=== PATIENT | female | born 1950 | race Caucasian/White ===

== ENCOUNTER → 2020-01-07 10:29 | Outpatient (BNVA) | payer MEDICARE, SELFPAY | PROVIDERS: PCP Internal Medicine; Visit Provider Surgery Vascular Surgery | DX: I73.9 Peripheral vascular disease, unspecified (principal); I65.23 Occlusion and stenosis of bilateral carotid arteries | CPT/HCPCS: 99213 ==

== ENCOUNTER → 2020-02-19 14:04 | Outpatient (BNVA) | payer MEDICARE, SELFPAY | PROVIDERS: PCP Internal Medicine; Visit Provider Nurse Practitioner | DX: K59.04 Chronic idiopathic constipation (principal); K21.9 Gastro-esophageal reflux disease without esophagitis; K29.70 Gastritis, unspecified, without bleeding; I10 Essential (primary) hypertension; F17.210 Nicotine dependence, cigarettes, uncomplicated | CPT/HCPCS: Q3014 ==

== ENCOUNTER 2020-04-27 14:07 | Emergency (ER) | payer MEDICARE, SELFPAY ==
[2020-04-27 14:36] VITALS: BP 129/60; PULSE 64; RESP 16; TEMP 36.6; O2SAT 98; BMI 30.6
[2020-04-27 16:22] VITALS: BP 114/88; PULSE 60; RESP 20; TEMP 36.6; O2SAT 98
--- NOTE | 2020-04-27 17:01 | ED.GENADULT ---
HPI - General Adult General Chief complaint: General Medical Stated complaint: nausea,headache,chest pain,dizzy Time Seen by Provider: 04/27/20 17:01 Source: patient Mode of arrival: ambulatory Limitations: no limitations History of Present Illness HPI narrative: Pleasant 69-year-old female with below past medical history presenting ambulatory via triage with complaint of states since last night has had some runny nose congestion with associated mild cough and chest pain. States that she also had body aches symptoms developed after her granddaughter who was going off to college visit her and tested positive for COVID-19. Chest pain described as a ache like myalgias in the chest and all over. No shortness of breath with exertion. Onset (ago): day(s) Radiation: non-radiation Severity: mild Associated symptoms: cough and headaches Treatments prior to arrival: none Related Data Home Medications Medication Instructions Recorded Confirmed acetaminophen 325 mg tablet 325 mg PO QID PRN 01/07/20 01/07/20 aspirin 81 mg tablet,delayed 81 mg PO DAILY 01/07/20 01/07/20 release atorvastatin 80 mg tablet 80 mg PO BEDTIME 01/07/20 01/07/20 enalapril maleate 10 mg tablet 10 mg PO DAILY 01/07/20 01/07/20 ezetimibe 10 mg tablet 10 mg PO DAILY 01/07/20 01/07/20 ezetimibe 10 mg tablet 10 mg PO DAILY 01/07/20 01/07/20 isosorbide mononitrate 30 mg 30 mg PO DAILY 01/07/20 01/07/20 tablet,extended release 24 hr lidocaine 4 % topical cream 1 applic TOPICAL TID 01/07/20 01/07/20 metoprolol succinate 50 mg 50 mg PO DAILY 01/07/20 01/07/20 tablet,extended release 24 hr ticagrelor 90 mg tablet 90 mg PO BID 01/07/20 01/07/20 Previous Rx's Medication Instructions Recorded famotidine 40 mg tablet 40 mg PO BID #60 tab 02/19/20 methylcellulose (laxative) 500 mg 500 mg PO BID #60 tab 02/19/20 tablet sennosides 8.6 mg tablet 8.6 mg PO DAILY #60 tab 02/19/20 Allergies Allergy/AdvReac Type Severity Reaction Status Date / Time No Known Allergies Allergy Verified 02/19/20 14:07 [No Known Allergies*] Review of Systems Review of Systems: Constitutional: No Weight loss, No Fever, No Chills, No Night Sweats, No Fatigue, No Malaise ENT/Mouth: No Hearing loss, No Ear Pain, No Sinus Pain, No Hoarseness, No sore throat, No Swallowing Difficulty Eyes: No Eye Pain, No Swelling, No Redness, No Foreign Body, No Discharge, No Vision Changes Cardiovascular: No Chest Pain, No Dyspnea on Exertion, No Orthopnea, No Edema, No Palpitations Respiratory: No Sputum, No Wheezing, No Smoke Exposure, No Dyspnea Gastrointestinal: No Nausea, No Vomiting, No Diarrhea, No Constipation, No abdominal Pain, No Hematochezia, No Melena Genitourinary: no irregular bleeding, No Dysuria, No Urinary Frequency, No Hematuria, No Urinary Incontinence, No Urgency, No Flank Pain, No Urinary Flow Changes, No Hesitancy Musculoskeletal: No joint pain, No Myalgias, No Joint Swelling Skin: No Skin Lesions, No rash Neuro: No Weakness, No Numbness, No Paresthesias, No Loss of Consciousness, No Dizziness Psych: No Social Issues Heme/Lymph: No Bruising, No Bleeding,No Lymphadenopathy Endocrine: No Polyuria, No Polydipsia, No Temperature Intolerance Yes all other systems are reviewed and are negative [facility] Past Medical History Medical History (Updated 04/27/20 @ 20:52 by Ish Vick NP) Carotid stenosis, asymptomatic Hypercholesteremia Hypertension PAD (peripheral artery disease) Surgical History (Updated 04/27/20 @ 14:39 by Quincy White) H/O heart artery stent History of esophagogastroduodenoscopy (EGD) Hx laparoscopic cholecystectomy Hx of colonoscopy Hx of heart artery stent Hx of lithotripsy Hx of tubal ligation Hx of varicose vein stripping Family History Family History (Updated 02/19/20 @ 14:13 by NASEEM Clements) Father Emphysema, unspecified Mother Hypertension Brother Liver cancer Daughter Alive and well Social History Social History (Updated 02/19/20 @ 14:10 by NASEEM Clements) Alcohol intake: current Alcohol intake frequency: does not drink Smoking Status: Light tobacco smoker Tobacco Type: Cigarette Advance Directives: No Advance Directives Information Provided: No Physical Exam Vital Signs: Vital Signs: Last Vital Signs Temp 98 F 04/27/20 16:22 Pulse 60 04/27/20 16:22 Resp 20 04/27/20 16:22 BP 114/88 04/27/20 16:22 Pulse Ox 98 04/27/20 16:22 Body Mass Index 30.6 Reviewed Const: General: cooperative and healthy appearing; No acute distress or intoxicated appearing Nutritional Appearance: average body habitus Orientation/consciousness: patient oriented x3 HENMT: Head: Yes normal to inspection Ears: hearing grossly normal bilaterally Eyes: General: appearance normal, both eyes and all related structures Visual Rodriguez: normal visual rodriguez by confrontation Neck: Neck: Yes normal visual inspection, No positive Brudzinski's sign, No positive Kernig's sign and No tender Thyroid: Thyroid normal Chest: Chest palpation & inspection: normal inspection of the chest Resp: Effort & Inspection: normal respiratory effort Auscultation: clear to auscultation bilaterally Cardio: Jugular venous distension: no JVD Rhythm: regular rhythm Heart sounds: S1 normal heart sound present and S2 normal heart sound present GI: Inspection: Yes normal to inspection Percussion: Yes normal to percussion Auscultation: normal bowel sounds : General: Yes no CVA tenderness Back/Spine/Pelvis: Back: no CVA tenderness Skin: General skin exam: no rashes or lesions noted Neuro: General: patient oriented x3 Extrem: General: Yes normal to inspection Course Course Course Narrative: COVID positive. Hemodynamically stable. Pulse ox 98% on room air, not tachycardic. Ambulatory status with gait. Home monitoring, precautions, return instructions clear provided. Feels comfortable plan. Stable for discharge. Medical Decision Making Lab Data Result diagrams: 04/27/20 17:47 04/27/20 17:47 Labs: Lab Results 04/27/20 04/27/20 04/27/20 Range/Units 17:47 17:47 17:47 WBC 4.4 L (4.8-10.8) X10*3/uL RBC 3.90 L (4.20-5.50) X10*6/uL Hgb 11.6 L (12.0-16.0) g/dl Hct 35.3 L (37-47) % MCV 90.5 (80-98) fL MCH 29.7 (27.0-33.0) pg MCHC 32.9 (31.0-35.0) g/dl RDW 13.4 (11.0-16.0) % Plt Count 192 (160-400) X10*3/uL MPV 10.2 (9.4-12.3) fL Immature Gran % (Auto) 1.1 H (0.0-0.4) % Neut % (Auto) 50.6 (45-73) % Lymph % (Auto) 38.3 (20-40) % [place] % (Auto) 9.3 (2-11) % Eos % (Auto) 0.5 (0-4) % Baso % (Auto) 0.2 (0-2) % Lymph # (Auto) 1.7 (1.2-4.9) X10*3/uL [place] # (Auto) 0.4 (0.1-1.2) X10*3/uL Eos # (Auto) 0.0 (0.0-0.4) X10*3/uL Baso # (Auto) 0.0 (0.0-0.2) X10*3/uL Abs Immat Gran (auto) 0.05 H (0.00-0.03) X10*3/uL Absolute Neuts (auto) 2.2 (2.0-8.3) X10*3/uL Absolute Nucleated RBC 0.000 (0.0-0.012) X10*3/uL Nucleated RBC % (auto) 0.0 (0.0-0.2) /100WBC Smear Tech's Comments VERIFIED PT 13.2 H (10.8-13.0) SEC INR 1.1 (0.9-1.1) APTT 33.1 (24.1-38.0) SEC Sodium 137 (135-145) mmol/L Potassium 4.1 (3.3-5.1) mmol/l Chloride 103 (96-108) mmol/L Carbon Dioxide 24 (22-29) mmol/L Anion Gap 14 (12-20) BUN 20 H (9-16) mg/dL Creatinine 0.82 (0.5-1.4) mg/dL Estim Creat Clear Calc 58.5 Estimated GFR > 60 Random Glucose 108 (60-115) mg/dL Calcium 8.4 (8.4-10.2) mg/dL Ferritin (10-250) ng/mL Total Bilirubin 0.5 (0.0-1.0) mg/dL AST 46 H (5-31) U/L ALT 45 H (0-31) U/L Alkaline Phosphatase 92 (39-117) U/L Lactate Dehydrogenase 296 H (122-220) U/L Troponin I High Sens (<3.5-17.0) ng/L C-Reactive Protein 1.55 H (< or = 0.50) mg/dL Total Protein 7.1 (6.5-8.0) g/dL Albumin 3.9 (3.5-5.0) g/dL Procalcitonin ng/mL Coronavirus (PCR) (Negative) Influenza Type A (PCR) (Negative) Influenza Type B (PCR) (Negative) RSV RNA Qual (PCR) (Negative) 04/27/20 04/27/20 04/27/20 Range/Units 17:47 17:47 17:47 WBC (4.8-10.8) X10*3/uL RBC (4.20-5.50) X10*6/uL Hgb (12.0-16.0) g/dl Hct (37-47) % MCV (80-98) fL MCH (27.0-33.0) pg MCHC (31.0-35.0) g/dl RDW (11.0-16.0) % Plt Count (160-400) X10*3/uL MPV (9.4-12.3) fL Immature Gran % (Auto) (0.0-0.4) % Neut % (Auto) (45-73) % Lymph % (Auto) (20-40) % [place] % (Auto) (2-11) % Eos % (Auto) (0-4) % Baso % (Auto) (0-2) % Lymph # (Auto) (1.2-4.9) X10*3/uL [place] # (Auto) (0.1-1.2) X10*3/uL Eos # (Auto) (0.0-0.4) X10*3/uL Baso # (Auto) (0.0-0.2) X10*3/uL Abs Immat Gran (auto) (0.00-0.03) X10*3/uL Absolute Neuts (auto) (2.0-8.3) X10*3/uL Absolute Nucleated RBC (0.0-0.012) X10*3/uL Nucleated RBC % (auto) (0.0-0.2) /100WBC Smear Tech's Comments PT (10.8-13.0) SEC INR (0.9-1.1) APTT (24.1-38.0) SEC Sodium (135-145) mmol/L Potassium (3.3-5.1) mmol/l Chloride (96-108) mmol/L Carbon Dioxide (22-29) mmol/L Anion Gap (12-20) BUN (9-16) mg/dL Creatinine (0.5-1.4) mg/dL Estim Creat Clear Calc Estimated GFR Random Glucose (60-115) mg/dL Calcium (8.4-10.2) mg/dL Ferritin 474 H (10-250) ng/mL Total Bilirubin (0.0-1.0) mg/dL AST (5-31) U/L ALT (0-31) U/L Alkaline Phosphatase (39-117) U/L Lactate Dehydrogenase (122-220) U/L Troponin I High Sens 8.1 (<3.5-17.0) ng/L C-Reactive Protein (< or = 0.50) mg/dL Total Protein (6.5-8.0) g/dL Albumin (3.5-5.0) g/dL Procalcitonin 0.06 ng/mL Coronavirus (PCR) (Negative) Influenza Type A (PCR) (Negative) Influenza Type B (PCR) (Negative) RSV RNA Qual (PCR) (Negative) 04/27/20 04/27/20 Range/Units 18:00 19:43 WBC (4.8-10.8) X10*3/uL RBC (4.20-5.50) X10*6/uL Hgb (12.0-16.0) g/dl Hct (37-47) % MCV (80-98) fL MCH (27.0-33.0) pg MCHC (31.0-35.0) g/dl RDW (11.0-16.0) % Plt Count (160-400) X10*3/uL MPV (9.4-12.3) fL Immature Gran % (Auto) (0.0-0.4) % Neut % (Auto) (45-73) % Lymph % (Auto) (20-40) % [place] % (Auto) (2-11) % Eos % (Auto) (0-4) % Baso % (Auto) (0-2) % Lymph # (Auto) (1.2-4.9) X10*3/uL [place] # (Auto) (0.1-1.2) X10*3/uL Eos # (Auto) (0.0-0.4) X10*3/uL Baso # (Auto) (0.0-0.2) X10*3/uL Abs Immat Gran (auto) (0.00-0.03) X10*3/uL Absolute Neuts (auto) (2.0-8.3) X10*3/uL Absolute Nucleated RBC (0.0-0.012) X10*3/uL Nucleated RBC % (auto) (0.0-0.2) /100WBC Smear Tech's Comments PT (10.8-13.0) SEC INR (0.9-1.1) APTT (24.1-38.0) SEC Sodium (135-145) mmol/L Potassium (3.3-5.1) mmol/l Chloride (96-108) mmol/L Carbon Dioxide (22-29) mmol/L Anion Gap (12-20) BUN (9-16) mg/dL Creatinine (0.5-1.4) mg/dL Estim Creat Clear Calc Estimated GFR Random Glucose (60-115) mg/dL Calcium (8.4-10.2) mg/dL Ferritin (10-250) ng/mL Total Bilirubin (0.0-1.0) mg/dL AST (5-31) U/L ALT (0-31) U/L Alkaline Phosphatase (39-117) U/L Lactate Dehydrogenase (122-220) U/L Troponin I High Sens 7.6 (<3.5-17.0) ng/L C-Reactive Protein (< or = 0.50) mg/dL Total Protein (6.5-8.0) g/dL Albumin (3.5-5.0) g/dL Procalcitonin ng/mL Coronavirus (PCR) POSITIVE A (Negative) Influenza Type A (PCR) NEGATIVE (Negative) Influenza Type B (PCR) NEGATIVE (Negative) RSV RNA Qual (PCR) NEGATIVE (Negative) Imaging Data Chest x-ray: Radiologist's impression: [address] [id number] ReportSigned Patient: Elsy Henry#: [id number]: 1950Acct:[id number]/Sex: 69 / FADM Date: 04/27/20Loc: [address]: Ordering Physician: Ish Vick NP Date of Service: 04/27/20 Procedure(s): XR chest 1V Accession Number(s): [id number] cc: Ish Vick CONTRACT COORDINATOR~ EXAMINATION: XR CHEST CLINICAL INFORMATION: Shortness of breath. Chest pain. COMPARISON: None TECHNIQUE: Frontal portable view of the chest was obtained. 1715 hours FINDINGS: No significant abnormality is noted involving the heart, lungs, mediastinum, bony thorax or soft tissues. XR/XR chest 1V IMPRESSION: Unremarkable examination. Dictated By:STARR CHOPRA MDSigned By:<Electronically signed by STARR CHOPRA MD in OV>04/27/20 1727 DD/ 1703TD/TT: Protocol Officer: GABI ECG Data Interpretation: Normal sinus rhythm Rate 80 MT interval within normal limits No acute ST segment changes Discharge Plan Discharge Clinical Impression: COVID-19 Patient Disposition: Home, Self-Care Additional Instructions: Drink plenty fluids Take medication prescribed Supportive care as discussed Self-isolation Social distancing Monitor oxygen level at home with the oxygen monitor Return to the emergency room if you have any worsening symptoms including shortness of breath or chest pain Thank you Prescriptions: No Action enalapril maleate 10 mg tablet 10 mg PO DAILY RF: 0 atorvastatin 80 mg tablet 80 mg PO BEDTIME RF: 0 ezetimibe [Zetia] 10 mg tablet 10 mg PO DAILY RF: 0 isosorbide mononitrate 30 mg tablet extended release 24 hr 30 mg PO DAILY RF: 0 metoprolol succinate 50 mg tablet extended release 24 hr 50 mg PO DAILY RF: 0 acetaminophen [Tylenol] 325 mg tablet 325 mg PO QID PRNRF: 0 Brilinta 90 mg tablet 90 mg PO BID RF: 0 aspirin 81 mg tablet,delayed release (DR/EC) 81 mg PO DAILY RF: 0 ezetimibe 10 mg tablet 10 mg PO DAILY RF: 0 lidocaine 4 % cream 1 applic topical TID RF: 0 famotidine 40 mg tablet 40 mg PO BID Qty: 60 RF: 6 sennosides [Natural Senna Laxative] 8.6 mg tablet 8.6 mg PO DAILY Qty: 60 RF: 6 Citrucel 500 mg tablet 500 mg PO BID Qty: 60 RF: 6 Referrals: Luz Dill MD [Primary Care Provider] - 5 days (PHONE VISIT)
--- NOTE | 2020-04-27 17:03 | ECG_ITS ---
Test Reason : CHEST PAIN Blood Pressure : / mmHG Vent. Rate : 060 BPM Atrial Rate : 060 BPM P-R Int : 148 ms QRS Dur : 076 ms QT Int : 458 ms P-R-T Axes : 003 048 050 degrees QTc Int : 458 ms Normal sinus rhythm Cannot rule out Anterior infarct , age undetermined Abnormal ECG No previous ECGs available Referred By: Ish Vick Electronically Signed By:Kamaljit Waterman
[2020-04-27 17:56] LABS: Basophils Percent Auto 0.2 % (0-2); Eosinophils Percent Auto 0.5 % (0-4); Hematocrit 35.3 % (37-47); Hemoglobin 11.6 g/dl (12.0-16.0); Imm Gran Abs Auto 0.05 X10*3/uL (0.00-0.03); Imm Gran Pct Auto 1.1 % (0.0-0.4); Lymphocytes Absolute Auto 1.7 X10*3/uL (1.2-4.9); Lymphocytes Percent Auto 38.3 % (20-40); MANUAL DIFF FLAG SCAN; Mean Corpuscular HGB Conc 32.9 g/dl (31.0-35.0); Mean Corpuscular Hemoglobin 29.7 pg (27.0-33.0); Mean Corpuscular Volume 90.5 fL (80-98); Mean Platelet Volume 10.2 fL (9.4-12.3); Monocytes Absolute Auto 0.4 X10*3/uL (0.1-1.2); Monocytes Percent Auto 9.3 % (2-11); Neutrophils Absolute Auto 2.2 X10*3/uL (2.0-8.3); Neutrophils Percent Auto 50.6 % (45-73); Platelet Count 192 X10*3/uL (160-400); Red Cell Distribution Width 13.4 % (11.0-16.0); SCAN SMEAR FLAG 1; White Blood Count 4.4 X10*3/uL (4.8-10.8)
[2020-04-27 18:08] LABS: INTERNATIONAL NORM RATIO 1.1 (0.9-1.1); Prothrombin Time 13.2 SEC (10.8-13.0)
[2020-04-27 18:11] LABS: Partial Thromboplastin Time 33.1 SEC (24.1-38.0)
[2020-04-27 18:18] LABS: SLIDE REVIEW VERIFIED
[2020-04-27 18:19] LABS: Alanine Aminotransferase 45 U/L (0-31); Albumin Level 3.9 g/dL (3.5-5.0); Alkaline Phosphatase 92 U/L (39-117); Anion Gap 14 (12-20); Aspartate Amino Transferase 46 U/L (5-31); Bilirubin Total 0.5 mg/dL (0.0-1.0); Blood Urea Nitrogen 20 mg/dL (9-16); C Reactive Protein 1.55 mg/dL (< or = 0.50); Calcium 8.4 mg/dL (8.4-10.2); Carbon Dioxide 24 mmol/L (22-29); Chloride 103 mmol/L (96-108); Creatinine Clr Calc Pharmacy 58.5; Estimated Glomerular Filt Rate > 60; Glucose Random 108 mg/dL (60-115); Lactate Dehydrogenase 296 U/L (122-220); Potassium 4.1 mmol/l (3.3-5.1); Sodium 137 mmol/L (135-145); Total Protein 7.1 g/dL (6.5-8.0)
[2020-04-27 18:23] LABS: Troponin-I High Sensitivity 8.1 ng/L (<3.5-17.0)
[2020-04-27 18:37] LABS: Procalcitonin 0.06 ng/mL
[2020-04-27 18:38] LABS: Ferritin 474 ng/mL (10-250)
[2020-04-27 19:14] LABS: Influenza A PCR NEGATIVE (Negative); Influenza B PCR NEGATIVE (Negative); Resp Syncy Virus RNA Qual PCR NEGATIVE (Negative); SARS COV2 PCR INHOUSE POSITIVE (Negative)
[2020-04-27 20:21] LABS: Troponin-I High Sensitivity 7.6 ng/L (<3.5-17.0)
== END 2020-04-27 20:59 | disposition home or self-care (01) ==
PROVIDERS: Nurse Practitioner Primary Care; Emergency Provider Internal Medicine; PCP Internal Medicine
DX: U07.1 COVID-19 (principal); I10 Essential (primary) hypertension; F17.210 Nicotine dependence, cigarettes, uncomplicated
CPT/HCPCS: 0241U; 36415; 71045; 80053; 82728; 83615; 84145; 84484; 85025; 85610; 85730; 86140; 93005; 99283; 99284

== ENCOUNTER 2020-05-11 13:55 | Outpatient (REF) | payer MEDICARE, SELFPAY | END 2020-05-11 13:56 | disposition home or self-care (01) | LOC: HO.LAB 13:55 | PROVIDERS: Visit Provider Internal Medicine | DX: Z20.822 Contact with and (suspected) exposure to COVID-19 (principal) | CPT/HCPCS: 36415; C9803; U0003; U0005 ==

== ENCOUNTER 2020-05-14 15:30 | Outpatient (REF) | payer MEDICARE, SELFPAY ==
--- NOTE | ~2020-05-14 | MM_ITS ---
EXAMINATION: MM SCREENING DIGITAL BREAST TOMOSYNTHESIS, BILATERAL CLINICAL INFORMATION: Screening. Asymptomatic. Benign right stereotactic biopsy 02/09/2018 (fibroadenoma with dystrophic calcifications). The lifetime risk of breast cancer based on the Tyrer-Cuzick Model is 4%. COMPARISON: Mammography: 02/25/2019, 02/09/2018, 12/28/2017, 12/14/2017 TECHNIQUE: Digital breast tomosynthesis is performed in both the craniocaudal and mediolateral oblique views along with computer-aided detection (CAD). Synthesized 2D images are generated from the tomosynthesis. FINDINGS: The breasts are heterogeneously dense, which may obscure small masses (ACR BI-RADS breast composition Category c). There is fine fibronodular parenchymal pattern similar to prior studies. No developing density, significant mass, architectural abnormality. No abnormal calcifications. There are 2 biopsy clip markers right breast. No significant changes. MM/MM tomosynthesis screening BI IMPRESSION: No mammographic evidence of malignancy. ASSESSMENT: BI-RADS 2: Benign RECOMMENDATION: Routine annual mammography screening. This patient's information was entered into a reminder system with a target due date for their next mammogram.
== END 2020-05-14 15:31 | disposition home or self-care (01) ==
LOC: HO.MAMMO 15:30
PROVIDERS: Visit Provider Internal Medicine
DX: Z12.31 Encounter for screening mammogram for malignant neoplasm of breast (principal)
CPT/HCPCS: 77063; 77067

== ENCOUNTER → 2020-05-27 09:44 | Outpatient (BNVA) | payer MEDICARE, SELFPAY | PROVIDERS: PCP Internal Medicine; Visit Provider Internal Medicine | DX: I25.10 Atherosclerotic heart disease of native coronary artery without angina pectoris (principal); I73.9 Peripheral vascular disease, unspecified; I10 Essential (primary) hypertension; I65.23 Occlusion and stenosis of bilateral carotid arteries; E78.5 Hyperlipidemia, unspecified | CPT/HCPCS: 99212 ==

== ENCOUNTER 2020-06-09 08:56 | Outpatient (REF) | payer MEDICARE, SELFPAY ==
--- NOTE | ~2020-06-09 | US_ITS ---
EXAMINATION: US ABDOMEN COMPLETE CLINICAL INFORMATION: Abnormal LFTs. Liver mass. COMPARISON: CT abdomen pelvis 10/22/2017. Ultrasound abdomen 04/21/2015. TECHNIQUE: Real-time imaging of the abdominal viscera. FINDINGS: PANCREAS: Visualized portions unremarkable. ABDOMINAL AORTA: Visualized portions unremarkable. INFERIOR VENA CAVA: Visualized portions unremarkable. LIVER: Diffuse increased echotexture without focal abnormality. GALLBLADDER: Surgically absent. COMMON BILE DUCT: Normal in caliber measuring 0.8 cm in diameter. RIGHT KIDNEY: 10.9 cm. Unremarkable. LEFT KIDNEY: 11.1 cm. Unremarkable. SPLEEN: 7.2 cm without focal abnormality. FREE FLUID: None. US/US abdomen complete IMPRESSION: Hepatic steatosis without other significant abnormality in a patient status post cholecystectomy.
--- NOTE | ~2020-06-09 | MM_ITS ---
EXAMINATION: BONE DENSITOMETRY CLINICAL INDICATION: Screening for osteoporosis. COMPARISON: Previous BD dated 12/24/2017 and baseline BD dated 09/25/2014. TECHNIQUE: Using a [employer] Interactive DXA System (software version: 13.1) manufactured by [employer], dual-energy x-ray absorptiometry was performed of the lumbar spine and left hip. The images are of good technical quality. Summary results are attached. FINDINGS: AP SPINE L1-L4: Current: BMD 1.248 g/cm2, Z-score 1.8, T-score 0.6, normal, 6.6% increase from previous, 8.0% increase from baseline (<5% change is not significant). Prior: BMD 1.171 g/cm2. Baseline: BMD 1.156 g/cm2. LEFT FEMUR, NECK: Current: BMD 0.900 g/cm2, Z-score 0.4, T-score -1.0, normal. Prior: BMD 0.880 g/cm2. Baseline: BMD 0.910 g/cm2. LEFT FEMUR, TOTAL: Current: BMD 0.976 g/cm2, Z-score 0.9, T-score -0.3, normal, 3.8% increase from previous, 0.2% increase from baseline (<5% change is not significant). Prior: BMD 0.940 g/cm2. Baseline: BMD 0.974 g/cm2. IDENTIFIED RISK FACTORS: Early menopause, secondary osteoporosis. HISTORY OF FRACTURE: None listed. MEDICATIONS: Calcium supplements or multivitamin, vitamin D. MM/XR DEXA axial skeleton IMPRESSION: 1. DIAGNOSIS: Normal bone density based on the lowest T-score value of -1.0 in the femoral neck applying World Health Organization criteria. 2. 10-YEAR FRACTURE RISK PREDICTION, FRAX: Major osteoporotic fracture (clinical spine, forearm, hip or shoulder) 4.7%. Hip fracture 0.5%. 3. Treatment Recommendations: NOF guidelines recommend consideration for treatment in postmenopausal women and men age 50 and older presenting with the following: -A hip or vertebral (clinical or morphometric) fracture. -T-score less than or equal to -2.5 at the femoral neck or spine after appropriate evaluation to exclude secondary causes. -Low bone mass at the hip or spine and a 10-year fracture probability by FRAX of greater than or equal to 3% for hip fracture or greater than or equal to 20% for major osteoporotic fracture based on the [place] adapted WHO algorithm. 4. Other Recommendations: All treatment decisions require clinical judgment and consideration of individual patient factors, including patient preferences, comorbidities, previous drug use, risk factors not captured in the FRAX model (e.g. frailty, falls, vitamin D deficiency, increased bone turnover, interval significant decline in bone density) and possible under or overestimation of fracture risk by FRAX. FUTURE SCAN RECOMMENDATION: People with diagnosed cases of osteoporosis or at high risk for fracture should have regular bone mineral density tests. For patients eligible for Medicare, routine testing is allowed once every 2 years. The testing frequency can be increased to one year for patients who have rapidly progressing disease, those who are receiving or discontinuing medical therapy to restore bone mass, or have additional risk factors.
== END 2020-06-09 08:57 | disposition home or self-care (01) ==
LOC: HO.US 08:56
PROVIDERS: PCP Internal Medicine; Visit Provider Internal Medicine
DX: Z13.820 Encounter for screening for osteoporosis (principal); Z78.0 Asymptomatic menopausal state; Z79.899 Other long term (current) drug therapy; R16.0 Hepatomegaly, not elsewhere classified; R79.89 Other specified abnormal findings of blood chemistry; M19.90 Unspecified osteoarthritis, unspecified site
CPT/HCPCS: 76700; 77080

== ENCOUNTER 2020-06-22 16:30 | Emergency (ER) | payer MEDICARE, SELFPAY ==
[2020-06-22] VITALS (7 sets, daily range): BP systolic 88–117; BP diastolic 39–65; PULSE 64–76; RESP 16–18; TEMP 36.7; O2SAT 96–97; BMI 32.1
--- NOTE | 2020-06-22 17:48 | ECG_ITS ---
Test Reason : HYPOTENSIVE Blood Pressure : / mmHG Vent. Rate : 066 BPM Atrial Rate : 066 BPM P-R Int : 174 ms QRS Dur : 078 ms QT Int : 446 ms P-R-T Axes : 064 063 077 degrees QTc Int : 467 ms Normal sinus rhythm Nonspecific T wave abnormality Abnormal ECG When compared with ECG of 27-APR-2020 14:17, Nonspecific T wave abnormality now evident in Anterolateral leads Referred By: Berny Cancino Electronically Signed By:TALI EPSTEIN
--- NOTE | 2020-06-22 17:48 | ED.GENADULT ---
HPI - General Adult General Chief complaint: Dizziness Stated complaint: low bp Time Seen by Provider: 06/22/20 17:40 Source: patient and family Mode of arrival: ambulatory Limitations: no limitations History of Present Illness HPI narrative: Patient history of hypertension doing fine missed her medication for blood pressure in the morning so she took it around 1400 which includes enalapril 10 mg and metoprolol 50 mg also she took her Imdur 30 mg within an hour of taking the medication patient was feeling dizzy lightheaded [employer] check the blood pressure was 60/40 then patient had abdominal cramping had 2 big bowel movements nauseated and vomited 1 time at this time patient is feeling weak no significant abdominal pain no chest pain no palpitation patient was COVID positive on 04/27/20 Onset (ago): hour(s) Related Data Home Medications Medication Instructions Recorded Confirmed acetaminophen 325 mg tablet 325 mg PO QID PRN 01/07/20 05/27/20 aspirin 81 mg tablet,delayed 81 mg PO DAILY 01/07/20 05/27/20 release atorvastatin 80 mg tablet 80 mg PO BEDTIME 01/07/20 05/27/20 enalapril maleate 10 mg tablet 10 mg PO DAILY 01/07/20 05/27/20 ezetimibe 10 mg tablet 10 mg PO DAILY 01/07/20 05/27/20 isosorbide mononitrate 30 mg 30 mg PO DAILY 01/07/20 05/27/20 tablet,extended release 24 hr lidocaine 4 % topical cream 1 applic TOPICAL TID 01/07/20 05/27/20 metoprolol succinate 50 mg 50 mg PO DAILY 01/07/20 05/27/20 tablet,extended release 24 hr Previous Rx's Medication Instructions Recorded famotidine 40 mg tablet 40 mg PO BID #60 tab 02/19/20 methylcellulose (laxative) 500 mg 500 mg PO BID #60 tab 02/19/20 tablet sennosides 8.6 mg tablet 8.6 mg PO DAILY #60 tab 02/19/20 Allergies Allergy/AdvReac Type Severity Reaction Status Date / Time No Known Allergies Allergy Verified 02/19/20 14:07 [No Known Allergies*] Review of Systems Review of Systems: Constitutional : No Weight loss, No Fever, No Chills ENT/Mouth : No sore throat, No Rhinorrhea Eyes: No Eye Pain, No Swelling Cardiovascular : No Chest Pain, no palpitations Respiratory : No Cough, No Sputum, no shortness of breath Gastrointestinal : + Nausea, + Vomiting, No Diarrhea, No abdominal Pain, no black stools Genitourinary : No Dysuria, No Urinary Frequency Musculoskeletal : No joint pain, No Myalgias, No Joint Swelling Skin : No Skin Lesions, No rash Neuro : ++Weakness, No Numbness, + Dizziness, No Headache Psych : No Anxiety/Panic, No Depression Heme/Lymph: No Bruising, No Lymphadenopathy Endocrine : No Polyuria, No Polydipsia All other systems reviewed and are negative [facility] Past Medical History Medical History Atherosclerotic cardiovascular disease Carotid stenosis, asymptomatic Essential hypertension Hypercholesteremia Hypertension Other and unspecified hyperlipidemia PAD (peripheral artery disease) Peripheral vascular disease Surgical History H/O heart artery stent History of esophagogastroduodenoscopy (EGD) Hx laparoscopic cholecystectomy Hx of colonoscopy Hx of heart artery stent Hx of lithotripsy Hx of tubal ligation Hx of varicose vein stripping Family History Family History Father Emphysema, unspecified Mother Hypertension Brother Liver cancer Daughter Alive and well Social History Social History Alcohol intake: current Alcohol intake frequency: does not drink Smoking Status: Former smoker Tobacco Type: Cigarette Smoked in Last 30 Days: No Use of substances other than those prescribed or required for medical reasons: No Advance Directives: No Advance Directives Information Provided: Yes Physical Exam Vital Signs: Vital Signs: Last Vital Signs Temp 98.0 F 06/22/20 17:03 Pulse 64 06/22/20 21:01 Resp 18 06/22/20 17:58 BP 108/57 L 06/22/20 21:01 Pulse Ox 97 06/22/20 17:58 Body Mass Index 32.1 Appearance: Alert. Oriented X3. No acute distress. Feels weak Eyes: Pupils equal, round and reactive to light. ENT: Pharynx normal. Neck: Normal inspection. Neck supple. CVS: Normal heart rate and rhythm. Pulses normal. Respiratory: No respiratory distress. Breath sounds normal. Abdomen: Soft and nontender. Bowel sounds are present, no mass palpable, no CVA tenderness Skin: Skin warm and dry. Normal skin color. Normal skin turgor. Extremities: No lower extremity edema. Neuro: Oriented X 3. No motor deficit. No sensory deficit. Medical Decision Making MDM Narrative Medical decision making narrative: Patient with some weakness with hypotension etiology not very clear patient denied extra dose of medication ? Possible vasovagal with abdominal cramping will give her IV fluids check the labs Repeat orthostatics are normal after IV fluids normal lactic acid blood cultures were done, UA is negative will discharge patient home Lab Data Lab results reviewed: Yes I reviewed the patient's lab results. Result diagrams: 06/22/20 18:09 06/22/20 18:54 Labs: Lab Results 06/22/20 06/22/20 06/22/20 Range/Units 18:09 18:09 18:09 WBC 12.3 H (4.8-10.8) X10*3/uL RBC 3.93 L (4.20-5.50) X10*6/uL Hgb 12.0 (12.0-16.0) g/dl Hct 36.0 L (37-47) % MCV 91.6 (80-98) fL MCH 30.5 (27.0-33.0) pg MCHC 33.3 (31.0-35.0) g/dl RDW 13.2 (11.0-16.0) % Plt Count 282 D (160-400) X10*3/uL MPV 9.9 (9.4-12.3) fL Immature Gran % (Auto) 0.7 H (0.0-0.4) % Neut % (Auto) 74.5 H (45-73) % Lymph % (Auto) 16.3 L (20-40) % [place] % (Auto) 6.3 (2-11) % Eos % (Auto) 1.5 (0-4) % Baso % (Auto) 0.7 (0-2) % Lymph # (Auto) 2.0 (1.2-4.9) X10*3/uL [place] # (Auto) 0.8 (0.1-1.2) X10*3/uL Eos # (Auto) 0.2 (0.0-0.4) X10*3/uL Baso # (Auto) 0.1 (0.0-0.2) X10*3/uL Abs Immat Gran (auto) 0.09 H (0.00-0.03) X10*3/uL Absolute Neuts (auto) 9.1 H (2.0-8.3) X10*3/uL Absolute Nucleated RBC 0.020 H (0.0-0.012) X10*3/uL Nucleated RBC % (auto) 0.2 (0.0-0.2) /100WBC PT 13.1 H (10.8-13.0) SEC INR 1.1 (0.9-1.1) Sodium (135-145) mmol/L Potassium (3.3-5.1) mmol/L Chloride (96-108) mmol/L Carbon Dioxide (22-29) mmol/L Anion Gap (12-20) BUN (9-16) mg/dL Creatinine (0.5-1.4) mg/dL Estim Creat Clear Calc Estimated GFR POC Glucose (60-115) mg/dL Random Glucose (60-115) mg/dL Lactic Acid 1.9 (0.5-2.0) mmol/L Calcium (8.4-10.2) mg/dL Total Bilirubin (0.0-1.0) mg/dL Direct Bilirubin (0.0-0.5) mg/dL AST (5-31) U/L ALT (0-31) U/L Alkaline Phosphatase (39-117) U/L Troponin I High Sens (<3.5-17.0) ng/L Total Protein (6.5-8.0) g/dL Albumin (3.5-5.0) g/dL Urine Color Urine Appearance Urine pH (5.0-8.0) Ur Specific [place] (1.005-1.025) Urine Protein (NEG-TRACE) MG/DL Urine Glucose (UA) (NEG) MG/DL Urine Ketones (NEG) MG/DL Urine Blood (NEG) Urine Nitrite (NEG) Ur Leukocyte Esterase (NEG) 06/22/20 06/22/20 06/22/20 Range/Units 18:09 18:23 18:54 WBC (4.8-10.8) X10*3/uL RBC (4.20-5.50) X10*6/uL Hgb (12.0-16.0) g/dl Hct (37-47) % MCV (80-98) fL MCH (27.0-33.0) pg MCHC (31.0-35.0) g/dl RDW (11.0-16.0) % Plt Count (160-400) X10*3/uL MPV (9.4-12.3) fL Immature Gran % (Auto) (0.0-0.4) % Neut % (Auto) (45-73) % Lymph % (Auto) (20-40) % [place] % (Auto) (2-11) % Eos % (Auto) (0-4) % Baso % (Auto) (0-2) % Lymph # (Auto) (1.2-4.9) X10*3/uL [place] # (Auto) (0.1-1.2) X10*3/uL Eos # (Auto) (0.0-0.4) X10*3/uL Baso # (Auto) (0.0-0.2) X10*3/uL Abs Immat Gran (auto) (0.00-0.03) X10*3/uL Absolute Neuts (auto) (2.0-8.3) X10*3/uL Absolute Nucleated RBC (0.0-0.012) X10*3/uL Nucleated RBC % (auto) (0.0-0.2) /100WBC PT (10.8-13.0) SEC INR (0.9-1.1) Sodium 140 (135-145) mmol/L Potassium 4.8 (3.3-5.1) mmol/L Chloride 103 (96-108) mmol/L Carbon Dioxide 27 (22-29) mmol/L Anion Gap 15 (12-20) BUN 25 H (9-16) mg/dL Creatinine 1.19 (0.5-1.4) mg/dL Estim Creat Clear Calc 40.7 Estimated GFR 45 POC Glucose 121 H (60-115) mg/dL Random Glucose 124 H (60-115) mg/dL Lactic Acid (0.5-2.0) mmol/L Calcium 9.2 D (8.4-10.2) mg/dL Total Bilirubin 0.6 (0.0-1.0) mg/dL Direct Bilirubin 0.2 (0.0-0.5) mg/dL AST 18 D (5-31) U/L ALT 16 (0-31) U/L Alkaline Phosphatase 62 D (39-117) U/L Troponin I High Sens 4.9 (<3.5-17.0) ng/L Total Protein 7.4 (6.5-8.0) g/dL Albumin 4.1 (3.5-5.0) g/dL Urine Color Urine Appearance Urine pH (5.0-8.0) Ur Specific [place] (1.005-1.025) Urine Protein (NEG-TRACE) MG/DL Urine Glucose (UA) (NEG) MG/DL Urine Ketones (NEG) MG/DL Urine Blood (NEG) Urine Nitrite (NEG) Ur Leukocyte Esterase (NEG) 06/22/20 Range/Units 20:43 WBC (4.8-10.8) X10*3/uL RBC (4.20-5.50) X10*6/uL Hgb (12.0-16.0) g/dl Hct (37-47) % MCV (80-98) fL MCH (27.0-33.0) pg MCHC (31.0-35.0) g/dl RDW (11.0-16.0) % Plt Count (160-400) X10*3/uL MPV (9.4-12.3) fL Immature Gran % (Auto) (0.0-0.4) % Neut % (Auto) (45-73) % Lymph % (Auto) (20-40) % [place] % (Auto) (2-11) % Eos % (Auto) (0-4) % Baso % (Auto) (0-2) % Lymph # (Auto) (1.2-4.9) X10*3/uL [place] # (Auto) (0.1-1.2) X10*3/uL Eos # (Auto) (0.0-0.4) X10*3/uL Baso # (Auto) (0.0-0.2) X10*3/uL Abs Immat Gran (auto) (0.00-0.03) X10*3/uL Absolute Neuts (auto) (2.0-8.3) X10*3/uL Absolute Nucleated RBC (0.0-0.012) X10*3/uL Nucleated RBC % (auto) (0.0-0.2) /100WBC PT (10.8-13.0) SEC INR (0.9-1.1) Sodium (135-145) mmol/L Potassium (3.3-5.1) mmol/L Chloride (96-108) mmol/L Carbon Dioxide (22-29) mmol/L Anion Gap (12-20) BUN (9-16) mg/dL Creatinine (0.5-1.4) mg/dL Estim Creat Clear Calc Estimated GFR POC Glucose (60-115) mg/dL Random Glucose (60-115) mg/dL Lactic Acid (0.5-2.0) mmol/L Calcium (8.4-10.2) mg/dL Total Bilirubin (0.0-1.0) mg/dL Direct Bilirubin (0.0-0.5) mg/dL AST (5-31) U/L ALT (0-31) U/L Alkaline Phosphatase (39-117) U/L Troponin I High Sens (<3.5-17.0) ng/L Total Protein (6.5-8.0) g/dL Albumin (3.5-5.0) g/dL Urine Color YELLOW Urine Appearance CLEAR Urine pH 5.5 (5.0-8.0) Ur Specific [place] 1.010 (1.005-1.025) Urine Protein TRACE (NEG-TRACE) MG/DL Urine Glucose (UA) NEG (NEG) MG/DL Urine Ketones NEG (NEG) MG/DL Urine Blood NEG (NEG) Urine Nitrite NEG (NEG) Ur Leukocyte Esterase NEG (NEG) ECG Data Attestation: I personally reviewed and interpreted this ECG as follows: Interpretation: Normal sinus rhythm heart rate 66 beats per minute nonspecific ST T wave changes normal axis normal intervals impression no acute ischemia Discharge Plan Discharge Clinical Impression: Vasovagal episode Patient Disposition: Home, Self-Care Instructions: Hypotension (ED) Additional Instructions: Check blood pressure before taking the medication your transient low blood pressure is likely from vasovagal episode. Drink plenty of fluid Report to the ER if high fever or low blood pressure continues Prescriptions: No Action enalapril maleate 10 mg tablet 10 mg PO DAILY RF: 0 atorvastatin 80 mg tablet 80 mg PO BEDTIME RF: 0 ezetimibe [Zetia] 10 mg tablet 10 mg PO DAILY RF: 0 isosorbide mononitrate 30 mg tablet extended release 24 hr 30 mg PO DAILY RF: 0 metoprolol succinate 50 mg tablet extended release 24 hr 50 mg PO DAILY RF: 0 acetaminophen [Tylenol] 325 mg tablet 325 mg PO QID PRNRF: 0 aspirin 81 mg tablet,delayed release (DR/EC) 81 mg PO DAILY RF: 0 lidocaine 4 % cream 1 applic topical TID RF: 0 famotidine 40 mg tablet 40 mg PO BID Qty: 60 RF: 6 sennosides [Natural Senna Laxative] 8.6 mg tablet 8.6 mg PO DAILY Qty: 60 RF: 6 Citrucel 500 mg tablet 500 mg PO BID Qty: 60 RF: 6 Stand Alone Forms: Work/School Release Interventions: ED Discharge Assessment Last Done: 06/22/20 21:42 Discharge Date/Time: 06/22/20 21:43
[2020-06-22 18:15] LABS: Basophils Absolute Auto 0.1 X10*3/uL (0.0-0.2); Basophils Percent Auto 0.7 % (0-2); Eosinophils Absolute Auto 0.2 X10*3/uL (0.0-0.4); Eosinophils Percent Auto 1.5 % (0-4); Imm Gran Abs Auto 0.09 X10*3/uL (0.00-0.03); Imm Gran Pct Auto 0.7 % (0.0-0.4); Lymphocytes Percent Auto 16.3 % (20-40); MANUAL DIFF FLAG NO; Mean Corpuscular HGB Conc 33.3 g/dl (31.0-35.0); Mean Corpuscular Hemoglobin 30.5 pg (27.0-33.0); Mean Corpuscular Volume 91.6 fL (80-98); Mean Platelet Volume 9.9 fL (9.4-12.3); Monocytes Absolute Auto 0.8 X10*3/uL (0.1-1.2); Monocytes Percent Auto 6.3 % (2-11); NRBC Pct Auto 0.2 /100WBC (0.0-0.2); Neutrophils Absolute Auto 9.1 X10*3/uL (2.0-8.3); Neutrophils Percent Auto 74.5 % (45-73); Platelet Count 282 X10*3/uL (160-400); Red Blood Count 3.93 X10*6/uL (4.20-5.50); Red Cell Distribution Width 13.2 % (11.0-16.0); White Blood Count 12.3 X10*3/uL (4.8-10.8)
[2020-06-22] MEDS: ondansetron HCL 4 MG/2 ML VIAL IVPUSH (18:27)
[2020-06-22] MEDS: 0.9 % Sodium Chloride 1,000 ML 999 ML IVCONT (18:27)
[2020-06-22 18:28] LABS: Glucose, Whole Blood 121 mg/dL (60-115)
[2020-06-22 18:30] LABS: Lactic Acid 1.9 mmol/L (0.5-2.0)
--- NOTE | 2020-06-22 18:30 | PC.NURSE ---
Kang contacted for redraw on chemistry. Swapna from lab confirmed that phlebotomy would be sent.
[2020-06-22 18:41] LABS: Troponin-I High Sensitivity 4.9 ng/L (<3.5-17.0)
[2020-06-22 18:47] LABS: INTERNATIONAL NORM RATIO 1.1 (0.9-1.1); Prothrombin Time 13.1 SEC (10.8-13.0)
[2020-06-22 19:37] LABS: Alanine Aminotransferase 16 U/L (0-31); Albumin Level 4.1 g/dL (3.5-5.0); Alkaline Phosphatase 62 U/L (39-117); Anion Gap 15 (12-20); Aspartate Amino Transferase 18 U/L (5-31); Bilirubin Direct 0.2 mg/dL (0.0-0.5); Bilirubin Total 0.6 mg/dL (0.0-1.0); Blood Urea Nitrogen 25 mg/dL (9-16); Calcium 9.2 mg/dL (8.4-10.2); Carbon Dioxide 27 mmol/L (22-29); Chloride 103 mmol/L (96-108); Creatinine Clr Calc Pharmacy 40.7; Estimated Glomerular Filt Rate 45; Glucose Random 124 mg/dL (60-115); Potassium 4.8 mmol/L (3.3-5.1); Sodium 140 mmol/L (135-145); Total Protein 7.4 g/dL (6.5-8.0)
[2020-06-22 20:55] LABS: Glucose Urine UA NEG (NEG); Leukocyte Esterase Urine NEG (NEG); Nitrite Urine NEG (NEG); PH 5.5 (5.0-8.0); Urine Blood NEG (NEG); Urine Ketones NEG (NEG); Urine Protein TRACE MG/DL (NEG-TRACE)
[2020-06-22 21:00] LABS: Appearance Urine CLEAR; Color Urine YELLOW
== END 2020-06-22 21:43 | disposition home or self-care (01) ==
PROVIDERS: Emergency Provider Internal Medicine; PCP Internal Medicine
DX: R42 Dizziness and giddiness (principal); I10 Essential (primary) hypertension; Z79.899 Other long term (current) drug therapy; Z86.16 Personal history of COVID-19; Z87.891 Personal history of nicotine dependence; Z79.82 Long term (current) use of aspirin
CPT/HCPCS: 36415; 80048; 80076; 81003; 82947; 83605; 84484; 85025; 85610; 87040; 93005; 96365; 96366; 96375; 99284; J2405

== ENCOUNTER 2020-07-02 09:28 | Outpatient (REF) | payer MEDICARE, SELFPAY ==
--- NOTE | ~2020-07-02 | XR_ITS ---
EXAMINATION: XR CHEST CLINICAL INFORMATION: Shortness of breath COMPARISON: 04/27/2020 TECHNIQUE: 2 views of the chest were obtained. FINDINGS: The lungs are well expanded. There is no focal consolidation, edema, or effusion. No pneumothorax. The cardiomediastinal silhouette is within normal limits. No acute osseous abnormality. XR/XR chest 2V IMPRESSION: Clear lungs.
[2020-07-02 10:58] LABS: MANUAL DIFF FLAG NO
[2020-07-02 11:08] LABS: Basophils Absolute Auto 0.1 X10*3/uL (0.0-0.2); Basophils Percent Auto 0.8 % (0-2); Eosinophils Absolute Auto 0.4 X10*3/uL (0.0-0.4); Eosinophils Percent Auto 4.1 % (0-4); Hematocrit 37.3 % (37-47); Hemoglobin 11.9 g/dl (12.0-16.0); Imm Gran Abs Auto 0.04 X10*3/uL (0.00-0.03); Imm Gran Pct Auto 0.5 % (0.0-0.4); Lymphocytes Absolute Auto 2.7 X10*3/uL (1.2-4.9); Lymphocytes Percent Auto 31.2 % (20-40); Mean Corpuscular HGB Conc 31.9 g/dl (31.0-35.0); Mean Corpuscular Hemoglobin 29.6 pg (27.0-33.0); Mean Corpuscular Volume 92.8 fL (80-98); Mean Platelet Volume 10.1 fL (9.4-12.3); Monocytes Absolute Auto 0.7 X10*3/uL (0.1-1.2); Monocytes Percent Auto 8.1 % (2-11); Neutrophils Absolute Auto 4.7 X10*3/uL (2.0-8.3); Neutrophils Percent Auto 55.3 % (45-73); Platelet Count 291 X10*3/uL (160-400); Red Blood Count 4.02 X10*6/uL (4.20-5.50); Red Cell Distribution Width 13.3 % (11.0-16.0); White Blood Count 8.6 X10*3/uL (4.8-10.8)
[2020-07-02 11:57] LABS: Alanine Aminotransferase 16 U/L (0-31); Albumin Level 4.3 g/dL (3.5-5.0); Alkaline Phosphatase 65 U/L (39-117); Aspartate Amino Transferase 16 U/L (5-31); Bilirubin Direct 0.2 mg/dL (0.0-0.5); Bilirubin Total 0.5 mg/dL (0.0-1.0); Cholesterol 188 mg/dL; HDL Cholesterol 44 mg/dL; LDL Cholesterol Calculated 119 mg/dl; Triglycerides 129 mg/dL
== END 2020-07-02 09:29 | disposition home or self-care (01) ==
LOC: HO.LAB 09:28
PROVIDERS: PCP Internal Medicine; Visit Provider Internal Medicine
DX: R06.02 Shortness of breath (principal); R79.89 Other specified abnormal findings of blood chemistry
CPT/HCPCS: 36415; 71046; 80061; 80076; 85025

== ENCOUNTER 2020-07-14 09:34 | Outpatient (REF) | payer MEDICARE, SELFPAY ==
--- NOTE | ~2020-07-14 | US_ITS ---
EXAMINATION: US NONINVASIVE ASSESSMENT OF THE BILATERAL LOWER EXTREMITY WITH ARTERIAL DUPLEX AND ANKLE BRACHIAL INDICES (ABIS) CLINICAL INFORMATION: Hypertension, hyperlipidemia, diabetes, history of bypass graft in 2014 COMPARISON: Bilateral lower extremity duplex and TYLER on 12/23/2019 TECHNIQUE: Duplex Doppler techniques with waveform analysis and measurement of velocities in the common femoral, profunda femoris, superficial femoral, popliteal and tibial arteries were performed. In addition, ankle pulse volume recordings, ankle pressure measurements and ankle brachial indices were obtained of the bilateral lower extremity arterial system. The study was performed only at rest. FINDINGS: NONINVASIVE ASSESSMENT OF THE ARTERIES OF BILATERAL LOWER EXTREMITIES WITH ABIs: RIGHT LEG: Ankle-brachial index: 0.59 Ankle PVR: Significantly dampened LEFT LEG: Ankle-brachial index: 0.88 Left ankle PVR: Normal TYLER Reference: 0.9 - 1.4 = normal - no significant arterial disease 0.7 - 0.89 = mild peripheral arterial disease 0.51 - 0.69 = moderate peripheral arterial disease ? 0.50 = severe peripheral arterial disease RIGHT LOWER EXTREMITY DUPLEX ULTRASOUND: Redemonstration of an occluded bypass graft from the right external iliac artery to the superficial femoral artery. There is a second bypass graft extending from the mid/distal superficial femoral artery to the posterior tibial artery. Common femoral artery: 98.2 cm/s. Diastolic flow reversal: Yes Profunda femoris artery: 90.9 cm/s. Diastolic flow reversal: No Superficial femoral artery (proximal): Occluded Superficial femoral artery (mid): Occluded Superficial femoral artery (distal): Occluded Monophasic flow throughout the mid SFA to proximal posterior tibial artery bypass graft. Popliteal artery: 42.8 cm/s Diastolic flow reversal: None Posterior tibial artery: 45 cm/s Diastolic flow reversal: No LEFT LOWER EXTREMITY DUPLEX ULTRASOUND: Common femoral artery: 141 cm/s. Diastolic flow reversal: Yes Profunda femoris artery: 51 cm/s. Diastolic flow reversal: No Superficial femoral artery (proximal): 124 cm/s. Diastolic flow reversal: Yes Superficial femoral artery (mid): 81 cm/s. Diastolic flow reversal: Yes Superficial femoral artery (distal): 109 cm/s. Diastolic flow reversal: Yes Popliteal artery: 70 cm/s Diastolic flow reversal: Yes Posterior tibial artery: 93 cm/s Diastolic flow reversal: Yes US/US arterial duplex LE BI IMPRESSION: 1. Right ABR: 0.59. Significantly dampened PVR. 2. Left ABR: 0.88. Normal PVR. 3. Redemonstration of occluded bypass graft from the right external iliac artery to the SFA. Monophasic flow within the right mid SFA-posterior tibial artery bypass graft.
== END 2020-07-14 09:35 | disposition home or self-care (01) ==
LOC: HO.US 09:34
PROVIDERS: Visit Provider Surgery Vascular Surgery
DX: I73.9 Peripheral vascular disease, unspecified (principal); I70.213 Atherosclerosis of native arteries of extremities with intermittent claudication, bilateral legs
CPT/HCPCS: 93923; 93925

== ENCOUNTER → 2020-07-31 13:22 | Outpatient (BNVA) | payer MEDICARE, SELFPAY | PROVIDERS: PCP Internal Medicine; Visit Provider Internal Medicine Pulmonary Disease | DX: J44.9 Chronic obstructive pulmonary disease, unspecified (principal); R06.00 Dyspnea, unspecified | CPT/HCPCS: 99202 ==

== ENCOUNTER → 2020-08-18 13:52 | Outpatient (BNVA) | payer MEDICARE, SELFPAY | PROVIDERS: PCP Internal Medicine; Visit Provider Nurse Practitioner | DX: Z12.11 Encounter for screening for malignant neoplasm of colon (principal); K59.04 Chronic idiopathic constipation; K21.9 Gastro-esophageal reflux disease without esophagitis; K29.70 Gastritis, unspecified, without bleeding | CPT/HCPCS: 99212 ==

== ENCOUNTER 2020-08-19 09:02 | Outpatient (REF) | payer MEDICARE, SELFPAY ==
--- NOTE | 2020-08-19 10:01 | PFT_ITS ---
Forced vital capacity is normal. FEV1 is within normal limits but FEV1/FVC ratio is slightly decreased. [id number] moderately reduced. MVV is normal. There is no response to bronchodilator therapy. Total lung capacity normal. Residual volume slightly decreased. Diffusion capacity is moderately decreased. CONCLUSION: Mild obstructive airway disorder. No response to bronchodilator therapy. MD MACO Keith/LILLYL / [phone]
== END 2020-08-19 09:03 | disposition home or self-care (01) ==
LOC: HO.RESP 09:02
PROVIDERS: PCP Internal Medicine; Visit Provider Internal Medicine Pulmonary Disease
DX: J44.9 Chronic obstructive pulmonary disease, unspecified (principal); R06.00 Dyspnea, unspecified
CPT/HCPCS: 94060; 94727; 94729; 99212

== ENCOUNTER → 2020-09-15 13:43 | Outpatient (BNVA) | payer MEDICARE, SELFPAY | PROVIDERS: PCP Internal Medicine; Visit Provider Surgery Vascular Surgery | DX: I73.9 Peripheral vascular disease, unspecified (principal) | CPT/HCPCS: 99212 ==

== ENCOUNTER 2020-10-01 12:46 | Outpatient (REF) | payer MEDICARE, SELFPAY ==
--- NOTE | ~2020-10-01 | US_ITS ---
EXAMINATION: US THYROID CLINICAL INFORMATION: Other specified disorders of the thyroid. COMPARISON: None TECHNIQUE: Linear transducer grayscale and color Doppler examination with attention to the region of the thyroid. FINDINGS: SIZE: Measurements of the thyroid lobes and nodules are given in sagittal, anteroposterior and transverse dimensions respectively. Right Thyroid Lobe: 3.5 x 1.8 x 1.3 cm, volume 4.3 mL. Parenchyma: The gland echotexture is heterogeneous. Thyroid vascularity is normal. Left Thyroid Lobe: 3.7 x 1.2 x 1.6 cm, volume 3.7 mL. Parenchyma: The gland echotexture is heterogeneous. Thyroid vascularity is normal. Isthmus: 0.2 cm in maximum AP dimension. Estimated total number of nodules greater than or equal to 1 cm: 0. Industrial Sociologist nodules are described as follows: 1. Location: Left mid. Size: 0.4 x 0.3 x 0.2 cm, volume 0.01 mL. Nodule characteristics: Composition: Solid/almost completely solid (2). Echogenicity: Isoechoic (1). Shape: Not taller than wide (0). Margins: Smooth (0). Echogenic Foci: None (0). ACR TI-RADS total points: 3 ACR TI-RADS category: 3 NODES: No lymphadenopathy is seen in the tissue surrounding the thyroid gland. US/US thyroid IMPRESSION: Small thyroid gland. Small left thyroid nodule. This does not meet TI RADS criteria for fine-needle aspiration or follow-up. ACR TI-RADS RECOMMENDATION REFERENCE: Ultrasound-guided fine-needle aspiration, followup ultrasound, no further follow up. * TR1 (0 point) and TR 2 (2 points): No FNA or follow up * TR3 (3 points): FNA if more than or equal to 2.5 cm in maximum dimension, followup ultrasound in 1, 3 and 5 years if 1.5 to 2.4 cm in maximum dimension. * TR4 (4-6 points): FNA if more than or equal to 1.5 cm in maximum dimension, followup ultrasound in 1, 2, 3 and 5 years if 1 to 1.4 cm in maximum dimension. * TR5 (more than or equal to 7 points): FNA if more than or equal to 1 cm in maximum dimension, followup ultrasound every year for 5 years if 0.5 to 0.9 cm in maximum dimension. * TR3, TR4 or TR5 nodules that are below the size threshold for follow up receive no follow up.
== END 2020-10-01 12:47 | disposition home or self-care (01) ==
LOC: HO.US 12:46
PROVIDERS: PCP Pediatrics; Visit Provider Pediatrics
DX: E07.89 Other specified disorders of thyroid (principal)
CPT/HCPCS: 76536

== ENCOUNTER → 2020-11-10 10:59 | Outpatient (BNVA) | payer MEDICARE, SELFPAY | PROVIDERS: PCP Pediatrics; Referring Provider Internal Medicine; Visit Provider Internal Medicine | DX: I25.10 Atherosclerotic heart disease of native coronary artery without angina pectoris (principal); I73.9 Peripheral vascular disease, unspecified; I10 Essential (primary) hypertension; I65.23 Occlusion and stenosis of bilateral carotid arteries; E78.5 Hyperlipidemia, unspecified | CPT/HCPCS: 99212 ==

== ENCOUNTER → 2020-12-11 09:53 | Outpatient (BNVA) | payer MEDICARE, SELFPAY | PROVIDERS: PCP Pediatrics; Visit Provider Internal Medicine Pulmonary Disease | DX: J44.9 Chronic obstructive pulmonary disease, unspecified (principal) | CPT/HCPCS: 99212 ==

== ENCOUNTER → 2021-03-23 11:46 | Outpatient (BNVA) | payer MEDICARE, SELFPAY | PROVIDERS: PCP Pediatrics; Referring Provider Internal Medicine; Visit Provider Nurse Practitioner | DX: Z12.11 Encounter for screening for malignant neoplasm of colon (principal); K21.9 Gastro-esophageal reflux disease without esophagitis; K59.04 Chronic idiopathic constipation | CPT/HCPCS: 99212 ==

== ENCOUNTER 2021-03-24 13:20 | Outpatient (REF) | payer MEDICARE, SELFPAY ==
--- NOTE | ~2021-03-24 | US_ITS ---
EXAMINATION: COLOR-FLOW DUPLEX IMAGING OF THE BILATERAL LOWER EXTREMITY ARTERIAL SYSTEM. VELOCITY MEASUREMENTS THROUGHOUT THE FEMORAL ARTERIES WITH ANKLE-BRACHIAL PERIPHERAL ARTERIAL TESTING. Interventional Radiologist: Santiago Sosa M.D., F.S.I.R., F.A.C.R. CLINICAL INFORMATION: This is a 70-year-old female with history of hypertension, hyperlipidemia, diabetes, vascular surgery. Peripheral arterial disease. COMPARISON: Comparison is made to the previous study dated 07/14/2020. This demonstrated an ankle-brachial index of 0.59 on the right ankle-brachial index of 0.88 on the left. RIGHT FEMORAL RUNOFF VELOCITIES: The right common femoral artery measures 181 cm/s and triphasic. There 2 right lower extremity bypass grafts Bypass graft #1: Inflow artery: 129 cm/s and triphasic. Proximal anastomosis: Occluded Proximal bypass graft: Occluded Mid bypass graft: Occluded Distal bypass graft: Occluded Distal anastomosis: 386 cm/s and monophasic. A full artery: 50 cm/s and monophasic. Bypass graft #2: Inflow artery: 35 cm/s and monophasic. Proximal anastomosis: 54 cm/s and monophasic. Proximal bypass graft: 29 cm/s and monophasic. Mid bypass graft: 32 cm/s and monophasic. Distal bypass graft: 30 cm/s and monophasic. Distal anastomosis: 21 cm/s and monophasic. Outflow artery: 36 cm/s and monophasic. The left ankle brachial index is 0.75. LEFT FEMORAL RUNOFF VELOCITIES: The left common femoral artery measures 122 cm/s and triphasic. The right profunda femoral artery is 46 cm/s and is biphasic. Right proximal superficial femoral artery measures 105 cm/s and triphasic. Mid superficial femoral artery is 82 cm/s and triphasic. Distal right superficial femoral artery measures 97 cm/s and is triphasic. Right popliteal velocity measures 67 cm/s and is biphasic triphasic. The posterior tibial artery velocity measures 55 cm/s and was monophasic. The left ankle-brachial index is 0.99. US/US arterial duplex LE BI IMPRESSION: 1 RIGHT SIDE: There is an occluded bypass graft present. There is a second bypass graft which has low velocities and monophasic flow. There is a decreased right ankle-brachial index consistent with hemodynamically significant disease in the right lower extremity. There appears to be some worsening of the disease when compared to the previous study. 2. LEFT SIDE: There is no focal hemodynamically significant stenosis in the left runoff.
== END 2021-03-24 13:21 | disposition home or self-care (01) ==
LOC: HO.US 13:20
PROVIDERS: PCP Internal Medicine; Visit Provider Surgery Vascular Surgery
DX: I73.9 Peripheral vascular disease, unspecified (principal)
CPT/HCPCS: 93923; 93925

== ENCOUNTER → 2021-03-25 14:08 | Outpatient (BNVA) | payer MEDICARE, SELFPAY | PROVIDERS: PCP Pediatrics; Visit Provider Surgery Vascular Surgery | DX: I73.9 Peripheral vascular disease, unspecified (principal) | CPT/HCPCS: 99212 ==

== ENCOUNTER 2021-03-31 06:43 | Day surgery (SDC) | payer MEDICARE, SELFPAY ==
[2021-03-31] VITALS (9 sets, daily range): BP systolic 89–113; BP diastolic 48–60; PULSE 61–68; RESP 16–18; TEMP 37.1–37.2; O2SAT 95–96; BMI 31.0
[2021-03-31 08:04] LABS: MANUAL DIFF FLAG NO
[2021-03-31 08:06] LABS: Basophils Absolute Auto 0.1 X10*3/uL (0.0-0.2); Basophils Percent Auto 0.8 % (0-2); Eosinophils Absolute Auto 0.3 X10*3/uL (0.0-0.4); Eosinophils Percent Auto 2.8 % (0-4); Hematocrit 40.9 % (37.0-47.0); Hemoglobin 13.3 g/dl (12.0-16.0); Imm Gran Abs Auto 0.06 X10*3/uL (0.00-0.03); Imm Gran Pct Auto 0.6 % (0.0-0.4); Lymphocytes Absolute Auto 3.1 X10*3/uL (1.2-4.9); Lymphocytes Percent Auto 29.6 % (20-40); Mean Corpuscular HGB Conc 32.5 g/dl (31.0-35.0); Mean Corpuscular Hemoglobin 29.7 pg (27.0-33.0); Mean Corpuscular Volume 91.3 fL (80.0-98.0); Mean Platelet Volume 10.3 fL (9.4-12.3); Monocytes Absolute Auto 0.9 X10*3/uL (0.1-1.2); Monocytes Percent Auto 8.4 % (2-11); Neutrophils Percent Auto 57.8 % (45-73); Platelet Count 281 X10*3/uL (160-400); Red Blood Count 4.48 X10*6/uL (4.20-5.50); Red Cell Distribution Width 12.6 % (11.0-16.0); White Blood Count 10.4 X10*3/uL (4.8-10.8)
[2021-03-31 08:18] LABS: Blood Urea Nitrogen 15 mg/dL (9-16); Creatinine Clr Calc Pharmacy 57.4; Estimated Glomerular Filt Rate > 60
[2021-03-31] MEDS: 0.9 % Sodium Chloride 1,000 ML 100 ML IVCONT (10:30)
--- NOTE | 2021-03-31 11:54 | P.OP_ITS ---
Operative Note Operative Note Date of Service: 03/31/21 Narrative: Angiogram report from [facility] Preoperative diagnosis: Atherosclerosis of right lower extremity with activity limiting claudication Postoperative diagnosis: Same Procedure: 1. Ultrasound-guided left common femoral access 2. Aortogram with right lower extremity runoff Surgeon:Jae Heredia M.D., FACS, RPVI Pot Maker:None Anesthesia: Local with moderate conscious sedation. Total intraservice moderate sedation time was 29 minutes. I monitored the patient's level of consciousness and physiologic status continuously throughout the procedure. Specimens:none Drains:none Estimated blood loss: Less than 10 ml Implant: None Indications: 70-year-old female with history of prior endovascular intervention and bypass at outside institution on surveillance follow-up was found to have some stenosis. She now presents for endovascular intervention. The patient has signed the informed consent after reviewing risks, complications, benefits, and alternatives previously discussed with the patient. The patient was given the opportunity to ask any additional questions or voice any concerns. All question s were answered to the patient's satisfaction. Procedure in detail: Patient was brought to the angiography suite prior to which a time-out was called for patient identification and site verification. Bilateral groins were prepped and draped in the standard surgical fashion. Under ultrasound guidance left common femoral was punctured with micro puncture needle and wire. Subsequently a precision 4 [place] sheath was then placed. Bentson wire was advanced to the level of the aorta. 4 [place] Flush catheter was brought up and parked at the level of the renal arteries. Aortogram was then undertaken. Catheter was brought down to the level of the iliac bifurcation. Iliacs were subsequently imaged. Catheter was then brought in up and over to the right side iliac Runoff study was then undertaken. No intervention was indicated. States catheter wire sheath was removed. Direct pressure was used for hemostasis. Patient tolerated the procedure well. Interpretation of films: 1. Ultrasound demonstrates appropriate femoral puncture. Image of which was saved. 2. Aortogram demonstrates appropriate caliber aorta. Minimal disease. A ppropriate take-off of the renals. 3. Iliac images demonstrate tortuosity of iliacs no significant disease 4. Right Leg Common femoral artery: No significant disease Profundus Femoris: No significant disease - large Superficial femoral artery: Total occlusion with a spot patent area which is coming off the bypass. There are a total of 10 occluded stents Popliteal artery (p1,p2,p3): Occluded Anterior tibial artery: Occluded Peroneal artery: Patent fed via collateral Posterior tibial artery: Bypass attaches to the posterior tibial Dorsalis pedis/plantar arch: Intact 5. Distal SFA to posterior tibial bypass which appears to be vein appears to be patent. Miraculously is survived via a collateral off the profundus. SFA his total occlusion. Graft appears patent and viable. Tenuous inflow of this graft. Conclusion: 1. Patent graft no intervention indicated 2. Anticoagulation status: No change This note is constructed using voice recognition software. While every effort has been made to ensure accuracy, senior research fellow errors may have been included. Thank you for allowing me to participate in the care of your patient. Yours sincerely, Jae Heredia MD, FACS, R.P.V.I.
[2021-03-31] MEDS: iohexoL 300 MG/ML 50 ML INFUS..BTL IV (12:22)
== END 2021-03-31 14:54 | disposition home or self-care (01) ==
PROVIDERS: PCP Internal Medicine; Visit Provider Surgery Vascular Surgery
DX: I70.211 Atherosclerosis of native arteries of extremities with intermittent claudication, right leg (principal); Z86.718 Personal history of other venous thrombosis and embolism; I25.10 Atherosclerotic heart disease of native coronary artery without angina pectoris; Z98.61 Coronary angioplasty status; I10 Essential (primary) hypertension; E78.5 Hyperlipidemia, unspecified
CPT/HCPCS: 36246; 36415; 75630; 76937; 82565; 84520; 85025; 99152; 99153; C1887; J2250; J3010; Q9967

== ENCOUNTER → 2021-04-13 09:33 | Outpatient (BNVA) | payer MEDICARE, SELFPAY | PROVIDERS: PCP Internal Medicine; Visit Provider Internal Medicine Pulmonary Disease | DX: J44.9 Chronic obstructive pulmonary disease, unspecified (principal); Z23 Encounter for immunization | CPT/HCPCS: 90471; 90686; 99212 ==

== ENCOUNTER → 2021-04-20 15:25 | Outpatient (BNVA) | payer OTHER, SELFPAY | PROVIDERS: PCP Internal Medicine; Visit Provider Surgery Vascular Surgery | DX: I73.9 Peripheral vascular disease, unspecified (principal) | CPT/HCPCS: 99212 ==

== ENCOUNTER → 2021-05-18 11:15 | Outpatient (BNVA) | payer MEDICARE, SELFPAY | PROVIDERS: PCP Internal Medicine; Referring Provider Internal Medicine; Visit Provider Internal Medicine | DX: I25.10 Atherosclerotic heart disease of native coronary artery without angina pectoris (principal); I73.9 Peripheral vascular disease, unspecified; I10 Essential (primary) hypertension; E78.5 Hyperlipidemia, unspecified; I65.23 Occlusion and stenosis of bilateral carotid arteries; Z79.82 Long term (current) use of aspirin; Z79.899 Other long term (current) drug therapy | CPT/HCPCS: 93005; 99212 ==

== ENCOUNTER → 2021-06-07 13:07 | Outpatient (REF) | payer MEDICARE, SELFPAY | LOC: HO.SL 13:07 | PROVIDERS: PCP Internal Medicine; Visit Provider Internal Medicine | DX: G47.33 Obstructive sleep apnea (adult) (pediatric) (principal); I25.10 Atherosclerotic heart disease of native coronary artery without angina pectoris | CPT/HCPCS: 95806 ==

== ENCOUNTER → 2021-06-24 08:54 | Outpatient (REF) | payer MEDICARE, SELFPAY ==
--- NOTE | ~2021-06-24 | NM_ITS ---
Myocardial perfusion study Indication: Precordial chest pain to evaluate for myocardial ischemia Technique: The patient was brought in for a Lexiscan perfusion study on 06/24/2021. Patient performed low-level exercise and was injected 0.4 mg of Lexiscan intravenously. Within a minute of injection, 30 mCi of sestamibi was given intravenously. Images were obtained using the SPECT gamma camera interlaced with the gating device. Images were obtained in supine position. Resting perfusion study was performed on 06/25/2021. Patient was administered 30 mCi of sestamibi intravenously at rest. Images were then obtained in supine position. Images obtained with and without CT attenuation. Total DLP 106 mGy-cm. Images were processed with the software and compared side to side in short axis, horizontal long axis and vertical long axis views. Findings: The stress perfusion study showed non attenuated images show diffuse minimal reduction of uptake in all segments. This is most likely related to shifting. There is severely reduced uptake in the basal inferior wall of the LV myocardium. Attenuation corrected images show normal uptake of radiotracer in all segments of LV myocardium. There is suggestion of left apical hypertrophy. The gated study shows normal LV systolic function with calculated LVEF of 70%. LV cavity is normal in size. The gated study shows normal systolic wall thickening and contraction of segments. Resting study shows no clear change in perfusion pattern compared to stress perfusion study. Gating at rest reveals normal systolic wall motion with ejection fraction at 57%. The findings are consistent with likely normal myocardial perfusion. NM/NM cardiolite stress test Impression: 1. Myocardial perfusion imaging study shows likely normal myocardial perfusion 2. Gated LVEF is 70% 3. Transient ischemic dilatation not present EKG is nondiagnostic for ischemia
--- NOTE | 2021-06-24 08:58 | CA_ITS ---
Acquisition Time: 2021-06-24 09:49:18 Total Exercise Time: 00:02:00 Test Indications: Chest Pain Medications: SEE H Protocol: LEXISCAN Max HR: 086 BPM 58% of Pred: 148 BPM Max BP: 122/078 mmHG Max Work Load: 1.0 METS Pharmacological stress test with Lexiscan injection, while sitting and kicking her legs, with report of chest tightness and sob post injection, without arrythmia, with normotensive response to injection, with nondiagnostic EKG for ischemia. In revoery she was teated with Aminophylline 75mg IVP to reverse Lexiscan with resolution of symptoms. Nuclear images pending. Test reviewed with Dr Waterman. Referred By: Rusty Dunn Overread By: BHARATHI LILLY
== END ==
LOC: HO.CARD 08:54
PROVIDERS: Visit Provider Internal Medicine
DX: R07.2 Precordial pain (principal); I25.119 Atherosclerotic heart disease of native coronary artery with unspecified angina pectoris
CPT/HCPCS: 78452; 93017; A9500; J0280; J2785

== ENCOUNTER → 2021-07-06 13:50 | Outpatient (REF) | payer OTHER, SELFPAY ==
--- NOTE | 2021-07-06 13:54 | CA_ITS ---
Transthoracic Echocardiogram Patient (Last, First, Middle): Marlena Henry, Gender: Female Date of : 1950 Age: 71 Procedure Date: 07/06/2021 Procedure Type: Transthoracic Echocardiogram Location: OP Height: 154.94 cm Weight: 81.65 kg BSA: 1.81 m2 Heart Rate: bpm BP: 130 / 70 mmHg Engine Dynamometer Tester: CORNELL Najera MD: Rusty Dunn MD Grape Grower: Krzysztof Castellanos MD Symptoms: I25.10 - Atherosclerotic heart disease of [place] coronary... Study Quality: Fair ECG Rhythm: Sinus Conclusions: - 1. Normal LV systolic function with grade 1 diastolic dysfunction 2. Moderate mitral calcification with normal cardiac valvular Doppler 3. Normal RV systolic pressure 4. No gross pericardial effusion Findings Left Ventricle Normal left ventricular size, thickness, and systolic function. The visually estimated ejection fraction is between 60-65%. Spectral Doppler is indicative of an impaired relaxation filling pattern. E/E prime ratio is <8, consistent with normal filling pressures. Right Ventricle Normal right ventricular cavity size and systolic function. Atria The left atrium is normal in size. There is no evidence of interatrial shunt. The right atrium is normal in size. Aortic Valve There is mild calcification of the aortic valve. There is no aortic valve stenosis. There is no aortic valve regurgitation. Mitral Valve There is mild anterior and moderate posterior mitral leaflet thickening. There is moderate mitral annular calcification. There is trace mitral valve regurgitation. There is no mitral valve stenosis. Pulmonic Valve The pulmonic valve is likely normal. There is trace pulmonic valve regurgitation. Tricuspid Valve Normal tricuspid valve structure. There is trace tricuspid valve regurgitation. The right ventricular systolic pressure is normal. The right ventricular systolic pressure is 15 mmHg. Normal right atrial pressure. There is no evidence of pulmonary hypertension. Great Vessels All visible segments of the aorta are normal in size. The pulmonary artery was not well visualized. Venous The inferior vena cava is normal in size and collapses greater than 50% with inspiration. Pericardium/Pleural There is no evidence of pericardial effusion. Prior Study Comparison No significant change compared to prior study dated: 11/06/2019. Measurements 2D Linear Measurements IVSd: 0.82 0.6-0.9/0.6-1.0 cm LVIDd: 4.09 3.9-5.3/4.2-5.9 cm LVIDd Index: 2.26 2.4-3.2/2.2-3.1 cm/m2 LVIDs: 2.59 2.0-3.6 cm LVPWd: 0.98 0.7-1.1 cm LA Diam: 3.10 2.7-3.8/3.0-4.0 cm LAIDs Index: 1.71 1.5-2.3 cm/m2 LV Mass: 142.22 67-162/88-224 g LV Mass Index: 78.58 43-95/49-115 g/m2 LVOT Diam: 2.00 3.0+(-)1.3 cm 2D Systolic Function EF 4C: 59.90 >55% EF 2C: 67.40 >55% EF BiP: 63.30 >55% Mitral Valve MV Pk E: 0.70 MV PK A: 1.04 MV Decel Time: 278.00 E/A: 0.70 E'Lateral: 8.27 E'Medial: 6.53 E/E' Med: 10.80 E/E' Lat: 8.50 PHT: 81.00 MVA PHT: 2.72 Decel [place]: 2.53 Aortic Valve AoV Pk Onel: 1.54 AoV Mn Onel: 1.06 AoV VTI: 0.24 AoV Pk Grad: 9.00 Aov Mn Grad: 5.00 SERVANDO Cont.VTI: 2.54 LVOT LVOT Pk Onel: 1.25 LVOT Mn Onel: 0.77 LVOT VTI: 0.19 LVOT Pk Grad: 6.00 LVOT Mn Grad: 3.00 LVOT Diam: 2.00 LVOT Area: 3.14 Diastolic Function MV Pk E: 0.70 MV Pk A: 1.04 E/A: 0.70 E'Medial: 6.53 E/E' Med: 10.80 E' Laterial: 8.27 E/E' Lat: 8.50 Right Ventricle TAPSE (mm): 17.30 TVS' Onel: 11.50 Tricuspid Valve TR Pk Onel: 1.29 TR Pk Grad: 7.00 RA Press: 8.00 RVSP: 15.00 Great Vessels Aorta Sinus of Valsalva: 2.97 2.0-3.[address] Ridge: 2.36 1.7-3.4 cm Ao Asc: 2.80 2.1-3.4 cm Ao Arch: 2.40 Updated in Other Vendor System with Status of Final Krzysztof Castellanos MD electronically signed on 07/07/2021 3:35:38 PM with status of Final
== END ==
LOC: HO.CARD 13:50
PROVIDERS: Visit Provider Internal Medicine
DX: I25.10 Atherosclerotic heart disease of native coronary artery without angina pectoris (principal)
CPT/HCPCS: 93306

== ENCOUNTER → 2021-07-27 13:01 | Outpatient (BNVA) | payer OTHER, SELFPAY | PROVIDERS: PCP Internal Medicine; Referring Provider Internal Medicine; Visit Provider Internal Medicine | DX: I25.10 Atherosclerotic heart disease of native coronary artery without angina pectoris (principal); I73.9 Peripheral vascular disease, unspecified; I10 Essential (primary) hypertension; E78.5 Hyperlipidemia, unspecified; Z79.82 Long term (current) use of aspirin; Z79.899 Other long term (current) drug therapy | CPT/HCPCS: 99212 ==

== ENCOUNTER 2021-09-02 13:25 | Outpatient (REF) | payer OTHER, SELFPAY ==
[2021-09-02 14:31] LABS: Alanine Aminotransferase 45 U/L (0-31); Albumin Level 4.2 g/dL (3.5-5.0); Alkaline Phosphatase 82 U/L (39-117); Aspartate Amino Transferase 35 U/L (5-31); Bilirubin Direct 0.2 mg/dL (0.0-0.5); Bilirubin Total 0.5 mg/dL (0.0-1.0); Cholesterol 223 mg/dL; HDL Cholesterol 42 mg/dL; LDL Cholesterol Calculated 143 mg/dl; Total Protein 8.1 g/dL (6.5-8.0); Triglycerides 194 mg/dL
== END 2021-09-02 13:26 | disposition home or self-care (01) ==
LOC: HO.LAB 13:25
PROVIDERS: PCP Family Medicine; Visit Provider Internal Medicine
DX: I25.10 Atherosclerotic heart disease of native coronary artery without angina pectoris (principal); E78.5 Hyperlipidemia, unspecified
CPT/HCPCS: 36415; 80061; 80076

== ENCOUNTER → 2021-09-21 13:38 | Outpatient (BNVA) | payer OTHER, SELFPAY | PROVIDERS: PCP Family Medicine; Referring Provider Pediatrics; Visit Provider Nurse Practitioner | DX: K59.04 Chronic idiopathic constipation (principal); K21.9 Gastro-esophageal reflux disease without esophagitis; Z79.899 Other long term (current) drug therapy | CPT/HCPCS: 99212 ==

== ENCOUNTER → 2021-10-22 13:35 | Outpatient (BNVA) | payer OTHER, SELFPAY | PROVIDERS: PCP Family Medicine | DX: N32.81 Overactive bladder (principal) | CPT/HCPCS: 99202 ==

== ENCOUNTER 2021-11-03 13:59 | Outpatient (REF) | payer OTHER, SELFPAY ==
--- NOTE | ~2021-11-03 | US_ITS ---
EXAMINATION: COLOR-FLOW DUPLEX IMAGING OF THE BILATERAL LOWER EXTREMITY ARTERIAL SYSTEM. VELOCITY MEASUREMENTS THROUGHOUT THE FEMORAL ARTERIES WITH ANKLE-BRACHIAL PERIPHERAL ARTERIAL TESTING. Interventional Radiologist: Santiago Sosa M.D., F.S.I.R., F.A.C.R. CLINICAL INFORMATION: This is a 71-year-old female with hypertension, hyperlipidemia, diabetes, vascular surgery, peripheral arterial disease. COMPARISON: Comparison is made to the previous studies dated 07/14/2020 and 03/24/2021. RIGHT FEMORAL RUNOFF VELOCITIES: The right common femoral artery measures 101 cm and monophasic. Previously this measured 181 cm/s and triphasic. The redding superficial femoral artery is occluded. There 2 right lower extremity bypass grafts Bypass graft #1: Inflow artery: 106 cm/s and monophasic. Proximal anastomosis: Occluded Proximal bypass graft: Occluded Mid bypass graft: Occluded Distal bypass graft: Occluded. This graft was occluded on the previous study. Bypass graft #2: Proximal anastomosis: 88 cm/s and monophasic. Proximal bypass graft: 83 cm/s and monophasic. Mid bypass graft: 56 cm/s and monophasic. Distal bypass graft: 44 cm/s and monophasic. Distal anastomosis: 43 cm/s and monophasic. Outflow artery: 50 cm/s and monophasic. The right ankle-brachial index is 0.66. Previously, the right ankle-brachial index measures 0.75. The left ankle brachial index is 1.05. Previously, this measured 0.99. LEFT FEMORAL RUNOFF VELOCITIES: The left common femoral artery measures 133 cm/s and triphasic. Previously, 122 cm/s and triphasic. The left profunda femoral artery is 63 cm/s and triphasic. Previously, 46 cm/s and is biphasic. Left proximal superficial femoral artery measures 135 cm/s and triphasic. Previously, 105 cm/s and triphasic. Mid superficial femoral artery is 104 cm/s and triphasic. Previously, 82 cm/s and triphasic. Distal left superficial femoral artery measures 119 cm/s and biphasic. Previously, 97 cm/s and is triphasic. Left popliteal velocity measures 123 cm/s and biphasic. 67 cm/s and is biphasic triphasic. The posterior tibial artery velocity measures 94 cm/s and biphasic. Previously, 55 cm/s and was monophasic. US/US TYLER complete IMPRESSION: 1. 1 RIGHT SIDE: There is an occluded bypass graft present which appears unchanged.. There is a second bypass graft which has low velocities and monophasic flow. There is a decreased right ankle-brachial index consistent with hemodynamically significant disease in the right lower extremity. There appears to be some worsening of the disease when compared to the previous study. 2. LEFT SIDE: There is no focal hemodynamically significant stenosis in the left runoff.
--- NOTE | ~2021-11-03 | US_ITS ---
EXAMINATION: COLOR-FLOW DUPLEX IMAGING OF THE BILATERAL LOWER EXTREMITY ARTERIAL SYSTEM. VELOCITY MEASUREMENTS THROUGHOUT THE FEMORAL ARTERIES WITH ANKLE-BRACHIAL PERIPHERAL ARTERIAL TESTING. Interventional Radiologist: Santiago Sosa M.D., F.S.I.R., F.A.C.R. CLINICAL INFORMATION: This is a 71-year-old female with hypertension, hyperlipidemia, diabetes, vascular surgery, peripheral arterial disease. COMPARISON: Comparison is made to the previous studies dated 07/14/2020 and 03/24/2021. RIGHT FEMORAL RUNOFF VELOCITIES: The right common femoral artery measures 101 cm and monophasic. Previously this measured 181 cm/s and triphasic. The [place] superficial femoral artery is occluded. There 2 right lower extremity bypass grafts Bypass graft #1: Inflow artery: 106 cm/s and monophasic. Proximal anastomosis: Occluded Proximal bypass graft: Occluded Mid bypass graft: Occluded Distal bypass graft: Occluded. This graft was occluded on the previous study. Bypass graft #2: Proximal anastomosis: 88 cm/s and monophasic. Proximal bypass graft: 83 cm/s and monophasic. Mid bypass graft: 56 cm/s and monophasic. Distal bypass graft: 44 cm/s and monophasic. Distal anastomosis: 43 cm/s and monophasic. Outflow artery: 50 cm/s and monophasic. The right ankle-brachial index is 0.66. Previously, the right ankle-brachial index measures 0.75. The left ankle brachial index is 1.05. Previously, this measured 0.99. LEFT FEMORAL RUNOFF VELOCITIES: The left common femoral artery measures 133 cm/s and triphasic. Previously, 122 cm/s and triphasic. The left profunda femoral artery is 63 cm/s and triphasic. Previously, 46 cm/s and is biphasic. Left proximal superficial femoral artery measures 135 cm/s and triphasic. Previously, 105 cm/s and triphasic. Mid superficial femoral artery is 104 cm/s and triphasic. Previously, 82 cm/s and triphasic. Distal left superficial femoral artery measures 119 cm/s and biphasic. Previously, 97 cm/s and is triphasic. Left popliteal velocity measures 123 cm/s and biphasic. 67 cm/s and is biphasic triphasic. The posterior tibial artery velocity measures 94 cm/s and biphasic. Previously, 55 cm/s and was monophasic. US/US arterial duplex LE BI IMPRESSION: 1. 1 RIGHT SIDE: There is an occluded bypass graft present which appears unchanged.. There is a second bypass graft which has low velocities and monophasic flow. There is a decreased right ankle-brachial index consistent with hemodynamically significant disease in the right lower extremity. There appears to be some worsening of the disease when compared to the previous study. 2. LEFT SIDE: There is no focal hemodynamically significant stenosis in the left runoff.
== END 2021-11-03 14:00 | disposition home or self-care (01) ==
LOC: HO.US 13:59
PROVIDERS: Visit Provider Surgery Vascular Surgery
DX: I73.9 Peripheral vascular disease, unspecified (principal)
CPT/HCPCS: 93923; 93925

== ENCOUNTER → 2021-11-16 10:45 | Outpatient (BNVA) | payer OTHER, SELFPAY | PROVIDERS: PCP Family Medicine; Visit Provider Surgery Vascular Surgery | DX: I73.9 Peripheral vascular disease, unspecified (principal); Z79.82 Long term (current) use of aspirin; Z79.899 Other long term (current) drug therapy | CPT/HCPCS: 99212 ==

== ENCOUNTER → 2022-01-18 13:47 | Outpatient (BNVA) | payer OTHER, SELFPAY | PROVIDERS: PCP Family Medicine; Referring Provider Family Medicine; Visit Provider Internal Medicine | DX: I25.10 Atherosclerotic heart disease of native coronary artery without angina pectoris (principal); I73.9 Peripheral vascular disease, unspecified; I10 Essential (primary) hypertension; E78.5 Hyperlipidemia, unspecified | CPT/HCPCS: 93005; 99212 ==

== ENCOUNTER → 2022-02-04 09:45 | Outpatient (BNVA) | payer OTHER, SELFPAY | PROVIDERS: PCP Family Medicine; Visit Provider Nurse Practitioner | DX: Z12.11 Encounter for screening for malignant neoplasm of colon (principal); K21.9 Gastro-esophageal reflux disease without esophagitis; K59.04 Chronic idiopathic constipation | CPT/HCPCS: 99212 ==

== ENCOUNTER → 2022-05-12 08:47 | Outpatient (BNVA) | payer OTHER, SELFPAY | PROVIDERS: PCP Family Medicine; Visit Provider Nurse Practitioner | DX: R19.5 Other fecal abnormalities (principal); K21.9 Gastro-esophageal reflux disease without esophagitis; K59.04 Chronic idiopathic constipation | CPT/HCPCS: 99212 ==

== ENCOUNTER 2022-06-23 10:09 | Outpatient (REF) | payer OTHER, SELFPAY ==
--- NOTE | ~2022-06-23 | US_ITS ---
EXAMINATION: ANKLE-BRACHIAL INDICES SINGLE LEVEL PULSE VOLUME RECORDING ARTERIAL DUPLEX BILATERAL LEGS CLINICAL INFORMATION: Peripheral vascular disease. COMPARISON: 11/03/2021. TECHNIQUE: Ankle-brachial indices and PVR at the ankle were obtained. Duplex Doppler of the bilateral lower extremity arterial systems was performed. FINDINGS: RIGHT: Ankle-brachial index: 0.74 (previous 0.66). PVR: Mildly abnormal Common femoral: PSV 141 cm/s. Triphasic waveform. Deep femoral: PSV 129 cm/s. Triphasic waveform. Proximal superficial femoral: Occluded. Mid superficial femoral: Occluded. Distal superficial femoral: Occluded. Popliteal: Occluded. Posterior tibial: PSV 62 cm/s. Monophasic waveform. Peroneal: Not seen. Bypass graft #1: CUSTOMER RESPONSE REPRESENTATIVE to popliteal. Chronically occluded. Unchanged from prior. Bypass graft #2: Mid femoral to posterior tibial artery. Inflow artery: PSV 56 cm/s. Monophasic waveform. Proximal anastomosis: PSV 64 cm/s. Monophasic waveform. Proximal graft: PSV 61 cm/s. Monophasic waveform. Mid graft: PSV 46 cm/s. Monophasic waveform. Distal graft: PSV 34 cm/s. Monophasic waveform. Distal anastomosis: PSV 46 cm/s. Monophasic waveform. Outflow artery: PSV 47 cm/s. Monophasic waveform. LEFT: Ankle-brachial index: 1.09 (previous 1.05). PVR: Normal Common femoral: PSV 155 cm/s. Triphasic waveform. Deep femoral: PSV 66 cm/s. Biphasic waveform. Proximal superficial femoral: PSV 136 cm/s. Triphasic waveform. Mid superficial femoral: PSV 104 cm/s. Triphasic waveform. Distal superficial femoral: PSV 97 cm/s. Triphasic waveform. Popliteal: PSV 97 cm/s. Triphasic waveform. Posterior tibial: PSV 86 cm/s. Triphasic waveform. Peroneal: PSV 53 cm/s. Biphasic waveform. US/US TYLER complete IMPRESSION: RIGHT: Ankle-brachial index 0.74 (improved compared to 0.66) with mildly abnormal PVR. Chronically occluded superficial femoral artery. Chronically occluded femoral to popliteal bypass graft. Patent mid femoral to posterior tibial bypass graft with monophasic waveforms throughout. The appearance is similar to the prior study. LEFT: Ankle-brachial index 1.09 (stable compared to 1.05) with normal PVR. No focal hemodynamically significant stenosis visible. The appearance is similar to the prior study.
--- NOTE | ~2022-06-23 | US_ITS ---
EXAMINATION: ANKLE-BRACHIAL INDICES SINGLE LEVEL PULSE VOLUME RECORDING ARTERIAL DUPLEX BILATERAL LEGS CLINICAL INFORMATION: Peripheral vascular disease. COMPARISON: 11/03/2021. TECHNIQUE: Ankle-brachial indices and PVR at the ankle were obtained. Duplex Doppler of the bilateral lower extremity arterial systems was performed. FINDINGS: RIGHT: Ankle-brachial index: 0.74 (previous 0.66). PVR: Mildly abnormal Common femoral: PSV 141 cm/s. Triphasic waveform. Deep femoral: PSV 129 cm/s. Triphasic waveform. Proximal superficial femoral: Occluded. Mid superficial femoral: Occluded. Distal superficial femoral: Occluded. Popliteal: Occluded. Posterior tibial: PSV 62 cm/s. Monophasic waveform. Peroneal: Not seen. Bypass graft #1: PLASTER DIE MAKER to popliteal. Chronically occluded. Unchanged from prior. Bypass graft #2: Mid femoral to posterior tibial artery. Inflow artery: PSV 56 cm/s. Monophasic waveform. Proximal anastomosis: PSV 64 cm/s. Monophasic waveform. Proximal graft: PSV 61 cm/s. Monophasic waveform. Mid graft: PSV 46 cm/s. Monophasic waveform. Distal graft: PSV 34 cm/s. Monophasic waveform. Distal anastomosis: PSV 46 cm/s. Monophasic waveform. Outflow artery: PSV 47 cm/s. Monophasic waveform. LEFT: Ankle-brachial index: 1.09 (previous 1.05). PVR: Normal Common femoral: PSV 155 cm/s. Triphasic waveform. Deep femoral: PSV 66 cm/s. Biphasic waveform. Proximal superficial femoral: PSV 136 cm/s. Triphasic waveform. Mid superficial femoral: PSV 104 cm/s. Triphasic waveform. Distal superficial femoral: PSV 97 cm/s. Triphasic waveform. Popliteal: PSV 97 cm/s. Triphasic waveform. Posterior tibial: PSV 86 cm/s. Triphasic waveform. Peroneal: PSV 53 cm/s. Biphasic waveform. US/US arterial duplex LE BI IMPRESSION: RIGHT: Ankle-brachial index 0.74 (improved compared to 0.66) with mildly abnormal PVR. Chronically occluded superficial femoral artery. Chronically occluded femoral to popliteal bypass graft. Patent mid femoral to posterior tibial bypass graft with monophasic waveforms throughout. The appearance is similar to the prior study. LEFT: Ankle-brachial index 1.09 (stable compared to 1.05) with normal PVR. No focal hemodynamically significant stenosis visible. The appearance is similar to the prior study.
== END 2022-06-23 10:10 | disposition home or self-care (01) ==
LOC: HO.US 10:09
PROVIDERS: PCP Family Medicine; Visit Provider Surgery Vascular Surgery
DX: I70.213 Atherosclerosis of native arteries of extremities with intermittent claudication, bilateral legs (principal)
CPT/HCPCS: 93923; 93925

== ENCOUNTER 2022-07-18 09:27 | Outpatient (REF) | payer OTHER, SELFPAY ==
[2022-07-18 11:08] LABS: Alanine Aminotransferase 13 U/L (0-31); Albumin Level 4.1 g/dL (3.5-5.0); Alkaline Phosphatase 79 U/L (39-117); Aspartate Amino Transferase 16 U/L (5-31); Bilirubin Direct 0.2 mg/dL (0.0-0.5); Bilirubin Total 0.5 mg/dL (0.0-1.0); Cholesterol 238 mg/dL; HDL Cholesterol 42 mg/dL; LDL Cholesterol Calculated 166 mg/dl; Total Protein 7.3 g/dL (6.5-8.0); Triglycerides 150 mg/dL
== END 2022-07-18 09:28 | disposition home or self-care (01) ==
LOC: HO.LAB 09:27
PROVIDERS: Visit Provider Internal Medicine
DX: E78.5 Hyperlipidemia, unspecified (principal)
CPT/HCPCS: 36415; 80061; 80076

== ENCOUNTER → 2022-07-19 13:17 | Outpatient (BNVA) | payer OTHER, SELFPAY | PROVIDERS: PCP Family Medicine; Referring Provider Family Medicine; Visit Provider Internal Medicine | DX: I25.10 Atherosclerotic heart disease of native coronary artery without angina pectoris (principal); I10 Essential (primary) hypertension; I73.9 Peripheral vascular disease, unspecified; E78.5 Hyperlipidemia, unspecified; Z98.890 Other specified postprocedural states | CPT/HCPCS: 99212 ==

== ENCOUNTER → 2022-07-26 10:31 | Outpatient (BNVA) | payer OTHER, SELFPAY | PROVIDERS: PCP Family Medicine; Visit Provider Surgery Vascular Surgery | DX: I73.9 Peripheral vascular disease, unspecified (principal) | CPT/HCPCS: 99212 ==

== ENCOUNTER 2022-09-08 10:00 | Outpatient (RCR) | payer OTHER, SELFPAY | END 2022-10-12 15:20 | disposition home or self-care (01) | LOC: HO.PT 10:00 | PROVIDERS: PCP Internal Medicine; Visit Provider Internal Medicine | DX: M54.2 Cervicalgia (principal) | CPT/HCPCS: 97110; 97140; 97162 ==

== ENCOUNTER 2022-10-12 10:41 | Outpatient (AMB) | payer OTHER, SELFPAY ==
--- NOTE | 2022-10-12 10:50 | MHC.OFFVIS ---
Intake Vital Signs 10/12/22 10:57 Height 5 ft 11 in Weight 184 lb BMI 25.7 BP 120/70 Blood Pressure Location Lt brachial Position Sitting Pulse 70 Pulse Oximetry (%) 96 Intake Visit Reasons: KENNY Allergies No Known Allergies [No Known Allergies*] Allergy (Verified 10/12/22 10:57) HPI KENNY HPI Details 72-year-old lady, former 30+ pack-year smoker, quit 2000, followed for dyspnea on exertion and moderate COPD.? She continues to use Anoro and albuterol MDI with good control of her underlying symptoms.? However, in august she has ran out of her underlying was not able to refill it, that she has been relying on albuterol with somewhat worsening control. She denies acute exacerbation. [facility] Medical History Atherosclerotic cardiovascular disease Carotid stenosis, asymptomatic Essential hypertension Hypercholesteremia Hypertension On beta mame at home Other and unspecified hyperlipidemia PAD (peripheral artery disease) Peripheral vascular disease Snores Urinary incontinence Surgical History H/O heart artery stent History of esophagogastroduodenoscopy (EGD) Hx laparoscopic cholecystectomy Hx of colonoscopy Hx of heart artery stent Hx of lithotripsy Hx of tubal ligation Hx of varicose vein stripping Family History Father Emphysema, unspecified Mother Hypertension Brother Liver cancer Daughter Alive and well Social History Alcohol intake: never Patient Tobacco Use Status: Never used Tobacco Review of Systems Const Denies daytime sleepiness, Denies excessive sweating, Denies fatigue, Denies fever(s), Denies lethargy, Denies malaise, Denies night sweats, Denies snoring and Denies weight loss Eyes Denies blurry vision and Denies itchy eyes ENT Denies nasal congestion, Denies post nasal drip, Denies sinus pain, Denies sinus pressure and Denies other ( Thrush) Card Denies chest pain, Denies pedal edema, Denies dyspnea, Denies orthopnea and Denies paroxysmal nocturnal dyspnea Resp Denies cough, Denies hemoptysis, Denies excessive phlegm production, Denies dyspnea, Denies snoring and Denies wheezing GI Denies abdominal pain and Denies heartburn Musc Denies myalgias, Denies arthralgias and Denies joint swelling Skin/Breast Denies rash Neuro Denies memory loss and Denies seizure-like activity Psych Denies abnormal sleep pattern, Denies anxiety and Denies memory loss Endo Denies excessive sweating, Denies fatigue and Denies heat intolerance Anthony/Lymph Denies easy bruising Aller/Immun Denies itchy eyes, Denies seasonal rhinorrhea and Denies wheezing Physical Exam Vital Signs: Last Vital Signs Pulse 70 10/12/22 10:57 BP 120/70 10/12/22 10:57 Pulse Ox 96 10/12/22 10:57 BMI result Body Mass Index 25.7 Const General: no acute distress and alert Nutritional Appearance: not obese Orientation/consciousness: Other orientation findings ( oriented) HEENT Head: Yes atraumatic Eyes General: appearance normal, both eyes and all related structures Sclerae: sclerae normal EOM: EOMs intact bilaterally Neck Neck: Yes supple Lymphatic: no lymphadenopathy noted Resp Effort & Inspection: normal respiratory effort and no use of accessory muscles Auscultation: clear to auscultation bilaterally Cardio Rate: regular rate Rhythm: regular rhythm Heart sounds: no gallops, no murmurs and no rubs Skin General skin exam: other ( warm) Extrem General: No clubbing, No cyanosis and No edema Assessment & Plan Assessment & Plan (1) KENNY (dyspnea on exertion): Code(s): R06.00 - Dyspnea, unspecified Plan: Multifactorial with contribution from underlying pulmonary and cardiac etiologies. Patient continues to follow-up with Cardiology service for cardiac component. (2) COPD (chronic obstructive pulmonary disease): Code(s): J44.9 - Chronic obstructive pulmonary disease, unspecified Plan: Well controlled on current regimen of Anoro and albuterol MDI. Continue current regimen. Medications: Refilled Anoro Ellipta 62.5-25 mcg/actuation (umeclidinium-vilanterol) 1 inh inhalation DAILY 60 ea 6RF NS Coding Level of Care Code Est Pt Level 4 (87285) Diagnoses KENNY (dyspnea on exertion) R06.00 COPD (chronic obstructive pulmonary disease) J44.9
[2022-10-12 10:57] VITALS: BP 120/70; PULSE 70; O2SAT 96; BMI 25.7
== END 2022-10-12 11:13 | disposition home or self-care (01) ==
PROVIDERS: PCP Internal Medicine; Visit Provider Internal Medicine Pulmonary Disease
DX: R06.00 Dyspnea, unspecified (principal); J44.9 Chronic obstructive pulmonary disease, unspecified
CPT/HCPCS: 99214

== ENCOUNTER → 2022-10-12 10:41 | Outpatient (BNVA) | payer OTHER, SELFPAY | PROVIDERS: PCP Internal Medicine; Visit Provider Internal Medicine Pulmonary Disease | DX: R06.00 Dyspnea, unspecified (principal); J44.9 Chronic obstructive pulmonary disease, unspecified; Z95.5 Presence of coronary angioplasty implant and graft; Z98.890 Other specified postprocedural states | CPT/HCPCS: 99212 ==

== ENCOUNTER 2022-11-10 08:42 | Outpatient (AMB) | payer OTHER, SELFPAY ==
--- NOTE | 2022-11-10 08:46 | MHC.OFFVIS ---
Intake Vital Signs 11/10/22 08:56 Height 5 ft 1 in Weight 183 lb 13.848 oz BMI 34.7 BP 110/57 L Blood Pressure Location Lt brachial Position Sitting Pulse 84 Intake Visit Reasons: 6 month follow up Intake Note: Patient presents to in office visit today for 6 months follow up. CC: Patient reports doing well. Denies other GI symptoms. Machine Overhauler Required: Yes Machine Overhauler Language: [place] Accompanied by: Self / Same As Patient Allergies No Known Allergies [No Known Allergies*] Allergy (Verified 10/12/22 10:57) HPI 6 month follow up HPI Details Assessment & Plan (1) Chronic idiopathic constipation: ?Code(s): K59.04 - Chronic idiopathic constipation ?Plan: PERUVIAN #Mena live I let her know the Cologuard is negative and we can repeat this in 3 years as per protocol.? Given her age we can seriously consider whether she needs further colonoscopies depending on her general state of health.? She continues to do well on her to Citrucel and senna, she is uncertain what she is taking for heartburn and hopefully it is the famotidine which we had been prescribing twice a day.? With this she is agreeable to a 6 month follow-up. (2) GERD (gastroesophageal reflux disease): ?Code(s): K21.9 - Gastro-esophageal reflux disease without esophagitis (3) Colon cancer screening: ?Comment: 2022- Cologuard repeat in 3 years ?Code(s): Z12.11 - Encounter for screening for malignant neoplasm of colon ? ? ? Medications: Refilled methylcellulose (l axative) (Citrucel ) 500 mg PO BID 60 t abs 6RF K59.04 - Chronic i diopathic constipa tion TODAY'S VISIT PERUVIAN #Lidia live She has not been getting her senna, it looks like it dropped from the medication list. She has been having LUQ pain when she bends, and worsening HB in her chest with poor bowel motility despite taking famotidne bid. She is continuing her fiber. We will restart her senna and see if this resolves her problems. If not consider PPI. She was getting a urinary incontinence medication from our URology dept, but she does not have the phone # and never had a follow up, so she has not been getting it. When she had it (oxybutinin) it worked well for her. I will give her a 1 month refill and give her the phone # to call for follow up. ROV 3 weeks. PFSH Medical History Atherosclerotic cardiovascular disease Carotid stenosis, asymptomatic Essential hypertension Hypercholesteremia Hypertension On beta mame at home Other and unspecified hyperlipidemia PAD (peripheral artery disease) Peripheral vascular disease Snores Urinary incontinence Surgical History H/O heart artery stent History of esophagogastroduodenoscopy (EGD) Hx laparoscopic cholecystectomy Hx of colonoscopy Hx of heart artery stent Hx of lithotripsy Hx of tubal ligation Hx of varicose vein stripping Family History Father Emphysema, unspecified Mother Hypertension Brother Liver cancer Daughter Alive and well Social History Alcohol intake: never Patient Tobacco Use Status: Never used Tobacco Review of Systems Const Denies fatigue, Denies fever(s), Denies night sweats, Denies poor appetite and Denies weight loss ENT Reports Normal hearing present, Denies dental pain, Denies dysphagia, Denies hearing loss, Denies mouth pain, Denies odynophagia, Denies throat swelling, Denies tongue swelling and Reports other (Dentition adequate) Card Reports no additional complaints Resp Reports no additional complaints GI Reports abdominal pain, Denies melena, Denies bloating, Denies hematochezia, Reports constipation, Denies GI cramping, Denies dysphagia, Denies excessive flatus, Denies early satiety, Reports heartburn, Denies diarrhea, Denies nausea, Denies odynophagia, Denies vomiting and Denies hematemesis Reports urinary incontinence Musc Reports abnormal gait, Reports back pain and Reports arthralgias Skin/Breast Denies pruritus, Denies lesions, Denies rash and Denies jaundice Neuro Reports Normal hearing present, Denies Abnormal speech present and Reports abnormal gait Endo Denies fatigue Aller/Immun Denies throat swelling and Denies tongue swelling Physical Exam Vital Signs: Last Vital Signs Pulse 84 11/10/22 08:56 BP 110/57 L 11/10/22 08:56 BMI result Body Mass Index 34.7 Const General: cooperative, no acute distress, well developed and well groomed Nutritional Appearance: well nourished and obese Orientation/consciousness: oriented to person, oriented to place and oriented to time Limitations: language barrier and ambulation with walker HEENT Head: Yes normocephalic and Yes atraumatic Eyes General: appearance normal, both eyes and all related structures Pupils: Equal, round and reactive pupils present Neck Neck: Yes normal visual inspection and Yes no lymphadenopathy Thyroid: Thyroid normal Resp Effort & Inspection: normal respiratory effort and able to speak in complete sentences Auscultation: clear to auscultation bilaterally Cardio Rate: regular rate Rhythm: regular rhythm Heart sounds: Normal, physiologic split S2 sound present Peripheral pulses: radial pulses present and posterior tibial pulses present GI Inspection: No distended, Yes Abdominal panniculus present and Yes obesity Palpation (GI): Soft to palpation, Tenderness to palpation present (GI) in the LUQ, no guarding, not rigid and No hepatosplenomegaly present Percussion: Yes normal to percussion Auscultation: normal bowel sounds Rectal Exam - Female: deferred Skin General skin exam: no rashes or lesions noted, turgor normal, skin not dry, no jaundice, No spider nevi and no striae Rashes: no rashes Nails: normal Neuro General: oriented to person, oriented to place and oriented to time Cranial nerves: Yes Equal, round and reactive pupils present and Yes Normal hearing present Speech: No Abnormal speech present Extrem General: Yes normal to inspection, No clubbing, No cyanosis and No edema Psych Appearance: grossly normal and well kempt Mental Status: mental status grossly normal Speech and movement: Normal speech and movement present Affect: normal affect Attitude: cooperative Thought process: Normal thought process present and not confabulating Thought content: Normal thought content present Insight: Limited insight present (Psych) Judgement: Limited judgement present (Psych) Assessment & Plan Assessment & Plan (1) Chronic idiopathic constipation: Code(s): K59.04 - Chronic idiopathic constipation Plan: PERUVIAN #Lidia nieto She has not been getting her senna, it looks like it dropped from the medication list. She has been having LUQ pain when she bends, and worsening HB in her chest with poor bowel motility despite taking famotidne bid. She is continuing her fiber. We will restart her senna and see if this resolves her problems. If not consider PPI. She was getting a urinary incontinence medication from our URology dept, but she does not have the phone # and never had a follow up, so she has not been getting it. When she had it (oxybutinin) it worked well for her. I will give her a 1 month refill and give her the phone # to call for follow up. ROV 3 weeks. (2) GERD (gastroesophageal reflux disease): Code(s): K21.9 - Gastro-esophageal reflux disease without esophagitis Medications: New sennosides (Senna Laxative) 17.2 mg (2 x 8.6 mg) PO BEDTIME 30 days 60 tabs 6RF K59.04 - Chronic idiopathic constipation Refilled famotidine (Pepcid) 40 mg PO BID 60 tabs 6RF K21.9 - Gastro-esophageal reflux disease without esophagitis methylcellulose (laxative) (Citrucel) 500 mg PO BID 60 tabs 6RF K59.04 - Chronic idiopathic constipation oxybutynin chloride ER 10 mg PO DAILY 30 days 30 tabs 0RF OAB R35.0 - Frequency of micturition Coding Level of Care Code Est Pt Level 3 (95211) Diagnoses Chronic idiopathic constipation K59.04 GERD (gastroesophageal reflux disease) K21.9
[2022-11-10 08:56] VITALS: BP 110/57; PULSE 84; BMI 34.7
== END 2022-11-10 10:24 | disposition home or self-care (01) ==
PROVIDERS: Visit Provider Nurse Practitioner
DX: K59.04 Chronic idiopathic constipation (principal); K21.9 Gastro-esophageal reflux disease without esophagitis
CPT/HCPCS: 99213

== ENCOUNTER → 2022-11-10 08:42 | Outpatient (BNVA) | payer OTHER, SELFPAY | PROVIDERS: Visit Provider Nurse Practitioner | DX: K59.04 Chronic idiopathic constipation (principal); K21.9 Gastro-esophageal reflux disease without esophagitis | CPT/HCPCS: 99212 ==

== ENCOUNTER → 2022-11-30 09:40 | Outpatient (BNVA) | payer OTHER, SELFPAY | PROVIDERS: PCP Internal Medicine; Visit Provider Nurse Practitioner | DX: K59.04 Chronic idiopathic constipation (principal); K21.9 Gastro-esophageal reflux disease without esophagitis | CPT/HCPCS: 99212 ==

== ENCOUNTER 2022-11-30 09:41 | Outpatient (AMB) | payer OTHER, SELFPAY ==
--- NOTE | 2022-11-30 10:08 | A.OFFVIS_ITS ---
Intake Vital Signs 11/30/22 10:23 Height 5 ft 1 in Weight 181 lb 10.574 oz BMI 34.3 BP 121/63 Blood Pressure Location Rt brachial Position Sitting Pulse 65 Intake Visit Reasons: 3 weeks follow up Intake Note: Pt presents to the office today for a 3 week follow-up. Pt states she is feeling well. Pt denies any NVD. Allergies No Known Allergies [No Known Allergies*] Allergy (Verified 12/22/22 13:43) HPI 3 weeks follow up HPI Details Assessment & Plan (1) Chronic idiopathic constipation: ?Code(s): K59.04 - Chronic idiopathic constipation ?Plan: LATVIAN #Lidia live She has not been getting her senna, it looks like it dropped from the medication list. She has been having LUQ pain when she bends, and worsening HB in her chest with poor bowel motility despite taking famotidne bid. She is continuing her fiber. We will restart her senna and see if this resolves her problems. If not consider PPI. She was getting a urinary incontinence medication from our URology dept, but she does not have the phone # and never had a follow up, so she has not been getting it. When she had it (oxybutinin) it worked well for her. I will give her a 1 month refill and give her the phone # to call for follow up. ROV 3 weeks. (2) GERD (gastroesophageal reflux diseas e): ?Code(s): K21.9 - Gastro-esophageal reflux disease without esophagitis ? ? ? Medications: New sennosides (Senna Laxative) 17.2 mg (2 x 8.6 m g) PO BEDTIME 30 d ays 60 tabs 6RF K59.04 - Chronic i diopathic constipa tion ? Refilled famotidine (Pepcid ) 40 mg? PO BID 60 t abs 6RF K21.9 - Gastro-eso phageal reflux dis ease without esoph agitis ? methylcellulose (l axative) (Citrucel ) 500 mg? PO BID 60 tabs 6RF K59.04 - Chronic i diopathic constipa tion ? oxybutynin chlorid e ER 10 mg? PO DAILY 30 days 30 tabs 0RF OAB R35.0 - Frequency of micturition ? TODAY'S VISIT LATVIAN #Rosy LIVE All is well and she is happy with her GI regimen! The senna has resolved her problems and will try to keep her on it. She also continues on her famotidine and I have given her temporary refill of her oxybutynin until she can get in touch with urology. Return office visit in 6 months [facility] Medical History On beta mame at home Snores Urinary incontinence Other and unspecified hyperlipidemia Essential hypertension Peripheral vascular disease Atherosclerotic cardiovascular disease Carotid stenosis, asymptomatic PAD (peripheral artery disease) Hypercholesteremia Hypertension Surgical History H/O heart artery stent History of esophagogastroduodenoscopy (EGD) Hx of lithotripsy Hx of colonoscopy Hx of heart artery stent Hx of varicose vein stripping Hx of tubal ligation Hx laparoscopic cholecystectomy Family History Father Emphysema, unspecified Mother Hypertension Brother Liver cancer Daughter Alive and well Social History Alcohol intake: never Patient Tobacco Use Status: Never used Tobacco Review of Systems Const Denies fatigue, Denies fever(s), Denies night sweats, Denies poor appetite and Denies weight loss ENT Reports Normal hearing present, Denies dental pain, Denies dysphagia, Denies hearing loss, Denies mouth pain, Denies odynophagia, Denies throat swelling, Denies tongue swelling and Reports other (Dentition adequate) Card Reports no additional complaints Resp Reports no additional complaints GI Denies abdominal pain, Denies melena, Denies bloating, Denies hematochezia, Reports constipation, Denies GI cramping, Denies dysphagia, Denies excessive flatus, Denies early satiety, Reports heartburn, Denies diarrhea, Denies nausea, Denies odynophagia, Denies vomiting and Denies hematemesis Skin/Breast Denies pruritus, Denies lesions, Denies rash and Denies jaundice Neuro Reports Normal hearing present and Denies Abnormal speech present Endo Denies fatigue Aller/Immun Denies throat swelling and Denies tongue swelling Physical Exam Vital Signs: Last Vital Signs Pulse 65 11/30/22 10:23 BP 121/63 11/30/22 10:23 BMI result Body Mass Index 34.3 Const General: cooperative, no acute distress, well developed and well groomed Nutritional Appearance: well nourished and obese Orientation/consciousness: oriented to person, oriented to place and oriented to time Limitations: ambulation with walker HEENT Head: Yes normocephalic and Yes atraumatic Eyes General: appearance normal, both eyes and all related structures Pupils: Equal, round and reactive pupils present Neck Neck: Yes normal visual inspection and Yes no lymphadenopathy Thyroid: Thyroid normal Resp Effort & Inspection: normal respiratory effort and able to speak in complete sen tences Auscultation: clear to auscultation bilaterally Cardio Rate: regular rate Rhythm: regular rhythm Heart sounds: Normal, physiologic split S2 sound present Peripheral pulses: radial pulses present and posterior tibial pulses present GI Inspection: No distended, No Abdominal panniculus present and Yes obesity Palpation (GI): Soft to palpation, nontender, no guarding, not rigid and No hepatosplenomegaly present Percussion: Yes normal to percussion Auscultation: normal bowel sounds Rectal Exam - Female: deferred Skin General skin exam: no rashes or lesions noted, turgor normal, skin not dry, no jaundice, No spider nevi and no striae Rashes: no rashes Nails: normal Neuro General: oriented to person, oriented to place and oriented to time Cranial nerves: Yes Equal, round and reactive pupils present and Yes Normal hearing present Speech: No Abnormal speech present Extrem General: Yes normal to inspection, No clubbing, No cyanosis and No edema Psych Appearance: grossly normal and well kempt Mental Status: mental status grossly normal Speech and movement: Normal speech and movement present Affect: normal affect Attitude: cooperative Thought process: Normal thought process present and not confabulating Thought content: Normal thought content present Insight: Limited insight present (Psych) Judgement: Limited judgement present (Psych) Assessment & Plan Assessment & Plan (1) Chronic idiopathic constipation: Code(s): K59.04 - Chronic idiopathic constipation Plan: LATVIAN #Rosy LIVE All is well and she is happy with her GI regimen! The senna has resolved her problems and will try to keep her on it. She also continues on her famotidine and I have given her temporary refill of her oxybutynin until she can get in touch with urology. Return office visit in 6 month (2) GERD (gastroesophageal reflux disease): Code(s): K21.9 - Gastro-esophageal reflux disease without esophagitis (3) Colon cancer screening: Comment: 2022- Cologuard repeat in 3 years Code(s): Z12.11 - Encounter for screening for malignant neoplasm of colon Medications: Refilled famotidine (Pepcid) 40 mg PO BID 60 tabs 6RF K21.9 - Gastro-esophageal reflux disease without esophagitis sennosides (Senna Laxative) 17.2 mg (2 x 8.6 mg) PO BEDTIME 60 tabs 6RF 30 days K59.04 - Chronic idiopathic constipation methylcellulose (laxative) (Citrucel) 500 mg PO BID 60 tabs 6RF K59.04 - Chronic idiopathic constipation Coding Level of Care Code Est Pt Level 3 (20979) Diagnoses Chronic idiopathic constipation K59.04 GERD (gastroesophageal reflux disease) K21.9 Colon cancer screening Z12.11
[2022-11-30 10:23] VITALS: BP 121/63; PULSE 65; BMI 34.3
== END 2022-11-30 11:36 | disposition home or self-care (01) ==
PROVIDERS: PCP Internal Medicine; Visit Provider Nurse Practitioner
DX: K59.04 Chronic idiopathic constipation (principal); K21.9 Gastro-esophageal reflux disease without esophagitis; Z12.11 Encounter for screening for malignant neoplasm of colon
CPT/HCPCS: 99213

== ENCOUNTER 2022-12-22 13:11 | Outpatient (AMB) | payer OTHER, SELFPAY ==
--- NOTE | 2022-12-22 13:26 | MHC.OFFVIS ---
Intake Intake Visit Reasons: Urinary incontinence- follow up (pedro elisabeth) Intake Note: Patient presents for follow up urinary incontinence Urology Medications: Oxybutynin Blood Thinner: aspirin PVR: 18ml's Lead Ruby On Rails Developer Required: Yes Accompanied by: Self / Same As Patient Allergies No Known Allergies [No Known Allergies*] Allergy (Verified 12/22/22 13:43) Medication List - Last Reconciled 12/22/22 by Marisel Rivero, ORDER SCHEDULE CLERK- acetaminophen 500 mg PO Q6H PRN albuterol sulfate 90 mcg/actuation 2 puffs PO Q4-6H PRN Anoro Ellipta 62.5-25 mcg/actuation (umeclidinium-vilanterol) 1 inh inhalation DAILY NS aspirin 81 mg PO DAILY atorvastatin 80 mg PO BEDTIME evolocumab (Repatha Syringe) 140 mg subcut Q2W famotidine (Pepcid) 40 mg PO BID isosorbide mononitrate ER 30 mg PO DAILY methylcellulose (laxative) (Citrucel) 500 mg PO BID metoprolol succinate ER 50 mg PO DAILY mirabegron ER (Myrbetriq) 25 mg PO DAILY 30 days multivitamin 1 tab PO DAILY sennosides (Senna Laxative) 17.2 mg (2 x 8.6 mg) PO BEDTIME 30 days HPI HPI Comments History of Present Illness Details Marlena is a pleasant 72 year old Surinamese speaking patient of Dr. Dill. She has a PMH of urinary incontinence, hyperlipidemia, hypertension, hypercholesteremia, GERD, constipation, PVD and PAD. When asked she reports to be doing and feeling well. When asked she reports compliance with oxybutynin 10 mg daily however does not feel this is helping her with her lower urinary tract symptoms. She reports urinary frequency, urgency, and episodes of incontinence if not near a bathroom. She otherwise denies nocturia, hematuria, dysuria, foul smelling urine, changes to urinary stream, flank pain, fever, and or chills. Discussed obtaining retroperitoneal ultrasound for further assessment evaluation. Discussed timed voiding. Discussed trial of other medication given no improvement in lower urinary tract symptoms on oxybutynin and BEERS criteria. In office urinalysis results reviewed with the patient today. PVR 18 mL. She otherwise offers no other issues or concerns at this time. [facility] Medical History On beta mame at home Snores Urinary incontinence Other and unspecified hyperlipidemia Essential hypertension Peripheral vascular disease Atherosclerotic cardiovascular disease Carotid stenosis, asymptomatic PAD (peripheral artery disease) Hypercholesteremia Hypertension Surgical History H/O heart artery stent History of esophagogastroduodenoscopy (EGD) Hx of lithotripsy Hx of colonoscopy Hx of heart artery stent Hx of varicose vein stripping Hx of tubal ligation Hx laparoscopic cholecystectomy Family History Father Emphysema, unspecified Mother Hypertension Brother Liver cancer Daughter Alive and well Social History Alcohol intake: never Patient Tobacco Use Status: Never used Tobacco Review of Systems Const Reports as per HPI Eyes Reports no additional complaints ENT Reports no additional complaints Card Reports as per HPI Resp Reports no additional complaints GI Reports as per HPI Reports as per HPI Musc Reports no additional complaints Neuro Reports no additional complaints Psych Reports no additional complaints Endo Reports no additional complaints Anthony/Lymph Reports no additional complaints Aller/Immun Reports no additional complaints Physical Exam Const General: cooperative, healthy appearing, comfortable, no acute distress, well developed, alert and awake Orientation/consciousness: patient oriented x3 Limitations: no limitations HEENT Head: Yes normal to inspection, Yes normocephalic and Yes atraumatic Ears: hearing grossly normal bilaterally Eyes General: appearance normal, both eyes and all related structures Neck Neck: Yes normal visual inspection and Yes trachea midline Chest Chest palpation & inspection: normal inspection of the chest Resp Effort & Inspection: normal respiratory effort and able to speak in complete sentences Cardio Rate: regular rate GI Inspection: Yes normal to inspection General: Yes no CVA tenderness Back/Spine/Pelvis Back: no CVA tenderness Skin General skin exam: no rashes or lesions noted Neuro General: patient oriented x3 Extrem General: Yes normal to inspection Psych Appearance: grossly normal and well kempt Mental Status: mental status grossly normal Speech and movement: Normal speech and movement present and Clear speech present Affect: normal affect Attitude: cooperative Thought process: Normal thought process present Thought content: Normal thought content present Insight: Fair insight present (Psych) Judgement: Fair judgement present (Psych) Office Procedures Post Void Residual Post Residual Void Post Void Residual (PVR): 18 [id number] Void Residual by ultrasound Results AMB Urinalysis, Automated UA Leukoctes 70 Janay/uL Last Edit by Disha Sebastian on 12/22/22 13:39 UA Nitrite Negative Last Edit by Disha Sebastian on 12/22/22 13:39 UA Urobilinogen 0.2 mg/dL Last Edit by Disha Sebastian on 12/22/22 13:39 UA Protein 0 mg/dL Last Edit by Disha Sebastian on 12/22/22 13:39 UA pH 6.0 Last Edit by Disha Sebastian on 12/22/22 13:39 UA Blood 0 Bronson/uL Last Edit by Disha Sebastian on 12/22/22 13:39 UA Specific [place] 1.015 Last Edit by Disha Sebastian on 12/22/22 13:39 UA Ketone Negative Last Edit by Disha Sebastian on 12/22/22 13:39 UA Bilirubin 0 mg/dL Last Edit by Disha Sebastian on 12/22/22 13:39 UA Glucose 0 mg/dL Last Edit by Disha Sebsatian on 12/22/22 13:39 Results Reviewed Results Reviewed: Laboratory Last Values Urine pH (Auto) 6.0 12/22/22 13:33 Specific [place] (Auto) 1.015 12/22/22 13:33 Urine Protein (Auto) 0 mg/dL 12/22/22 13:33 Glucose (UA)(Auto) 0 mg/dL 12/22/22 13:33 Urine Ketones (Auto) Negative 12/22/22 13:33 Urine Blood (Auto) 0 Bronson/uL 12/22/22 13:33 Urine Nitrite (Auto) Negative 12/22/22 13:33 Urine Bilirubin (Auto) 0 mg/dL 12/22/22 13:33 Urine Urobilinogen (Auto) 0.2 mg/dL 12/22/22 13:33 Leukocyte Esterase (Auto) 70 Janay/uL 12/22/22 13:33 Assessment & Plan Assessment & Plan (1) Urinary incontinence: Code(s): R32 - Unspecified urinary incontinence (2) Lower urinary tract symptoms: Code(s): R39.9 - Unspecified symptoms and signs involving the genitourinary system Plan In office urinalysis results reviewed with the patient today. PVR 18 mL. Stop oxybutynin. Start Myrbetriq as discussed and prescribed. Will obtain retroperitoneal ultrasound for further assessment and evaluation. Discussed timed voiding and bladder triggers/irritants. Discussed possible near future in office cystoscopy if symptoms persist and/or worsen. Follow-up in 6-8 weeks with imaging and PVR at next visit; or sooner with any issues, concerns, or questions. Orders: Orders US retroperitoneal comp Today R32 - Unspecified urinary incontinence AMB Urinalysis Automated Today Z13.9 - Encounter for screening, unspecified AMB Post Void Residual by ultrasound Today R32 - Unspecified urinary incontinence Medications: New mirabegron ER (Myrbetriq) 25 mg PO DAILY 30 tabs 1RF 30 days N30.10 - Interstitial cystitis (chronic) without hematuria, N32.81 - Overactive bladder, R35.1 - Nocturia, R39.15 - Urgency of urination Discontinued oxybutynin chloride ER Discontinued Reason: Doctor's Order 10 mg PO DAILY 30 days 30 tabs 0RF OAB R35.0 - Frequency of micturition Coding Level of Care Code Est Pt Level 4 (04659) Diagnoses Urinary incontinence R32 Lower urinary tract symptoms R39.9 CPT Codes Post Residual Void - PVR CPT Code: 54276-Cbgc Void Residual by ultrasound ([id number])
== END 2022-12-22 13:54 | disposition home or self-care (01) ==
PROVIDERS: PCP Internal Medicine; Visit Provider Nurse Practitioner Family
DX: R32 Unspecified urinary incontinence (principal); R39.9 Unspecified symptoms and signs involving the genitourinary system; Z13.9 Encounter for screening, unspecified
CPT/HCPCS: 99214

== ENCOUNTER → 2022-12-22 13:11 | Outpatient (BNVA) | payer OTHER, SELFPAY | PROVIDERS: PCP Internal Medicine; Visit Provider Nurse Practitioner Family | DX: R32 Unspecified urinary incontinence (principal); R39.9 Unspecified symptoms and signs involving the genitourinary system | CPT/HCPCS: 51798; 81003; 99212 ==

== ENCOUNTER 2023-01-24 09:49 | Outpatient (REF) | payer OTHER, SELFPAY ==
--- NOTE | ~2023-01-24 | US_ITS ---
EXAMINATION: US RETROPERITONEAL LIMITED (RENAL ONLY) CLINICAL INFORMATION: Unspecified urinary incontinence. COMPARISON: Ultrasound abdomen complete 06/09/2020. CT abdomen and pelvis 10/22/2017. Ultrasound abdomen 10/20/2015. TECHNIQUE: Real-time imaging of the kidneys. FINDINGS: RIGHT KIDNEY: 11.4 x 5.0 x 4.3 cm (SAG x AP x TRV). The kidney is normal in size, contour, and echogenicity. Renal cortical thickness is normal. No renal calculi or hydronephrosis. 0.5 x 0.3 x 0.4 cm upper pole cyst is seen. LEFT KIDNEY: 11.4 x 5.9 x 4.0 cm (SAG x AP x TRV). The kidney is normal in size and echogenicity with lobulated contour. Renal cortical thickness is normal. No calculi or focal parenchymal lesions. No hydronephrosis. US/US renal BI IMPRESSION: Nonhydronephrotic kidneys. 5 mm right upper pole renal cyst.
== END 2023-01-24 09:50 | disposition home or self-care (01) ==
LOC: HO.US 09:49
PROVIDERS: PCP Internal Medicine; Visit Provider Nurse Practitioner Family
DX: R32 Unspecified urinary incontinence (principal)
CPT/HCPCS: 76775

== ENCOUNTER 2023-01-30 15:01 | Outpatient (REF) | payer OTHER, SELFPAY ==
--- NOTE | ~2023-01-30 | US_ITS ---
EXAMINATION: US PELVIS LIMITED (BLADDER) CLINICAL INFORMATION: Urinary incontinence. COMPARISON: Ultrasound retroperitoneal limited 01/24/2023. Ultrasound abdomen complete 06/09/2020. CT abdomen and pelvis without contrast 10/22/2017. TECHNIQUE: Real-time imaging of the bladder. FINDINGS: BLADDER: Well distended and unremarkable. Bilateral ureteral jets are demonstrated. Prevoid bladder volume is 423.4 mL. Postvoid bladder volume is 28.6 mL. US/US bladder IMPRESSION: Postvoid bladder volume is 28 26 mL.
== END 2023-01-30 15:02 | disposition home or self-care (01) ==
LOC: HO.US 15:01
PROVIDERS: PCP Internal Medicine; Visit Provider Nurse Practitioner Family
DX: R32 Unspecified urinary incontinence (principal)
CPT/HCPCS: 76857

== ENCOUNTER 2023-01-31 11:50 | Outpatient (REF) | payer OTHER, SELFPAY | END 2023-01-31 11:51 | disposition home or self-care (01) | LOC: CF 11:50 | PROVIDERS: PCP Internal Medicine; Visit Provider Nurse Practitioner Family | DX: N28.1 Cyst of kidney, acquired (principal); R82.90 Unspecified abnormal findings in urine; R39.9 Unspecified symptoms and signs involving the genitourinary system; Z79.899 Other long term (current) drug therapy | CPT/HCPCS: 51798; 81003; 87086; 87088; 87186; 99212 ==

== ENCOUNTER 2023-01-31 11:50 | Outpatient (AMB) | payer OTHER, SELFPAY ==
--- NOTE | 2023-01-31 12:01 | A.OFFVIS_ITS ---
Intake Intake Visit Reasons: incontinence f/u US renal complete/bladder 01/30 Intake Note: Patient presents for follow up on US Renal/ Urinary Incontinence: Urology Medications: Oxybutynin Blood Thinner: aspirin PVR: 0ml's Sidewalk Repairer Required: Yes Sidewalk Repairer Language: Parking Lot Signaler Name: Tess SosaALBA Information Interpreted: non-clinical & clinical Accompanied by: Self / Same As Patient Allergies No Known Allergies [No Known Allergies*] Allergy (Verified 01/31/23 12:34) Medication List - Last Reconciled 01/31/23 by ADILSON Camacho acetaminophen 500 mg PO Q6H PRN albuterol sulfate 90 mcg/actuation 2 puffs PO Q4-6H PRN Anoro Ellipta 62.5-25 mcg/actuation (umeclidinium-vilanterol) 1 inh inhalation DAILY NS aspirin 81 mg PO DAILY atorvastatin 80 mg PO BEDTIME estradiol 0.01%(0.1mg/gram) vaginally 3 times a week; pea sized amount to urethra 3 times a week 30 days evolocumab (Repatha Syringe) 140 mg subcut Q2W famotidine (Pepcid) 40 mg PO BID isosorbide mononitrate ER 30 mg PO DAILY methylcellulose (laxative) (Citrucel) 500 mg PO BID metoprolol succinate ER 50 mg PO DAILY mirabegron ER (Myrbetriq) 25 mg PO DAILY 30 days multivitamin 1 tab PO DAILY nitrofurantoin macrocrystal 100 mg PO BID 7 days sennosides (Senna Laxative) 17.2 mg (2 x 8.6 mg) PO BEDTIME 30 days HPI HPI Comments History of Present Illness Details Marlena is a pleasant 72 year old Uzbek speaking patient of Dr. Dill. She has a PMH of urinary incontinence, hyperlipidemia, hypertension, hypercholesteremia, GERD, constipation, PVD and PAD. When asked she reports to be doing and feeling well. Of note, patient was seen approximately 6 weeks ago at which time a retroperitoneal ultrasound was ordered for further assessment evaluation in the patient was started on Myrbetriq as she reported no improvement in lower urinary tract symptoms on oxybutynin. Right kidney with no calculi or hydronephrosis. 0.5 x 0.3 x 0.4 cm upper pole cyst is seen. Left kidney with no calculi, lesions, and or hydronephrosis noted. The bladder is well distended unremarkable. Bilateral ureteral jets are demonstrated. Prevoid bladder volume is approximately 425 mL. Postvoid bladder volume is approximate ly 30 mL. When asked patient reports significant improvement in urinary frequency, urinary urgency, and episodes of incontinence if not near a bathroom on Myrbetriq 25 mg daily. In office urinalysis results reviewed with the patient today. 2+ leukocytes negative nitrates. When asked she does report foul-smelling urine. PVR 0 mL. She otherwise denies nocturia, hematuria, dysuria, changes to urinary stream, flank pain, fever, and or chills. [facility] Medical History On beta mame at home Snores Urinary incontinence Other and unspecified hyperlipidemia Essential hypertension Peripheral vascular disease Atherosclerotic cardiovascular disease Carotid stenosis, asymptomatic PAD (peripheral artery disease) Hypercholesteremia Hypertension Surgical History H/O heart artery stent History of esophagogastroduodenoscopy (EGD) Hx of lithotripsy Hx of colonoscopy Hx of heart artery stent Hx of varicose vein stripping Hx of tubal ligation Hx laparoscopic cholecystectomy Family History Father Emphysema, unspecified Mother Hypertension Brother Liver cancer Daughter Alive and well Social History Alcohol intake: never Patient Tobacco Use Status: Never used Tobacco Review of Systems Const Reports as per HPI Eyes Reports no additional complaints ENT Reports no additional complaints Card Reports as per HPI Resp Reports no additional complaints GI Reports as per HPI Reports as per HPI Musc Reports no additional complaints Neuro Reports no additional complaints Psych Reports no additional complaints Endo Reports no additional complaints Anthony/Lymph Reports no additional complaints Aller/Immun Reports no additional complaints Physical Exam Const General: cooperative, healthy appearing, comfortable, no acute distress, well developed, alert and awake Orientation/consciousness: patient oriented x3 Limitations: no limitations HEENT Head: Yes normal to inspection, Yes normocephalic and Yes atraumatic Ears: hearing grossly normal bilaterally Eyes General: appearance normal, both eyes and all related structures Neck Neck: Yes normal visual inspection and Yes trachea midline Chest Chest palpation & inspection: normal inspection of the chest Resp Effort & Inspection: normal respiratory effort and able to speak in complete sentences Cardio Rate: regular rate GI Inspection: Yes normal to inspection General: Yes no CVA tenderness Back/Spine/Pelvis Back: no CVA tenderness Skin General skin exam: no rashes or lesions noted Neuro General: patient oriented x3 Extrem General: Yes normal to inspection Psych Appearance: grossly normal and well kempt Mental Status: mental status grossly normal Speech and movement: Normal speech and movement present and Clear speech present Affect: normal affect Attitude: cooperative Thought process: Normal thought process present Thought content: Normal thought content present Insight: Fair insight present (Psych) Judgement: Fair judgement present (Psych) Office Procedures Post Void Residual Post Residual Void Post Void Residual (PVR): 0 [id number]-[id number] Void Residual by ultrasound Results AMB Urinalysis, Automated UA Leukoctes 125 Janay/uL Last Edit by Jesse Montana Castro on 01/31/23 12:16 2+ Jesse Montana 01/31/23 12:16 UA Nitrite Last Edit by Jesse Montana Castro on 01/31/23 12:16 UA Urobilinogen 0.2 mg/dL Last Edit by Jesse Montana Castro on 01/31/23 12:1 6 UA Protein 15 mg/dL Last Edit by Jesse Montana [facility] on 01/31/23 12:16 UA pH 6.0 Last Edit by Jesse Montana Castro on 01/31/23 12:16 UA Blood 0 Brosnon/uL Last Edit by Jesse Montana [facility] on 01/31/23 12:16 UA Specific [place] 1.025 Last Edit by Jesse Montana Castro on 01/31/23 12: 16 UA Ketone Negative Last Edit by NASEEM Rodriguez on 01/31/23 12:16 UA Bilirubin 0 mg/dL Last Edit by Jesse Montana Castro on 01/31/23 12:16 UA Glucose 0 mg/dL Last Edit by Jesse Montana Castro on 01/31/23 12:16 Results Reviewed Results Reviewed: Laboratory Last Values Urine pH (Auto) 6.0 01/31/23 12:02 Specific [place] (Auto) 1.025 01/31/23 12:02 Urine Protein (Auto) 15 mg/dL 01/31/23 12:02 Glucose (UA)(Auto) 0 mg/dL 01/31/23 12:02 Urine Ketones (Auto) Negative 01/31/23 12:02 Urine Blood (Auto) 0 Bronson/uL 01/31/23 12:02 Urine Bilirubin (Auto) 0 mg/dL 01/31/23 12:02 Urine Urobilinogen (Auto) 0.2 mg/dL 01/31/23 12:02 Leukocyte Esterase (Auto) 125 Janay/uL 01/31/23 12:02 Date of Service: 01/24/23 EXAMINATION: US RETROPERITONEAL LIMITED (RENAL ONLY) FINDINGS: RIGHT KIDNEY: 11.4 x 5.0 x 4.3 cm (SAG x AP x TRV). The kidney is normal in size, contour, and echogenicity. Renal cortical thickness is normal. No renal calculi or hydronephrosis. 0.5 x 0.3 x 0.4 cm upper pole cyst is seen. LEFT KIDNEY: 11.4 x 5.9 x 4.0 cm (SAG x AP x TRV). The kidney is normal in size and echogenicity with lobulated contour. Renal cortical thickness is normal. No calculi or focal parenchymal lesions. No hydronephrosis. IMPRESSION: Nonhydronephrotic kidneys. 5 mm right upper pole renal cyst. Date of Service: 01/30/23 EXAMINATION: US PELVIS LIMITED (BLADDER) FINDINGS: BLADDER: Well distended and unremarkable. Bilateral ureteral jets are demonstrated. Prevoid bladder volume is 423.4 mL. Postvoid bladder volume is 28.6 mL. IMPRESSION: Postvoid bladder volume is 28.6 mL. Assessment & Plan Assessment & Plan (1) Lower urinary tract symptoms: Code(s): R39.9 - Unspecified symptoms and signs involving the genitourinary system (2) Renal cyst: Code(s): N28.1 - Cyst of kidney, acquired (3) Foul smelling urine: Code(s): R82.90 - Unspecified abnormal findings in urine Plan In office urinalysis results reviewed with the patient today; as noted above; will send for urine culture. Continue Myrbetriq 25 mg daily as discussed and prescribed. Patient reports to be happy with current voiding parameters on Myrbetriq 25 mg daily. PVR 0 mL. Recent retroperitoneal ultrasound results reviewed with the patient today; as noted above. Start Estrace cream as discussed and prescribed. Start Macrobid 100 mg b.i.d. as discussed and prescribed. Discussed UTI prevention with D mannose supplement, vitamin-C, increasing fluid intake, behavioral therapy with timed voiding, perineal hygiene and postcoital voiding, and management of constipation with stool softeners and increased fiber intake. Follow-up in 3 months with PVR; or sooner with any issues, concerns, and or questions. Orders: Orders AMB Urinalysis Automated Today Z13.9 - Encounter for screening, unspecified AMB Post Void Residual by ultrasound Today N39.8 - Other specified disorders of urinary system Urine Culture Today N39.0 - Urinary tract infection, site not specified Medications: New estradiol 0.01%(0.1mg/gram) vaginally 3 times a week; pea sized amount to urethra 3 times a week 30 days 42.5 grams 0RF nitrofurantoin macrocrystal must administer with a meal/food 100 mg PO BID 7 days 14 caps 0RF N39.0 - Urinary tract infection, site not specified Patient Instructions: The patient had an opportunity to ask questions regarding the treatment plan. All questions were answered. Physical exam, labs, and imaging were discussed and reviewed in detail. As well as risks, benefits, and discussion of treatment choices. No major barriers to understanding were identified. The patient expressed understanding and agreement with the above treatment plan. The patient was made aware they should contact our office by phone for worsening of their current condition, the appearance of new symptoms, or with any questions or concerns. Compliance is encouraged with any medications and follow up testing that is ordered. It is a privilege to be allowed the opportunity to participate in? your urological care.? Again, if you have any questions or concerns If you have any questions or concerns please do not hesitate to contact me. The office is [phone]. This note is constructed using voice recognition software. While every effort has been made to ensure accuracy retail sales merchandiser errors may have been included. Yours sincerely, ADILSON Camacho Coding Level of Care Code Est Pt Level 4 (77118) Diagnoses Lower urinary tract symptoms R39.9 Renal cyst N28.1 Foul smelling urine R82.90 CPT Codes Post Residual Void - PVR CPT Code: 07626-Jspd Void Residual by ultrasound ([id number])
== END 2023-01-31 12:34 | disposition home or self-care (01) ==
PROVIDERS: PCP Internal Medicine; Visit Provider Nurse Practitioner Family
DX: R39.9 Unspecified symptoms and signs involving the genitourinary system (principal); N28.1 Cyst of kidney, acquired; R82.90 Unspecified abnormal findings in urine
CPT/HCPCS: 99214

== ENCOUNTER 2023-05-02 09:19 | Outpatient (REF) | payer OTHER, SELFPAY ==
--- NOTE | ~2023-05-02 | XR_ITS ---
EXAMINATION: XR CERVICAL SPINE CLINICAL INFORMATION: Neck pain for 3 months COMPARISON: None available. TECHNIQUE: 3 views of the cervical spine were obtained. FINDINGS: Vertebral bodies are well aligned and intervertebral discs are preserved. There is marginal spurring. Endplates of C5 and C6 and narrowing of C6-C7 intervertebral disc spaces. C7 is obscured on the lateral views. Tissues are unremarkable XR/XR cervical spine 3V IMPRESSION: Limited evaluation of C7. Mild degenerative changes at the level of C6-C7 with narrowing of the disc space and marginal spurrings.
[2023-05-02 11:39] LABS: MANUAL DIFF FLAG NO
[2023-05-02 11:48] LABS: Basophils Absolute Auto 0.1 X10*3/uL (0.0-0.2); Eosinophils Absolute Auto 0.4 X10*3/uL (0.0-0.4); Eosinophils Percent Auto 4.4 % (0-4); Hematocrit 40.7 % (37.0-47.0); Imm Gran Abs Auto 0.07 X10*3/uL (0.00-0.03); Imm Gran Pct Auto 0.9 % (0.0-0.4); Lymphocytes Absolute Auto 3.1 X10*3/uL (1.2-4.9); Lymphocytes Percent Auto 38.8 % (20-40); Mean Corpuscular HGB Conc 31.9 g/dl (31.0-35.0); Mean Corpuscular Hemoglobin 29.7 pg (27.0-33.0); Mean Corpuscular Volume 92.9 fL (80.0-98.0); Mean Platelet Volume 10.7 fL (9.4-12.3); Monocytes Absolute Auto 0.6 X10*3/uL (0.1-1.2); Monocytes Percent Auto 7.7 % (2-11); NRBC Pct Auto 0.3 /100WBC (0.0-0.2); Neutrophils Absolute Auto 3.8 x10*3/uL (2.0-8.3); Neutrophils Percent Auto 47.2 % (45-73); Platelet Count 321 X10*3/uL (160-400); Red Blood Count 4.38 X10*6/uL (4.20-5.50); Red Cell Distribution Width 13.1 % (11.0-16.0); White Blood Count 7.9 X10*3/uL (4.8-10.8)
[2023-05-02 12:19] LABS: ~HepC Num1 0.16 S/CO (0.00-0.79); ~Hepatitis C Antibody Nonreactive (Nonreactive)
[2023-05-02 12:20] LABS: Alanine Aminotransferase 14 U/L (0-31); Alkaline Phosphatase 78 U/L (39-117); Anion Gap 12 (12-20); Aspartate Amino Transferase 20 U/L (5-31); Bilirubin Total 0.4 mg/dL (0.0-1.0); Blood Urea Nitrogen 13 mg/dL (9-16); Calcium 9.7 mg/dL (8.4-10.2); Carbon Dioxide 26 mmol/L (22-29); Chloride 106 mmol/L (96-108); Cholesterol 250 mg/dL (<200); Estimated Glomerular Filt Rate > 60; Glucose Random 150 mg/dL (60-115); HDL Cholesterol 45 mg/dL (>40); LDL Cholesterol Calculated 171 mg/dL (<100); Potassium 4.1 mmol/L (3.3-5.1); Sodium 140 mmol/L (135-145); Total Protein 8.1 g/dL (6.5-8.0); Triglycerides 172 mg/dL (<150)
[2023-05-02 12:26] LABS: TSH reflex Free T4 2.16 uIU/mL (0.32-4.0)
[2023-05-02 12:34] LABS: Folate 10.8 ng/mL (> or = 4.0); Vitamin B12 571 pg/mL (200-900)
== END 2023-05-02 09:20 | disposition home or self-care (01) ==
LOC: HO.HHCL 09:19
PROVIDERS: Visit Provider Internal Medicine
DX: M54.2 Cervicalgia (principal); I10 Essential (primary) hypertension; R41.3 Other amnesia
CPT/HCPCS: 36415; 72040; 80053; 80061; 82607; 82746; 84443; 85025; 86803

== ENCOUNTER 2023-06-01 09:32 | Outpatient (AMB) | payer OTHER, SELFPAY ==
--- NOTE | 2023-06-01 09:15 | A.OFFVIS_ITS ---
Intake Vital Signs 06/01/23 09:42 Height 5 ft 1 in Weight 185 lb 3.013 oz BMI 35.0 BP 142/67 H Blood Pressure Location Rt brachial Position Sitting Pulse 80 Intake Visit Reasons: 6 month f/u Intake Note: Patient presents in 6 months follow up. CC: Patient states sometimes when she bends down she feels like a lump form her left chest area and pain. She c/o occasional esophageal pain when swallowing foods. She states that she is not receiving the medication for intestinal movement . Accompanied by: Daughter Allergies No Known Allergies [No Known Allergies*] Allergy (Verified 06/01/23 09:47) HPI 6 month f/u HPI Details Assessment & Plan (1) Chronic idiopathic constipation: Code(s): K59.04 - Chronic idiopathic constipation Plan: PRYDEINIG #Rosy RODNEY All is well and she is happy with her GI regimen! The senna has resolved her problems and will try to keep her on it. She also continues on her famotidine and I have given her temporary refill of her oxybutynin until she can get in touch with urology. Return office visit in 6 month (2) GERD (gastroesophageal reflux diseas e): Code(s): K21.9 - Gastro-esophageal reflux disease without esophagitis (3) Colon cancer screening: Comment: 2022- Cologuard repeat in 3 years Code(s): Z12.11 - Encounter for screening for malignant neoplasm of colon Medications: Refilled famotidine (Pepcid ) 40 mg PO BID 60 ta bs 6RF K21.9 - Gastro-eso phageal reflux dis ease without esoph agitis sennosides (Senna Laxative) 17.2 mg (2 x 8.6 m g) PO BEDTIME 60 t abs 6RF 30 days K59.04 - Chronic i diopathic constipa tion methylcellulose (l axative) (Citrucel ) 500 mg PO BID 60 t abs 6RF K59.04 - Chronic i diopathic constipa tion TODAY'S VISIT PRYDEINIG #[id number], Fareed She is here with a female family member who is supportive. She continues on senna and famotidine. She says she has had a pain under her left ribcage lately. With discussion, she says she is only getting one of the medicines that you prescribe me. It seems that she is only getting the famotidine. She is NOT getting the senna and her fiber. I believe that her left upper quadrant abdominal pain will resolve when she is back on the appropriate medications as this likely is colon spasm. I explained this to her and her family member. She denies any trauma to the area so despite the fact that she is tender along the ribs as well I do not think any x-rays are necessary at this time. If she fails to improve after getting all of her medical regimen then will consider if other tests are necessary. Return office visit in 6 weeks [facility] Medical History (Updated 06/01/23 @ 09:16 by LYLA Arevalo) On beta mame at home Snores Urinary incontinence Other and unspecified hyperlipidemia Essential hypertension Peripheral vascular disease Atherosclerotic cardiovascular disease Carotid stenosis, asymptomatic PAD (peripheral artery disease) Hypercholesteremia Hypertension Surgical History H/O heart artery stent History of esophagogastroduodenoscopy (EGD) Hx of lithotripsy Hx of colonoscopy Hx of heart artery stent Hx of varicose vein stripping Hx of tubal ligation Hx laparoscopic cholecystectomy Family History Father Emphysema, unspecified Mother Hypertension Brother Liver cancer Daughter Alive and well Social History Alcohol intake: never Patient Tobacco Use Status: Never used Tobacco Review of Systems Const Denies fatigue, Denies fever(s), Denies night sweats, Denies poor appetite and Denies weight loss ENT Reports Normal hearing present, Denies dental pain, Denies dysphagia, Denies hearing loss, Denies mouth pain, Denies odynophagia, Denies throat swelling, Denies tongue swelling and Reports other (Dentition adequate) Card Reports no additional complaints Resp Reports no additional complaints GI Details: Reports abdominal pain, Denies melena, Denies bloating, Denies hematochezia, Reports constipation, Denies GI cramping, Denies dysphagia, Denies excessive flatus, Denies early satiety, Reports heartburn, Denies diarrhea, Denies nausea, Denies odynophagia, Denies vomiting and Denies hematemesis Skin/Breast Denies pruritus, Denies lesions, Denies rash and Denies jaundice Neuro Reports Normal hearing present and Denies Abnormal speech present Endo Denies fatigue Aller/Immun Denies throat swelling and Denies tongue swelling Physical Exam Vital Signs: Last Vital Signs Pulse 80 06/01/23 09:42 BP 142/67 H 06/01/23 09:42 BMI result Body Mass Index 35.0 Const General: cooperative, no acute distress, well developed and well groomed Nutritional Appearance: well nourished and obese Orientation/consciousness: oriented to person, oriented to place and oriented to time Limitations: language barrier and ambulation with walker HEENT Head: Yes normocephalic and Yes atraumatic Eyes General: appearance normal, both eyes and all related structures Pupils: Equal, round and reactive pupils present Neck Neck: Yes normal visual inspection and Yes no lymphadenopathy Thyroid: Thyroid normal Chest Chest palpation & inspection: normal inspection of the chest and tenderness rib (Lower left) Resp Effort & Inspection: normal respiratory effort and able to speak in complete sentences Auscultation: clear to auscultation bilaterally Cardio Rate: regular rate Rhythm: regular rhythm Heart sounds: Normal, physiologic split S2 sound present Peripheral pulses: radial pulses present and posterior tibial pulses present GI Inspection: No distended, Yes Abdominal panniculus present and Yes obesity Palpation (GI): Soft to palpation, Tenderness to palpation present (GI) in the LUQ, no guarding, not rigid and No hepatosplenomegaly present Percussion: Yes normal to percussion Auscultation: normal bowel sounds Rectal Exam - Female: deferred Skin General skin exam: no rashes or lesions noted, turgor normal, skin not dry, no jaundice, No spider nevi and no striae Rashes: no rashes Nails: normal Neuro General: oriented to person, oriented to place and oriented to time Cranial nerves: Yes Equal, round and reactive pupils present and Yes Normal hearing present Speech: No Abnormal speech present Extrem General: Yes normal to inspection, No clubbing, No cyanosis and No edema Psych Appearance: grossly normal and well kempt Mental Status: mental status grossly normal Speech and movement: Normal speech and movement present Affect: normal affect Attitude: cooperative Thought process: Circumstantial thought process present and not confabulating Thought content: Normal thought content present Insight: Limited insight present (Psych) Judgement: Limited judgement present (Psych) Assessment & Plan Assessment & Plan (1) Chronic idiopathic constipation: Code(s): K59.04 - Chronic idiopathic constipation (2) GERD (gastroesophageal reflux disease): Code(s): K21.9 - Gastro-esophageal reflux disease without esophagitis Plan PRYDEINIG #[id number], Fareed She is here with a female family member who is supportive. She continues on senna and famotidine. She says she has had a pain under her left ribcage lately. With discussion, she says she is only getting one of the medicines that you prescribe me. It seems that she is only getting the famotidine. She is NOT getting the senna and her fiber. I believe that her left upper quadrant abdominal pain will resolve when she is back on the appropriate medications as this likely is colon spasm. I explained this to her and her family member. She denies any trauma to the area so despite the fact that she is tender along the ribs as well I do not think any x-rays are necessary at this time. If she fails to improve after getting all of her medical regimen then will consider if other tests are necessary. Return office visit in 6 weeks Medications: Refilled sennosides (Senna Laxative) 17.2 mg (2 x 8.6 mg) PO BEDTIME 30 days 60 tabs 6RF K59.04 - Chronic idiopathic constipation famotidine (Pepcid) 40 mg PO BID 60 tabs 6RF K21.9 - Gastro-esophageal reflux disease without esophagitis methylcellulose (laxative) (Citrucel) 500 mg PO BID 60 tabs 6RF K59.04 - Chronic idiopathic constipation Coding Level of Care Code Est Pt Level 3 (99679) Diagnoses Chronic idiopathic constipation K59.04 GERD (gastroesophageal reflux disease) K21.9
[2023-06-01 09:42] VITALS: BP 142/67; PULSE 80; BMI 35.0
== END 2023-06-01 13:47 | disposition home or self-care (01) ==
LOC: HO.HGI 09:32
PROVIDERS: PCP Internal Medicine; Visit Provider Nurse Practitioner
DX: K59.04 Chronic idiopathic constipation (principal); K21.9 Gastro-esophageal reflux disease without esophagitis
CPT/HCPCS: 99213

== ENCOUNTER → 2023-06-01 09:32 | Outpatient (BNVA) | payer OTHER, SELFPAY | PROVIDERS: PCP Internal Medicine; Visit Provider Nurse Practitioner | DX: K59.04 Chronic idiopathic constipation (principal); K21.9 Gastro-esophageal reflux disease without esophagitis | CPT/HCPCS: 99212 ==

== ENCOUNTER 2023-06-15 09:16 | Outpatient (AMB) | payer OTHER, SELFPAY ==
[2023-06-15 09:35] VITALS: BP 132/67; PULSE 81; O2SAT 95; BMI 34.4
--- NOTE | 2023-06-15 09:35 | A.OFFVIS_ITS ---
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 She continues to use Anoro and albuterol MDI with good control of her underlying symptoms.? She does complain of mild bronchitic exacerbation symptomatic with cough productive of clear sputum, but no wheezing. [facility] Medical History (Updated 06/15/23 @ 10:02 by Yasmani Oneill MD) On beta mame at home Snores Urinary incontinence Other and unspecified hyperlipidemia Essential hypertension Peripheral vascular disease Atherosclerotic cardiovascular disease Carotid stenosis, asymptomatic PAD (peripheral artery disease) Hypercholesteremia Hypertension Surgical History H/O heart artery stent History of esophagogastroduodenoscopy (EGD) Hx of lithotripsy Hx of colonoscopy Hx of heart artery stent Hx of varicose vein stripping Hx of tubal ligation Hx laparoscopic cholecystectomy Family History Father Emphysema, unspecified Mother Hypertension Brother Liver cancer Daughter Alive and well Social History Alcohol intake: never Patient Tobacco Use Status: Never used Tobacco Review of Systems Const Denies daytime sleepiness, Denies excessive sweating, Denies fatigue, Denies fever(s), Denies lethargy, Denies malaise, Denies night sweats, Denies snoring and Denies weight loss Eyes Denies blurry vision and Denies itchy eyes ENT Denies nasal congestion, Denies post nasal drip, Denies sinus pain, Denies sinus pressure and Denies other ( Thrush) Card Denies chest pain, Denies pedal edema, Denies dyspnea, Denies orthopnea and Denies paroxysmal nocturnal dyspnea Resp Reports cough, Denies hemoptysis, Reports excessive phlegm production, Denies dyspnea, Denies snoring and Denies wheezing GI Denies abdominal pain and Denies heartburn Musc Denies myalgias, Denies arthralgias and Denies joint swelling Skin/Breast Denies rash Neuro Denies memory loss and Denies seizure-like activity Psych Denies abnormal sleep pattern, Denies anxiety and Denies memory loss Endo Denies excessive sweating, Denies fatigue and Denies heat intolerance Anthony/Lymph Denies easy bruising Aller/Immun Denies itchy eyes, Denies seasonal rhinorrhea and Denies wheezing Physical Exam Vital Signs: Last Vital Signs Pulse 81 06/15/23 09:35 BP 132/67 06/15/23 09:35 Pulse Ox 95 06/15/23 09:35 Oxygen Delivery Method Room Air 06/15/23 09:35 BMI result Body Mass Index 34.4 Const General: no acute distress and alert Nutritional Appearance: not obese Orientation/consciousness: Other orientation findings ( oriented) HEENT Head: Yes atraumatic Eyes General: appearance normal, both eyes and all related structures Sclerae: sclerae normal EOM: EOMs intact bilaterally Neck Neck: Yes supple Lymphatic: no lymphadenopathy noted Resp Effort & Inspection: normal respiratory effort and no use of accessory muscles Auscultation: clear to auscultation bilaterally Cardio Rate: regular rate Rhythm: regular rhythm Heart sounds: no gallops, no murmurs and no rubs Skin General skin exam: other ( warm) Extrem General: No clubbing, No cyanosis and No edema Assessment & Plan Assessment & Plan (1) COPD (chronic obstructive pulmonary disease): Code(s): J44.9 - Chronic obstructive pulmonary disease, unspecified Plan: Well controlled on Anoro and albuterol MDI. Continue current regimen. (2) Acute bronchitis: Code(s): J20.9 - Acute bronchitis, unspecified Plan: Now with an acute bronchitis. Will treat with a course of azithromycin. Medications: New azithromycin For 250 mg dose pack: take 500 mg today (day 1), then 250 mg for 4 days (days 2-5) PO 6 tabs 0RF Coding Level of Care Code Est Pt Level 4 (31336) Diagnoses COPD (chronic obstructive pulmonary disease) J44.9 Acute bronchitis J20.9
== END 2023-06-15 10:01 | disposition home or self-care (01) ==
PROVIDERS: PCP Internal Medicine; Visit Provider Internal Medicine Pulmonary Disease
DX: J44.9 Chronic obstructive pulmonary disease, unspecified (principal); J20.9 Acute bronchitis, unspecified
CPT/HCPCS: 99214

== ENCOUNTER → 2023-06-15 09:16 | Outpatient (BNVA) | payer OTHER, SELFPAY | PROVIDERS: PCP Internal Medicine; Visit Provider Internal Medicine Pulmonary Disease | DX: J44.9 Chronic obstructive pulmonary disease, unspecified (principal); J20.9 Acute bronchitis, unspecified; R06.00 Dyspnea, unspecified; Z87.891 Personal history of nicotine dependence | CPT/HCPCS: 99212 ==

== ENCOUNTER 2023-07-25 09:03 | Outpatient (REF) | payer OTHER, SELFPAY ==
--- NOTE | ~2023-07-25 | US_ITS ---
EXAMINATION: US arterial duplex LE BI, US TYLER complete CLINICAL INFORMATION: Peripheral vascular disease, unspecified COMPARISON: US arterial duplex LE BI 06/23/22 TECHNIQUE: Ankle pulse volume recordings, ankle pressure measurements and ankle brachial indices were obtained of the lower extremity arterial system bilaterally in addition to duplex Doppler techniques with wave form analysis and measurement of velocities in the common femoral, profunda femoral, superficial femoral, popliteal, tibial and peroneal arteries. The study was performed only at rest. FINDINGS: RIGHT LE. THE RIGHT ANKLE-BRACHIAL INDEX IS: 0.73, previously 0.74 >0.97-1.25 = normal - no significant arterial disease 0.75-0.96 = mild peripheral arterial disease 0.5-0.74 = moderate peripheral arterial disease <0.50 = severe peripheral arterial disease <0.30 = critical arterial disease 2. SEGMENTAL PRESSURES (mmHg): Ankle: PT 115, DP 103 3. PVR WAVEFORMS: Ankle: Abnormal 4. DIRECT DUPLEX: Common femoral artery: 69 cm/s, biphasic Profunda femoris artery: 90 cm/s, Multiphasic Superficial femoral artery (proximal): Occluded Superficial femoral artery (mid): 38 cm/s, monophasic (at origin of patent graft described below) Superficial femoral artery (distal): Occluded Proximal Popliteal artery: Occluded Distal posterior tibial artery: 45 cm/s, Multiphasic Peroneal artery: Occluded Dorsalis pedis artery: 17 cm/sec, monophasic Right MANAGEMENT TRAINEE PROGRAM STORES - Popliteal artery bypass: not definitively seen, chronically occluded. Right mid SFA - OR FIRST ASSIST REGISTERED NURSE graft: Inflow artery: 17 cm/s, monophasic Proximal anastomosis: 39 cm/s, monophasic Proximal graft: 24 cm/s, monophasic Mid graft: 29 cm/s, monophasic Distal graft: 23 cm/s, monophasic Distal anastomosis: 35 cm/s, monophasic Outflow artery: 22 cm/s, monophasic Right mid SFA - distal SFA stent: Occluded LEFT LE. THE LEFT ANKLE-BRACHIAL INDEX IS: 1.06, previously 1.09 >0.97-1.25 = normal - no significant arterial disease 0.75-0.96 = mild peripheral arterial disease 0.5-0.74 = moderate peripheral arterial disease <0.50 = severe peripheral arterial disease <0.30 = critical arterial disease 2. SEGMENTAL PRESSURES: Ankle: PT 166, DP 164 3. PVR WAVEFORMS: Ankle: Abnormal 4. DIRECT DUPLEX: Common femoral artery: 130 cm/s, Multiphasic Profunda femoris artery: 56 cm/s, biphasic Superficial femoral artery (proximal): 86 cm/s, Multiphasic Superficial femoral artery (mid): 78 cm/s, biphasic Superficial femoral artery (distal): 76 cm/s, Multiphasic Distal Popliteal artery: 68 cm/s, biphasic Mid posterior tibial artery: 52 cm/s, biphasic Peroneal artery: 29 cm/s, biphasic Anterior tibial artery: 115 cm/sec, multiphasic Dorsalis pedis artery: 98 cm/sec, multiphasic US/US TYLER complete IMPRESSION: RIGHT LEG: Moderate peripheral arterial disease by TYLER, unchanged. Chronically occluded femoral to popliteal bypass graft. The Right mid SFA - OR FIRST ASSIST REGISTERED NURSE graft is patent with monophasic waveforms throughout, as before. The proximal superficial femoral artery is occluded. The Right mid SFA - distal SFA stent is occluded. Flow is seen in the distal posterior tibial artery and the dorsalis pedis artery. LEFT LEG: No significant peripheral arterial disease at TYLER, unchanged.
--- NOTE | ~2023-07-25 | US_ITS ---
EXAMINATION: US arterial duplex LE BI, US TYLER complete CLINICAL INFORMATION: Peripheral vascular disease, unspecified COMPARISON: US arterial duplex LE BI 06/23/22 TECHNIQUE: Ankle pulse volume recordings, ankle pressure measurements and ankle brachial indices were obtained of the lower extremity arterial system bilaterally in addition to duplex Doppler techniques with wave form analysis and measurement of velocities in the common femoral, profunda femoral, superficial femoral, popliteal, tibial and peroneal arteries. The study was performed only at rest. FINDINGS: RIGHT LE. THE RIGHT ANKLE-BRACHIAL INDEX IS: 0.73, previously 0.74 >0.97-1.25 = normal - no significant arterial disease 0.75-0.96 = mild peripheral arterial disease 0.5-0.74 = moderate peripheral arterial disease <0.50 = severe peripheral arterial disease <0.30 = critical arterial disease 2. SEGMENTAL PRESSURES (mmHg): Ankle: PT 115, DP 103 3. PVR WAVEFORMS: Ankle: Abnormal 4. DIRECT DUPLEX: Common femoral artery: 69 cm/s, biphasic Profunda femoris artery: 90 cm/s, Multiphasic Superficial femoral artery (proximal): Occluded Superficial femoral artery (mid): 38 cm/s, monophasic (at origin of patent graft described below) Superficial femoral artery (distal): Occluded Proximal Popliteal artery: Occluded Distal posterior tibial artery: 45 cm/s, Multiphasic Peroneal artery: Occluded Dorsalis pedis artery: 17 cm/sec, monophasic Right SENIOR ENERGY ANALYST - Popliteal artery bypass: not definitively seen, chronically occluded. Right mid SFA - AUTISM TUTOR graft: Inflow artery: 17 cm/s, monophasic Proximal anastomosis: 39 cm/s, monophasic Proximal graft: 24 cm/s, monophasic Mid graft: 29 cm/s, monophasic Distal graft: 23 cm/s, monophasic Distal anastomosis: 35 cm/s, monophasic Outflow artery: 22 cm/s, monophasic Right mid SFA - distal SFA stent: Occluded LEFT LE. THE LEFT ANKLE-BRACHIAL INDEX IS: 1.06, previously 1.09 >0.97-1.25 = normal - no significant arterial disease 0.75-0.96 = mild peripheral arterial disease 0.5-0.74 = moderate peripheral arterial disease <0.50 = severe peripheral arterial disease <0.30 = critical arterial disease 2. SEGMENTAL PRESSURES: Ankle: PT 166, DP 164 3. PVR WAVEFORMS: Ankle: Abnormal 4. DIRECT DUPLEX: Common femoral artery: 130 cm/s, Multiphasic Profunda femoris artery: 56 cm/s, biphasic Superficial femoral artery (proximal): 86 cm/s, Multiphasic Superficial femoral artery (mid): 78 cm/s, biphasic Superficial femoral artery (distal): 76 cm/s, Multiphasic Distal Popliteal artery: 68 cm/s, biphasic Mid posterior tibial artery: 52 cm/s, biphasic Peroneal artery: 29 cm/s, biphasic Anterior tibial artery: 115 cm/sec, multiphasic Dorsalis pedis artery: 98 cm/sec, multiphasic US/US arterial duplex LE BI IMPRESSION: RIGHT LEG: Moderate peripheral arterial disease by TYLER, unchanged. Chronically occluded femoral to popliteal bypass graft. The Right mid SFA - AUTISM TUTOR graft is patent with monophasic waveforms throughout, as before. The proximal superficial femoral artery is occluded. The Right mid SFA - distal SFA stent is occluded. Flow is seen in the distal posterior tibial artery and the dorsalis pedis artery. LEFT LEG: No significant peripheral arterial disease at TYLER, unchanged.
== END 2023-07-25 09:04 | disposition home or self-care (01) ==
LOC: HO.US 09:03
PROVIDERS: PCP Internal Medicine; Visit Provider Surgery Vascular Surgery
DX: I73.9 Peripheral vascular disease, unspecified (principal)
CPT/HCPCS: 93923; 93925

== ENCOUNTER 2024-07-16 08:31 | Outpatient (REF) | payer MEDICARE, SELFPAY ==
--- OUTSIDE RECORDS SUMMARY | 2024-07-16 08:49 | XMS_ITS | Encounter Summary ---
Author Organization [employer] Address [address] [place] [address] Care Team Providers Care Enrolled Nurse Name Role Phone Luz Dill MD Primary Care Provider [phone] Reason for Visit * Reason Onset Date Comments Referral 03/21/2023 Encounter Details Date Type Department Care Team ([facility] st Contact Info) Description 03/21/2023 Telephone [facility] MEDICINE [address] [place] [address] Luz Dill MD [address] [place], [place] [id number] Referral Social History Tobacco Use Types Packs/Day Years Used Date Smoking Tobacco: Former Cigarettes 1 41 Smokeless Tobacco: Never Comments:Stopped smoking abo ut 5 years ago. Depression Answer Date Recorded Patient Health Questionnaire-9 Score 0 08/08/2022 Housing Stability Answer Date Recorded What is your housing situation today? Not on jayce e 01/25/[address] you li ve. Do you have problems with any of the following? None of the above 01/25/2023 Food Insecurity Answer Date Recorded Within the past 12 months, y ou worried that your food would run out before you got money to buy more: Never True 01/25/2023 Within the past 12 months,th e food you bought just didn't last and you didn't have enough money to get more: Never True Transportation Answer Date Recorded In the past 12 months, has l ack of transportation kept you from medical appts, meetings, work or from getting things needed for daily living? No 01/25/2023 Utilities Answer Date Recorded In the past 12 months, has t he electric, gas, oil or water company threatened to shut off services in your home? No 01/25/2023 Depression Answer Date Recorded Patient Health Questionnaire-2 Score 0 08/08/2022 Comments Unknown Sex and Gender Information Value Date Recorded Sex Assigned at Female 01/31/2022 10:33 AM EDT Legal Sex Female 10:33 AM EDT Gender Identity Female 01/31/2022 10:33 AM EDT Sexual Orientation Straight 01/31/2022 10 :33 AM EDT documented as of this encounter Miscellaneous Notes * Telephone Encounter - Bettie Richardson RN - 03/22/2023 3:02 PM EST TC placed to Radha at [facility]. Radha explained that these requests were made by a visiting nurse [facility]. She reports that the note reads that the patient tried to contact [facility] and did not get through. TC placed to patient via [employer]. No answer. TC placed to patient without acute dialysis nurse line. Clarified that patient did request referrals. Was not able to understand patient's description of current problems in Albanian. Asked the patient to please answer the phone if I called back with acute dialysis nurse line. Explained the phone number would be different. Patient agreed. TC placed again to patient via [employer]. Patient answered and stated that she has had neck pain, for which she was prescribed a cream and physical therapy. She stated that these things didnot really improve her neck pain, and now she also has head pain. The neck and head pain are mostlylocated on the R side of her head. She stated that she sometimes feels a small bump there above Harika ear and that this has been going on for quite some time. She declines a visit at [facility] at this time because she is currently in [place] visiting her mother who is in crisis. She states that she will be back in [place] sometime in mid-April 2023, and she has a follow-up appointment with Dr. Dill already scheduled for 05/01/23. Advised patient to be evaluated by a doctor or at the ED in [place] for worsening headache and bump above ear. Patient declined this advice to seek care now. Advised patient to seek evaluation and medical care if any symptoms worsen while in [place] and advised patient that she can call us when she returns for a same-day appointment if needed. Patient confirms that she does want referral for mammogram and some help with neck/head pain referrals and also medication blister packs. Noted in appointment notes for 04/26/23. Routing message to PCP so he is aware. * Telephone Encounter - Geraldo Valentin - 03/21/2023 3:53 PM EST Tc from [facility] at [facility] requesting a referral for a orthopedics, a mammogram and for the patient medication to be sent as a Medication Blister Pack documented in this encounter Plan of Treatment Upcoming Encounters Date Type Department Care Team (Late st Contact Info) Description 08/15/2024 10:00 AM EDT Telemedicine [facility] MEDICINE [address] [place] [address] 08/22/2024 11:30 AM EDT Office Visit [facility] MED & PEDS [address] [place] [address] Luz Dill MD [address] [place] [address] documented as of this encounter Visit Diagnoses Not on filedocumented in this encounter Additional Health Concerns Assessment Noted Time PHQ-9 Depression Total Score: 0 08/09/19 23 3:03 PM EDT documented as of this encounter Care Teams Enrolled Nurse Relationship Specialty Start Date End Date Luz Dill MD [address] [place] [address] PCP - General Internal Medicine 05/31/17 documented as of this encounter
--- OUTSIDE RECORDS SUMMARY | 2024-07-16 08:49 | XMS_ITS | Encounter Summary ---
Author Organization [employer] Address [address] [facility] [address] [place] [address] Care Team Providers Care Print Shop Stenographer Name Role Phone Luz Dill MD Primary Care Provider [phone] Reason for Visit * Consultation (Routine) - Pending Review Specialty Diagnoses / Procedures Referred By Leslie mitchell Referred To Contact Pharmacy Diagnoses Hypercholesterolemia Primary hypertension Luz Dill MD [address] [place] [address] Phone: tel: fax: Referral ID Status Reason Start Date Expiration Date Visits Requested Visits Authorized [id number] Pending Review Continuity of Care 4 03/21/2025 6 6 Encounter Details Date Type Department Care Team (Late st Contact Info) Description 07/11/2024 10:00 AM EDT Telemedicine [facility] MEDICINE [address] [place] [address] Darren Sullivan PharmD [address] [place] [address] Primary hypertension (Primary Dx); PVD (peripheral vascular disease) (CMS/HCC); Hypercholesterolemia Social History Tobacco Use Types Packs/Day Years Used Date Smoking Tobacco: Former Cigarettes 1 41 Smokeless Tobacco: Never Comments:Stopped smoking abo ut 5 years ago. Depression Answer Date Recorded Patient Health Questionnaire-9 Score 0 08/08/2022 Housing Stability Answer Date Recorded What is your housing situation today? I have sita rodarte 05/02/[address] you li ve. Do you have problems with any of the following? None of the above 05/02/2024 Food Insecurity Answer Date Recorded Within the past 12 months, y ou worried that your food would run out before you got money to buy more: Never True 05/02/2024 Within the past 12 months,th e food you bought just didn't last and you didn't have enough money to get more: Never True Transportation Answer Date Recorded In the past 12 months, has l ack of transportation kept you from medical appts, meetings, work or from getting things needed for daily living? No 05/02/2024 Utilities Answer Date Recorded In the past 12 months, has t he [place], gas, oil or water company threatened to shut off services in your home? No 05/02/2024 Depression Answer Date Recorded Patient Health Questionnaire-2 Score 0 08/08/2022 Internet Access Answer Date Recorded Internet Access Q1 Yes 05/02/2024 Internet Access Q2 Not on file 05/02/2024 Comments Unknown Sex and Gender Information Value Date Recorded Sex Assigned at Female 01/31/2022 10:33 AM EDT Legal Sex Female 10:33 AM EDT Gender Identity Female 01/31/2022 10:33 AM EDT Sexual Orientation Straight 01/31/2022 10 :33 AM EDT documented as of this encounter Progress Notes * Darren Sullivan PharmD - 07/11/2024 10:00 AM EDT Pharmacy Consult Visit Type: MTM Visit Pharmacist: Darren Sullivan PharmD Referral Diagnosis: HLD, HTN Referral Expiration: 03/21/25 Referring Provider: Dr. Dill Pharmacy Recommendations for Provider: Please consider sending a prescription for a home BP monitor. Please consider if re-referring patient back to cardiology is appropriate for management of PVD, aspatient has not completed follow up visit (last seen [place] [facility] [place]19/2022). Patient potentially lost to follow up in the past due to cancellations of appointments due to inability to meet copays for specialist appointments. Since patient receives monthly medboxes, please contact medbox pharmacist with any medication changes (initiations, discontinuation, dose adjustments) Background/ Visit Intake Marlena Zhou is a 74 y.o. patient here for a follow-up visit. Visit completed over the phone. Allergies: has No Known Allergies. Preferred Pharmacy: [facility] [address] [facility] [address] [facility] [id number] Medbox: Yes, last medbox on 06/14/24 . Assessment & Plan Adherence: History: Medication Reconciliation: OTC medication, vitamin, supplement use: reports use of aspirin 81 mg once daily (see ASCVD section) Adherence: Medication Organization: Uses medboxes from [facility] pharmacy Patient reports satisfaction with medbox program Patient denies experiencing ADEs and denies removing medications from medbox. Missed doses: Reports missing 1 doses/week Reports the following barriers to adherence: Difficulty remembering to take medications Reports using the following strategies to improve adherence: Sets alarms on their phone as reminder Read/Write: Yes, in Pakistani Goals of therapy: Improve adherence & minimize missed doses (<2 missed doses/week) Recommendations/Monitoring: Since patient receives monthly medboxes, please contact medbox pharmacist with any medication changes (initiations, discontinuation, dose adjustments) Hypertension: Pharmacologic Therapy: Isosorbide mononitrate ER 30 mg once daily Metoprolol succinate 50 mg once daily History: Patient denies SMBP as they reported that they had lost their BP monitor. Pertinent negatives include dizziness, head ache, blurry vision. Recent Blood Pressure values: BP Readings from Last 4 Encounters: 09/13/23 (!) 156/76 05/01/23 136/68 08/08/22 123/64 02/15/22 128/70 Pulse Readings from Last 4 Encounters: 09/13/23 74 05/01/23 75 08/08/22 86 02/15/22 60 Lab monitoring Lab Results Component Value Date NA 140 05/02/2023 K 4.1 05/02/2023 CREATININE 0.81 05/02/2023 EGFR >60 05/02/2023 Goals of Therapy per JNC 8: Achieve & maintain BP <150/90mmHg (age >60yr without diabetes or CKD) Plan: Please consider sending a prescription for a home BP monitor. Once new BP monitor is received, patient instructed to SMBP daily and log results, in order to further evaluate control of HTN. Patient reported understanding and agreeable to plan. Upon further review of SMBP, per JNC8 guidelines, if BP above goal at >150/90 mmHg, please consider initiation of losartan 25 mg once daily for additional blood pressure lowering effect. Following potential initiation, please order BMP in 2-4 weeks in order to assess safety of therapy. Education: Counseling provided to SMBP & log results for review in follow up. Reviewed BP goals, patient instructed to call office if extremes of BP are noted prior to follow up. ASCVD (PVD) Pharmacologic Therapy: Atorvastatin 80 mg once daily Ezetimibe 10 mg once daily History: Previously followed with [facility] in [place], however has not followed up since due to inabilityto afford the copays of their specialist appointments. Patient endorsed experiencing chronic intermittent chest pain a couple times per month, and noticed that this occurs when they bend down or with movement. Patient reports that symptoms are relieved with rest. Patient denied radiating pain or other associated symptoms such as blurry vision, headache, dizziness. Patient reports sometimes taking aspirin 81 mg. Patient reported purchasing OTC, and endorsed being unsure if PCP or digital court reporter instructed them to do so (no documentation found - last cardiology appointment was 2022). Lab monitoring: Lab Results Component Value Date CHOL 250 (H) 05/02/2023 LDLCHOLCAL 171 (H) 05/02/2023 HDL 45 05/02/2023 TRIG 172 (H) 05/02/2023 AST 20 05/02/2023 ALT 14 05/02/2023 The 10-year ASCVD risk score (Steven MESSER, et al., 2019) is: 30.1% Values used to calculate the score: Age: 74 years Sex: Female Is Non- : No Diabetic: No Tobacco smoker: No Systolic Blood Pressure: 156 mmHg Is BP treated: Yes HDL Cholesterol: 45 mg/dL Total Cholesterol: 250 mg/dL Goals of Therapy: ACC/AHA 2018 Cholesterol Guidelines: Ensure evidence based and safe use of medications for secondary prevention of ASCVD. Plan: Per ACC/AHA 2018 guidelines, in patients with ASCVD (PVD), initiation of aspirin is recommended [facility] prevention of ASCVD. Please consider initiation of aspirin 81 mg once daily. Noted as active with plans to continue in last [facility] [place] from 07/2022, however not active in [facility] med list and no dispense history found. Note - Patient reports sometimes taking OTC, however RX required if to be initiated and included in medbox. Plan discussed with PCP and prescription for aspirin 81 mg once daily was sent to pharmacy. FLP and LFTs actively ordered in EHR, needs collection. Patient encouraged to complete outstanding lab work. Patient reported they will go to lab either Wednesday 07/12 or Saturday 07/15. Following results of updated FLP (actively ordered), if LDL remains >70 mg/dL, please consider the following: Per ACC/AHA guidelines, in patients aged 40-75 years at high ASCVD risk (age >65yr, PVD, HTN, LDL >100), additional agents, such as PCSK9 inhibitors, are indicated as add-on therapy to maximally tolerated statin and ezetimibe therapy. Please consider initiation of Repatha 140 mg subcutaneously every 2 weeks (PA required). Following potential initiation, please order FLP and LFTs in order to assess efficacy and safety oftherapy. Please consider if re-referring patient back to cardiology is appropriate for management of PVD, aspatient has not completed follow up visit (last seen by [facility] 07/19/2022). Patient potentially lost to follow up in the past due to cancellations of appointments due to inability to meet copays for specialist appointments. TC encounter created and routed to Triage Team for further evaluation and assessment of patient's reported chest pains. COPD Pharmacologic Therapy: Anoro ellipta 62.5-25 mcg/act 1 puff once daily Albuterol HFA inhaler 1 puff every 6 hours as needed History: Gap in therapy with Anoro inhaler (03/2024 to 06/2024) due to difficulty with high copays (>$400) Patient currently reports daily use of maintenance inhaler. Patient reports use of rescue albuterol inhaler ~1 time per week for symptoms of SOB. Patient endorsed symptoms with exertion, which are then relieved with use of rescue inhaler and with rest. Patient denies nighttime awakenings due to symptoms. Goals of Therapy: Per GOLD Guidelines: Optimize therapy to achieve symptom control (defined as rescue inhaler use < 2x per week). Prevent hospitalization secondary to exacerbation Plan: Continue current regimen as directed. Education: Reviewed the difference between maintenance and rescue medications. Counseled patient on the importance of using maintenance inhaler as prescribed to improve symptom control, reduce the risk of exacerbation, & minimize the need for BRUNILDA. Patient confirmed understanding. Immunizations History: Immunization History Administered Date(s) Administered Pfizer Covid-19 Vaccine 12+ 10/29/2020, 11/24/2020 Pfizer Covid-19 Vaccine 12+ vladimir-sucrose (Craig Cap) 11/24/2021 Pneumococcal Conjugate PCV 20 05/01/2023 Tdap 09/13/2023 Goals of therapy: Ensure patient is up to date per the CDC Adult Immunization Schedule. Assessment/Plan: Influenza 6295-3172 vaccine: Due . Next dose due annually. COVID-19 [id number] vaccine: Due . Next dose due annually. Hepatitis B series (Age 60+ without known risk factors): Not indicated . Pneumococcal vaccines (Age >65): Up-to-date Shingrix series (age > 50 ): Due RSV vaccine (Age 75+): Due Td/TDaP (within the past 10 years): Up-to-date . Next dose due every 10 years. Plan: Unable to discuss eligibility for indicated vaccinations at this time. Plan to offer indicated vaccines at follow up visit. Patient Action Plan Reviewed today with plan to revisit at follow up in 1 months for SMBP review: 08/15/24. Patient has follow up appointment with PCP in ~1 month (08/22/24). Continue to adhere to medication with assistance of medbox program Monitor blood pressure daily and log results Attend follow up appointments documented in this encounter Plan of Treatment Upcoming Encounters Date Type Department Care Team (Late st Contact Info) Description 08/15/2024 10:00 AM EDT Telemedicine [facility] MEDICINE [address] [place] [address] 08/22/2024 11:30 AM EDT Office Visit [facility] MED & PEDS [address] [place] [address] Luz Dill MD [address] [place] [address] documented as of this encounter Visit Diagnoses Diagnosis Primary hypertension- Primary Unspecified essential hypertension PVD (peripheral vascular disease) ([facility]) Unspecified peripheral vascular disease Hypercholesterolemia Pure hypercholesterolemia documented in this encounter Additional Health Concerns Assessment Noted Time PHQ-9 Depression Total Score: 0 08/09/19 23 3:03 PM EDT documented as of this encounter Care Teams Print Shop Stenographer Relationship Specialty Start Date End Date Luz Dill MD [address] [place] [address] PCP - General Internal Medicine 05/31/17 documented as of this encounter
--- OUTSIDE RECORDS SUMMARY | 2024-07-16 08:49 | XMS_ITS | Clinical Summary ---
Author Organization [employer] Address [address] [place] [address] Care Team Providers Care Executive Kitchen Manager Name Role Phone Luz Dill MD Primary Care Provider [phone] Allergies No known active allergies Medications SM Fiber Laxative 500 MG tablet Take 1 tablet by mouth 2 times daily. 3 Active metoprolol succinate XL (Toprol-XL) 50 MG 24 hr tabletIndications :Primary hypertension Take 1 tablet (50 mg) by mouth Once per day. 30 tablet 11 4 Active isosorbide mononitrate ER (Imdur) 30 MG 24 hr tabletIndications :Primary hypertension Take 1 tablet (30 mg) by mouth in the morning. 30 tablet 11 4 Active famotidine (Pepcid) 40 MG tabletIndications :Gastroesophageal reflux disease without esophagitis Take 1 tablet (40 mg) by mouth 2 times daily. 30 tablet 4 Active ezetimibe (Zetia) 10 MG tabletIndications :Hypercholesterol emia Take 1 tablet (10 mg) by mouth Once per day. 30 tablet 11 4 Active atorvastatin (Lipitor) 80 MG tabletIndications :Hypercholesterol emia Take 1 tablet (80 mg) by mouth Once per day. 30 tablet 11 4 Active acetaminophen (Tylenol 8 Hour) 650 MG ER tabletIndications :Neck pain TAKE 1 TABLET BY MOUTH EVERY 8 HOURS NEEDED FOR MILD PAIN 90 tablet 3 4 Active senna (Senokot) 8.6 MG tablet Take 2 tablets by mouth at bedtime. 4 Active Anoro Ellipta 62.5-25 MCG/ACT aerosol powder Take 1 puff by mouth Once per day. 4 Active Diclofenac Sodium 1 % gelIndications:Ne ck pain APPLY TO THE AFFECTED AREA(S) 2 GRAMS THREE TIMES DAILY NEEDED PAIN 100 g 1 4 Active Multiple Vitamin (Multi-Vitamin) tablet Take 1 tablet by mouth Once per day. 30 tablet 3 4 Active Ventolin HFA 108 (90 Base) MCG/ACT inhaler INHALE 1 PUFF BY MOUTH EVERY 6 HOURS NEEDED FOR WHEEZING 18 g 3 5 Active aspirin 81 MG EC tabletIndications :PVD (peripheral vascular disease) ([facility]) Take 1 tablet (81 mg) by mouth Once per day. 30 tablet 11 5 07/13/19 26 Active Active Problems Problem Noted Date Diagnosed Date PVD (peripheral vascular disease) 09/13/2023 Hypercholesterolemia 08/08/2022 Hypertensive disorder 08/08/2022 Gastroesophageal reflux disease 06/28/2019 Encounters Date Type Department Care Team Description 07/12/2024 Orders Only [facility] [address] [place] [address] Luz Dill MD PVD (peripheral vascular disease) ([facility]) (Primary Dx) 07/12/2024 Telephone [facility] MED[facility]INE [address] [place] [phone] Darren Sullivan, PharmD 07/11/2024 10:00 AM EDT Telemedicine [facility] MED[facility]INE [address] [place] [address] Darren Sullivan, PharmD Primary hypertension (Primary Dx); PVD (peripheral vascular disease) ([facility]); Hypercholesterolemia 06/06/2024 11:30 AM EST Telemedicine [facility] MED[facility]INE [address] [place] [phone] Darren Sullivan, PharmD Primary hypertension (Primary Dx); Hypercholesterolemia; PVD (peripheral vascular disease) ([facility]) 05/04/2024 Refill [facility] [address] [place] [address] Luz Dill MD 05/02/2024 Patient Outreach [facility] [address] [place] [address] Luz Dill MD Pre-visit Planning (SDOH negative, Tobacco screening negative. ) from Last 3 Months Immunizations Name Administration Dates Next Due Pneumococcal Conjugate PCV 20 05/01/2023 Tdap 09/13/2023 Social History Tobacco Use Types Packs/Day Years Used Date Smoking Tobacco: Former Cigarettes 1 41 Smokeless Tobacco: Never Tobacco Cessation:Counseling Given: Not Answered Comments:Stopped smoking about 5 years ago. Depression Answer Date Recorded [...] Orientation Straight 01/31/2022 10 :33 AM EDT Last Filed Vital Signs Vital Sign Reading Time Taken Comments Blood Pressure 156/76 09/13/2023 9:13 AM EDT Pulse 74 09/13/2023 9:13 AM EDT Temperature 36.5 ??C (97.7 ??F) 09/13/2023 9:13 AM ED T Respiratory Rate 19 09/13/2023 9:13 AM EDT Oxygen Saturation 98% 09/13/2023 9:13 AM EDT Inhaled Oxygen Concentration - - Weight 81.6 kg (180 lb) 09/13/2023 9:13 AM EDT Height 154.9 cm (5' 1 ) 09/13/2023 9:13 AM EDT Body Mass Index 34.01 09/13/2023 9:13 AM EDT Plan of Treatment Upcoming Encounters Date Type Department Care Team (Late st Contact Info) Description 08/15/2024 10:00 AM EDT Telemedicine [facility] MEDICINE [address] [place], [place] [phone] 08/22/2024 11:30 AM EDT Office Visit [facility] PEDS [address] [place] [address] Luz Dill MD [address] [place] [address] Health Maintenance Due Date Last Done Comments CT Colonography 1949 Colonoscopy 1949 FIT 1949 FOBT 1950 Sigmoidoscopy 1949 Alcohol/Substance Use Screening 1961 Zoster Vaccines (1 of 2) 06/11/1999 Depression Screening 08/09/2023 08/08/2022, 08/09/19 23 COVID-19 Vaccine ( season) 2023 11/24/2021, 11/24/2020, 10/29/2020 Influenza Vaccine (#1) 2023 04/13/2021, 2018 RSV Patients and Patients Aged 60 years or older (1 - 1-dose 75+ series) 2024 Tobacco Screening 09/12/2024 09/13/2023 Colorectal Cancer Screening 02/15/2025 FIT DNA/Cologuard 02/15/2025 02/15/2022 SDOH Screening 05/02/2025 05/02/2024 Lipid Panel 05/02/2028 05/02/2023, 04/1 10/2022, 09/02/2021, Additional history exists DTaP/Tdap/Td Vaccines (2 - Td or Tdap) 09/12/2033 09/13/2023 Pneumococcal Vaccine: 50+ Years Completed 05/01/2023 Hepatitis C Screening Completed 05/02/2023 HIB Vaccines Aged Out No longer eligi ble based on patient's age to complete this topic HPV Vaccines Aged Out No longer eligi ble based on patient's age to complete this topic Hepatitis A Vaccines Aged Out No long er eligible based on patient's age to complete this topic Hepatitis B Vaccines Aged Out No long er eligible based on patient's age to complete this topic IPV Vaccines Aged Out No longer eligi ble based on patient's age to complete this topic Meningococcal Vaccine Aged Out No maricruz david eligible based on patient's age to complete this topic RSV under 20 months Aged Out No longe r eligible based on patient's age to complete this topic Rotavirus Vaccines Aged Out No longer eligible based on patient's age to complete this topic Procedures Procedure Name Priority Date/Time Associated Diagnosis Comments HEPATITIS C ANTIBODY Routine 05/02/2023 9:23 AM EST Neck pain Primary hypertension Mild memory disturbance LIPID PANEL, STANDARD Routine 05/02/2023 9:23 AM EST Neck pain Primary hypertension Mild memory disturbance from Last 3 Months or Most Recently Relevant to Health Maintenance Results * Hepatitis C Ab (05/02/2023 9:23 AM EST) Hepatitis C Antibody Nonreactive Nonreactive [facility] Comment:Antibodies to HCV no t detected; does not exclude early acuteHCV infection. Blood Venous blood specimen / Unknown 05/02/2023 9:23 AM EST 05/02/2023 11:35 AM EST us Luz Dill MD LAB BLOOD ORDERABLES Final Result [facility] [address] [place] [phone] * (ABNORMAL) Lipid Panel, Standard (05/02/2023 9:23 AM EST) Triglycerides 172(H) <150 mg/dL [facility] Comment:Desirable Triglyceri de: less than 150 mg/dLBorderline High Triglyceride 150-199 mg/dLHigh Triglyceride: 200-499 mg/dLVery High Triglyceride: greater than or equal to 5OO mg/dL Cholesterol 250(H) <200 mg/dL [facility] Comment:Desirable Cholestero l: less than 200 mg/dLBorderline High Cholesterol: 200-239 mg/dLHigh Cholesterol: greater than 239 mg/dL LDL Cholesterol Calculated 171(H) <100 mg/dL [facility] Comment:Desirable LDL: less than 100 mg/dLNear Optimal/Above Optimal LDL: 110- 129 mg/dLBorderline High LDL: 130-159 mg/dLHigh LDL: 160-189 mg/dLVery High LDL: greater than or equal to 190 mg/dL HDL Cholesterol 45 >40 mg/dL [facility] Comment:Desirable HDL: great er than 40 mg/dL Note: This HDL assay may give artificially low results in patients with liver disease. Blood Venous blood specimen / Unknown 05/02/2023 9:23 AM EST 05/02/2023 11:35 AM EST Luz Dill MD LAB BLOOD ORDERABLES Final Result [facility] [address] [place] [phone] from Last 3 Months or Most Recently Relevant to Health Maintenance Insurance [facility] STANDARD MEDICARE Care Teams Executive Kitchen Manager Relationship Specialty Start Date End Date Luz Dill MD [address] [place] [phone] PCP - General Internal Medicine 05/31/17
--- OUTSIDE RECORDS SUMMARY | 2024-07-16 08:49 | XMS_ITS | Encounter Summary ---
Author Organization [email or web address] Address [address] [place] [address] Care Team Providers Care High School Foreign Language Teacher Name Role Phone Luz Dill MD Primary Care Provider [phone] Encounter Details Date Type Department Care Team (Late st Contact Info) Description 05/03/2023 Orders Only [facility] MED [facility] PEDS [address] [place], [place] [phone] Luz Dill MD [address] [place], [place] [phone] Neck pain (Primary Dx) Social History Tobacco Use Types Packs/Day Years [...] AM EDT documented as of this encounter Plan of Treatment Upcoming Encounters Date Type Department Care Team (Late st Contact Info) Description 08/15/2024 10:00 AM EDT Telemedicine [facility] MEDICINE [address] [place], [place] [phone] 08/22/2024 11:30 AM EDT Office Visit [facility] PEDS [address] [place] [address] Luz Dill MD [address] [place] [address] documented as of this encounter Visit Diagnoses Diagnosis Neck pain- Primary Cervicalgia documented in this encounter Additional Health Concerns Assessment Noted Time PHQ-9 Depression Total Score: 0 08/09/19 23 3:03 PM EDT documented as of this encounter Care Teams High School Foreign Language Teacher Relationship Specialty Start Date End Date Luz Dill MD [address] [place] [address] PCP - General Internal Medicine 05/31/17 documented as of this encounter
--- OUTSIDE RECORDS SUMMARY | 2024-07-16 08:49 | XMS_ITS | Encounter Summary ---
Author Organization [email or web address] [facility] Address [address] [place] [address] 7 [place] [address] Care Team Providers Care Daub Color Mixer Name Role Phone Luz Dill MD Primary Care Provider [phone] Encounter Details Date Type Department Care Team (Late st Contact Info) Description 05/12/2022 Telephone [facility] MEDICINE [address] [place] [address] [phone] Luz Dill MD [address] [place], [place] [phone] Social History Tobacco Use Types Packs/Day Years Used Date Smoking Tobacco: Never Assessed Comments Unknown Sex and Gender Information Value Date Recorded Sex Assigned at Female 01/31/2022 10:33 AM EDT Legal Sex Female 10:33 AM EDT Gender Identity Female 01/31/2022 10:33 AM EDT Sexual Orientation Straight 01/31/2022 10 :33 AM EDT documented as of this encounter Plan of Treatment Upcoming Encounters Date Type Department Care Team (Late st Contact Info) Description 08/15/2024 10:00 AM EDT Telemedicine [facility] MEDICINE [address] [place] [phone] 08/22/2024 11:30 AM EDT Office Visit [facility] MED [facility] PEDS [address] [place], [place] [phone] Luz Dill MD [address] [place], [place] [phone] documented as of this encounter Visit Diagnoses Not on filedocumented in this encounter Care Teams Daub Color Mixer Relationship Specialty Start Date End Date Luz Dill MD [address] [place] [phone] PCP - General Internal Medicine 05/31/17 documented as of this encounter
--- OUTSIDE RECORDS SUMMARY | 2024-07-16 08:49 | XMS_ITS | Encounter Summary ---
Author Organization [employer] Address [address] [place] [address] Care Team Providers Care Stripper Soft Plastic Name Role Phone Luz Dill MD Primary Care Provider [phone] Encounter Details Date Type Department Care Team ([facility] st Contact Info) Description 07/12/2024 Orders Only [facility] MED & PEDS [address] [place], [place] [phone] Luz Dill MD [address] [place], [place] [phone] PVD (peripheral vascular disease) (CMS/HCC) (Primary Dx) Social History Tobacco Use Types Packs/Day Years Used Date Smoking Tobacco: Former Cigarettes 1 41 Smokeless Tobacco: Never Comments:Stopped smoking abo ut 5 years ago. Depression Answer Date Recorded Patient Health Questionnaire-9 Score 0 08/08/2022 Housing Stability Answer Date Recorded What is your housing situation today? I have sitashivam rodarte 05/02/[address] you [...] Info) Description 08/15/2024 10:00 AM EDT Telemedicine [facility] MEDICINE [address] [place] [address] 08/22/2024 11:30 AM EDT Office Visit [facility] MED & PEDS [address] [place] [address] Luz Dill MD [address] [place] [address] documented as of this encounter Visit Diagnoses Diagnosis PVD (peripheral vascular disease) (CMS/HCC)- Primary Unspecified peripheral vascular disease documented in this encounter Additional Health Concerns Assessment Noted Time PHQ-9 Depression Total Score: 0 08/09/19 23 3:03 PM EDT documented as of this encounter Care Teams Stripper Soft Plastic Relationship Specialty Start Date End Date Luz Dill MD [address] [place] [address] PCP - General Internal Medicine 05/31/17 documented as of this encounter
--- OUTSIDE RECORDS SUMMARY | 2024-07-16 08:49 | XMS_ITS | Encounter Summary ---
Author Organization [employer] Address [address] [place] [address] 7t [place] [address] Care Team Providers Care Expansion Joint Finisher Name Role Phone Luz Dill MD Primary Care Provider [phone] Reason for Referral * Consultation (Routine) - Pending Review Specialty Diagnoses / Procedures Referred By Leslie mitchell Referred To Contact Pharmacy Diagnoses Hypercholesterolemia Primary hypertension Luz Dill MD [address] [place] [address] Phone: tel: fax: Referral ID Status Reason Start Date Expiration Date Visits Requested Visits Authorized [id number] Pending Review Continuity of Care 4 03/21/2025 6 6 Encounter Details Date Type Department Care Team (Latest Contact Info) Description 03/21/2024 Orders Only [facility]EDS [address] [place], [place] [phone] Luz Dill MD [address] [place], [place] [phone] Hypercholesterolemia (Primary Dx); Primary hypertension Social History Tobacco Use Types Packs/Day Years [...] Info) Description 08/15/2024 10:00 AM EDT Telemedicine [facility] MEDICINE [address] [place], [place] [phone] 08/22/2024 11:30 AM EDT Office Visit [facility] PEDS [address] [place] [address] Luz Dill MD [address] [place] [address] Scheduled Referrals Name Type Priority Associated Diagnoses Orde r Schedule Referral to Pharmacy MTM Outpatient Referral Routine Hypercholesterolemia Primary hypertension Ordered: 03/21/2024 documented as of this encounter Visit Diagnoses Diagnosis Hypercholesterolemia- Primary Pure hypercholesterolemia Primary hypertension Unspecified essential hypertension documented in this encounter Additional Health Concerns Assessment Noted Time PHQ-9 Depression Total Score: 0 08/09/19 23 3:03 PM EDT documented as of this encounter Care Teams Expansion Joint Finisher Relationship Specialty Start Date End Date Luz Dill MD [address] [place] [address] PCP - General Internal Medicine 05/31/17 documented as of this encounter
--- OUTSIDE RECORDS SUMMARY | 2024-07-16 08:49 | XMS_ITS | Encounter Summary ---
Author Organization [employer] Address [address] [place] [address] Care Team Providers Care Foreclosure Specialist Name Role Phone Luz Dill MD Primary Care Provider [phone] Encounter Details Date Type Department Care Team (Late st Contact Info) Description 07/12/2024 Telephone [facility] MEDICINE [address] [place] [address] Darren Sullivan, PharmD [address] [place] [address] Social History Tobacco Use Types Packs/Day Years [...] encounter Miscellaneous Notes * Telephone Encounter - Stephanie Ramirez RN - 07/12/2024 8:35 AM EDT No tensile tester needed as this advertising copy writer speaks Guyanese. Call returned to [facility] for triage below. No answer LVM to return call to [facility] triage line [phone]. * Telephone Encounter - Darren Sullivan PharmD - 07/12/2024 8:17 AM EDT [place], patient was seen in [facility] yesterday 07/11/24. Patient has PMH of PVD and had reported experiencing intermittent chest pain a couple times per month and endorsed that this occurs with movement andrelieved with rest. Please assist in further evaluation and if there is need for next steps. Thank you documented in this encounter Plan of Treatment Upcoming Encounters Date Type Department Care Team (Late st Contact Info) Description 08/15/2024 10:00 AM EDT Telemedicine [facility] MEDICINE [address] [place] [address] 08/22/2024 11:30 AM EDT Office Visit [facility] [address] [place] [address] Luz Dill MD [address] [place] [address] documented as of this encounter Visit Diagnoses Not on filedocumented in this encounter Additional Health Concerns Assessment Noted Time PHQ-9 Depression Total Score: 0 08/09/19 23 3:03 PM EDT documented as of this encounter Care Teams Foreclosure Specialist Relationship Specialty Start Date End Date Luz Dill MD [address] [place] [address] PCP - General Internal Medicine 05/31/17 documented as of this encounter
[2024-07-16 11:41] LABS: Alanine Aminotransferase 21 U/L (0-31); Alkaline Phosphatase 90 U/L (39-117); Anion Gap 12 (12-20); Aspartate Amino Transferase 42 U/L (5-31); Bilirubin Direct 0.2 mg/dL (0.0-0.5); Bilirubin Total 0.7 mg/dL (0.0-1.0); Blood Urea Nitrogen 15 mg/dL (9-16); Calcium 9.6 mg/dL (8.4-10.2); Carbon Dioxide 26 mmol/L (22-29); Chloride 108 mmol/L (96-108); Cholesterol 235 mg/dL (<200); Estimated Glomerular Filt Rate > 60; Glucose Random 158 mg/dL (60-115); HDL Cholesterol 45 mg/dL (>40); LDL Cholesterol Calculated 157 mg/dL (<100); Potassium 4.2 mmol/L (3.3-5.1); Sodium 142 mmol/L (135-145); Total Protein 8.2 g/dL (6.5-8.0); Triglycerides 168 mg/dL (<150)
== END 2024-07-16 08:32 | disposition home or self-care (01) ==
LOC: HO.HHCL 08:31
PROVIDERS: Visit Provider Internal Medicine
DX: E78.00 Pure hypercholesterolemia, unspecified (principal); I10 Essential (primary) hypertension
CPT/HCPCS: 36415; 80048; 80061; 80076

== ENCOUNTER 2024-09-04 08:58 | Outpatient (REF) | payer MEDICARE, OTHER, SELFPAY ==
--- NOTE | ~2024-09-04 | US_ITS ---
EXAMINATION: US ABDOMEN HISTORY: transaminitis TECHNIQUE: Real-time grayscale ultrasound imaging of the abdomen was performed and images were reviewed. COMPARISON: Comparison is made with the prior examination dated 06/09/2020. FINDINGS: Liver: The right lobe of the liver measures 13.0 cm in size. The left lobe of the liver measures 11.2 cm in size. The liver demonstrates increased echotexture, consistent with steatosis. No focal mass or intrahepatic biliary ductal dilatation is identified. There is normal hepatopedal flow in the portal vein. Gallbladder and biliary tree: The gallbladder is surgically absent. The common bile duct is normal in caliber measuring 5 mm. Kidneys: The right kidney measures 12.4 cm in length and demonstrates a 6 mm upper pole cyst, but is otherwise unremarkable. The left kidney measures 11.6 cm in length and is unremarkable. Pancreas: The pancreatic head, neck, and body are unremarkable. The pancreatic tail is obscured by bowel gas. Spleen: The spleen is normal in size and contour, measuring 8.6 cm in length. Abdominal aorta and inferior vena cava: The visualized portions of the abdominal aorta and inferior vena cava are normal in caliber. There is no free fluid in the abdomen. US/US abdomen complete IMPRESSION: Hepatomegaly and hepatic steatosis. Electronically signed by: Ruslan Shi MD 09/04/2024 10:14 AM EDT
--- NOTE | ~2024-09-04 | XR_ITS ---
CLINICAL HISTORY: neck pain Four views of the cervical spine. COMPARISON: None FINDINGS: Portions of the C6 and C7 vertebral bodies are obscured by overlying soft tissue/shoulders on both lateral and swimmer's views of the cervical spine. Normal vertebral body alignment. Vertebral body heights are maintained. Loss of disc space height C6-C7. Small marginal osteophytes along the mid to lower cervical spine. Facet joint arthrosis present throughout the cervical spine. Normal C1-C2 articulation. Visualized paravertebral soft tissues and lung apices are unremarkable. IMPRESSION: 1. Portions of the C6 and C7 vertebral bodies are obscured by overlying soft tissues/shoulders. Within limits of study, no radiographic evidence of acute injury to the cervical spine. 2. Moderate to advanced multilevel cervical spondylosis. This document has been electronically signed by: Dhiraj Heard MD on 09/04/2024 14:20:02
--- OUTSIDE RECORDS SUMMARY | 2024-09-04 09:24 | XMS_ITS | Encounter Summary ---
Author Organization [employer] Address [address] [place] [address] [address] [place] [address] Care Team Providers Care Nursery Supervisor Name Role Phone Luz Dill MD Primary Care Provider [phone] Encounter Details Date Type Department Care Team (Late Contact Info) Description 05/12/2022 Telephone [facility] MEDICINE [address] [place] [address] Luz Dill MD [address] [place], [place] [phone] Social History Tobacco Use Types Packs/Day Years [...] Encounters Date Type Department Care Team (Late Contact Info) Description 11/26/2024 11:30 AM EDT Office Visit [facility] MED [facility] PEDS [address] [place], [place] [phone] Luz Dill MD [address] [place], [place] [phone] documented as of this encounter Visit Diagnoses Not on filedocumented in this encounter Care Teams Nursery Supervisor Relationship Specialty Start Date End Date Luz Dill MD [address] [place], [place] [phone] PCP - General Internal Medicine 05/31/17 documented as of this encounter
== END 2024-09-04 08:59 | disposition home or self-care (01) ==
LOC: HO.US 08:58
PROVIDERS: PCP Internal Medicine; Visit Provider Internal Medicine
DX: R74.01 Elevation of levels of liver transaminase levels (principal); M54.2 Cervicalgia
CPT/HCPCS: 72040; 76700

== ENCOUNTER → 2024-09-04 09:01 | Outpatient (BNV) | payer MEDICARE, MEDICAID, SELFPAY | PROVIDERS: PCP Internal Medicine; Visit Provider Radiology Diagnostic Radiology | DX: K76.0 Fatty (change of) liver, not elsewhere classified (principal); R16.0 Hepatomegaly, not elsewhere classified; M47.812 Spondylosis without myelopathy or radiculopathy, cervical region | CPT/HCPCS: 76700 ==

== ENCOUNTER 2024-10-10 10:48 | Outpatient (AMB) | payer MEDICARE, MEDICAID, SELFPAY ==
--- NOTE | 2024-10-10 10:57 | A.OFFVIS_ITS ---
Intake Visit Reasons: follow up s/p Arterial US 07/25/23 *see comments* Intake Note: Patient presents for follow up arterial US. Patient has bilateral leg pain but the left is worse. Accompanied by: Grand Child Allergies No Known Allergies (No Known Allergies*) Allergy (Verified 10/10/24 10:59) HPI HPI follow up s/p Arterial US 07/25/23 *see comments*: Details: Complex 74-year-old female presents for follow-up regarding peripheral vascular disease. She had seen us back in 2022 and had a surveillance ultrasound in July of 2023. Subsequently she did not follow-up. She had 2 bypasses done at [facility] on her right lower extremity. She had a diagnostic angiogram by us in March of 2021. At the current time she remains the same she is able to walk about a block. She does note some feet pain as her biggest complaint. She now presents for vascular follow-up. [facility] Medical History On beta mame at home Snores Urinary incontinence Other and unspecified hyperlipidemia Essential hypertension Peripheral vascular disease Atherosclerotic cardiovascular disease Carotid stenosis, asymptomatic PAD (peripheral artery disease) Hypercholesteremia Hypertension Surgical History H/O heart artery stent History of esophagogastroduodenoscopy (EGD) Hx of lithotripsy Hx of colonoscopy Hx of heart artery stent Hx of varicose vein stripping Hx of tubal ligation Hx laparoscopic cholecystectomy Family History Father Emphysema, unspecified Mother Hypertension Brother Liver cancer Daughter Alive and well Social History Alcohol intake: never Patient Tobacco Use Status: Never used Tobacco Review of Systems Const All systems reviewed & are unremarkable except as noted in HPI and below Reports no additional complaints ENT Reports Normal hearing present Card Denies chest pain, Denies chest pain at rest, Denies chest pain with activity and Denies pedal edema Resp Denies cough GI Denies abdominal pain Musc Denies abnormal gait, Denies muscle cramps and Denies radiating pain into limb Skin/Breast Denies skin ulcer and Denies wounds Neuro Reports Normal hearing present and Denies abnormal gait Psych Reports no additional complaints Physical Exam Const General: cooperative, healthy appearing and comfortable Orientation/consciousness: oriented to person, oriented to place and oriented to time HEENT Head: Yes normal to inspection Neck Neck: Yes normal visual inspection Carotids: no bruits Chest Chest palpation & inspection: normal inspection of the chest Resp Effort & Inspection: normal respiratory effort and able to speak in complete sentences Auscultation: clear to auscultation bilaterally, no crackles, no rales, no rhonchi and no wheezes Cardio Other: Bilateral DP signals Rate: regular rate Rhythm: regular rhythm Heart sounds: S1 normal heart sound present and S2 normal heart sound present Bruits: no carotid bruits GI Inspection: Yes normal to inspection Skin Wounds: no wounds Hair: normal Neuro General: oriented to person, oriented to place and oriented to time Cranial nerves: Yes CN's II-XII intact bilaterally and Yes Normal hearing present Cognition (Neuro): normal cognition Motor exam (neuro): 5/5 motor strength present throughout Extrem Other: venous exam: No significant superficial varicosities or spider telangiectasias, minimal edema General: No clubbing, No cyanosis and No edema Psych Appearance: grossly normal Mental Status: mental status grossly normal Speech and movement: Normal speech and movement present Results Reviewed Results Reviewed: Noninvasive arterial testing dated 07/25/2023 demonstrates TYLER on the right of 0.73 and on the left of 1.06. Written report and images were reviewed. Assessment & Plan Assessment & Plan (1) PAD (peripheral artery disease): Comment: 03/31/2021- diagnostic angiogram 2 prior bypasses of the right lower extremity performed at [facility] several years prior Code(s): I73.9 - Peripheral vascular disease, unspecified Category: Medical Plan: In short patient has lower extremity pain. I did review the pathophysiology of peripheral vascular disease with the patient. In addition we did discuss routine conservative measures including a healthy diet and the importance of exercise and ambulation. We did discuss risk factor modification. Since the patient has not had an ultrasound in nearly a year I have taken the liberty of ordering an urgent repeat arterial ultrasound.. Thank you for allowing us to participate in this patient's care. If there are any questions or concerns please do not hesitate to contact us. Orders: Orders US arterial duplex LE BI 1 Week I73.9 - Peripheral vascular disease, unspecified Coding Level of Care Code Est Pt Level 4 (37466) Complex EM visit Add On G2211 Diagnoses PAD (peripheral artery disease) I73.9
--- OUTSIDE RECORDS SUMMARY | 2024-10-10 11:30 | XMS_ITS | Encounter Summary ---
Author Organization [employer] Address [address] [place] [address] [address] [address] Care Team Providers Care Food Demonstrator Name Role Phone Luz Dill MD Primary Care Provider [phone] Encounter Details Date Type Department Care Team (Late Contact Info) Description 05/12/2022 Telephone [facility] MEDICINE [address] [place] [address] Luz Dill MD [address] [place], [place] [phone] Social History Tobacco Use Types Packs/Day Years [...] Description 11/26/2024 11:30 AM EDT Office Visit [facility] MED & PEDS [address] [place], [place] [phone] Luz Dill MD [address] [place], [place] [phone] documented as of this encounter Visit Diagnoses Not on filedocumented in this encounter Care Teams Food Demonstrator Relationship Specialty Start Date End Date Luz Dill MD [address] [place], [place] [phone] PCP - General Internal Medicine 05/31/17 documented as of this encounter
== END 2024-10-10 11:22 | disposition home or self-care (01) ==
LOC: HO.HVS 10:49
PROVIDERS: PCP Internal Medicine; Visit Provider Surgery Vascular Surgery
DX: I73.9 Peripheral vascular disease, unspecified (principal)
CPT/HCPCS: 99214; G2211

== ENCOUNTER → 2024-10-10 10:48 | Outpatient (BNVA) | payer MEDICARE, MEDICAID, SELFPAY | PROVIDERS: PCP Internal Medicine; Visit Provider Surgery Vascular Surgery | DX: I73.9 Peripheral vascular disease, unspecified (principal) | CPT/HCPCS: 99212 ==

== ENCOUNTER → 2024-10-16 10:03 | Outpatient (REF) | payer MEDICARE, MEDICAID, SELFPAY ==
--- NOTE | 2024-10-16 10:07 | CA_ITS ---
Transthoracic Echocardiogram Patient (Last, First, Middle): Marlena Henry, Gender: Female Date of : 1950 Age: 74 Procedure Date: 10/16/2024 Procedure Type: Transthoracic Echocardiogram Location: OP Height: 154.94 cm Weight: 83.46 kg BSA: 1.82 m2 Heart Rate: bpm BP: 110 / 60 mmHg Devil Dog: TO Referring MD: Luz Dill MD Symptoms: R07.89 CHEST PAIN Study Quality: Fair/Contrast ECG Rhythm: Sinus Conclusions: - The left ventricular systolic function is normal. The calculated ejection fraction is 56% by biplane method. - The basal inferior segment is hypokinetic. - There is moderate mitral annular calcification. - No obvious valvular pathology seen on this study. Findings Procedure Information Contrast agent, definity, is being given per protocol without apparent complications. Left Ventricle Normal left ventricular cavity size. The left ventricular systolic function is normal. The calculated ejection fraction is 56% by biplane method. Evidence suggests grade I (mild) diastolic dysfunction. There is moderate septal and mild basal asymmetric hypertrophy. Wall Motion Rest Echo Findings The basal inferior segment is hypokinetic. Right Ventricle Normal right ventricular cavity size and systolic function. Atria Both atria are normal in size. Aortic Valve There is a normal trileaflet aortic valve. There is mild calcification of the aortic valve. There is no aortic valve stenosis. There is no aortic valve regurgitation. Mitral Valve There is moderate mitral annular calcification. There is no mitral valve regurgitation. There is no mitral valve stenosis. Pulmonic Valve The pulmonic valve is likely normal. Tricuspid Valve There is trace tricuspid valve regurgitation. There is no evidence of pulmonary hypertension. Great Vessels The asc aorta is normal in size. Venous The inferior vena cava is normal in size and collapses greater than 50% with inspiration. Pericardium/Pleural There is no evidence of pericardial effusion. Prior Study Comparison No significant change compared to prior study dated: 07/06/2021. (images reveiwed) Recommendations, Care & Conclusions No obvious valvular pathology seen on this study. Measurements 2D Linear Measurements IVSd: 1.36 0.6-0.9/0.6-1.0 cm LVIDd: 3.77 3.9-5.3/4.2-5.9 cm LVIDd Index: 2.07 2.4-3.2/2.2-3.1 cm/m2 LVIDs: 2.90 2.0-3.6 cm LVPWd: 1.01 0.7-1.1 cm LA Diam: 3.00 2.7-3.8/3.0-4.0 cm LAIDs Index: 1.65 1.5-2.3 cm/m2 LV Mass: 185.01 67-162/88-224 g LV Mass Index: 101.65 43-95/49-115 g/m2 LVOT Diam: 2.00 3.0+(-)1.3 cm 2D Systolic Function EF 4C: 62.40 >55% EF 2C: 46.20 >55% EF BiP: 55.70 >55% Mitral Valve MV VTI: 0.29 MV Pk Onel: 1.25 MV Mn Onel: 0.76 MV Pk Grad: 6.00 MV Mn Grad: 3.00 MV Pk E: 0.66 MV PK A: 1.01 MV Decel Time: 174.00 E/A: 0.70 E'Lateral: 6.42 E'Medial: 4.46 E/E' Med: 14.90 E/E' Lat: 10.30 PHT: 51.00 MVA PHT: 4.31 MVA Continuity: 2.06 Decel Mitchell: 3.81 Aortic Valve AoV Pk Onel: 1.56 AoV Mn Onel: 0.96 AoV VTI: 0.26 AoV Pk Grad: 10.00 Aov Mn Grad: 5.00 SERVANDO Cont.VTI: 2.28 LVOT LVOT Pk Onel: 1.13 LVOT Mn Onel: 0.68 LVOT VTI: 0.19 LVOT Pk Grad: 5.00 LVOT Mn Grad: 2.00 LVOT Diam: 2.00 LVOT Area: 3.14 Diastolic Function MV Pk E: 0.66 MV Pk A: 1.01 E/A: 0.70 E'Medial: 4.46 E/E' Med: 14.90 E' Laterial: 6.42 E/E' Lat: 10.30 Right Ventricle TAPSE (mm): 19.50 TVS' Onel: 10.70 Tricuspid Valve RA Press: 3.00 Great Vessels Aorta Sinus of Valsalva: 2.97 2.0-3.5 cm Ao Asc: 3.00 2.1-3.4 cm Updated in Other Vendor System with Status of Final Rusty Dunn MD electronically signed on 10/18/2024 10:24:01 AM with status of Final
--- OUTSIDE RECORDS SUMMARY | 2024-10-16 10:37 | XMS_ITS | Encounter Summary ---
Author Organization [employer] Address [address] [place] [address] [address], [place] [address] Care Team Providers Care Material Handler Loader Name Role Phone Luz Dill MD Primary Care Provider [phone] Encounter Details Date Type Department Care Team (Late Contact Info) Description 05/12/2022 Telephone [facility] MEDICINE [address] [place] [address] Luz Dill MD [address] [place], [place] [phone] Social History Tobacco Use Types Packs/Day Years [...] Description 11/26/2024 11:30 AM EDT Office Visit [facility] MED & PEDS [address] [place], [place] [phone] Luz Dill MD [address] [place], [place] [phone] documented as of this encounter Visit Diagnoses Not on filedocumented in this encounter Care Teams Material Handler Loader Relationship Specialty Start Date End Date Luz Dill MD [address] [place], [place] [phone] PCP - General Internal Medicine 05/31/17 documented as of this encounter
== END ==
LOC: HO.CARD 10:03
PROVIDERS: PCP Internal Medicine; Visit Provider Internal Medicine
DX: R07.89 Other chest pain (principal)
CPT/HCPCS: 93306; Q9957

== ENCOUNTER → 2024-10-16 10:07 | Outpatient (BNV) | payer MEDICARE, MEDICAID, SELFPAY | PROVIDERS: PCP Internal Medicine; Visit Provider Internal Medicine | DX: I42.2 Other hypertrophic cardiomyopathy (principal); I51.89 Other ill-defined heart diseases; I34.81 Nonrheumatic mitral (valve) annulus calcification | CPT/HCPCS: 93306 ==

== ENCOUNTER 2024-10-31 14:38 | Outpatient (AMB) | payer MEDICARE, MEDICAID, SELFPAY ==
--- OUTSIDE RECORDS SUMMARY | 2024-10-31 14:42 | XMS_ITS | Clinical Summary ---
Author Organization [facility] Address [address] [place] [phone] Phone Care Team Providers Care Recreational Vehicle Resort Manager Name Role Phone Hiram Hassan MD Primary Care Provider Social History Tobacco Use Types Packs/Day Years [...] on file Sexual Orientation Not on file Plan of Treatment Health Maintenance Due Date Last Done Comments Adult Td,Tdap Booster 1950 LIPID PANEL 1950 DEPRESSION SCREENING 1961 SMOKING Hx and SMOKELESS TOB ACCO SCREENING 1962 HEPATITIS C SCREENING 06/11/1967 COLOGUARD 1994 COLONOSCOPY 1994 COLORECTAL CANCER SCREENING 1994 FIT TEST 1994 FOBT 1994 SIGMOIDOSCOPY 1994 VIRTUAL COLONOSCOPY 1994 PNEUMOCOCCAL VACCINES (50+ y ears) (1 of 1 - PCV) 06/11/1999 ZOSTER VACCINES (1 of 2) 06/11/1999 OSTEOPOROSIS SCREENING INITI AL (ONE-TIME) 2014 COVID-19 VACCINE (2023-2 5 season) 2023 RSV VACCINE (1 - 1-dose 75+ series) 2024 HEPATITIS A VACCINES Aged Out No long er eligible based on patient's age to complete this topic HIB VACCINES Aged Out No longer eligi ble based on patient's age to complete this topic MENINGOCOCCAL VACCINES (ACWY) Aged Out No longer eligible based on patient's age to complete this topic MENINGOCOCCAL VACCINES (B) Aged Out N o longer eligible based on patient's age to complete this topic Medical Devices Not on file Insurance MEDICARE PART A & B MEDICARE PART A & B MEDICARE PART A & B MEDICARE PART A & B MEDICARE PART A & B MEDICARE PART A & B MEDICARE PART A & B MEDICARE PART A & B MEDICARE PART A & B Care Teams Recreational Vehicle Resort Manager Relationship Specialty Start Date End Date Hiram Hassan MD [address] [place] [address] [place] [address] PCP - General Internal Medicine 01/05/16 Additional Source Comments The information contained in this document represents components of the legal health record. It is not the complete legal health record.[facility]
--- OUTSIDE RECORDS SUMMARY | 2024-10-31 14:42 | XMS_ITS | Encounter Summary ---
Author Organization [employer] Address [address] [place] [address] [address], [place] [address] Care Team Providers Care Fbi Field Agent Name Role Phone Luz Dill MD Primary Care Provider [phone] Encounter Details Date Type Department Care Team (Late Contact Info) Description 05/12/2022 Telephone [facility] MEDICINE [address] [place] [address] Luz Dill MD [address] [place], [place] [phone] Social History Tobacco Use Types Packs/Day Years [...] Description 11/26/2024 11:30 AM EDT Office Visit [facility] MED [facility] PEDS [address] [place], [place] [phone] Luz Dill MD [address] [place], [place] [phone] documented as of this encounter Visit Diagnoses Not on filedocumented in this encounter Care Teams Fbi Field Agent Relationship Specialty Start Date End Date Luz Dill MD [address] [place], [place] [phone] PCP - General Internal Medicine 05/31/17 documented as of this encounter
[2024-10-31 14:56] VITALS: BP 126/68; PULSE 69; BMI 35.0
--- NOTE | 2024-10-31 14:56 | MHC.OFFVIS ---
Vital Signs 10/31/24 14:56 Height 5 ft 1 in Weight 185 lb 3.013 oz BMI 35.0 BP 126/68 Blood Pressure Location Lt brachial Position Sitting Pulse 69 Pulse Source Monitor Intake Visit Reasons: pcp req appt/chest pain last seen 07/19/22 System Operation Superintendent Required: Yes System Operation Superintendent Name: MORELIA [id number] Allergies No Known Allergies (No Known Allergies*) Allergy (Verified 10/10/24 10:59) Medication List - Last Reconciled 10/31/24 by Rusty Dunn MD acetaminophen ER 650 mg PO TID albuterol sulfate 90 mcg/actuation 2 puffs PO Q4-6H PRN Anoro Ellipta 62.5-25 mcg/actuation (umeclidinium-vilanterol) 1 inh inhalation DAILY NS aspirin 81 mg PO DAILY atorvastatin 80 mg PO BEDTIME famotidine (Pepcid) 40 mg PO BID isosorbide mononitrate ER 30 mg PO DAILY metoprolol succinate ER 50 mg PO DAILY sennosides (senna) 17.2 mg (2 x 8.6 mg) PO BEDTIME HPI Comments Details: Marlena returns for follow-up. She has coronary and vascular disease. Remote history of cardiac catheterization in [place]. In the past, has seen [facility]. Multiple risk factors including history of smoking, hypertension, hyperlipidemia. She states that she has been getting some chest pains recently. She describes them when she is doing activities like bending down but she also gets some with activity. Not clear if she describing angina or something else. She also has some swelling in the right leg. [facility] Medical History On beta mame at home Snores Urinary incontinence Other and unspecified hyperlipidemia Essential hypertension Peripheral vascular disease Atherosclerotic cardiovascular disease Carotid stenosis, asymptomatic PAD (peripheral artery disease) Hypercholesteremia Hypertension Surgical History H/O heart artery stent History of esophagogastroduodenoscopy (EGD) Hx of lithotripsy Hx of colonoscopy Hx of heart artery stent Hx of varicose vein stripping Hx of tubal ligation Hx laparoscopic cholecystectomy Family History Father Emphysema, unspecified Mother Hypertension Brother Liver cancer Daughter Alive and well Social History Alcohol intake: never Patient Tobacco Use Status: Never used Tobacco Review of Systems Const Denies weakness ENT Denies dizziness Card Reports chest pain, Reports chest pain with activity, Denies syncope, Denies rapid heart rate, Denies pedal edema, Denies edema, Denies leg edema, Denies lightheadedness, Denies palpitations, Reports dyspnea, Reports dyspnea on exertion and Denies orthopnea Resp Denies cough, Reports dyspnea and Reports dyspnea on exertion GI Denies hematochezia and Denies change in stool character Musc Denies abnormal gait, Denies muscle cramps, Denies muscle weakness, Denies numbness, Denies radiating pain into limb and Denies tingling Neuro Denies abnormal gait, Denies dizziness, Denies syncope, Denies numbness, Denies tingling and Denies weakness Endo Denies palpitations Physical Exam Vital Signs: Last Vital Signs Pulse 69 10/31/24 14:56 BP 126/68 10/31/24 14:56 BMI result Body Mass Index 35.0 Const General: comfortable and no acute distress Orientation/consciousness: patient oriented x3 HEENT Other: Unremarkable Head: Yes normal to inspection Neck Neck: Yes normal visual inspection Chest Chest palpation & inspection: normal inspection of the chest Resp Auscultation: clear to auscultation bilaterally Cardio Palpation: normal PMI Heart sounds: S1 normal heart sound present, S2 normal heart sound present, no gallops, no murmurs and no rubs GI Palpation (GI): Soft to palpation Back/Spine/Pelvis Other: unremarkable Skin General skin exam: no rashes or lesions noted Neuro General: patient oriented x3 Extrem Other: 1+ swelling, right side General: Yes normal to inspection Psych Mental Status: mental status grossly normal Office Procedures EKG Details: EKG with underlying sinus rhythm at 69/Min; nonspecific ST-T changes; [place]. [id number], Complete Assessment & Plan Assessment & Plan (1) Atherosclerotic cardiovascular disease: Code(s): I25.10 - Atherosclerotic heart disease of [place] coronary artery without angina pectoris Category: Medical Plan: Multiple vascular risk factors and now presenting for chest pains. In the recent echocardiogram, LVEF 56%. Basal inferior hypokinesis but thought to be similar to prior study. We will get a myocardial perfusion imaging study for further evaluation. She is on aspirin, long-acting nitrates as well as beta-blockers. (2) Essential hypertension: Code(s): I10 - Essential (primary) hypertension Category: Medical Plan: Stable. No changes. (3) Other and unspecified hyperlipidemia: Code(s): E78.5 - Hyperlipidemia, unspecified Category: Medical Plan: Per prior notes, has been on statins/Zetia. Today's notes just as statins. We had tried Praluent but there was question of facial rash and hence not continued. Then we had started Repatha but that is not in her list either. Hence confusing and no further changes made today. Cholesterol does not appear controlled anyway. Per PCP note, she is noncompliant with meds and has not taken any of them for a while. (4) Peripheral vascular disease: Code(s): I73.9 - Peripheral vascular disease, unspecified Category: Medical Plan: Follow-up with vascular surgery. With regard to right leg swelling, could be related to venous insufficiency. Less likely cardiac. Plan Discussion Notes I discussed with the patient the plan to perform a stress test to assess her cardiac function and the potential causes of her chest pain. I advised her to follow up with her vascular specialist for the leg swelling, as it is could be related to her varicose veins and previous vascular surgery. Patient was informed and verbally consented to the use of an ambient scribe for clinic note documentation during this visit. Orders: Orders CA lexiscan stress w kathy Today I20.9 - Angina pectoris, unspecified, I25.10 - Atherosclerotic heart disease of [place] coronary artery without angina pectoris NM cardiolite stress test Today I25.10 - Atherosclerotic heart disease of [place] coronary artery without angina pectoris, R07.2 - Precordial pain Coding Level of Care Code Est Pt Level 4 (67001) Complex EM visit Add On G2211 Diagnoses Atherosclerotic cardiovascular disease I25.10 Essential hypertension I10 Other and unspecified hyperlipidemia E78.5 Peripheral vascular disease I73.9 CPT Codes EKG - CPT: 80172-Hestcizepudzlwake, Complete ([id number])
== END 2024-10-31 15:22 | disposition home or self-care (01) ==
LOC: HO.HCS 14:38
PROVIDERS: PCP Internal Medicine; Visit Provider Internal Medicine
DX: I25.10 Atherosclerotic heart disease of native coronary artery without angina pectoris (principal); I10 Essential (primary) hypertension; E78.5 Hyperlipidemia, unspecified; I73.9 Peripheral vascular disease, unspecified
CPT/HCPCS: 93010; 99214; G2211

== ENCOUNTER → 2024-10-31 14:38 | Outpatient (BNVA) | payer MEDICARE, MEDICAID, SELFPAY | PROVIDERS: PCP Internal Medicine; Visit Provider Internal Medicine | DX: I25.10 Atherosclerotic heart disease of native coronary artery without angina pectoris (principal); I10 Essential (primary) hypertension; I73.9 Peripheral vascular disease, unspecified; E78.5 Hyperlipidemia, unspecified | CPT/HCPCS: 93005; 99212 ==

== ENCOUNTER 2024-11-28 08:43 | Outpatient (REF) | payer MEDICARE, MEDICAID, SELFPAY ==
--- OUTSIDE RECORDS SUMMARY | 2015-12-08 | XMS_ITS | Encounter Summary ---
Author Organization [facility] Address [address] [place] [address] Phone Care Team Providers Care Foam Molder Name Role Phone Unavailable Primary Care Provider Unavailabl e Encounter Details Date Type Department Care Team (Late st Contact Info) Description 12/08/2015 Hospital Encounter [facility] [address] [place] [address] Andry Lamb MD, KAILA [address] [place] [address], Floor 2 [place] [address] [email or web address] Social History Tobacco Use Types Packs/Day Years [...] (No Interpretation) (12/08/2015 12:00 AM EDT) Narrative [facility] [place] [place] - 01/06/2016 7:29 AM EDT This study is for PACS storage only and not for interpretation. Procedure Note SYSTEMGENERATED, DOCUMENTATION - 01/06/2016 This study is for PACS storage only and not for interpretation. us Andry Lamb MD, KAILA IMG OUTSIDE IMAGING W/OUT INTERPRETATION Final Result [facility] [place] documented in this encounter Visit Diagnoses Not on filedocumented in this encounter Additional Source Comments The information contained in this document represents components of the legal health record. It is not the complete legal health record.[facility]
--- OUTSIDE RECORDS SUMMARY | 2024-11-26 11:30 | XMS_ITS | Encounter Summary ---
Author Organization [email or web address] Address [address] [facility] 7 [place] [address] Care Team Providers Care Refrigeration Lead Name Role Phone Burton Dill MD Primary Care Provider [phone] Reason for Visit * Reason Comments Hypertension Hyperlipidemia GERD Encounter Details Date Type Department Care Team ([facility] Contact Info) Description 11/26/2024 11:30 AM EDT Office Visit [facility] CHC MED & PEDS [address] [place], [place] [phone] Burton Dill MD [address] [place] [address] Primary hypertension (Primary Dx); Hypercholesterolemia; Gastroesophageal reflux disease without esophagitis; Neck pain; Dizziness; Dietary counseling; Exercise counseling; Class 1 obesity due to excess calories with serious comorbidity and body mass index (BMI) of 34.0 to 34.9 in adult Social History Tobacco Use Types Packs/Day Years Used Date Smoking Tobacco: Former Cigarettes 1 41 Smokeless Tobacco: Never Comments:Stopped smoking abo ut 5 years ago. Depression Answer Date Recorded Patient Health Questionnaire-9 Score 0 08/08/2022 Housing Stability Answer Date Recorded What is your housing situation today? I have sita aster 05/02/[address] you li [...] AM EDT documented as of this encounter Last Filed Vital Signs Vital Sign Reading Time Taken Comments Blood Pressure 129/68 11/26/2024 11:34 AM EDT Pulse 77 11/26/2024 11:34 AM EDT Temperature 36.3 C (97.3 F) 11/26/2024 11:34 AM EDT Respiratory Rate 20 11/26/2024 11:34 AM EDT Oxygen Saturation 94% 11/26/2024 11:34 AM EDT Inhaled Oxygen Concentration - - Weight 81.6 kg (180 lb) 11/26/2024 11:34 AM EDT Height 154.9 cm (5' 1 ) 11/26/2024 11:34 AM EDT Body Mass Index 34.01 11/26/2024 11:34 AM EDT documented in this encounter Progress Notes * Burton Dill MD - 11/26/2024 11:30 AM EDT SUBJECTIVE Marlena Zhou is a 74 y.o. female who presents for Hypertension, Hyperlipidemia, and GERD. Hypertension This is a chronic problem. The problem is controlled. Pertinent negatives include no anxiety, blurred vision, chest pain, headaches, malaise/fatigue, neck pain, orthopnea, palpitations, peripheral edema, PND, shortness of breath or sweats. Hyperlipidemia Pertinent negatives include no chest pain or shortness of breath. GERD She reports no chest pain or no choking. Pt is compliant to her meds. C/o dizziness described as a disequilibrium noted about 2 months ago, lasts a few minutes when changing position from sitting to standing. No associated palpitations. No reported fall. Problem List[1] Allergies[2] Medications Ordered Prior to Encounter[3] Review of Systems Constitutional: Negative for appetite change, chills, diaphoresis and malaise/fatigue. Eyes: Negative for blurred vision. Respiratory: Negative for choking and shortness of breath. Cardiovascular: Negative for chest pain, palpitations, orthopnea and PND. Genitourinary: Negative for enuresis, flank pain and frequency. Musculoskeletal: Negative for back pain, gait problem, joint swelling and neck pain. Neurological: Negative for headaches. OBJECTIVE Vitals: 11/26/24 1134 BP: 129/68 Pulse: 77 Resp: 20 Temp: 97.3 ??F (36.3 ??C) TempSrc: Oral SpO2: 94% Weight: 180 lb (81.6 kg) Height: 5' 1 (1.549 m) Physical Exam Constitutional: Appearance: Normal appearance. She is obese. Pulmonary: Effort: Pulmonary effort is normal. Neurological: General: No focal deficit present. Mental Status: She is alert. Psychiatric: Mood and Affect: Mood normal. Assessment/Plan Assessment/Plan Diagnoses and all orders for this visit: Primary hypertension Comments: Diagtolic BP is on the Low side Metoprolol decreased to 25 mg Orders: - metoprolol succinate XL (Toprol XL) 25 MG 24 hr tablet; Take 1 tablet (25 mg) by mouth Once per day. Do not crush or chew. 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 Orders: - acetaminophen (Tylenol 8 Hour) 650 MG ER tablet; Take 1 tablet (650 mg) by mouth every 8 (eight) hours if needed for mild pain. Dizziness Comments: No orthostatism Metoprolol dose decreased Appropriate hydration recommended for now. Dietary counseling Exercise counseling Class 1 obesity due to excess calories with serious comorbidity and body mass index (BMI) of 34.0 to 34.9 in adult Dietary Recommendations: Fruits, vegetables, whole grains, protein foods, and fat-free or low-fat dairy products are healthychoices. Eat different types of protein foods in your diet. This can include seafood, lean meats, poultry, beans, peas, lentils, nuts, seeds, soy products, and eggs. Limit foods and beverages higher in added sugars, saturated fat, and sodium. Exercise Recommendations: At least 150 minutes of moderate-intensity physical activity per week, or an equivalent combinationof moderate- and vigorous-intensity activity Pt is due for her colon cancer screen. Erik ordered a few months back. [1] Patient Active Problem List Diagnosis Gastroesophageal reflux disease Hypercholesterolemia Hypertensive disorder PVD (peripheral vascular disease) ([facility]) Moderate COPD (chronic obstructive pulmonary disease) ([facility]) [2] No Known Allergies [3] Current Outpatient Medications on File Prior to Visit Medication Sig Dispense Refill Anoro Ellipta 62.5-25 MCG/ACT aerosol powder Take 1 puff by mouth Once per day. aspirin 81 MG EC tablet Take 1 tablet (81 mg) by mouth Once per day. 30 tablet 11 atorvastatin (Lipitor) 80 MG tablet TAKE 1 TABLET BY MOUTH AT BEDTIME 90 tablet 0 dextran 70-hypromellose (artificial tears) 0.1-0.3 % ophthalmic solution Administer 1 drop into theright eye if needed in the morning, at noon, and at bedtime for dry eyes. 15 mL 0 Diclofenac Sodium 1 % gel APPLY TO THE AFFECTED AREA(S) 2 GRAMS THREE TIMES DAILY NEEDED PAIN 100 g 1 ezetimibe (Zetia) 10 MG tablet TAKE 1 TABLET BY MOUTH AT BEDTIME 90 tablet 0 famotidine (Pepcid) 40 MG tablet TAKE 1 TABLET BY MOUTH TWICE DAILY IN THE MORNING AND IN THE EVENING 180 tablet 0 isosorbide mononitrate ER (Imdur) 30 MG 24 hr tablet TAKE 1 TABLET BY MOUTH EVERY MORNING 90 tablet0 Multiple Vitamin (Multivitamin) tablet TAKE 1 TABLET BY MOUTH EVERY MORNING 30 tablet 3 senna (Senokot) 8.6 MG tablet Take 2 tablets by mouth at bedtime. SM Fiber Laxative 500 MG tablet Take 1 tablet by mouth 2 times daily. Ventolin HFA 108 (90 Base) MCG/ACT inhaler INHALE 1 PUFF BY MOUTH EVERY 6 HOURS NEEDED FOR WHEEZING 18 g 3 [DISCONTINUED] acetaminophen (Tylenol 8 Hour) 650 MG ER tablet TAKE 1 TABLET BY MOUTH EVERY 8 HOURSAS NEEDED FOR MILD PAIN 90 tablet 3 [DISCONTINUED] metoprolol succinate XL (Toprol-XL) 50 MG 24 hr tablet TAKE 1 TABLET BY MOUTH EVERY MORNING 90 tablet 0 No current facility-administered medications on file prior to visit. documented in this encounter Miscellaneous Notes * Addendum Note - Burton Dill MD - 11/26/2024 11:30 AM EDTAddended by: BURTON DILL on: 11/26/2024 03:25 PM Modules accepted: Orders documented in this encounter Plan of Treatment Upcoming Encounters Date Type Department Care Team (Late st Contact Info) Description 01/09/2025 9:15 AM EDT Office Visit [facility] MED & PEDS [address] [place] [address] Burton Dill MD [address] [place] [address] documented as of this encounter Procedures Procedure Name Priority Date/Time Associated Diagnosis Comments ECG 12-LEAD Routine 11/26/2024 3:25 PM EDT Primary hypertension Dizziness documented in this encounter Results * ECG 12 lead (11/26/2024 3:25 PM EDT) Narrative Burton Dill MD - 11/26/2024 3:25 PM EDT Heart rate 63 bpm. [place] 63 degrees. Normal sinus rhythm. Intra-atrial conduction delay. Minor high lateral and lateral repolarization disturbance. LV overload or a specific change. No sign of left atrial enlargement or right atrial enlargement. No ST elevation or ST depression. Borderline EKG. us uBrton Dill MD ECG ORDERABLES Final Resul t documented in this encounter Visit Diagnoses Diagnosis Primary hypertension- Primary Unspecified essential hypertension Hypercholesterolemia Pure hypercholesterolemia Gastroesophageal reflux disease without esophagitis Esophageal reflux Neck pain Cervicalgia Dizziness Dizziness and giddiness Dietary counseling Dietary surveillance and counseling Exercise counseling Class 1 obesity due to excess calories with serious comorbidity and body mass index (BMI) of 34.0 to 34.9 in adult documented in this encounter Additional Health Concerns Assessment Noted Time PHQ-9 Depression Total Score: 0 08/09/19 23 3:03 PM EDT documented as of this encounter Care Teams Refrigeration Lead Relationship Specialty Start Date End Date Burton Dill MD [address] [place] [id number] PCP - General Internal Medicine 05/31/17 documented as of this encounter
--- OUTSIDE RECORDS SUMMARY | 2024-11-28 09:26 | XMS_ITS | Encounter Summary ---
Author Organization [employer] Address [address] [facility] 7t [place] [address] Care Team Providers Care Steel Turner Name Role Phone Luz Dill MD Primary Care Provider [phone] Encounter Details Date Type Department Care Team (Late st Contact Info) Description 05/03/2023 Orders Only [facility] CHC MED & PEDS [address] [place], [place] [phone] Luz Dill MD [address] [place], [place] [phone] Neck pain (Primary Dx) Social History Tobacco [...] Description 01/09/2025 9:15 AM EDT Office Visit [facility] MED & PEDS [address] [place] [address] Luz Dill MD [address] [place] [address] documented as of this encounter Visit Diagnoses Diagnosis Neck pain- Primary Cervicalgia documented in this encounter Additional Health Concerns Assessment Noted Time PHQ-9 Depression Total Score: 0 08/09/19 23 3:03 PM EDT documented as of this encounter Care Teams Steel Turner Relationship Specialty Start Date End Date Luz Dill MD [address] [place] [address] PCP - General Internal Medicine 05/31/17 documented as of this encounter
--- OUTSIDE RECORDS SUMMARY | 2024-11-28 09:26 | XMS_ITS | Encounter Summary ---
Author Organization [employer] Address [address] [facility] [address] 7[address] [place] [address] Care Team Providers Care Embedded Software Test Engineer Name Role Phone Luz Dill MD Primary Care Provider [phone] Encounter Details Date Type Department Care Team (Latest Contact Info) Description 11/26/2024 Travel Social History Tobacco Use Types Packs/Day Years [...] Description 01/09/2025 9:15 AM EDT Office Visit [facility] MED & PEDS [address] [place] [address] Luz Dill MD [address] [place] [address] documented as of this encounter Visit Diagnoses Not on filedocumented in this encounter Additional Health Concerns Assessment Noted Time PHQ-9 Depression Total Score: 0 08/09/19 23 3:03 PM EDT documented as of this encounter Care Teams Embedded Software Test Engineer Relationship Specialty Start Date End Date Luz Dill MD [address] [place] [address] PCP - General Internal Medicine 05/31/17 documented as of this encounter
--- OUTSIDE RECORDS SUMMARY | 2024-11-28 09:26 | XMS_ITS | Encounter Summary ---
Author Organization [employer] Address [address] [place] [address] [address] [address] Care Team Providers Care Bonderizer Name Role Phone Luz Dill MD Primary Care Provider [phone] Encounter Details Date Type Department Care Team (Late Contact Info) Description 05/12/[address] [facility] MEDICINE [address] [place] [address] Luz Dill MD [address] [place], [place] [phone] Social History Tobacco Use Types Packs/Day Years [...] Department Care Team (Late Contact Info) Description 01/09/2025 9:15 AM EDT Office Visit [facility] CHC MED & PEDS [address] [place], [place] [phone] Luz Dill MD [address] [place], [place] [phone] documented as of this encounter Visit Diagnoses Not on filedocumented in this encounter Care Teams Bonderizer Relationship Specialty Start Date End Date Luz Dill MD [address] [place], [place] [phone] PCP - General Internal Medicine 05/31/17 documented as of this encounter
--- OUTSIDE RECORDS SUMMARY | 2024-11-28 09:26 | XMS_ITS | Encounter Summary ---
Author Organization [employer] Address [address] [facility] 7t [place] [address] Care Team Providers Care Uptwist Spinner Name Role Phone Luz Dill MD Primary Care Provider [phone] Encounter Details Date Type Department Care Team ([facility] st Contact Info) Description 11/25/2024 Telephone [facility] CHC MED & PEDS [address] [place], [place] [phone] Luz Dill MD [address] [place], [place] [phone] Social History Tobacco Use Types Packs/Day Years [...] encounter Miscellaneous Notes * Telephone Encounter - Stacia Rob RN - 11/25/2024 11:20 AM EDT Chart Prep Labs: not done Images: done Referrals: complete Vaccines due: RSV and Zoster Screenings: not applicable Overdue care gaps: PHQ-9 documented in this encounter Plan of Treatment Upcoming Encounters Date Type Department Care Team (Late st Contact Info) Description 01/09/2025 9:15 AM EDT Office Visit [facility] MED & PEDS [address] [place] [address] Luz Dill MD [address] [place] [address] documented as of this encounter Visit Diagnoses Not on filedocumented in this encounter Additional Health Concerns Assessment Noted Time PHQ-9 Depression Total Score: 0 08/09/19 23 3:03 PM EDT documented as of this encounter Care Teams Uptwist Spinner Relationship Specialty Start Date End Date Luz Dill MD [address] [place] [address] PCP - General Internal Medicine 05/31/17 documented as of this encounter
--- OUTSIDE RECORDS SUMMARY | 2024-11-28 09:26 | XMS_ITS | Clinical Summary ---
Author Organization [facility] Address [address] [employer] [place] [address] [place] [address] Phone Care Team Providers Care Senior Network Engineer Name Role Phone Hiram Hassan MD Primary [...] VACCINE (1 - 1-dose 75+ series) 2024 INFLUENZA VACCINE (#1) 2024 HEPATITIS A VACCINES Aged Out No [...] file Insurance MEDICARE PART A & B Member Subscriber Plan / Payer (Ef fective 2014-Present) Name:Marlena Black Member ID:[id number] Relation to Subscriber:Self Name:Olivia GrossmanMarlena basurto Subscriber ID:[id number] Payer ID:[id number] Group ID:Not on file Type:Medicare Address: [employer] [address] [place] [address] MEDICARE PART A & B Member Subscriber Plan / Payer (Ef fective 2014-Present) Name:Marlena Black Member ID:[id number] Relation to Subscriber:Self Name:Bakertomas GrossmanMarlena basurto Subscriber ID:[id number] Payer ID:[id number] Group ID:Not on file Type:Medicare Address: [employer] [address] [place] [address] MEDICARE PART A & B MEDICARE PART A & B MEDICARE PART A & B MEDICARE PART A & B MEDICARE PART A & B MEDICARE PART A & B MEDICARE PART A & B Care Teams Senior Network Engineer Relationship Specialty Start Date End Date Hiram Hassan MD [address] [place] [address] [place] [address] PCP - General Internal Medicine 01/05/16 Additional Source Comments The information contained in this document represents components of the legal health record. It is not the complete legal health record.[facility]
--- OUTSIDE RECORDS SUMMARY | 2024-11-28 09:26 | XMS_ITS | Encounter Summary ---
Author Organization [employer] Address [address] [facility] 7t [place] [address] Care Team Providers Care Parts Cataloguer Name Role Phone Luz Dill MD Primary Care Provider [phone] Reason for Visit * Reason Onset Date Comments Referral 03/21/2023 Encounter Details Date Type Department Care Team ([facility] st Contact Info) Description 03/21/2023 Telephone [facility] MEDICINE [address] [place] [address] Luz Dill MD [address] [place] [address] Referral Social History Tobacco Use Types Packs/Day [...] PM EST TC placed to Radha at [facility]. Radha explained that these requests were made by a visiting nurse [facility]. She reports that the note reads that the patient tried to contact [facility] and did not get through. TC placed to patient via [email or web address] Medical Technologist Chief. No answer. TC placed to patient without japanese interpreter line. Clarified that patient did request referrals. Was not able to understand patient's description of current problems in Mauritian. Asked the patient to please answer the phone if I called back with japanese interpreter line. Explained the phone number would be different. Patient agreed. TC placed again to patient via [email or web address] Medical Technologist Chief. Patient answered and stated that she has [...] some time. She declines a visit at [facility] at this time because she is currently in [place] visiting her mother who is in crisis. She states that she will be back in [place] sometime in mid-April 2023, and she has a follow-up appointment with Dr. Dill already scheduled for 05/01/23. Advised patient to be evaluated by a doctor or at the ED in [place] for worsening headache and bump above ear. Patient declined this advice to seek care now. Advised patient to seek evaluation and medical care if any symptoms worsen while in [place] and advised patient that she can call [...] - 03/21/2023 3:53 PM EST Tc from [facility] at [facility] requesting a referral for a orthopedics, a mammogram and for the patient medication to be sent as a Medication Blister Pack documented in this encounter Plan of Treatment Upcoming Encounters Date Type Department Care Team (Late st Contact Info) Description 01/09/2025 9:15 AM EDT Office Visit [facility] MED & PEDS [address] [place] [address] Luz Dill MD [address] [place] [address] documented as of this encounter Visit Diagnoses Not on filedocumented in this encounter Additional Health Concerns Assessment Noted Time PHQ-9 Depression Total Score: 0 08/09/19 23 3:03 PM EDT documented as of this encounter Care Teams Parts Cataloguer Relationship Specialty Start Date End Date Luz Dill MD [address] [place] [address] PCP - General Internal Medicine 05/31/17 documented as of this encounter
--- OUTSIDE RECORDS SUMMARY | 2024-11-28 09:26 | XMS_ITS | Clinical Summary ---
Author Organization [employer] Address [address] [facility] [address] [place] [address] Care Team Providers Care Candy Separator Hard Name Role Phone Luz Dill MD Primary Care Provider [phone] Allergies No known active allergies Medications SM Fiber Laxative 500 MG tablet Take 1 tablet by mouth 2 times daily. 07/16/19 23 Active senna (Senokot) 8.6 MG tablet Take 2 tablets by mouth at bedtime. 03/21/20 24 Active Anoro Ellipta 62.5-25 MCG/ACT aerosol powder Take 1 puff by mouth Once per day. 03/22/20 24 Active Diclofenac Sodium 1 % gelIndications: Neck pain APPLY TO THE AFFECTED AREA(S) 2 GRAMS THREE TIMES DAILY NEEDED PAIN 100 g 1 04/01/20 24 Active Ventolin HFA 108 (90 Base) MCG/ACT inhaler INHALE 1 PUFF BY MOUTH EVERY 6 HOURS NEEDED FOR WHEEZING 18 g 3 05/08/19 25 Active aspirin 81 MG EC tabletIndicatio ns:PVD (peripheral vascular disease) (CMS/HCC) Take 1 tablet (81 mg) by mouth Once per day. 30 tablet 11 07/13/19 25 026 Active Multiple Vitamin (Multivitamin) tablet TAKE 1 TABLET BY MOUTH EVERY MORNING 30 tablet 3 08/30/19 25 Active dextran 70-hypromellose (artificial tears) 0.1-0.3 % ophthalmic solution Administer 1 drop into the right eye if needed in the morning, at noon, and at bedtime for dry eyes. 15 mL 09/27/19 25 026 Active ezetimibe (Zetia) 10 MG tabletIndicatio ns:Hypercholest erolemia TAKE 1 TABLET BY MOUTH AT BEDTIME 90 tablet 10/12/19 25 Active famotidine (Pepcid) 40 MG tabletIndicatio ns:Gastroesopha geal reflux disease without esophagitis TAKE 1 TABLET BY MOUTH TWICE DAILY IN THE MORNING AND IN THE EVENING 180 tablet 10/12/19 25 Active isosorbide mononitrate ER (Imdur) 30 MG 24 hr tabletIndicatio ns:Primary hypertension TAKE 1 TABLET BY MOUTH EVERY MORNING 90 tablet 10/12/19 25 Active atorvastatin (Lipitor) 80 MG tabletIndicatio ns:Hypercholest erolemia TAKE 1 TABLET BY MOUTH AT BEDTIME 90 tablet 10/12/19 25 Active metoprolol succinate XL (Toprol XL) 25 MG 24 hr tabletIndicatio ns:Primary hypertension Take 1 tablet (25 mg) by mouth Once per day. Do not crush or chew. 30 tablet 11 11/27/19 25 026 Active acetaminophen (Tylenol 8 Hour) 650 MG ER tabletIndicatio ns:Neck pain Take 1 tablet (650 mg) by mouth every 8 (eight) hours if needed for mild pain. 90 tablet 3 11/27/19 25 Active acetaminophen (Tylenol 8 Hour) 650 MG ER tabletIndicatio ns:Neck pain TAKE 1 TABLET BY MOUTH EVERY 8 HOURS NEEDED FOR MILD PAIN 90 tablet 3 01/19/20 24 025 Discontinued(R eorder (will not trigger notification to Pharmacy)) metoprolol succinate XL (Toprol-XL) 50 MG 24 hr tabletIndicatio ns:Primary hypertension TAKE 1 TABLET BY MOUTH EVERY MORNING 90 tablet 10/12/19 25 025 Discontinued(D ose adjustment) Active Problems Problem Noted Date Diagnosed Date Moderate COPD (chronic obstructive pulmonary dis ease) 08/22/2024 PVD (peripheral vascular disease) 09/13/2023 Hypercholesterolemia 08/08/2022 Hypertensive disorder 08/08/2022 Gastroesophageal reflux disease 06/28/2019 Encounters Date Type Department Care Team Description 11/26/2024 11:30 AM EDT Office Visit [facility] [address] [place], [place] [phone] Luz Dill MD Primary hypertension (Primary Dx); Hypercholesterolemia; Gastroesophageal reflux disease without esophagitis; Neck pain; Dizziness; Dietary counseling; Exercise counseling; Class 1 obesity due to excess calories with serious comorbidity and body mass index (BMI) of 34.0 to 34.9 in adult 11/26/2024 Travel 11/25/2024 Telephone [facility] [address] [place] [address] Luz Dill MD 10/10/2024 Refill [facility] [address] [place] [address] Luz Dill MD Primary hypertension; Hypercholesterolemia; Gastroesophageal reflux disease without esophagitis 09/26/2024 1:00 PM EDT Office Visit [facility] [address] [place] [address] Shruthi Orourke FNP Redness of eye, right (Primary Dx) 09/26/2024 Travel 09/06/2024 Results Follow-Up [facility] [address] [place] [address] Isabela Gavin RN XR CERVICAL SPINE 3V 09/05/2024 Results Follow-Up [facility] [address] [place] [address] Isabela Gavin, BRANDY US Abdomen Complete 08/28/[address] [facility] [address] [place], [place] [phone] Luz Dill MD from Last 3 Months Immunizations Immunization Administration Dates Next Due Pneumococcal Conjugate PCV [...] Mass Index 34.01 11/26/2024 11:34 AM EDT Plan of Treatment Upcoming Encounters Date Type Department Care Team (Late st Contact Info) Description 01/09/2025 9:15 AM EDT Office Visit [facility] [address] [place] [address] Luz Dill MD [address] [place] [address] Health Maintenance Due Date Last Done Comments CT Colonography 1950 Colonoscopy 1950 FIT 1950 FOBT 1950 Sigmoidoscopy 1950 Alcohol/Substance Use Screening 1961 Zoster Vaccines (1 of 2) 06/11/1999 Depression Screening 08/09/2023 08/08/2022, 08/09/19 23 COVID-19 Vaccine ( season) 2023 11/24/2021, 11/24/2020, 10/29/2020 RSV Patients and Patients Aged 60 years or older (1 - 1-dose 75+ series) 2024 Influenza Vaccine (#1) 2024 04/13/2021, 2018 Colorectal Cancer Screening 02/15/2025 FIT DNA/Cologuard 02/15/2025 02/15/2022 SDOH Screening 05/02/2025 05/02/2024 Tobacco Screening 11/26/2025 11/26/2024 Lipid Panel 07/16/2029 07/16/2024, 04/05, 07/18/2022, Additional history exists DTaP/Tdap/Td Vaccines (2 - [...] patient's age to complete this topic Meningococcal B Vaccine Aged Out No l onger eligible based on patient's age to complete [...] 11/26/2024 3:25 PM EDT Primary hypertension Dizziness XR CERVICAL SPINE 3V Routine 09/04/2024 2:20 PM EDT Neck pain US ABDOMEN COMPLETE Routine 09/04/2024 9 :25 AM EDT Transaminitis LIPID PANEL, STANDARD Routine 07/16/2024 8:33 AM EDT Hypercholesterolemia HEPATITIS C ANTIBODY Routine 05/02/2023 9:23 AM EST Neck pain Primary hypertension Mild memory disturbance from Last 3 Months or Most Recently Relevant to Health Maintenance Results * ECG 12 lead (11/26/2024 3:25 PM EDT) Narrative Luz Dill MD - 11/26/2024 3:25 PM EDT Heart rate 63 bpm. [place] 63 degrees. Normal sinus rhythm. Intra-atrial conduction delay. Minor high lateral and lateral repolarization disturbance. LV overload or a specific change. No sign of left atrial enlargement or right atrial enlargement. No ST elevation or ST depression. Borderline EKG. us Luz Dill MD ECG ORDERABLES Final Resul t * XR CERVICAL SPINE 3V (09/04/2024 2:20 PM EDT) Anatomical Region Laterality Modality Abdomen Radiographic Pia ging 09/04/2024 2:20 PM EDT Narrative 09/04/2024 2:20 PM EDT [address] [address] XRay Report Signed Patient: Marlena Henry MR#: [id number] : 1950 Acct:[id number] Age/Sex: 74 / F ADM Date: 09/04/24 Loc: HO.US Attending Dr: Luz Dill MD Ordering Physician: Luz Dill MD Date of Service: 09/04/24 Procedure(s): XR cervical spine 3V Accession Number(s): [id number] cc: Luz Dill MD CLINICAL HISTORY: neck pain Four views of the cervical spine. COMPARISON: None FINDINGS: Portions of the C6 and C7 vertebral bodies are obscured by overlying soft tissue/shoulders on both lateral and swimmer's views of the cervical spine. Normal vertebral body alignment. Vertebral body heights are maintained. Loss of disc space height C6-C7. Small marginal osteophytes along the mid to lower cervical spine. Facet joint arthrosis present throughout the cervical spine. Normal C1-C2 articulation. Visualized paravertebral soft tissues and lung apices are unremarkable. IMPRESSION: 1. Portions of the C6 and C7 vertebral bodies are obscured by overlying soft tissues/shoulders. Within limits of study, no radiographic evidence of acute injury to the cervical spine. 2. Moderate to advanced multilevel cervical spondylosis. This document has been electronically signed by: Dhiraj Heard MD on 09/04/2024 14:20:02 Dictated By: Dhiraj Heard MD Signed By: <Electronically signed by Dhiraj Heard MD in OV> 09/04/24 1420 DD/ 1420 TD/TT: 09/04/24 1420 Cold Working Supervisor: Procedure Note Donotuseinterpreter, Image - 09/04/2024 [place] [address] XRay Report Signed Patient: Elsy Henry#: [id number] : 1950Acct:[id number] Age/Sex: 74 / FADM Date: 09/04/24 Loc: HO.US Attending Dr: Luz Dill MD Ordering Physician: Luz Dill MD Date of Service: 09/04/24 Procedure(s): XR cervical spine 3V Accession Number(s): [id number] cc: Luz Dill MD CLINICAL HISTORY: neck pain Four views of the cervical spine. COMPARISON: None FINDINGS: Portions of the C6 and C7 vertebral bodies are obscured by overlying soft tissue/shoulders on both lateral and swimmer's views of the cervical spine. Normal vertebral body alignment. Vertebral body heights are maintained. Loss of disc space height C6-C7. Small marginal osteophytes along the mid to lower cervical spine. Facet joint arthrosis present throughout the cervical spine. Normal C1-C2 articulation. Visualized paravertebral soft tissues and lung apices are unremarkable. IMPRESSION: 1. Portions of the C6 and C7 vertebral bodies are obscured by overlying soft tissues/shoulders. Within limits of study, no radiographic evidence of acute injury to the cervical spine. 2. Moderate to advanced multilevel cervical spondylosis. This document has been electronically signed by: Dhiraj Heard MD on 09/04/2024 14:20:02 Dictated By: Dhiraj Heard MD Signed By: <Electronically signed by Dhiraj Heard MD in OV> 09/04/24 1420 DD/ 142 TD/TT: 09/04/241419 Cold Working Supervisor: us Luz Dill MD IMG XR PROCEDURES Final Res ult * US Abdomen Complete (09/04/2024 9:25 AM EDT) Anatomical Region Laterality Modality Abdomen Ultrasound 09/04/2024 9:25 AM EDT Narrative 09/04/2024 10:16 AM EDT [place] [address] Ultrasound Report Signed Patient: Marlena Henry MR#: [id number] : 1950 Acct:[id number] Age/Sex: 74 / F ADM Date: 09/04/24 Loc: HO.US Attending Dr: Luz Dill MD Ordering Physician: Luz Dill MD Date of Service: 09/04/24 Procedure(s): US abdomen complete Accession Number(s): [id number] cc: Luz Dill MD EXAMINATION: US ABDOMEN HISTORY: transaminitis TECHNIQUE: Real-time grayscale ultrasound imaging of the abdomen was performed and images were reviewed. COMPARISON: Comparison is made with the prior examination dated 06/09/2020. FINDINGS: Liver: The right lobe of the liver measures 13.0 cm in size. The left lobe of the liver measures 11.2 cm in size. The liver demonstrates increased echotexture, consistent with steatosis. No focal mass or intrahepatic biliary ductal dilatation is identified. There is normal hepatopedal flow in the portal vein. Gallbladder and biliary tree: The gallbladder is surgically absent. The common bile duct is normal in caliber measuring 5 mm. Kidneys: The right kidney measures 12.4 cm in length and demonstrates a 6 mm upper pole cyst, but is otherwise unremarkable. The left kidney measures 11.6 cm in length and is unremarkable. Pancreas: The pancreatic head, neck, and body are unremarkable. The pancreatic tail is obscured by bowel gas. Spleen: The spleen is normal in size and contour, measuring 8.6 cm in length. Abdominal aorta and inferior vena cava: The visualized portions of the abdominal aorta and inferior vena cava are normal in caliber. There is no free fluid in the abdomen. US/US abdomen complete IMPRESSION: Hepatomegaly and hepatic steatosis. Electronically signed by: Ruslan Shi MD 09/04/2024 10:14 AM EDT RP Dictated By: Ruslan Shi MD Signed By: <Electronically signed by Ruslan Shi MD in OV> 09/04/24 1014 DD/ 0925 TD/TT: 09/04/24 0934 Cold Working Supervisor: Procedure Note Donotuseinterpreter, Image - 09/04/2024 [place] [address] Ultrasound Report Signed Patient: Elsy Henry#: MM [id number] : 1950Acct:[id number] Age/Sex: 74 / FADM Date: 09/04/24 Loc: HO.US Attending Dr: Luz Dill MD Ordering Physician: Luz Dill MD Date of Service: 09/04/24 Procedure(s): US abdomen complete Accession Number(s): [id number] cc: Luz Dill MD EXAMINATION: US ABDOMEN HISTORY: transaminitis TECHNIQUE: Real-time grayscale ultrasound imaging of the abdomen was performed and images were reviewed. COMPARISON: Comparison is made with the prior examination dated 06/09/2020. FINDINGS: Liver: The right lobe of the liver measures 13.0 cm in size. The left lobe of the liver measures 11.2 cm in size. The liver demonstrates increased echotexture, consistent with steatosis. No focal mass or intrahepatic biliary ductal dilatation is identified. There is normal hepatopedal flow in the portal vein. Gallbladder and biliary tree: The gallbladder is surgically absent. The common bile duct is normal in caliber measuring 5 mm. Kidneys: The right kidney measures 12.4 cm in length and demonstrates a 6 mm upper pole cyst, but is otherwise unremarkable. The left kidney measures 11.6 cm in length and is unremarkable. Pancreas: The pancreatic head, neck, and body are unremarkable. The pancreatic tail is obscured by bowel gas. Spleen: The spleen is normal in size and contour, measuring 8.6 cm in length. Abdominal aorta and inferior vena cava: The visualized portions of the abdominal aorta and inferior vena cava are normal in caliber. There is no free fluid in the abdomen. US/US abdomen complete IMPRESSION: Hepatomegaly and hepatic steatosis. Electronically signed by: Ruslan Shi MD 09/04/2024 10:14 AM EDT Dictated By: Ruslan Shi MD Signed By: <Electronically signed by Ruslan Shi MD in OV> 09/04/24 1014 DD/ 0925 TD/TT: 09/04/24 0934 Cold Working Supervisor: us Luz Dill MD IMG US PROCEDURES Final Res ult * (ABNORMAL) Lipid Panel, Standard (07/16/2024 8:33 AM EDT) Triglycerides 168(H) <150 mg/dL [facility] Comment:Desirable Triglyceri de: less than 150 mg/dLBorderline High Triglyceride 150-199 mg/dLHigh Triglyceride: 200-499 mg/dLVery High Triglyceride: greater than or equal to 5OO mg/dL Cholesterol 235(H) <200 mg/dL [facility] Comment:Desirable Cholestero l: less than 200 mg/dLBorderline High Cholesterol: 200-239 mg/dLHigh Cholesterol: greater than 239 mg/dL LDL Cholesterol Calculated 157(H) <100 mg/dL [facility] Comment:Desirable LDL: less than 100 mg/dLNear Optimal/Above Optimal LDL: 110- 129 mg/dLBorderline High LDL: 130-159 mg/dLHigh LDL: 160-189 mg/dLVery High LDL: greater than or equal to 190 mg/dL HDL Cholesterol 45 >40 mg/dL [facility] Comment:Desirable HDL: great er than 40 mg/dL Note: This HDL assay may give artificially low results in patients with liver disease. Blood Venous blood specimen / Unknown 07/16/2024 8:33 AM EDT 07/16/2024 11:09 AM EDT us Luz Dill MD LAB BLOOD ORDERABLES Final Result Performing Organization Address [facility] Co de Phone Number [facility] [address] [place] [phone] * Hepatitis C Ab (05/02/2023 9:23 AM EST) Hepatitis C Antibody Nonreactive Nonreactive [facility] Comment:Antibodies to HCV no t detected; does not exclude early acuteHCV infection. Blood Venous blood specimen / Unknown 05/02/2023 9:23 AM EST 05/02/2023 11:35 AM EST us Luz Dill MD LAB BLOOD ORDERABLES Final Result Performing Organization Address [facility] Co de Phone Number [facility] [address] [place] [phone] from Last 3 Months or Most Recently Relevant to Health Maintenance Insurance [address] [address] STANDARD MEDICARE Care Teams Candy Separator Hard Relationship Specialty Start Date End Date Luz Dill MD [address] [place] [phone] PCP - General Internal Medicine 05/31/17
--- OUTSIDE RECORDS SUMMARY | 2024-11-28 09:26 | XMS_ITS | Encounter Summary ---
Author Organization [employer] Address [address] [place] [address] 7 [place] [address] Care Team Providers Care Chalk Machine Operator Name Role Phone Luz Dill MD Primary Care Provider [phone] Reason for Referral * Imaging (Routine) - Closed Specialty Diagnoses / Procedures Referred By Contlucy t Referred To Contact Radiology Diagnoses Transaminitis Procedures US Abdomen Complete Luz Dill MD [address] [place] [address] Phone: tel: fax: [address] Phone: tel: fax: Referral ID Status Reason Start Date Expiration Date Visits Re quested Visits Authorized [id number] Closed 07/17/2024 07/17/2025 1 1 Encounter Details Date Type Department Care Team (Late st Contact Info) Description 07/12/2024 Orders Only [facility] [address] [place], [place] [phone] Luz Dill MD [address] [place], [place] [phone] PVD (peripheral vascular disease) (CMS/HCC) (Primary Dx); Transaminitis Social History Tobacco Use Types Packs/Day Years [...] 9:15 AM EDT Office Visit [facility] [address] [place] [address] Luz Dill MD [address] [place] [address] Scheduled Orders Name Type Priority Associated Diagnoses Orde r Schedule Ceruloplasmin Lab Routine Transaminitis Expected: 07/17/2024 (Approximate), Expires: 07/17/2025 Ferritin Lab Routine Transaminitis Expected: 07/17/2024, Expires: 07/17/2025 documented as of this encounter Procedures Procedure Name Priority Date/Time Associated Diagnosis Comments US ABDOMEN COMPLETE Routine 09/04/2024 9 :25 AM EDT Transaminitis documented in this encounter Results * US Abdomen Complete (09/04/2024 9:25 AM EDT) Anatomical Region Laterality Modality Abdomen Ultrasound 09/04/2024 9:25 AM EDT Narrative 09/04/2024 10:16 AM EDT [place] [address] Ultrasound Report Signed Patient: Marlena Henry MR#: [id number] : 1950 Acct:[id number] Age/Sex: 74 / F ADM Date: 09/04/24 Loc: HO.US Attending Dr: Luz Dill MD Ordering Physician: Luz Dill MD Date of Service: 09/04/24 Procedure(s): US abdomen complete Accession Number(s): [id number] cc: Luz Dill MD EXAMINATION: US ABDOMEN [...] Shi MD in OV> 09/04/24 1014 DD/ TD/TT: 09/04/24 0934 Learning And Development Administrator: Procedure Note Donotuseinterpreter, Image - 09/04/2024 [place] [address] Ultrasound Report Signed Patient: Elsy Henry#: MM [id number] : 1950Acct:[id number] Age/Sex: 74 / FADM Date: 09/04/24 Loc: HO.US Attending Dr: Luz Dill MD Ordering Physician: Luz Dill MD Date of Service: 09/04/24 Procedure(s): US abdomen complete Accession Number(s): [id number] cc: Luz Dill MD EXAMINATION: US ABDOMEN [...] 09/04/24 1014 DD/ 0925 TD/TT: 09/04/24 0934 Learning And Development Administrator: us Luz Dill MD IMG US PROCEDURES Final Res ult documented in this encounter Visit Diagnoses Diagnosis PVD (peripheral vascular disease) (CMS/HCC)- Primary Unspecified peripheral vascular disease Transaminitis Nonspecific elevation of levels of transaminase or lactic acid dehydrogenase (LDH) documented in this encounter Additional Health Concerns Assessment Noted Time PHQ-9 Depression Total Score: 0 08/09/19 23 3:03 PM EDT documented as of this encounter Care Teams Chalk Machine Operator Relationship Specialty Start Date End Date Luz Dill MD [address] [place] [phone] PCP - General Internal Medicine 05/31/17 documented as of this encounter
--- OUTSIDE RECORDS SUMMARY | 2024-11-28 09:26 | XMS_ITS | Encounter Summary ---
Author Organization [employer] Address [address] [place] [address] 7 [place] [address] Care Team Providers Care Solution Coordinator Name Role Phone Luz Dill MD Primary Care Provider [phone] Reason for Referral * Consultation (Routine) - Canceled Specialty Diagnoses / Procedures Referred By Contlucy t Referred To Contact Pharmacy Diagnoses Hypercholesterolemia Primary hypertension Luz Dill MD [address] [place] [address] Phone: tel: fax: Referral ID Status Reason Start Date Expiration Date V isits Requested Visits Authorized [id number] Canceled Continuity of Care 03/21/2024 03/21/2025 6 6 Encounter Details Date Type Department Care Team (Latest Contact Info) Description 03/21/2024 Orders Only [facility] [address] [place], [place] [phone] Luz Dill MD [address] [place], [place] [phone] Hypercholesterolemia (Primary Dx); Primary hypertension Social History [...] Description 01/09/2025 9:15 AM EDT Office Visit [facility] [address] [place] [address] Luz Dill MD [address] [place] [address] Scheduled Referrals Name Type Priority Associated Diagnoses [...] documented as of this encounter Care Teams Solution Coordinator Relationship Specialty Start Date End Date Luz Dill MD [address] [place] [address] PCP - General Internal Medicine 05/31/17 documented as of this encounter
[2024-11-28 12:06] LABS: Cholesterol 186 mg/dL (<200); HDL Cholesterol 42 mg/dL (>40); Triglycerides 109 mg/dL (<150)
[2024-11-28 12:14] LABS: Ferritin 251 ng/mL (10-250)
== END 2024-11-28 08:44 | disposition home or self-care (01) ==
LOC: HO.HHCL 08:43
PROVIDERS: PCP Internal Medicine; Visit Provider Internal Medicine
DX: R74.01 Elevation of levels of liver transaminase levels (principal); E78.00 Pure hypercholesterolemia, unspecified
CPT/HCPCS: 36415; 80061; 82390; 82728

== ENCOUNTER → 2024-12-13 08:32 | Outpatient (REF) | payer MEDICARE, MEDICAID, SELFPAY ==
--- OUTSIDE RECORDS SUMMARY | 2015-12-08 | XMS_ITS | Encounter Summary ---
Author Organization [facility] Address [address] [place] [phone] Phone Care Team Providers Care Zig Zag Stitcher Name Role Phone Unavailable Primary Care Provider Unavailabl e Encounter Details Date Type Department Care Team (Late st Contact Info) Description 12/08/2015 Hospital Encounter [facility] [address] [place] [address] Andry Lamb MD, KAILA [address] [place] [address], Floor 2 [place] [address] [email or web address] Social History Tobacco Use Types Packs/Day Years [...] (No Interpretation) (12/08/2015 12:00 AM EDT) Narrative [facility] [place] - 01/06/2016 7:29 AM EDT This study is for PACS storage only and not for interpretation. Procedure Note SYSTEMGENERATED, DOCUMENTATION - 01/06/2016 This study is for PACS storage only and not for interpretation. us Andry Lamb MD, KAILA IMG OUTSIDE IMAGING W/OUT INTERPRETATION Final Result [facility] documented in this encounter Visit Diagnoses Not on filedocumented in this encounter Additional Source Comments The information contained in this document represents components of the legal health record. It is not the complete legal health record.[facility]
--- NOTE | ~2024-12-13 | NM_ITS ---
Lexiscan Myocardial perfusion study Indication: Chest pain Technique: The patient was brought in for a Lexiscan perfusion study on 12/13/2024 and was injected 0.4 mg of Lexiscan intravenously. Within a minute of this injection 30 mCi of sestamibi was given intravenously. Images were obtained using the SPECT gamma camera interlaced with the gating device. Images were obtained in supine position. Resting perfusion study was performed on 12/16/2024. Patient was administered 30 mCi of sestamibi intravenously at rest. Images were then obtained in supine position. Total DLP 177 mGy-cm. Images were processed with the software and compared side to side in short axis, horizontal long axis and vertical long axis views. Findings: Raw aquisition reviewed. Arms by the patient's side. The stress perfusion study showed decreased tracer uptake along the mid to distal part of inferolateral wall. There is some improvement with CT attenuation correction and hence could have components of diaphragmatic attenuation artifact. The gated study shows normal LV systolic function with calculated LVEF of 61%. LV cavity is normal in size. The gated study shows normal wall thickening and contraction of segments. Resting study shows diminished tracer uptake along the inferolateral wall. There is improvement with CT attenuation correction suggestive of diaphragmatic attenuation artifact. Gating at rest reveals normal wall motion with ejection fraction at 61%. The findings are consistent with partially reversible inferolateral defect. Could be from diaphragmatic attenuation artifact. Less likely ischemia. NM/NM cardiolite stress test Impression: 1. Myocardial perfusion imaging study shows partially reversible inferolateral defect that could be from diaphragmatic attenuation artifact. Cannot exclude components of ischemia. 2. Gated LVEF is 61% during stress and rest. 3. Transient ischemic dilatation not present. EKG component of the test reported separately. Electronically signed by: Rusty Dunn MD 12/17/2024 10:27 AM EDT
--- NOTE | 2024-12-13 08:35 | CA_ITS ---
Acquisition Time: 2024-12-13 09:22:48 Total Exercise Time: 00:02:00 Test Indications: CP Medications: SEE H&P Protocol: LEXISCAN Max HR: 97 BPM 66% of Pred: 145 BPM Max BP: 128/70 mmHG Max Work Load: 1.0 METS Pharmacological stress test with Lexiscan while pt swings her legs in chair, with reports of SOB and headache, without any arrythmias, with normotensive response to injection. Nondiagnostic EKG for ischemia. In recovery, pt treated with IVP Aminophylline 75 mg to reverse Lexiscan after which pt feeling back to baseline. Nuclear images pending. Test reviewed with Dr. Castellanos. Referred By: Rusty Dunn Electronically Signed By: Edgar Houser
--- OUTSIDE RECORDS SUMMARY | 2024-12-13 09:04 | XMS_ITS | Encounter Summary ---
Author Organization [employer] Address [address] [place] [address] 7 [place] [address] Care Team Providers Care Die Storage Clerk Name Role Phone Luz Dill MD Primary Care Provider [phone] Reason for Referral * Imaging (Routine) - Closed Specialty Diagnoses / Procedures Referred By Contlucy t Referred To Contact Radiology Diagnoses Transaminitis Procedures US Abdomen Complete Luz Dill MD [address] [place] [address] Phone: tel: fax: [address] Phone: tel: fax: Referral ID Status Reason Start Date Expiration Date Visits Re quested Visits Authorized [id number] Closed 07/17/2024 07/17/2025 1 1 Encounter Details Date Type Department Care Team (Late st Contact Info) Description 07/12/2024 Orders Only [facility]S [address] [place], [place] [phone] Luz Dill MD [address] [place], [place] [phone] PVD (peripheral vascular disease) (CMS/HCC) (Primary Dx); [...] Description 01/09/2025 9:15 AM EDT Office Visit [facility] PED[facility] [address] [place] [address] Luz Dill MD [address] [place] [address] documented as of this encounter Procedures Procedure Name Priority Date/Time Associated Diagnosis Comments CERULOPLASMIN Routine 11/28/2024 8:56 AM EDT Transaminitis FERRITIN Routine 11/28/2024 8:56 AM EDT Transaminitis US ABDOMEN COMPLETE Routine 09/04/2024 9 :25 AM EDT Transaminitis documented in this encounter Results * (ABNORMAL) Ferritin (11/28/2024 8:56 AM EDT) Ferritin 251(H) 10 - 250 ng/mL [facility] Blood Venous blood specimen / Unknown 11/28/2024 8:56 AM EDT 11/28/2024 11:28 AM EDT Luz Dill MD LAB BLOOD ORDERABLES Final Result Performing Organization Address [facility] de Phone Number [facility] [address] [place] [phone] * Ceruloplasmin (11/28/2024 8:56 AM EDT) Ceruloplasmin 28 14 - 48 mg/dL [facility] Comment:THIS TEST WAS PERFOR MED AT:[facility] [address] [phone] CORONA MD Blood Venous blood specimen / Unknown 11/28/2024 8:56 AM EDT 11/28/2024 11:28 AM EDT us Luz Dill MD LAB BLOOD ORDERABLES Final Result Performing Organization Address [facility] de Phone Number [facility] [address] [place] [phone] * US Abdomen Complete (09/04/2024 9:25 AM EDT) Anatomical Region Laterality Modality Abdomen Ultrasound 09/04/2024 9:25 AM EDT Narrative 09/04/2024 10:16 AM EDT [address] [address] Ultrasound Report Signed Patient: Marlena Henry MR#: [id number] : 1950 Acct:[id number] Age/Sex: 74 / F ADM Date: 09/04/24 Loc: HO.US Attending Dr: Luz Dill MD Ordering Physician: Luz Dill MD Date of Service: 09/04/24 Procedure(s): US abdomen complete Accession Number(s): [id number] cc: Luz Dill MD EXAMINATION: US ABDOMEN [...] Shi MD in OV> 09/04/24 1014 DD/ 4 TD/TT: 09/04/2434 Warehouse Selector: Procedure Note Donotuseinterpreter, Image - 09/04/[address] [address] Ultrasound Report Signed Patient: Elsy Henry#: [id number] : 1950Acct:[id number] Age/Sex: 74 / FADM Date: 09/04/24 Loc: HO.US Attending Dr: Luz Dill MD Ordering Physician: Luz iDll MD Date of Service: 09/04/24 Procedure(s): US abdomen complete Accession Number(s): [id number] cc: Luz Dill MD EXAMINATION: US ABDOMEN [...] 09/04/24 1014 DD/ 0925 TD/TT: 09/04/24 0934 Warehouse Selector: us Luz Dill MD IMG US PROCEDURES [...] documented as of this encounter Care Teams Die Storage Clerk Relationship Specialty Start Date End Date Luz Dill MD [address] [place] [phone] PCP - General Internal Medicine 05/31/17 documented as of this encounter
--- OUTSIDE RECORDS SUMMARY | 2024-12-13 09:04 | XMS_ITS | Encounter Summary ---
Author Organization [employer] Address [address] [place] [address] 7 [place] [address] Care Team Providers Care Scaffolder Name Role Phone Luz Dill MD Primary Care Provider [phone] Reason for Referral * Consultation (Routine) - Canceled Specialty Diagnoses / Procedures Referred By Contlucy t Referred To Contact Pharmacy Diagnoses Hypercholesterolemia Primary hypertension Luz Dill MD [address] [place] [address] Phone: tel: fax: Referral ID Status Reason Start Date Expiration Date V isits Requested Visits Authorized [id number] Canceled Continuity of Care 03/21/2024 03/21/2025 6 6 Encounter Details Date Type Department Care Team (Latest Contact Info) Description 03/21/2024 Orders Only [facility] MED & PEDS [address] [place], [place] [phone] Luz Dill MD [address] [place], [place] [phone] Hypercholesterolemia (Primary Dx); Primary hypertension Social History [...] Description 01/09/2025 9:15 AM EDT Office Visit [facility] MED & PEDS [address] [place] [address] Luz Dill MD [address] [place] [address] Scheduled Referrals Name Type Priority Associated Diagnoses [...] documented as of this encounter Care Teams Scaffolder Relationship Specialty Start Date End Date Luz Dill MD [address] [place] [address] PCP - General Internal Medicine 05/31/17 documented as of this encounter
--- OUTSIDE RECORDS SUMMARY | 2024-12-13 09:04 | XMS_ITS | Encounter Summary ---
Author Organization [employer] Address [address] [place] [address] [address] Care Team Providers Care Cane Flume Watchman Name Role Phone Luz Dill MD Primary Care Provider [phone] Encounter Details Date Type Department Care Team (Late Contact Info) Description 05/12/2022 Telephone [facility] [address] [place] [address] Luz Dill MD [address] [place], [place] [phone] Social History Tobacco Use Types Packs/Day Years [...] Description 01/09/2025 9:15 AM EDT Office Visit [facility] MED [facility] PEDS [address] [place], [place] [phone] Luz Dill MD [address] [place], [place] [phone] documented as of this encounter Visit Diagnoses Not on filedocumented in this encounter Care Teams Cane Flume Watchman Relationship Specialty Start Date End Date Luz Dill MD [address] [place], [place] [phone] PCP - General Internal Medicine 05/31/17 documented as of this encounter
--- OUTSIDE RECORDS SUMMARY | 2024-12-13 09:04 | XMS_ITS | Encounter Summary ---
Author Organization [employer] Address [address] [facility] 7t [place] [address] Care Team Providers Care Natural Gas Inspector Name Role Phone Luz Dill MD Primary Care Provider [phone] Encounter Details Date Type Department Care Team (Late st Contact Info) Description 05/03/2023 Orders Only [facility] MED & PEDS [address] [place], [place] [phone] Luz Dill MD [address] [place], [place] [phone] Neck pain (Primary Dx) Social History Tobacco [...] 9:15 AM EDT Office Visit [facility] MED & PEDS [address] [place] [address] Luz Dill MD [address] [place] [address] documented as of this encounter Visit Diagnoses Diagnosis Neck pain- Primary Cervicalgia documented in this encounter Additional Health Concerns Assessment Noted Time PHQ-9 Depression Total Score: 0 08/09/19 23 3:03 PM EDT documented as of this encounter Care Teams Natural Gas Inspector Relationship Specialty Start Date End Date Luz Dill MD [address] [place] [address] PCP - General Internal Medicine 05/31/17 documented as of this encounter
--- OUTSIDE RECORDS SUMMARY | 2024-12-13 09:04 | XMS_ITS | Encounter Summary ---
Author Organization [employer] Address [address] [facility] 7t [place] [address] Care Team Providers Care Watch Caser Name Role Phone Luz Dill MD Primary Care Provider [phone] Reason for Visit * Reason Onset Date Comments Referral 03/21/2023 Encounter Details Date Type Department Care Team ([facility] st Contact Info) Description 03/21/2023 Telephone [facility] [address] [place] [address] Luz Dill MD [address] [place] [address] Referral Social History Tobacco Use Types Packs/Day [...] PM EST TC placed to Radha at [facility]. Radha explained that these requests were made by a visiting nurse [facility]. She reports that the note reads that the patient tried to contact [facility] and did not get through. TC placed to patient via [employer]. No answer. TC placed to patient without veneer redrier line. Clarified that patient did request referrals. Was not able to understand patient's description of current problems in [place]ik. Asked the patient to please answer the phone if I called back with veneer redrier line. Explained the phone number would be different. Patient agreed. TC placed again to patient via [employer]. Patient answered and stated that she has [...] some time. She declines a visit at [facility] at this time because she is currently in [place] visiting her mother who is in crisis. She states that she will be back in [place] sometime in mid-April 2023, and she has a follow-up appointment with Dr. Dill already scheduled for 05/01/23. Advised patient to be evaluated by a doctor or at the ED in [place] for worsening headache and bump above ear. Patient declined this advice to seek care now. Advised patient to seek evaluation and medical care if any symptoms worsen while in [place] and advised patient that she can call [...] - 03/21/2023 3:53 PM EST Tc from [facility] at [facility] requesting a referral for a orthopedics, a mammogram and for the patient medication to be sent as a Medication Blister Pack documented in this encounter Plan of Treatment Upcoming Encounters Date Type Department Care Team (Late st Contact Info) Description 01/09/2025 9:15 AM EDT Office Visit [facility] MED & PEDS [address] [place] [address] Luz Dill MD [address] [place] [address] documented as of this encounter Visit Diagnoses Not on filedocumented in this encounter Additional Health Concerns Assessment Noted Time PHQ-9 Depression Total Score: 0 08/09/19 23 3:03 PM EDT documented as of this encounter Care Teams Watch Caser Relationship Specialty Start Date End Date Luz Dill MD [address] [place] [address] PCP - General Internal Medicine 05/31/17 documented as of this encounter
--- OUTSIDE RECORDS SUMMARY | 2024-12-13 09:04 | XMS_ITS | Clinical Summary ---
Author Organization [employer] Address [address] [facility] 7t [place] [address] Care Team Providers Care Crew Attendant Name Role Phone Luz Dill MD Primary Care Provider [phone] Allergies No known active allergies Medications SM [...] Description 11/26/2024 11:30 AM EDT Office Visit [facility]S [address] [place], [place] [phone] Luz Dill MD Primary hypertension (Primary Dx); Hypercholesterolemia; Gastroesophageal reflux disease without esophagitis; Neck pain; Dizziness; Dietary counseling; Exercise counseling; Class 1 obesity due to excess calories with serious comorbidity and body mass index (BMI) of 34.0 to 34.9 in adult 11/26/2024 Travel 11/25/2024 Telephone [facility]S [address] [place] [address] Luz Dill MD 10/10/2024 Refill [facility] [address] [place] [address] Luz Dill MD Primary hypertension; Hypercholesterolemia; Gastroesophageal reflux disease without esophagitis 09/26/2024 1:00 PM EDT Office Visit [facility] [address] [place], [place] [phone] Shruthi Orourke FNP Redness of eye, right (Primary Dx) 09/26/2024 Travel from Last 3 Months Immunizations Immunization Administration [...] Upcoming Encounters Date Type Department Care Team ([facility] st Contact Info) Description 01/09/2025 9:15 AM EDT Office Visit [facility] PEDS [address] [place] [address] Luz Dill MD [address] [place] [address] Health Maintenance Due Date Last Done Comments CT Colonography 1950 Colonoscopy 1950 FIT 1950 Sigmoidoscopy 1950 Alcohol/Substance Use Screening 1961 Zoster Vaccines (1 of 2) 06/11/1999 FOBT 02/15/2023 02/15/2022 Depression Screening 08/09/2023 08/08/2022, 08/09/19 23 RSV Patients and Patients Aged 60 years or older (1 - 1-dose 75+ series) 2024 COVID-19 Vaccine ( season) 2024 11/24/2021, 11/24/2020, 10/29/2020 Influenza Vaccine (#1) 2024 04/13/2021, 2018 Colorectal Cancer Screening 02/15/2025 FIT DNA/Cologuard 02/15/2025 02/15/2022 SDOH Screening 05/02/2025 05/02/2024 Tobacco Screening 11/26/2025 11/26/2024 Lipid Panel 11/28/2029 11/28/2024, 07/02, 05/02/2023, Additional history exists DTaP/Tdap/Td Vaccines (2 - [...] Procedure Name Priority Date/Time Associated Diagnosis Comments LIPID PANEL, STANDARD Routine 11/28/2024 8:56 AM EDT Hypercholesterolemi a FERRITIN Routine 11/28/2024 8:56 AM EDT Transaminitis CERULOPLASMIN Routine 11/28/2024 8:56 AM EDT Transaminitis ECG 12-LEAD Routine 11/26/2024 3:25 PM EDT Primary hypertension Dizziness HEPATITIS C ANTIBODY Routine 05/02/2023 9:23 AM EST Neck pain Primary hypertension Mild memory disturbance from Last 3 Months or Most Recently Relevant to Health Maintenance Results * Ceruloplasmin (11/28/2024 8:56 AM EDT) Ceruloplasmin 28 14 - 48 mg/dL [facility] Comment:THIS TEST WAS PERFOR MED AT:[employer] [place] [phone] CORONA MD Blood Venous blood specimen / Unknown 11/28/2024 8:56 AM EDT 11/28/2024 11:28 AM EDT us Luz Dill MD LAB BLOOD ORDERABLES Final Result Performing Organization Address [facility]/ZIP Co de Phone Number [facility] [address] [place] [phone] * (ABNORMAL) Ferritin (11/28/2024 8:56 AM EDT) Ferritin 251(H) 10 - 250 ng/mL [facility] Blood Venous blood specimen / Unknown 11/28/2024 8:56 AM EDT 11/28/2024 11:28 AM EDT us Luz Dill MD LAB BLOOD ORDERABLES Final Result Performing Organization Address City/[facility]/ZIP Co de Phone Number [facility] [address] [place] [phone] * (ABNORMAL) Lipid Panel, Standard (11/28/2024 8:56 AM EDT) Triglycerides 109 <150 mg/dL [facility] Comment:Desirable Triglyceri de: less than 150 mg/dLBorderline High Triglyceride 150-199 mg/dLHigh Triglyceride: 200-499 mg/dLVery High Triglyceride: greater than or equal to 5OO mg/dL Cholesterol 186 <200 mg/dL [facility] Comment:Desirable Cholestero l: less than 200 mg/dLBorderline High Cholesterol: 200-239 mg/dLHigh Cholesterol: greater than 239 mg/dL LDL Cholesterol Calculated 123(H) <100 mg/dL [facility] Comment:Desirable LDL: less than 100 mg/dLNear Optimal/Above Optimal LDL: 110- 129 mg/dLBorderline High LDL: 130-159 mg/dLHigh LDL: 160-189 mg/dLVery High LDL: greater than or equal to 190 mg/dL HDL Cholesterol 42 >40 mg/dL [facility] Comment:Desirable HDL: great er than 40 mg/dL Note: This HDL assay may give artificially low results in patients with liver disease. Blood Venous blood specimen / Unknown 11/28/2024 8:56 AM EDT 11/28/2024 11:28 AM EDT us Luz Dill MD LAB BLOOD ORDERABLES Final Result [facility] [address] [place] [phone] * ECG 12 lead (11/26/2024 3:25 PM EDT) Narrative Luz Dill MD - 11/26/2024 3:25 PM EDT Heart rate 63 bpm. [place] 63 degrees. Normal sinus rhythm. Intra-atrial conduction delay. Minor high lateral and lateral repolarization disturbance. LV overload or a specific change. No sign of left atrial enlargement or right atrial enlargement. No ST elevation or ST depression. Borderline EKG. us Luz Dill MD ECG ORDERABLES Final Resul t * Hepatitis C Ab (05/02/2023 9:23 AM EST) Hepatitis C Antibody Nonreactive Nonreactive [facility] Comment:Antibodies to HCV no t detected; does not exclude early acuteHCV infection. Blood Venous blood specimen / Unknown 05/02/2023 9:23 AM EST 05/02/2023 11:35 AM EST us Luz Dill MD LAB BLOOD ORDERABLES Final Result [facility] [address] [place] [phone] [phone] from Last 3 Months or Most Recently Relevant to Health Maintenance Insurance [facility] STANDARD MEDIC[place] [phone] Care Teams Crew Attendant Relationship Specialty Start Date End Date Luz Dill MD [address] [place] [phone] PCP - General Internal Medicine 05/31/17
--- OUTSIDE RECORDS SUMMARY | 2024-12-13 09:04 | XMS_ITS | Clinical Summary ---
Author Organization [facility] Address [address] [facility] [address] [place] [phone] Phone Care Team Providers Care Infrastructure Analyst Name Role Phone Hiram Hassan MD Primary [...] 06/11/1999 OSTEOPOROSIS SCREENING INITI AL (ONE-TIME) 2014 RSV VACCINE (1 - 1-dose 75+ series) 2024 INFLUENZA VACCINE (#1) 2024 COVID-19 VACCINE (2023-2 5 season) 2024 HEPATITIS A VACCINES Aged Out No [...] MEDICARE PART A & B Care Teams Infrastructure Analyst Relationship Specialty Start Date End Date Hiram Hassan MD [address] [place] [address] [place] [address] PCP - General Internal Medicine 01/05/16 Additional Source Comments The information contained in this document represents components of the legal health record. It is not the complete legal health record.[facility]
== END ==
LOC: HO.CARD 08:32
PROVIDERS: PCP Internal Medicine; Visit Provider Internal Medicine
DX: R07.2 Precordial pain (principal); I25.119 Atherosclerotic heart disease of native coronary artery with unspecified angina pectoris
CPT/HCPCS: 78452; 93017; A9500; J0280; J2785

== ENCOUNTER → 2024-12-13 08:35 | Outpatient (BNV) | payer MEDICARE, MEDICAID, SELFPAY | PROVIDERS: PCP Internal Medicine | DX: R06.02 Shortness of breath (principal); R51.9 Headache, unspecified | CPT/HCPCS: 78452; 93016; 93018 ==

== ENCOUNTER 2025-01-06 09:44 | Outpatient (AMB) | payer MEDICARE, MEDICAID, SELFPAY ==
--- OUTSIDE RECORDS SUMMARY | 2015-12-08 | XMS_ITS | Encounter Summary ---
Author Organization [facility] Address [address] [place] [address] Phone Care Team Providers Care Cyber Security Specialist Name Role Phone Unavailable Primary Care Provider Unavailabl e Encounter Details Date Type Department Care Team (Late st Contact Info) Description 12/08/2015 Hospital Encounter [facility] [address] [place] [address] Andry Lamb MD, KAILA [address] [facility], Floor 2 [place] [address] [email or web address] Social History Tobacco Use Types Packs/Day Years [...] (No Interpretation) (12/08/2015 12:00 AM EDT) Narrative [facility]G INTERFACES - 01/06/2016 7:29 AM EDT This study is for PACS storage only and not for interpretation. Procedure Note SYSTEMGENERATED, DOCUMENTATION - 01/06/2016 This study is for PACS storage only and not for interpretation. us Andry Lamb MD, KAILA IMG OUTSIDE IMAGING W/OUT INTERPRETATION Final Result [facility]G INTERFACES documented in this encounter Visit Diagnoses Not on filedocumented in this encounter Additional Source Comments The information contained in this document represents components of the legal health record. It is not the complete legal health record.[facility]
--- NOTE | 2025-01-06 10:14 | A.OFFVIS_ITS ---
Vital Signs 01/06/25 10:15 Height 5 ft 1 in Weight 180 lb 12.465 oz BMI 34.2 BP 124/64 Blood Pressure Location Lt brachial Position Sitting Pulse 84 Pulse Source Pulse Oximeter Intake Visit Reasons: 2 mth fu after stress test Nurses Aide Required: Yes Nurses Aide Name: MORELIA [id number] Allergies No Known Allergies (No Known Allergies*) Allergy (Verified 10/10/24 10:59) Medication List - Last Reconciled 01/06/25 by Rusty Dunn MD acetaminophen ER 650 mg PO TID albuterol sulfate 90 mcg/actuation 2 puffs PO Q4-6H PRN Anoro Ellipta 62.5-25 mcg/actuation (umeclidinium-vilanterol) 1 inh inhalation DAILY NS aspirin 81 mg PO DAILY atorvastatin 80 mg PO BEDTIME famotidine (Pepcid) 40 mg PO BID isosorbide mononitrate ER 30 mg PO DAILY metoprolol succinate ER 50 mg PO DAILY sennosides (senna) 17.2 mg (2 x 8.6 mg) PO BEDTIME HPI Comments Details: Marlena returns for follow-up. She has coronary and vascular disease. Remote history of cardiac catheterization in [place]. In the past, has seen [facility]. Multiple risk factors including history of smoking, hypertension, hyperlipidemia. She continues to describe chest pains which are very difficult to assess in spite of using clipper operator. In spite of asking numerous times, she describes in different ways. Sometimes at rest, sometimes with activities, sometimes with physical movements like bending extra. We did order a perfusion imaging study which was abnormal. [facility] Medical History On beta mame at home Snores Urinary incontinence Other and unspecified hyperlipidemia Essential hypertension Peripheral vascular disease Atherosclerotic cardiovascular disease Carotid stenosis, asymptomatic PAD (peripheral artery disease) Hypercholesteremia Hypertension Surgical History H/O heart artery stent History of esophagogastroduodenoscopy (EGD) Hx of lithotripsy Hx of colonoscopy Hx of heart artery stent Hx of varicose vein stripping Hx of tubal ligation Hx laparoscopic cholecystectomy Family History Father Emphysema, unspecified Mother Hypertension Brother Liver cancer Daughter Alive and well Social History Alcohol intake: never Patient Tobacco Use Status: Never used Tobacco Review of Systems Const Denies weakness ENT Denies dizziness Card Denies chest pain, Denies chest pain with activity, Denies syncope, Denies rapid heart rate, Denies pedal edema, Denies edema, Denies leg edema, Denies lightheadedness, Denies palpitations, Reports dyspnea, Reports dyspnea on exertion and Denies orthopnea Resp Denies cough, Reports dyspnea and Reports dyspnea on exertion GI Denies hematochezia and Denies change in stool character Musc Denies abnormal gait, Denies muscle cramps, Denies muscle weakness, Denies numbness, Denies radiating pain into limb and Denies tingling Neuro Denies abnormal gait, Denies dizziness, Denies syncope, Denies numbness, Denies tingling and Denies weakness Endo Denies palpitations Physical Exam Vital Signs: Last Vital Signs Pulse 84 01/06/25 10:15 BP 124/64 01/06/25 10:15 BMI result Body Mass Index 34.2 Const General: comfortable and no acute distress Orientation/consciousness: patient oriented x3 HEENT Other: Unremarkable Head: Yes normal to inspection Neck Neck: Yes normal visual inspection Chest Chest palpation & inspection: normal inspection of the chest Resp Auscultation: clear to auscultation bilaterally Cardio Palpation: normal PMI Heart sounds: S1 normal heart sound present, S2 normal heart sound present, no gallops, no murmurs and no rubs GI Palpation (GI): Soft to palpation Back/Spine/Pelvis Other: unremarkable Skin General skin exam: no rashes or lesions noted Neuro General: patient oriented x3 Extrem General: Yes normal to inspection Psych Mental Status: mental status grossly normal Assessment & Plan Assessment & Plan (1) Atherosclerotic cardiovascular disease: Code(s): I25.10 - Atherosclerotic heart disease of [place] coronary artery without angina pectoris Category: Medical Plan: Multiple vascular risk factors and now presenting for chest pains. In the recent echocardiogram, LVEF 56%. Basal inferior hypokinesis but thought to be similar to prior study. Myocardial perfusion imaging study with partially reversible inferolateral defect, ischemia versus diaphragmatic attenuation artifact. We discussed at length about a diagnostic catheterization and she agrees. We will schedule that. She remains on aspirin, long-acting nitrates and beta-blockers. (2) Essential hypertension: Code(s): I10 - Essential (primary) hypertension Category: Medical Plan: Stable. No changes. (3) Other and unspecified hyperlipidemia: Code(s): E78.5 - Hyperlipidemia, unspecified Category: Medical Plan: Per prior notes, has been on statins/Zetia. Today's notes just as statins. We had tried Praluent but there was question of facial rash and hence not continued. Then we had started Repatha but that is not in her list either. Hence confusing and no further changes made today. (4) Peripheral vascular disease: Code(s): I73.9 - Peripheral vascular disease, unspecified Category: Medical Plan: Follow-up with vascular surgery. With regard to right leg swelling, could be related to venous insufficiency. Less likely cardiac. Plan Discussion Notes I discussed with the patient the possibility of coronary artery disease given her symptoms of chest pain and history of peripheral artery disease. I recommended an angiogram to evaluate for coronary blockages, explaining the procedure and its potential to identify and treat blockages with a stent. The risks and benefits of the procedure were discussed, emphasizing the low risk of complications. Patient was informed and verbally consented to the use of an ambient scribe for clinic note documentation during this visit. Orders: Orders Cardiac Cath LT Diagnostic Today I25.10 - Atherosclerotic heart disease of [place] coronary artery without angina pectoris Basic Metabolic Panel Today I25.10 - Atherosclerotic heart disease of [place] coronary artery without angina pectoris Complete Blood Count no Diff Today I25.10 - Atherosclerotic heart disease of [place] coronary artery without angina pectoris Prothrombin Time INR Today I25.10 - Atherosclerotic heart disease of [place] coronary artery without angina pectoris Patient Instructions: - Schedule the angiogram. - Monitor for any worsening of chest pain or new symptoms and seek medical attention if they occur. Coding Level of Care Code Est Pt Level 4 (46493) Complex EM visit Add On G2211 Diagnoses Atherosclerotic cardiovascular disease I25.10 Essential hypertension I10 Other and unspecified hyperlipidemia E78.5 Peripheral vascular disease I73.9
[2025-01-06 10:15] VITALS: BP 124/64; PULSE 84; BMI 34.2
--- OUTSIDE RECORDS SUMMARY | 2025-01-06 11:12 | XMS_ITS | Encounter Summary ---
Author Organization [employer] Address [address] [place] [address] [address] [address] Care Team Providers Care Hostage Negotiator Name Role Phone Luz Dill MD Primary Care Provider [phone] Encounter Details Date Type Department Care Team (Late Contact Info) Description 05/12/2022 Telephone [facility] [address] [place] [address] Luz Dill MD [address] [place], [place] [phone] Social History Tobacco Use Types Packs/Day Years [...] Description 01/09/2025 9:15 AM EDT Office Visit [facility] [address] [place], [place] [phone] Luz Dill MD [address] [place], [place] [phone] documented as of this encounter Visit Diagnoses Not on filedocumented in this encounter Care Teams Hostage Negotiator Relationship Specialty Start Date End Date Luz Dill MD [address] [place], [place] [phone] PCP - General Internal Medicine 05/31/17 documented as of this encounter
--- OUTSIDE RECORDS SUMMARY | 2025-01-06 11:12 | XMS_ITS | Encounter Summary ---
Author Organization [employer] Address [address] [facility] [address] [place] [address] Care Team Providers Care Visualization Developer Name Role Phone Luz Dill MD Primary Care Provider [phone] Encounter Details Date Type Department Care Team (Late st Contact Info) Description 05/03/2023 Orders Only [facility]S [address] [place], [place] [phone] Luz Dill MD [address] [place], [place] [phone] Neck pain (Primary Dx) Social History Tobacco [...] 9:15 AM EDT Office Visit [facility] [address] [place] [address] Luz Dill MD [address] [place] [address] documented as of this encounter Visit Diagnoses Diagnosis Neck pain- Primary Cervicalgia documented in this encounter Additional Health Concerns Assessment Noted Time PHQ-9 Depression Total Score: 0 08/09/19 23 3:03 PM EDT documented as of this encounter Care Teams Visualization Developer Relationship Specialty Start Date End Date Luz Dill MD [address] [place] [address] PCP - General Internal Medicine 05/31/17 documented as of this encounter
--- OUTSIDE RECORDS SUMMARY | 2025-01-06 11:12 | XMS_ITS | Encounter Summary ---
Author Organization [employer] Address [address] [place] [address] 7 [place] [address] Care Team Providers Care Loan Operations Specialist Name Role Phone Luz Dill MD Primary Care Provider [phone] Reason for Referral * Imaging (Routine) - Closed Specialty Diagnoses / Procedures Referred By Contlucy t Referred To Contact Radiology Diagnoses Transaminitis Procedures US Abdomen Complete Luz Dill MD [address] [place] [address] Phone: tel: fax: [address] Phone: tel: fax: Referral ID Status Reason Start Date Expiration Date Visits Re quested Visits Authorized [id number] Closed 07/17/2024 07/17/2025 1 1 Encounter Details Date Type Department Care Team (Late st Contact Info) Description 07/12/2024 Orders Only [facility] MED & PEDS [address] [place], [place] [phone] Luz Dill MD [address] [place], [place] [phone] PVD (peripheral vascular disease) (CMS/HCC) (Primary Dx); [...] 9:15 AM EDT Office Visit [facility] MED [facility] PEDS [address] [place] [address] Luz Dill MD [address] [place] [address] documented as of this encounter Procedures Procedure Name Priority Date/Time Associated Diagnosis Comments CERULOPLASMIN Routine 11/28/2024 8:56 AM EDT Transaminitis FERRITIN Routine 11/28/2024 8:56 AM EDT Transaminitis US ABDOMEN COMPLETE Routine 09/04/2024 9 :25 AM EDT Transaminitis documented in this encounter Results * (ABNORMAL) Ferritin (11/28/2024 8:56 AM EDT) Ferritin 251(H) 10 - 250 ng/mL [facility] Blood Venous blood specimen / Unknown 11/28/2024 8:56 AM EDT 11/28/2024 11:28 AM EDT Luz Dill MD LAB BLOOD ORDERABLES Final Result Performing Organization Address [facility] de Phone Number [facility] [address] [place] [phone] * Ceruloplasmin (11/28/2024 8:56 AM EDT) Ceruloplasmin 28 14 - 48 mg/dL [facility] Comment:THIS TEST WAS PERFOR MED AT:[facility] [address] [id number] CORONA MD Blood Venous blood specimen / Unknown 11/28/2024 8:56 AM EDT 11/28/2024 11:28 AM EDT us Luz Dill MD LAB BLOOD ORDERABLES Final Result Performing Organization Address [facility] de Phone Number [facility] [address] [place] [phone] * US Abdomen Complete (09/04/2024 9:25 AM EDT) Anatomical Region Laterality Modality Abdomen Ultrasound 09/04/2024 9:25 AM EDT Narrative 09/04/2024 10:16 AM EDT [address] [address] Ultrasound Report Signed Patient: Marlena Henry MR#: [id number] : 1950 Acct:[id number] Age/Sex: 74 / F ADM Date: 09/04/24 Loc: HO.US Attending Dr: Luz Dill MD Ordering Physician: Luz Dill MD Date of Service: 09/04/24 Procedure(s): US abdomen complete Accession Number(s): [id number] cc: Luz Dill MD EXAMINATION: US ABDOMEN [...] OV> 09/04/24 1014 DD/ 4 TD/TT: 09/04/2434 Superintendent Terminal: Procedure Note Donotuseinterpreter, Image - 09/04/[address] [address] Ultrasound Report Signed Patient: Elsy Henry#: [id number] : 1950Acct:[id number] Age/Sex: 74 / FADM Date: 09/04/24 Loc: HO.US Attending Dr: Luz Dill MD Ordering Physician: Luz Dill MD Date of Service: 09/04/24 Procedure(s): US abdomen complete Accession Number(s): [id number] cc: Luz Dill MD EXAMINATION: US ABDOMEN [...] 09/04/24 1014 DD/ 0925 TD/TT: 09/04/24 0934 Superintendent Terminal: us Luz Dill MD IMG US PROCEDURES Final Res ult documented in this encounter Visit Diagnoses Diagnosis PVD (peripheral vascular disease)- Primary Unspecified peripheral vascular disease Transaminitis Nonspecific elevation of levels of transaminase or lactic acid dehydrogenase (LDH) documented in this encounter Additional Health Concerns Assessment Noted Time PHQ-9 Depression Total Score: 0 08/09/19 23 3:03 PM EDT documented as of this encounter Care Teams Loan Operations Specialist Relationship Specialty Start Date End Date Luz Dill MD [address] [place] [phone] PCP - General Internal Medicine 05/31/17 documented as of this encounter
--- OUTSIDE RECORDS SUMMARY | 2025-01-06 11:12 | XMS_ITS | Encounter Summary ---
Author Organization [employer] Address [address] [facility] [address] [place] [address] Care Team Providers Care Packing And Stamping Machine Operator Name Role Phone Luz Dill MD Primary Care Provider [phone] Reason for Visit * Reason Onset Date Comments Referral 03/21/2023 Encounter Details Date Type Department Care Team ([facility] st Contact Info) Description 03/21/2023 Telephone [facility] [address] [place] [address] Luz Dill MD [address] [place] [address] Referral Social History Tobacco Use Types Packs/Day [...] PM EST TC placed to Radha at [facility]. Radha explained that these requests were made by a visiting nurse [facility]. She reports that the note reads that the patient tried to contact [facility] and did not get through. TC placed to patient via [employer]. No answer. TC placed to patient without rag washer line. Clarified that patient did request referrals. Was not able to understand patient's description of current problems in [place]. Asked the patient to please answer the phone if I called back with rag washer line. Explained the phone number would be different. Patient agreed. TC placed again to patient via [employer]. Patient answered and stated that she has [...] some time. She declines a visit at [facility] at this time because she is currently in [place] visiting her mother who is in crisis. She states that she will be back in [place] sometime in mid-April 2023, and she has a follow-up appointment with Dr. Dill already scheduled for 05/01/23. Advised patient to be evaluated by a doctor or at the ED in [place] for worsening headache and bump above ear. Patient declined this advice to seek care now. Advised patient to seek evaluation and medical care if any symptoms worsen while in [place] and advised patient that she can call [...] - 03/21/2023 3:53 PM EST Tc from [facility] at [facility] requesting a referral for a orthopedics, a mammogram and for the patient medication to be sent as a Medication Blister Pack documented in this encounter Plan of Treatment Upcoming Encounters Date Type Department Care Team (Late st Contact Info) Description 01/09/2025 9:15 AM EDT Office Visit [facility] MED [facility] P[facility] [address] [place] [address] Luz Dill MD [address] [place] [address] documented as of this encounter Visit Diagnoses Not on filedocumented in this encounter Additional Health Concerns Assessment Noted Time PHQ-9 Depression Total Score: 0 08/09/19 23 3:03 PM EDT documented as of this encounter Care Teams Packing And Stamping Machine Operator Relationship Specialty Start Date End Date Luz Dill MD [address] [place] [address] PCP - General Internal Medicine 05/31/17 documented as of this encounter
--- OUTSIDE RECORDS SUMMARY | 2025-01-06 11:12 | XMS_ITS | Clinical Summary ---
Author Organization [employer] Address [address] [facility] 7t [place] [address] Care Team Providers Care Hand Baseball Sewer Name Role Phone Luz Dill MD Primary Care Provider [phone] Allergies No known active allergies Medications SM Fiber Laxative 500 MG tablet Take 1 tablet by mouth 2 times daily. 3 Active senna (Senokot) 8.6 MG tablet Take 2 tablets by mouth at bedtime. 4 Active Anoro Ellipta 62.5-25 MCG/ACT aerosol powder Take 1 puff by mouth Once per day. 4 Active Diclofenac Sodium 1 % gelIndications:Ne ck pain APPLY TO THE AFFECTED AREA(S) 2 GRAMS THREE TIMES DAILY NEEDED PAIN 100 g 1 4 Active Ventolin HFA 108 (90 Base) MCG/ACT inhaler INHALE 1 PUFF BY MOUTH EVERY 6 HOURS NEEDED FOR WHEEZING 18 g 3 5 Active aspirin 81 MG EC tabletIndications :PVD (peripheral vascular disease) Take 1 tablet (81 mg) by mouth Once per day. 30 tablet 11 5 07/13/19 26 Active Multiple Vitamin (Multivitamin) tablet TAKE 1 TABLET BY MOUTH EVERY MORNING 30 tablet 3 5 Active dextran 70-hypromellose (artificial tears) 0.1-0.3 % ophthalmic solution Administer 1 drop into the right eye if needed in the morning, at noon, and at bedtime for dry eyes. 15 mL 5 09/27/19 26 Active ezetimibe (Zetia) 10 MG tabletIndications :Hypercholesterol emia TAKE 1 TABLET BY MOUTH AT BEDTIME 90 tablet 5 Active famotidine (Pepcid) 40 MG tabletIndications :Gastroesophageal reflux disease without esophagitis TAKE 1 TABLET BY MOUTH TWICE DAILY IN THE MORNING AND IN THE EVENING 180 tablet 5 Active isosorbide mononitrate ER (Imdur) 30 MG 24 hr tabletIndications :Primary hypertension TAKE 1 TABLET BY MOUTH EVERY MORNING 90 tablet 5 Active atorvastatin (Lipitor) 80 MG tabletIndications :Hypercholesterol emia TAKE 1 TABLET BY MOUTH AT BEDTIME 90 tablet 5 Active metoprolol succinate XL (Toprol XL) 25 MG 24 hr tabletIndications :Primary hypertension Take 1 tablet (25 mg) by mouth Once per day. Do not crush or chew. 30 tablet 11 5 11/27/19 26 Active acetaminophen (Tylenol 8 Hour) 650 MG ER tabletIndications :Neck pain Take 1 tablet (650 mg) by mouth every 8 (eight) hours if needed for mild pain. 90 tablet 3 5 Active Active Problems Problem Noted Date Diagnosed Date Moderate COPD (chronic obstr uctive pulmonary disease) ([facility]) 08/22/2024 PVD (peripheral vascular disease) 09/13/2023 Hypercholesterolemia 08/08/2022 Hypertensive disorder 08/08/2022 Gastroesophageal reflux disease 06/28/2019 Encounters Date Type Department Care Team Description 12/13/2024 Orders Only [facility] External Provider, [facility] 11/26/2024 11:30 AM EDT Office Visit [facility] [address] [place] [address] Luz Dill MD Primary hypertension (Primary Dx); Hypercholesterolemia; Gastroesophageal reflux disease without esophagitis; Neck pain; Dizziness; Dietary counseling; Exercise counseling; Class 1 obesity due to excess calories with serious comorbidity and body mass index (BMI) of 34.0 to 34.9 in adult 11/26/2024 Travel 11/25/2024 Telephone [facility] [address] [place] [address] Luz Dill MD 10/10/2024 Refill [facility] [address] [place] [address] Luz Dill MD Primary hypertension; Hypercholesterolemia; Gastroesophageal reflux disease without esophagitis from Last 3 Months Immunizations Immunization Administration [...] Upcoming Encounters Date Type Department Care Team ([facility] st Contact Info) Description 01/09/2025 9:15 AM EDT Office Visit [facility] [address] [place] [address] Luz Dill MD [address] [place], [place] [phone] Health Maintenance Due Date Last Done Comments [...] Screening 11/26/2025 11/26/2024 Lipid Panel 11/28/2029 11/28/2024, 0408/2024, 05/02/2023, Additional history exists DTaP/Tdap/Td Vaccines (2 [...] Procedure Name Priority Date/Time Associated Diagnosis Comments STRESS TEST WITH MYOCARDIAL PERFUSION Routine 12/13/2024 10:43 AM EDT LIPID PANEL, STANDARD Routine 11/28/2024 8:56 AM EDT Hypercholesterolemi a FERRITIN Routine 11/28/2024 8:56 AM EDT Transaminitis CERULOPLASMIN Routine 11/28/2024 8:56 AM EDT Transaminitis ECG 12-LEAD Routine 11/26/2024 3:25 PM EDT Primary hypertension Dizziness HEPATITIS C ANTIBODY Routine 05/02/2023 9:23 AM EST Neck pain Primary hypertension Mild memory disturbance from Last 3 Months or Most Recently Relevant to Health Maintenance Results * Stress test with myocardial perfusion (12/13/2024 10:43 AM EDT) 12/13/2024 10:4 3 AM EDT Narrative [facility] - 12/17/2024 10:31 AM EDT [address] [address] Nuclear Medicine Report Signed Patient: Marlena Henry MR#: [id number] : 1950 Acct:[id number] Age/Sex: 74 / F ADM Date: 12/13/24 Loc: HO.CARD Attending Dr: Rusty Dunn MD Ordering Physician: Rusty Dunn MD Date of Service: 12/13/24 Procedure(s): NM cardiolite stress test Accession Number(s): [id number] cc: Luz Dill MD; Rusty uDnn MD Reason for Exam: R07.2 - Precordial pain Lexiscan Myocardial perfusion study Indication: Chest pain Technique: The patient was brought in for a Lexiscan perfusion study on 12/13/2024 and was injected 0.4 mg of Lexiscan intravenously. Within a minute of this injection 30 mCi of sestamibi was given intravenously. Images were obtained using the SPECT gamma camera interlaced with the gating device. Images were obtained in supine position. Resting perfusion study was performed on 12/16/2024. Patient was administered 30 mCi of sestamibi intravenously at rest. Images were then obtained in supine position. Total DLP 177 mGy-cm. Images were processed with the software and compared side to side in short axis, horizontal long axis and vertical long axis views. Findings: Raw aquisition reviewed. Arms by the patient's side. The stress perfusion study showed decreased tracer uptake along the mid to distal part of inferolateral wall. There is some improvement with CT attenuation correction and hence could have components of diaphragmatic attenuation artifact. The gated study shows normal LV systolic function with calculated LVEF of 61%. LV cavity is normal in size. The gated study shows normal wall thickening and contraction of segments. Resting study shows diminished tracer uptake along the inferolateral wall. There is improvement with CT attenuation correction suggestive of diaphragmatic attenuation artifact. Gating at rest reveals normal wall motion with ejection fraction at 61%. The findings are consistent with partially reversible inferolateral defect. Could be from diaphragmatic attenuation artifact. Less likely ischemia. NM/NM cardiolite stress test Impression: 1. Myocardial perfusion imaging study shows partially reversible inferolateral defect that could be from diaphragmatic attenuation artifact. Cannot exclude components of ischemia. 2. Gated LVEF is 61% during stress and rest. 3. Transient ischemic dilatation not present. EKG component of the test reported separately. Electronically signed by: Rusty Dunn MD 12/17/2024 10:27 AM EDT RP Dictated By: Rusty Dunn MD Signed By: <Electronically signed by Rusty Dunn MD in OV> 12/17/24 1027 DD/ 1043 TD/TT: 12/16/24 1005 Railroad Car Checker: Procedure Note Donotuseinterpreter, Image - 12/17/[address] [address] Nuclear Medicine Report Signed Patient: Elsy Henry#: [id number] : 1950Acct:[id number] Age/Sex: 74 / FADM Date: 12/13/24 Loc: [facility] Attending Dr: Rusty Dunn MD Ordering Physician: Rusty Dunn MD Date of Service: 12/13/24 Procedure(s): NM cardiolite stress test Accession Number(s): [id number] cc: Luz Dill MD; Rusty Dunn MD Reason for Exam: R07.2 - Precordial pain Lexiscan Myocardial perfusion study Indication: Chest pain Technique: The patient was brought in for a Lexiscan perfusion study on 12/13/2024 and was injected 0.4 mg of Lexiscan intravenously. Within a minute of this injection 30 mCi of sestamibi was given intravenously. Images were obtained using the SPECT gamma camera interlaced with the gating device. Images were obtained in supine position. Resting perfusion study was performed on 12/16/2024. Patient was administered 30 mCi of sestamibi intravenously at rest. Images were then obtained in supine position. Total DLP 177 mGy-cm. Images were processed with the software and compared side to side in short axis, horizontal long axis and vertical long axis views. Findings: Raw aquisition reviewed. Arms by the patient's side. The stress perfusion study showed decreased tracer uptake along the mid to distal part of inferolateral wall. There is some improvement with CT attenuation correction and hence could have components of diaphragmatic attenuation artifact. The gated study shows normal LV systolic function with calculated LVEF of 61%. LV cavity is normal in size. The gated study shows normal wall thickening and contraction of segments. Resting study shows diminished tracer uptake along the inferolateral wall. There is improvement with CT attenuation correction suggestive of diaphragmatic attenuation artifact. Gating at rest reveals normal wall motion with ejection fraction at 61%. The findings are consistent with partially reversible inferolateral defect. Could be from diaphragmatic attenuation artifact. Less likely ischemia. NM/NM cardiolite stress test Impression: 1. Myocardial perfusion imaging study shows partially reversible inferolateral defect that could be from diaphragmatic attenuation artifact. Cannot exclude components of ischemia. 2. Gated LVEF is 61% during stress and rest. 3. Transient ischemic dilatation not present. EKG component of the test reported separately. Electronically signed by: Rusty Dunn MD 12/17/2024 10:27 AM EDT RP Dictated By: Rusty Dunn MD Signed By: <Electronically signed by Rusty Dunn MD inOV> 12/17/24 1027 DD/ 1043 TD/TT: 12/16/24 1005 Railroad Car Checker: [facility] External Provider CV STRE SS PROCEDURES Edited Result - Final Performing Organization Address City/[facility] Co de Phone Number [facility] [address] [place] [phone] * Ceruloplasmin (11/28/2024 8:56 AM EDT) Ceruloplasmin 28 14 - 48 mg/dL [facility] Comment:THIS TEST WAS PERFOR MED AT:[facility] [place] [id number] CORONA MD Blood Venous blood specimen / Unknown 11/28/2024 8:56 AM EDT 11/28/2024 11:28 AM EDT Luz Dill MD LAB BLOOD ORDERABLES Final Result Performing Organization Address City/[facility]/ZIP Co de Phone Number [facility] [address] [place] [phone] * (ABNORMAL) Ferritin (11/28/2024 8:56 AM EDT) Ferritin 251(H) 10 - 250 ng/mL [facility] Blood Venous blood specimen / Unknown 11/28/2024 8:56 AM EDT 11/28/2024 11:28 AM EDT us Luz Dill MD LAB BLOOD ORDERABLES Final Result [facility] [address] [place] [phone] * (ABNORMAL) Lipid Panel, Standard (11/28/2024 8:56 AM EDT) Triglycerides 109 <150 mg/dL [facility] Comment:Desirable Triglyceri de: less than 150 mg/dLBorderline High Triglyceride 150-199 mg/dLHigh Triglyceride: 200-499 mg/dLVery High Triglyceride: greater than or equal to 5OO mg/dL Cholesterol 186 <200 mg/dL [facility] Comment:Desirable Cholestero l: less than 200 mg/dLBorderline High Cholesterol: 200-239 mg/dLHigh Cholesterol: greater than 239 mg/dL LDL Cholesterol Calculated 123(H) <100 mg/dL [facility] Comment:Desirable LDL: less than 100 mg/dLNear Optimal/Above Optimal LDL: 110- 129 mg/dLBorderline High LDL: 130-159 mg/dLHigh LDL: 160-189 mg/dLVery High LDL: greater than or equal to 190 mg/dL HDL Cholesterol 42 >40 mg/dL [facility] Comment:Desirable HDL: great er than 40 mg/dL Note: This HDL assay may give artificially low results in patients with liver disease. Blood Venous blood specimen / Unknown 11/28/2024 8:56 AM EDT 11/28/2024 11:28 AM EDT us Luz Dill MD LAB BLOOD ORDERABLES Final Result [facility] [address] [place] [phone] * ECG 12 lead (11/26/2024 3:25 PM EDT) Narrative Luz Dill MD - 11/26/2024 3:25 PM EDT Heart rate 63 bpm. [place] 63 degrees. Normal sinus rhythm. Intra-atrial conduction delay. Minor high lateral and lateral repolarization disturbance. LV overload or a specific change. No sign of left atrial enlargement or right atrial enlargement. No ST elevation or ST depression. Borderline EKG. us Luz Dill MD ECG ORDERABLES Final Resul t * Hepatitis C Ab (05/02/2023 9:23 AM EST) Hepatitis C Antibody Nonreactive Nonreactive [facility] Comment:Antibodies to HCV no t detected; does not exclude early acuteHCV infection. Blood Venous blood specimen / Unknown 05/02/2023 9:23 AM EST 05/02/2023 11:35 AM EST us Luz Dill MD LAB BLOOD ORDERABLES Final Result Performing Organization Address [facility] Co de Phone Number [facility] [address] [place] [phone] from Last 3 Months or Most Recently Relevant to Health Maintenance Insurance [facility] STANDARD MEDICARE Care Teams Hand Baseball Sewer Relationship Specialty Start Date End Date Luz Dill MD [address] [place] [phone] PCP - General Internal Medicine 05/31/17
--- OUTSIDE RECORDS SUMMARY | 2025-01-06 11:12 | XMS_ITS | Encounter Summary ---
Author Organization [employer] Address [address] [place] [address] 7 [place] [address] Care Team Providers Care Lighting Adviser Name Role Phone Luz Dill MD Primary Care Provider [phone] Reason for Referral * Consultation (Routine) - Canceled Specialty Diagnoses / Procedures Referred By Contlucy t Referred To Contact Pharmacy Diagnoses Hypercholesterolemia Primary hypertension Luz Dill MD [address] [place] [address] Phone: tel: fax: Referral ID Status Reason Start Date Expiration Date V isits Requested Visits Authorized [id number] Canceled Continuity of Care 03/21/2024 03/21/2025 6 6 Encounter Details Date Type Department Care Team (Latest Contact Info) Description 03/21/2024 Orders Only [facility] P[facility] [address] [place], [place] [phone] Luz Dill MD [address] [place], [place] [phone] Hypercholesterolemia (Primary Dx); Primary hypertension Social History [...] Description 01/09/2025 9:15 AM EDT Office Visit [facility] [address] [place] [address] Luz Dill MD [address] [place] [address] Scheduled Referrals Name Type Priority Associated Diagnoses [...] documented as of this encounter Care Teams Lighting Adviser Relationship Specialty Start Date End Date Luz Dill MD [address] [place] [address] PCP - General Internal Medicine 05/31/17 documented as of this encounter
--- OUTSIDE RECORDS SUMMARY | 2025-01-06 11:12 | XMS_ITS | Clinical Summary ---
Author Organization [facility] Address [address] [facility] [address] [place] [phone] Phone Care Team Providers Care Transmitter Operator Name Role Phone Hiram Hassan MD Primary [...] MEDICARE PART A & B Care Teams Transmitter Operator Relationship Specialty Start Date End Date Hiram Hassan MD [address] [place] [address] [place] [address] PCP - General Internal Medicine 01/05/16 Additional Source Comments The information contained in this document represents components of the legal health record. It is not the complete legal health record.[facility]
== END 2025-01-06 10:47 | disposition home or self-care (01) ==
LOC: HO.HCS 09:45
PROVIDERS: PCP Internal Medicine; Visit Provider Internal Medicine
DX: I25.10 Atherosclerotic heart disease of native coronary artery without angina pectoris (principal); I10 Essential (primary) hypertension; E78.5 Hyperlipidemia, unspecified; I73.9 Peripheral vascular disease, unspecified
CPT/HCPCS: 99214; G2211

== ENCOUNTER → 2025-01-06 09:44 | Outpatient (BNVA) | payer MEDICARE, MEDICAID, SELFPAY | PROVIDERS: PCP Internal Medicine; Visit Provider Internal Medicine | DX: I25.10 Atherosclerotic heart disease of native coronary artery without angina pectoris (principal); I73.9 Peripheral vascular disease, unspecified; I10 Essential (primary) hypertension; E78.5 Hyperlipidemia, unspecified | CPT/HCPCS: 99212 ==

== ENCOUNTER 2025-01-22 09:36 | Outpatient (REF) | payer MEDICARE, MEDICAID, SELFPAY ==
--- OUTSIDE RECORDS SUMMARY | 2015-12-08 | XMS_ITS | Encounter Summary ---
Author Organization [facility] Address [address] [place] [address] Phone Care Team Providers Care Accounts Clerk Name Role Phone Unavailable Primary Care Provider Unavailabl e Encounter Details Date Type Department Care Team (Late st Contact Info) Description 12/08/2015 Hospital Encounter [facility] [address] [place] [address] Andry Lamb MD, KAILA [address] [facility], Floor 2 [place] [address] [email or web address].[employer] Social History Tobacco Use Types Packs/Day Years [...] (No Interpretation) (12/08/2015 12:00 AM EDT) Narrative [facility] [place] [facility]G INTERFACES - 01/06/2016 7:29 AM EDT This study is for PACS storage only and not for interpretation. Procedure Note SYSTEMGENERATED, DOCUMENTATION - 01/06/2016 This study is for PACS storage only and not for interpretation. us Andry Lmab MD, KAILA IMG OUTSIDE IMAGING W/OUT INTERPRETATION Final Result [facility] [place]G INTERFACES documented in this encounter Visit Diagnoses Not on filedocumented in this encounter Additional Source Comments The information contained in this document represents components of the legal health record. It is not the complete legal health record.[facility]
--- OUTSIDE RECORDS SUMMARY | 2025-01-22 11:09 | XMS_ITS | Clinical Summary ---
Author Organization [facility] Address [address] [facility] [address] [place] [phone] Phone Care Team Providers Care Yeast Pusher Name Role Phone Hiarm Hassan MD Primary Care Provider Social History [...] 2024 INFLUENZA VACCINE (#1) 2024 COVID-19 VACCINE ( - 2024-2 6 season) 2024 HEPATITIS A VACCINES Aged Out [...] MEDICARE PART A & B Care Teams Yeast Pusher Relationship Specialty Start Date End Date Hiram Hassan MD [address] [place] [address] [place] [address] PCP - General Internal Medicine 01/05/16 Additional Source Comments The information contained in this document represents components of the legal health record. It is not the complete legal health record.[facility]
--- OUTSIDE RECORDS SUMMARY | 2025-01-22 11:09 | XMS_ITS | Encounter Summary ---
Author Organization [employer] Address [address] [facility] 7t [place] [address] Care Team Providers Care Medical Data Analyst Name Role Phone Luz Dill MD Primary Care Provider [phone] Encounter Details Date Type Department Care Team (Late st Contact Info) Description 05/12/2022 Telephone [facility] MED[facility] [address] [place] [address] Luz Dill MD [address] [place], [place] [phone] Social History Tobacco Use Types Packs/Day Years [...] on file documented as of this encounter Visit Diagnoses Not on filedocumented in this encounter Care Teams Medical Data Analyst Relationship Specialty Start Date End Date Luz Dill MD [address] [place], [place] [phone] PCP - General Internal Medicine 05/31/17 documented as of this encounter
--- OUTSIDE RECORDS SUMMARY | 2025-01-22 11:09 | XMS_ITS | Encounter Summary ---
Author Organization [employer] Address [address] [place] [address] [address] [place] [address] Care Team Providers Care Client Liaison Name Role Phone Luz Dill MD Primary Care Provider [phone] Reason for Referral * Consultation (Routine) - Canceled Specialty Diagnoses / Procedures Referred By Contlucy t Referred To Contact Pharmacy Diagnoses Hypercholesterolemia Primary hypertension Luz Dill MD [address] [place] [address] Phone: tel: fax: Referral ID Status Reason Start Date Expiration Date V isits Requested Visits Authorized [id number] Canceled Continuity of Care 03/21/2024 03/21/2025 6 6 Encounter Details Date Type Department Care Team (Latest Contact Info) Description 03/21/[address] [facility] [address] [place], [place] [phone] Luz Dill MD [address] [place], [place] [phone] Hypercholesterolemia (Primary Dx); Primary hypertension Social History [...] as of this encounter Plan of Treatment Scheduled Referrals Name Type Priority Associated Diagnoses [...] documented as of this encounter Care Teams Client Liaison Relationship Specialty Start Date End Date Luz Dlil MD [address] [place] [address] PCP - General Internal Medicine 05/31/17 documented as of this encounter
--- OUTSIDE RECORDS SUMMARY | 2025-01-22 11:09 | XMS_ITS | Encounter Summary ---
Author Organization [employer] [facility] [employer] Address [address] [facility] 7t [place] [address] Care Team Providers Care Clinical Lab Scientist Name Role Phone Luz Dill MD Primary Care Provider [phone] Reason for Visit * Reason Onset Date Comments Referral 03/21/2023 Encounter Details Date Type Department Care Team ([facility] st Contact Info) Description 03/21/2023 Telephone [facility] MED[facility] [address] [place] [address] Luz Dill MD [address] [place] [address] Referral Social History Tobacco Use Types Packs/Day [...] PM EST TC placed to Radha at [facility]. Radha explained that these requests were made by a visiting nurse [facility]. She reports that the note reads that the patient tried to contact [facility] and did not get through. TC placed to patient via [employer]. No answer. TC placed to patient without spanish interpreter line. Clarified that patient did request referrals. Was not able to understand patient's description of current problems in [place]. Asked the patient to please answer the phone if I called back with spanish interpreter line. Explained the phone number would be different. Patient agreed. TC placed again to patient via [employer] Lead Operator. Patient answered and stated that she has [...] some time. She declines a visit at [facility] at this time because she is currently in [place] visiting her mother who is in crisis. She states that she will be back in [place] sometime in mid-April 2023, and she has a follow-up appointment with Dr. Dill already scheduled for 05/01/23. Advised patient to be evaluated by a doctor or at the ED in [place] for worsening headache and bump above ear. Patient declined this advice to seek care now. Advised patient to seek evaluation and medical care if any symptoms worsen while in [place] and advised patient that she can call [...] - 03/21/2023 3:53 PM EST Tc from [facility] at [facility] requesting a referral for a orthopedics, a mammogram and for the patient medication to be sent as a Medication Blister Pack documented in this encounter Plan of Treatment Not on file documented as of this encounter Visit Diagnoses Not on filedocumented in this encounter Additional Health Concerns Assessment Noted Time PHQ-9 Depression Total Score: 0 08/09/19 23 3:03 PM EDT documented as of this encounter Care Teams Clinical Lab Scientist Relationship Specialty Start Date End Date Luz Dill MD [address] [place] [phone] PCP - General Internal Medicine 05/31/17 documented as of this encounter
--- OUTSIDE RECORDS SUMMARY | 2025-01-22 11:09 | XMS_ITS | Encounter Summary ---
Author Organization [employer] Address [address] [place] [address] 7 [place] [address] Care Team Providers Care Commercial Credit Lead Name Role Phone Luz Dill MD Primary Care Provider [phone] Reason for Referral * Imaging (Routine) - Closed Specialty Diagnoses / Procedures Referred By Contlucy t Referred To Contact Radiology Diagnoses Transaminitis Procedures US Abdomen Complete Luz Dill MD [address] [place] [address] Phone: tel: fax: [address] Phone: tel: fax: Referral ID Status Reason Start Date Expiration Date Visits Re quested Visits Authorized [id number] Closed 07/17/2024 07/17/2025 1 1 Encounter Details Date Type Department Care Team (Late st Contact Info) Description 07/12/2024 Orders Only [facility] MED & PEDS [address] [place], [place] [phone] Luz Dill MD [address] [place], [place] [phone] PVD (peripheral vascular disease) (CMS/HCC) (Primary Dx); [...] EDT) Ferritin 251(H) 10 - 250 ng/mL [facility] Blood Venous blood specimen / Unknown 11/28/2024 8:56 AM EDT 11/28/2024 11:28 AM EDT Luz Dill MD LAB BLOOD ORDERABLES Final Result Performing Organization Address [facility] de Phone Number [facility] [address] [place] [phone] * Ceruloplasmin (11/28/2024 8:56 AM EDT) Ceruloplasmin 28 14 - 48 mg/dL [facility] Comment:THIS TEST WAS PERFOR MED AT:[employer] [place] [phone] CORONA MD Blood Venous blood specimen / Unknown 11/28/2024 8:56 AM EDT 11/28/2024 11:28 AM EDT Luz Dill MD LAB BLOOD ORDERABLES Final Result Performing Organization Address [facility] de Phone Number [facility] [address] [place] [phone] * US Abdomen Complete (09/04/2024 9:25 AM EDT) Anatomical Region Laterality Modality Abdomen Ultrasound 09/04/2024 9:25 AM EDT Narrative 09/04/2024 10:16 AM EDT [address] [address] Ultrasound Report Signed Patient: Marlena Henry MR#: [id number] : 1950 Acct:[id number] Age/Sex: 74 / F ADM Date: 09/04/24 Loc: HO.US Attending Dr: Luz Dill MD Ordering Physician: Luz Dill MD Date of Service: 09/04/24 Procedure(s): US abdomen complete Accession Number(s): [id number] cc: Luz Dill MD EXAMINATION: US ABDOMEN [...] 09/04/24 1014 DD/ 0925 TD/TT: 09/04/24 0934 Bottom Sander: Procedure Note Donotuseinterpreter, Image - 09/04/[address] [address] Ultrasound Report Signed Patient: Elsy Henry#: [id number] : 1950Acct:[id number] Age/Sex: 74 / FADM Date: 09/04/24 Loc: HO.US Attending Dr: Luz Dill MD Ordering Physician: Luz Dill MD Date of Service: 09/04/24 Procedure(s): US abdomen complete Accession Number(s): [id number] cc: Luz Dill MD EXAMINATION: US ABDOMEN [...] 09/04/24 1014 DD/ 0925 TD/TT: 09/04/24 0934 Bottom Sander: Luz Dill MD [facility] US PROCEDURES Final Res ult documented in this encounter Visit Diagnoses Diagnosis PVD (peripheral vascular disease)- Primary Unspecified peripheral vascular disease Transaminitis Nonspecific elevation of levels of transaminase or lactic acid dehydrogenase (LDH) documented in this encounter Additional Health Concerns Assessment Noted Time PHQ-9 Depression Total Score: 0 08/09/19 23 3:03 PM EDT documented as of this encounter Care Teams Commercial Credit Lead Relationship Specialty Start Date End Date Luz Dill MD [address] [place] [phone] PCP - General Internal Medicine 05/31/17 documented as of this encounter
--- OUTSIDE RECORDS SUMMARY | 2025-01-22 11:09 | XMS_ITS | Encounter Summary ---
Author Organization [employer] Address [address] [facility] 7t [place] [address] Care Team Providers Care Senior Web Developer Name Role Phone Luz Dill MD Primary Care Provider [phone] Encounter Details Date Type Department Care Team (Late st Contact Info) Description 05/03/2023 Orders Only [facility] MED & PEDS [address] [place], [place] [phone] Luz Dill MD [address] [place], [place] [phone] Neck pain (Primary Dx) Social History Tobacco [...] documented as of this encounter Care Teams Senior Web Developer Relationship Specialty Start Date End Date Luz Dill MD [address] [place] [phone] PCP - General Internal Medicine 05/31/17 documented as of this encounter
--- OUTSIDE RECORDS SUMMARY | 2025-01-22 11:09 | XMS_ITS | Clinical Summary ---
Author Organization [employer] Address [address] [facility] 7t [place] [address] Care Team Providers Care Board Certified Family Physician Name Role Phone Luz Dill MD Primary Care Provider [phone] Allergies No known active allergies Medications * This document contains information received from the source organization and may not represent a complete record from that organization. SM Fiber Laxative 500 MG tablet Take [...] or chew. 30 tablet 11 5 11/27/19 Active acetaminophen (Tylenol 8 Hour) 650 MG ER tabletIndications :Neck pain Take 1 tablet (650 mg) by mouth every 8 (eight) hours if needed for mild pain. 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 Date Type Department Care Team Description 01/09/2025 9:15 AM EDT Office Visit [facility] MED & PEDS [address] [place] [address] Luz Dill MD Primary hypertension (Primary Dx); Hypercholesterolemia; Adjustment reaction with anxiety and depression 01/09/2025 Travel 01/08/2025 Telephone [facility] MED & PEDS [address] [facility] [place] [address] Luz Dill MD 12/13/2024 Orders Only [facility] External Provider, [facility] 11/26/2024 11:30 AM EDT Office Visit [facility] MED & PEDS [address] [facility] [address] [place] [address] Luz Dill MD Primary hypertension (Primary Dx); Hypercholesterolemia; Gastroesophageal reflux disease without esophagitis; Neck pain; Dizziness; Dietary counseling; Exercise counseling; Class 1 obesity due to excess calories with serious comorbidity and body mass index (BMI) of 34.0 to 34.9 in adult 11/26/2024 Travel 11/25/2024 Telephone [facility] MED & PEDS [address] [place] [address] Luz Dill MD from Last 3 Months Immunizations Immunization Administration Dates Next Due Influenza injectable quadriv alent IIV4 with preservative 12/13/2018 Influenza injectable quadrivalent preservative f ree 04/13/2021 Pneumococcal Conjugate PCV 20 05/01/2023 Tdap 09/13/2023 Social History Tobacco Use Types Packs/Day Years Used Date Smoking Tobacco: Former Cigarettes 1 41 Smokeless Tobacco: Never Tobacco Cessation:Counseling Given: Not Answered Comments:Stopped smoking about 5 years ago. Depression Answer Date Recorded Patient Health Questionnaire-9 Score 7 01/09/2025 Patient Health Questionnaire-9 Score 7 01/09/2025 Last PHQ-9: Questionnaire Data Not on file 1 Housing Stability Answer Date Recorded What is [...] Date Recorded Patient Health Questionnaire-2 Score 0 01/09/2025 Internet Access Answer Date Recorded Internet Access [...] Sign Reading Time Taken Comments Blood Pressure 152/83 01/09/2025 10:06 AM EDT Pulse 73 01/09/2025 10:06 AM EDT Temperature 36.3 C (97.3 F) 11/26/2024 11:34 AM EDT Respiratory Rate 20 01/09/2025 10:06 AM EDT Oxygen Saturation 96% 01/09/2025 10:06 AM EDT Inhaled Oxygen Concentration - - Weight 83 kg (183 lb) 01/09/2025 10:06 AM EDT Height 154.9 cm (5' 1 ) 01/09/2025 10:06 AM EDT Body Mass Index 34.58 01/09/2025 10:06 AM EDT Plan of Treatment Health Maintenance Due Date Last Done Comments CT Colonography 1950 Colonoscopy 1950 FIT 1950 Sigmoidoscopy 1950 Zoster Vaccines (1 of 2) 06/11/1999 FOBT 02/15/2023 02/15/2022 RSV Patients and Patients Aged 60 years or older (1 - 1-dose 75+ series) 2024 COVID-19 Vaccine ( season) 2024 11/24/2021, 11/24/2020, 10/29/2020 Colorectal Cancer Screening 02/15/2025 FIT DNA/Cologuard 02/15/2025 02/15/2022 SDOH Screening 05/02/2025 05/02/2024 Influenza Vaccine (#1) 2025 04/13/2021, 2018 Postponed from 12/02/2024 (Patient Refused) Alcohol/Substance Use Screening 01/09/2026 01/09/2025 Depression Screening 01/09/2026 01/09/2025, 10/09/20 25 Tobacco Screening 01/09/2026 01/09/2025 Lipid Panel 11/28/2029 11/28/2024, 04/1 08/2024, 05/02/2023, Additional history exists DTaP/Tdap/Td Vaccines (2 [...] EDT) 12/13/2024 10:4 3 AM EDT Narrative [facility] - 12/17/2024 10:31 AM EDT [address] [address] Nuclear Medicine Report Signed Patient: Marlena Henry MR#: [id number] : 1950 Acct:[id number] Age/Sex: 74 / F ADM Date: 12/13/24 Loc: HO.CARD Attending Dr: Rusty Dunn MD Ordering Physician: Rusty Dunn MD Date of Service: 12/13/24 Procedure(s): NM cardiolite stress test Accession Number(s): [id number] cc: Luz Dill MD; Rusty Dunn MD [...] Rusty Dunn MD 12/17/2024 10:27 AM EDT Dictated By: Rusty Dunn MD Signed By: <Electronically signed by Rusty Dunn MD in OV> 12/17/24 1027 DD/ 1043 TD/TT: 12/16/24 1005 Director Counseling Bureau: Procedure Note Donotuseinterpreter, Image - 12/17/2024 [place] [address] Nuclear Medicine Report Signed Patient: Elsy Henry#: MM [id number] : 1950Acct:[id number] Age/Sex: 74 / FADM Date: 12/13/24 Loc: [facility] Attending Dr: Rusty Dunn MD Ordering Physician: Rusty Dunn MD Date of Service: 12/13/24 Procedure(s): NM cardiolite stress test Accession Number(s): [id number] cc: Luz Dill MD; Rusty Dunn MD [...] Rusty Dunn MD 12/17/2024 10:27 AM EDT Dictated By: Rusty Dunn MD Signed By: <Electronically signed by Rusty Dunn MD inOV> 12/17/24 1027 DD/ 1043 TD/TT: 12/16/24 1005 Director Counseling Bureau: [facility] External Provider CV STRE SS PROCEDURES Edited Result - Final [facility] [address] [place] [address] * Ceruloplasmin (11/28/2024 8:56 AM EDT) Ceruloplasmin 28 14 - 48 mg/dL [facility] Comment:THIS TEST WAS PERFOR MED AT:[employer] [place] [phone] CORONA MD Blood Venous blood specimen / Unknown 11/28/2024 8:56 AM EDT 11/28/2024 11:28 AM EDT us Luz Dill MD LAB BLOOD ORDERABLES Final Result Performing Organization Address City/[facility]/ZIP Co de Phone Number [facility] [address] [place] [phone] * (ABNORMAL) Ferritin (11/28/2024 8:56 AM EDT) Ferritin 251(H) 10 - 250 ng/mL [facility] Blood Venous blood specimen / Unknown 11/28/2024 8:56 AM EDT 11/28/2024 11:28 AM EDT us Luz Dill MD LAB BLOOD ORDERABLES Final Result Performing Organization Address [facility] Co de Phone Number [facility] [address] [place] [phone] * (ABNORMAL) Lipid Panel, Standard (11/28/2024 8:56 AM EDT) Triglycerides 109 <150 mg/dL [facility] Comment:Desirable Triglyceri de: less than 150 mg/dLBorderline High Triglyceride 150-199 mg/dLHigh Triglyceride: 200-499 mg/dLVery High Triglyceride: greater than or equal to 5OO mg/dL Cholesterol 186 <200 mg/dL [facility] Comment:Desirable Cholestero l: less than 200 mg/dLBorderline High Cholesterol: 200-239 mg/dLHigh Cholesterol: greater than 239 mg/dL LDL Cholesterol Calculated 123(H) <100 mg/dL [facility] Comment:Desirable LDL: less than 100 mg/dLNear Optimal/Above Optimal LDL: 110- 129 mg/dLBorderline High LDL: 130-159 mg/dLHigh LDL: 160-189 mg/dLVery High LDL: greater than or equal to 190 mg/dL HDL Cholesterol 42 >40 mg/dL [facility] Comment:Desirable HDL: great er than 40 mg/dL Note: This HDL assay may give artificially low results in patients with liver disease. Blood Venous blood specimen / Unknown 11/28/2024 8:56 AM EDT 11/28/2024 11:28 AM EDT us Luz Dill MD LAB BLOOD ORDERABLES Final Result Performing Organization Address [facility] Co de Phone Number [facility] [address] [place] [phone] * ECG 12 lead (11/26/2024 3:25 PM EDT) Narrative Luz Dill MD - 11/26/2024 3:25 PM EDT Heart rate 63 bpm. [place] 63 degrees. Normal sinus rhythm. Intra-atrial conduction delay. Minor high lateral and lateral repolarization disturbance. LV overload or a specific change. No sign of left atrial enlargement or right atrial enlargement. No ST elevation or ST depression. Borderline EKG. us Luz Dill MD ECG ORDERABLES Final Resul t * Hepatitis C Ab (05/02/2023 9:23 AM EST) Hepatitis C Antibody Nonreactive Nonreactive [facility] Comment:Antibodies to HCV no t detected; does not exclude early acuteHCV infection. Blood Venous blood specimen / Unknown 05/02/2023 9:23 AM EST 05/02/2023 11:35 AM EST us Luz Dill MD LAB BLOOD ORDERABLES Final Result Performing Organization Address [facility] Co de Phone Number [facility] [address] [place] [phone] from Last 3 Months or Most Recently Relevant to Health Maintenance Insurance [place] [id number] HSN FULL Care Teams Board Certified Family Physician Relationship Specialty Start Date End Date Luz Dill MD [address] [place] [phone] PCP - General Internal Medicine 05/31/17
[2025-01-22 11:12] LABS: Hematocrit 40.4 % (37.0-47.0); Hemoglobin 12.6 g/dl (12.0-16.0); Mean Corpuscular HGB Conc 31.2 g/dl (31.0-35.0); Mean Corpuscular Hemoglobin 29.3 pg (27.0-33.0); Mean Corpuscular Volume 94.0 fL (80.0-98.0); NRBC Abs Auto 0.000 X10*3/uL (0.0-0.012); NRBC Pct Auto 0.0 /100WBC (0.0-0.2); Platelet Count 294 X10*3/uL (160-400); Red Blood Count 4.30 X10*6/uL (4.20-5.50); White Blood Count 8.2 X10*3/uL (4.8-10.8)
[2025-01-22 11:30] LABS: INTERNATIONAL NORM RATIO 1.1 (0.9-1.1); Prothrombin Time 13.0 SEC (10.9-12.4)
[2025-01-22 11:31] LABS: Anion Gap 13 (12-20); Blood Urea Nitrogen 14 mg/dL (9-16); Calcium 9.5 mg/dL (8.4-10.2); Carbon Dioxide 26 mmol/L (22-29); Chloride 110 mmol/L (96-108); Estimated Glomerular Filt Rate > 60; Potassium 4.0 mmol/L (3.3-5.1); Sodium 145 mmol/L (135-145)
== END 2025-01-22 09:37 | disposition home or self-care (01) ==
LOC: HO.LAB 09:36
PROVIDERS: PCP Internal Medicine; Visit Provider Internal Medicine
DX: I25.10 Atherosclerotic heart disease of native coronary artery without angina pectoris (principal)
CPT/HCPCS: 36415; 80048; 85027; 85610

== ENCOUNTER → 2025-01-28 23:59 | Outpatient (BNV) | payer MEDICARE, MEDICAID, SELFPAY | PROVIDERS: PCP Internal Medicine; Visit Provider Internal Medicine Cardiovascular Disease | DX: I25.118 Atherosclerotic heart disease of native coronary artery with other forms of angina pectoris (principal) | CPT/HCPCS: 93458; 99152 ==

== ENCOUNTER 2025-02-05 12:13 | Outpatient (REF) | payer MEDICARE, MEDICAID, SELFPAY ==
--- OUTSIDE RECORDS SUMMARY | 2015-12-07 23:00 | XMS_ITS | Encounter Summary ---
Author Organization [facility] Address [address] [place] [address] Phone Care Team Providers Care Track Repair Person Name Role Phone Unavailable Primary Care Provider Unavailabl e Encounter Details Date Type Department Care Team (Late st Contact Info) Description 12/08/2015 Hospital Encounter [facility] [address] [place] [address] Andry Lamb MD, KAILA [address] [facility], Floor 2 [place] [address] [email or web address] Social History Tobacco Use Types Packs/Day Years [...] (No Interpretation) (12/08/2015 12:00 AM EDT) Narrative [facility] [place] [place] - 01/06/2016 7:29 AM EDT This study is for PACS storage only and not for interpretation. Procedure Note SYSTEMGENERATED, DOCUMENTATION - 01/06/2016 This study is for PACS storage only and not for interpretation. us Andry Lamb MD, KAILA IMG OUTSIDE IMAGING W/OUT INTERPRETATION Final Result [facility] documented in this encounter Visit Diagnoses Not on filedocumented in this encounter Additional Source Comments The information contained in this document represents components of the legal health record. It is not the complete legal health record.[facility]
--- NOTE | ~2025-02-05 | US_ITS ---
EXAMINATION: US NONINVASIVE ASSESSMENT OF THE bilateral LOWER EXTREMITY WITH ARTERIAL DUPLEX AND ANKLE BRACHIAL INDICES (ABIS) CLINICAL INFORMATION: Peripheral vascular disease, unspecified COMPARISON: Previous exams, most recent July 2023 TECHNIQUE: Duplex Doppler techniques with waveform analysis and measurement of velocities in the common femoral, profunda femoris, superficial femoral, popliteal and tibial arteries were performed. In addition, ankle pulse volume recordings, ankle pressure measurements and ankle brachial indices were obtained of the bilateral lower extremity arterial system. The study was performed only at rest. FINDINGS: NONINVASIVE ASSESSMENT OF THE ARTERIES OF BILATERAL LOWER EXTREMITIES WITH ABIs: RIGHT LEG: Ankle-brachial index: 0.58 Ankle PVR: Abnormal with dampened waveform and decreased velocity LEFT LEG: Ankle-brachial index: 1.06 Left ankle PVR: Normal TYLER Reference: 0.9 - 1.4 = normal - no significant arterial disease 0.7 - 0.89 = mild peripheral arterial disease 0.51 - 0.69 = moderate peripheral arterial disease 0.50 = severe peripheral arterial disease RIGHT LOWER EXTREMITY DUPLEX ULTRASOUND: Common femoral artery: Occluded Diastolic flow reversal: Profunda femoris artery: 85 cm/s. Diastolic flow reversal: Triphasic Superficial femoral artery (proximal): Occluded Diastolic flow reversal: Superficial femoral artery (mid): Occluded Diastolic flow reversal: Superficial femoral artery (distal): Occluded Diastolic flow reversal: Popliteal artery: Occluded Diastolic flow reversal: Posterior tibial artery: 44 cm/s Diastolic flow reversal: Monophasic The right dorsalis pedis and anterior tibial arteries are not seen. The right external iliac artery appears patent. Peak systolic velocity measures 85 cm/s with a biphasic waveform. There appears to be a graft arising from the right external iliac artery that is occluded. There is a right femoral to below knee posterior tibial artery bypass graft. Flow proximal to the graft measures 58 cm/s. Flow within the proximal anastomosis measures 54 cm/s. Flow in the graft measures 54, 47 and 86 cm/s. Flow at the distal anastomosis measures 43 cm/s and flow in the outflow artery measures 45 cm/s. There is mono to biphasic flow seen throughout. Left LOWER EXTREMITY DUPLEX ULTRASOUND: Common femoral artery: 1 39 cm/s Diastolic flow reversal: Triphasic Profunda femoris artery: 103 cm/s. Diastolic flow reversal: Biphasic Superficial femoral artery (proximal): 10 1 cm/s Diastolic flow reversal: Triphasic Superficial femoral artery (mid): 92 cm/s Diastolic flow reversal: Biphasic Superficial femoral artery (distal): 93 cm/s Diastolic flow reversal: Biphasic Popliteal artery: 76 cm/s Diastolic flow reversal: Biphasic Posterior tibial artery: 80 cm/s Diastolic flow reversal: Biphasic US/US arterial duplex BI w/ TYLER IMPRESSION: Right: Moderate atherosclerotic disease by TYLER. Right TYLER measures 0.58 decreased from 0.73 on prior exam. Occluded right common femoral and superficial femoral arteries. Patent right femoral to posterior tibial artery bypass graft without peak systolic velocity change and mono to biphasic flow throughout. Single vessel posterior tibial artery runoff with monophasic flow. Flow no longer seen in the dorsalis pedis artery. Left: The left TYLER is normal measuring 1.06. Normal peak systolic velocities with biphasic and triphasic waveforms suggestive of mild atherosclerotic disease.. Electronically signed by: Iza Beckett MD 02/05/2025 03:23 PM [facility]ED[facility]
--- OUTSIDE RECORDS SUMMARY | 2025-02-05 14:55 | XMS_ITS | Clinical Summary ---
Author Organization [employer] Address [address] [facility] 7t [place] [address] Care Team Providers Care Net Wpf Developer Name Role Phone Luz Dill MD Primary Care Provider [phone] Allergies No known active allergies Medications * [...] 03/22/20 24 Active Diclofenac Sodium 1 % gelIndications:N glenda pain APPLY TO THE AFFECTED AREA(S) 2 GRAMS THREE TIMES DAILY NEEDED PAIN 100 g 1 04/01/20 24 Active aspirin 81 MG EC tabletIndication s:PVD (peripheral vascular disease) Take 1 tablet (81 [...] 25 026 Active ezetimibe (Zetia) 10 MG tabletIndication s:Hypercholester olemia TAKE 1 TABLET BY MOUTH AT BEDTIME 90 tablet 10/12/19 25 Active famotidine (Pepcid) 40 MG tabletIndication s:Gastroesophage al reflux disease without esophagitis TAKE 1 TABLET BY MOUTH TWICE DAILY IN THE MORNING AND IN THE EVENING 180 tablet 10/12/19 25 Active isosorbide mononitrate ER (Imdur) 30 MG 24 hr tabletIndication s:Primary hypertension TAKE 1 TABLET BY MOUTH EVERY MORNING 90 tablet 10/12/19 25 Active atorvastatin (Lipitor) 80 MG tabletIndication s:Hypercholester olemia TAKE 1 TABLET BY MOUTH AT BEDTIME 90 tablet 10/12/19 25 Active metoprolol succinate XL (Toprol XL) 25 MG 24 hr tabletIndication s:Primary hypertension Take 1 tablet (25 mg) by mouth Once per day. Do not crush or chew. 30 tablet 11 11/27/19 25 026 Active acetaminophen (Tylenol 8 Hour) 650 MG ER tabletIndication s:Neck pain Take 1 tablet (650 mg) by mouth every 8 (eight) hours if needed for mild pain. 90 tablet 3 11/27/19 25 Active Ventolin HFA 108 (90 Base) MCG/ACT inhaler INHALE 1 PUFF BY MOUTH EVERY 6 HOURS NEEDED FOR WHEEZING 18 g 3 02/04/20 25 Active Ventolin HFA 108 (90 Base) MCG/ACT inhaler INHALE 1 PUFF BY MOUTH EVERY 6 HOURS NEEDED FOR WHEEZING 18 g 3 05/08/19 25 025 Discontinued Active Problems Problem Noted Date Diagnosed Date Moderate COPD (chronic obstr uctive pulmonary disease) ([facility]) 08/22/2024 PVD (peripheral vascular disease) 09/13/2023 Hypercholesterolemia 08/08/2022 Hypertensive disorder 08/08/2022 Gastroesophageal reflux disease 06/28/2019 Encounters * This document contains information received from the source organization and may not represent a complete record from that organization. Date Type Department Care Team Description 02/01/2025 Refill [facility] [address] [place] [address] Luz Dill MD 01/22/2025 Orders Only GENERIC EXTERNAL DATA DEPARTMENT Provider, Generic External Data 01/09/2025 9:15 AM EDT Office Visit [facility] [address] [place] [address] Luz Dill MD Primary hypertension (Primary Dx); Hypercholesterolemia; Adjustment reaction with anxiety and depression 01/09/2025 Travel 01/08/2025 Telephone [facility] [address] [facility] [place] [address] Luz Dill MD 12/13/2024 Orders Only [facility] External Provider, [facility] [place] 11/26/2024 11:30 AM EDT Office Visit [facility] [address] [place] [address] Luz Dill MD Primary hypertension (Primary Dx); Hypercholesterolemia; Gastroesophageal reflux disease without esophagitis; Neck pain; Dizziness; Dietary counseling; Exercise counseling; Class 1 obesity due to excess calories with serious comorbidity and body mass index (BMI) of 34.0 to 34.9 in adult 11/26/2024 Travel 11/25/2024 Telephone [facility] [address] [place] [address] Luz Dill MD from Last 3 Months [...] Screening 01/09/2026 01/09/2025 Depression Screening 01/09/2026 01/09/2025, 01/10/20 25 Tobacco Screening 01/09/2026 01/09/2025 Lipid Panel [...] Procedure Name Priority Date/Time Associated Diagnosis Comments BASIC METABOLIC PANEL Routine 01/22/2025 9:47 AM EDT PROTHROMBIN TIME-INR Routine 01/22/2025 9:47 AM EDT CBC Routine 01/22/2025 9:47 AM EDT STRESS TEST WITH MYOCARDIAL PERFUSION Routine 12/13/2024 [...] Recently Relevant to Health Maintenance Results * (ABNORMAL) Prothrombin Time-INR (01/22/2025 9:47 AM EDT) Prothrombin Time 13.0(H) 10.9 - 12.4 SEC [facility] INTERNATIONAL NORM RATIO 1.1 0.9 - 1.1 [facility] Comment:INTERNATIONAL NORMAL IZED RATIO (INR) REFERENCE RANGES Reference RangeFor patients not on anticoagulant therapy: 0.9 - 1.1INR ranges for oral anticoagulanttherapy:For prevention and treatment of venous thrombosis and pulmonary embolism: 2.0 - 3.0For acute myocardial infarction with aspirin therapy: 2.0 - 3.0For acute myocardial infarction without aspirin therapy: 3.0 - 4.0For patients with mechanical prosthetic heart valves: 2.5 - 3.5 01/22/2025 9:47 AM EDT 01/22/2025 9:47 AM EDT us Generic External Data Provider LAB BLOOD ORDERAB LES Final Result [facility] [address] [place] [phone] * CBC (01/22/2025 9:47 AM EDT) White Blood Count 8.2 4.8 - 10.8 X10*3/uL [facility] Red Blood Count 4.30 4.20 - 5.50 X10*6/uL [facility] Hemoglobin 12.6 12.0 - 16.0 g/dl [facility] Hematocrit 40.4 37.0 - 47.0 % [facility] Mean Corpuscular Volume 94.0 80.0 - 98.0 fL [facility] Mean Corpuscular Hemoglobin 29.3 27.0 - 33.0 pg [facility] Mean Corpuscular HGB Conc 31.2 31.0 - 35.0 g/dl [facility] Red Cell Distribution Width 13.4 11.0 - 16.0 % [facility] Platelet Count 294 160 - 400 X10*3/uL [facility] Mean Platelet Volume 10.8 9.4 - 12.3 fL [facility] NRBC Pct Auto 0.0 0.0 - 0.2 /100WBC [facility] NRBC Abs Auto 0.000 0.0 - 0.012 X10*3/uL [facility] 01/22/2025 9:47 AM EDT 01/22/2025 9:47 AM EDT us Generic External Data Provider LAB BLOOD ORDERAB LES Final Result [facility] [address] [place], [place] [phone] * (ABNORMAL) Basic Metabolic Panel (01/22/2025 9:47 AM EDT) Sodium 145 135 - 145 mmol/L [facility] Potassium 4.0 3.3 - 5.1 mmol/L [facility] Chloride 110(H) 96 - 108 mmol/L [facility] Carbon Dioxide 26 22 - 29 mmol/L [facility] Anion Gap 13 12 - 20 [facility] Urea Nitrogen (BUN) 14 9 - 16 mg/dL [facility] Creatinine, Serum 0.63 0.5 - 1.4 mg/dL [facility] Estimated Glomerular Filt Rate >60 [facility] Comment:Chronic Kidney Disea se: Estimated GFR < 60 mL/min/1.70t3Tigwgi Kidney Disease: Estimated GFR < 15 mL/min/1.73m2 Glucose 159(H) 60 - 115 mg/dL [facility] Calcium 9.5 8.4 - 10.2 mg/dL [facility] 01/22/2025 9:47 AM EDT 01/22/2025 9:47 AM EDT us Generic External Data Provider LAB BLOOD ORDERAB LES Final Result Performing Organization Address City/State/[facility] Co de Phone Number [facility] [address] [place] [address] [phone] * Stress test with myocardial perfusion (12/13/2024 10:43 AM EDT) 12/13/2024 10:4 3 AM EDT Narrative [facility] - 12/17/2024 10:31 AM EDT [place] [address] Nuclear Medicine Report Signed Patient: Marlena Henry MR#: [id number] : 1950 Acct:[id number] Age/Sex: 74 / F ADM Date: 12/13/24 Loc: [facility] Attending Dr: Rusty Dunn MD Ordering Physician: Rusty Dunn MD Date of Service: 12/13/24 Procedure(s): NM cardiolite stress test Accession Number(s): [id number] cc: Luz Dill MD; Rusty Dunn MD [...] from diaphragmatic attenuation artifact. Less likely ischemia. NM/NH cardiolite stress test Impression: 1. Myocardial perfusion [...] 12/17/24 1027 DD/ 1043 TD/TT: 12/16/24 1005 Generator Technician: Procedure Note Donotuseinterpreter, Image - 12/17/[address] [address] Nuclear Medicine Report Signed Patient: Elsy Henry#: [id number] : 1950Acct:[id number] Age/Sex: 74 / FADM Date: 12/13/24 Loc: [facility] Attending Dr: Rusty Dunn MD Ordering Physician: Rusty Dunn MD Date of Service: 12/13/24 Procedure(s): NH cardiolite stress test Accession Number(s): [id number] cc: Luz Dill MD; Rusty Dunn MD [...] from diaphragmatic attenuation artifact. Less likely ischemia. NM/NH cardiolite stress test Impression: 1. Myocardial perfusion [...] 12/17/24 1027 DD/ 1043 TD/TT: 12/16/24 1005 Generator Technician: [facility] External Provider CV STRE SS PROCEDURES Edited Result - Final Performing Organization Address [facility] Co de Phone Number [facility] [address] [place] [address] * Ceruloplasmin (11/28/2024 8:56 AM EDT) Ceruloplasmin 28 14 - 48 mg/dL [facility] Comment:THIS TEST WAS PERFOR MED AT:[facility] [place] [phone] CORONA MD Blood Venous blood specimen / Unknown 11/28/2024 8:56 AM EDT 11/28/2024 11:28 AM EDT Luz Dill MD LAB BLOOD ORDERABLES Final Result Performing Organization Address [facility] Co de Phone Number [facility] [address] [place] [phone] * (ABNORMAL) Ferritin (11/28/2024 8:56 AM EDT) Ferritin 251(H) 10 - 250 ng/mL [facility] Blood Venous blood specimen / Unknown 11/28/2024 8:56 AM EDT 11/28/2024 11:28 AM EDT Luz Dill MD LAB BLOOD ORDERABLES Final Result Performing Organization Address [facility] Co de Phone Number [facility] [address] [place] [phone] * (ABNORMAL) Lipid Panel, Standard (11/28/2024 8:56 AM EDT) Triglycerides 109 <150 mg/dL [facility] Comment:Desirable Triglyceri de: less than 150 mg/dLBorderline High Triglyceride 150-199 mg/dLHigh Triglyceride: 200-499 mg/dLVery High Triglyceride: greater than or equal to 5OO mg/dL Cholesterol 186 <200 mg/dL [facility] Comment:Desirable Cholestero l: less than 200 mg/dLBorderline High Cholesterol: 200-239 mg/dLHigh Cholesterol: greater than 239 mg/dL LDL Cholesterol Calculated 123(H) <100 mg/dL [facility] Comment:Desirable LDL: less than 100 mg/dLNear Optimal/Above Optimal LDL: 110- 129 mg/dLBorderline High LDL: 130-159 mg/dLHigh LDL: 160-189 mg/dLVery High LDL: greater than or equal to 190 mg/dL HDL Cholesterol 42 >40 mg/dL [facility] Comment:Desirable HDL: great er than 40 mg/dL Note: This HDL assay may give artificially low results in patients with liver disease. Blood Venous blood specimen / Unknown 11/28/2024 8:56 AM EDT 11/28/2024 11:28 AM EDT us Luz Dill MD LAB BLOOD ORDERABLES Final Result [facility] [address] [place] [phone] * ECG 12 lead (11/26/2024 3:25 PM EDT) Narrative Luz Dill MD - 11/26/2024 3:25 PM EDT Heart rate 63 bpm. [place] 63 degrees. Normal sinus rhythm. Intra-atrial conduction delay. Minor high lateral and lateral repolarization disturbance. LV overload or a specific change. No sign of left atrial enlargement or right atrial enlargement. No ST elevation or ST depression. Borderline EKG. us Luz Dill MD ECG ORDERABLES Final Resul t * Hepatitis C Ab (05/02/2023 9:23 AM EST) Hepatitis C Antibody Nonreactive Nonreactive [facility] Comment:Antibodies to HCV no t detected; does not exclude early acuteHCV infection. Blood Venous blood specimen / Unknown 05/02/2023 9:23 AM EST 05/02/2023 11:35 AM EST us Luz Dill MD LAB BLOOD ORDERABLES Final Result [facility] [address] [place] [phone] [phone] from Last 3 Months or Most Recently Relevant to Health Maintenance Insurance MEDICARE Member Subscriber Plan / Payer (Ef fective 2023-Present) Name:Marlena Henry Member ID:[id number] Relation to Subscriber:Self Name:Marlena Henry Subscriber ID:[id number] Payer ID:STATE Group ID:Not on file Type:Medicare Address: [facility] [address] [address] [facility] [employer] [place] [id number] Care Teams Net Wpf Developer Relationship Specialty Start Date End Date Luz Dill MD [address] [place] [phone] PCP - General Internal Medicine 05/31/17
--- OUTSIDE RECORDS SUMMARY | 2025-02-05 14:55 | XMS_ITS | Encounter Summary ---
Author Organization [employer] Address [address] [place] [address] 7 [place] [address] Care Team Providers Care Meat Carver Name Role Phone Luz Dill MD Primary Care Provider [phone] Reason for Referral * Consultation (Routine) - Canceled Specialty Diagnoses / Procedures Referred By Contlucy t Referred To Contact Pharmacy Diagnoses Hypercholesterolemia Primary hypertension Luz Dill MD [address] [place] [address] Phone: tel: fax: Referral ID Status Reason Start Date Expiration Date V isits Requested Visits Authorized [id number] Canceled Continuity of Care 03/21/2024 03/21/2025 6 6 Encounter Details Date Type Department Care Team (Latest Contact Info) Description 03/21/2024 Orders Only [facility] PEDS [address] [place], [place] [phone] Luz Dill MD [address] [place], [place] [phone] Hypercholesterolemia (Primary Dx); Primary hypertension Social History [...] documented as of this encounter Care Teams Meat Carver Relationship Specialty Start Date End Date Luz Dill MD [address] [place] [phone] PCP - General Internal Medicine 05/31/17 documented as of this encounter
--- OUTSIDE RECORDS SUMMARY | 2025-02-05 14:55 | XMS_ITS | Encounter Summary ---
Author Organization [employer] Address 75 [facility] 7t [place] [address] Care Team Providers Care Rectifying Operator Name Role Phone Luz Dill MD Primary Care Provider [phone] Reason for Visit * Reason Onset Date Comments Referral 03/21/2023 Encounter Details Date Type Department Care Team ([facility] st Contact Info) Description 03/21/2023 Telephone [facility] [address] [place] [address] Luz Dill MD [address] [place] [address] Referral Social History Tobacco Use Types Packs/Day [...] PM EST TC placed to Radha at [facility]. Radha explained that these requests were made by a visiting nurse [facility]. She reports that the note reads that the patient tried to contact [facility] and did not get through. TC placed to patient via [employer]. No answer. TC placed to patient without trade specialist line. Clarified that patient did request referrals. Was not able to understand patient's description of current problems in Serbian. Asked the patient to please answer the phone if I called back with trade specialist line. Explained the phone number would be different. Patient agreed. TC placed again to patient via [employer]. Patient answered and stated that she has [...] some time. She declines a visit at [facility] at this time because she is currently in [place] visiting her mother who is in crisis. She states that she will be back in [place] sometime in mid-April 2023, and she has a follow-up appointment with Dr. Dill already scheduled for 05/01/23. Advised patient to be evaluated by a doctor or at the ED in [place] for worsening headache and bump above ear. Patient declined this advice to seek care now. Advised patient to seek evaluation and medical care if any symptoms worsen while in [place] and advised patient that she can call [...] EST Tc from [facility] at [facility] requesting a referral for a orthopedics, a [...] documented as of this encounter Care Teams Rectifying Operator Relationship Specialty Start Date End Date Luz Dill MD [address] [place] [address] PCP - General Internal Medicine 05/31/17 documented as of this encounter
--- OUTSIDE RECORDS SUMMARY | 2025-02-05 14:55 | XMS_ITS | Encounter Summary ---
Author Organization [employer] Address [address] [facility] 7t [place] [address] Care Team Providers Care Pump And Blower Operator Name Role Phone Luz Dill MD Primary Care Provider [phone] Reason for Visit * Reason Comments Med Refill Encounter Details Date Type Department Care Team ([facility] st Contact Info) Description 02/01/2025 Refill [facility] MED & PEDS [address] [place], [place] [phone] Luz Dill MD [address] [place], [place] [phone] Social History Tobacco Use Types Packs/Day Years [...] Assessment Noted Time PHQ-9 Depression Total Score: 7 01/10/20 25 10:07 AM EDT documented as of this encounter Care Teams Pump And Blower Operator Relationship Specialty Start Date End Date Luz Dill MD [address] [place] [phone] PCP - General Internal Medicine 05/31/17 documented as of this encounter
--- OUTSIDE RECORDS SUMMARY | 2025-02-05 14:55 | XMS_ITS | Encounter Summary ---
Author Organization [employer] Address 75 [facility] 7t [place] [address] Care Team Providers Care Stitch Bonding Machine Drawer In Name Role Phone Luz Dill MD Primary Care Provider [phone] Encounter Details Date Type Department Care Team (Late st Contact Info) Description 05/12/2022 Telephone [facility] [address] [place] [address] Luz Dill MD [address] [place], [place] [phone] Social History Tobacco Use Types Packs/Day Years [...] on filedocumented in this encounter Care Teams Stitch Bonding Machine Drawer In Relationship Specialty Start Date End Date Luz Dill MD [address] [place], [place] [phone] PCP - General Internal Medicine 05/31/17 documented as of this encounter
--- OUTSIDE RECORDS SUMMARY | 2025-02-05 14:55 | XMS_ITS | Encounter Summary ---
Author Organization [employer] Address [address] [place] [address] 7 [place] [address] Care Team Providers Care Cutting Machine Fixer Name Role Phone Luz Dill MD Primary Care Provider [phone] Reason for Referral * Imaging (Routine) - Closed Specialty Diagnoses / Procedures Referred By Contlucy t Referred To Contact Radiology Diagnoses Transaminitis Procedures US Abdomen Complete Luz Dill MD [address] [place] [address] Phone: tel: fax: [address] Phone: tel: fax: Referral ID Status Reason Start Date Expiration Date Visits Re quested Visits Authorized [id number] Closed 07/17/2024 07/17/2025 1 1 Encounter Details Date Type Department Care Team (Late st Contact Info) Description 07/12/2024 Orders Only [facility] CHC MED & PEDS [address] [place], [place] [phone] Luz Dill MD [address] [place], [place] [phone] PVD (peripheral vascular disease) (CMS/HCC) (Primary Dx); [...] EDT) Ferritin 251(H) 10 - 250 ng/mL [facility] Blood Venous blood specimen / Unknown 11/28/2024 8:56 AM EDT 11/28/2024 11:28 AM EDT Luz Dill MD LAB BLOOD ORDERABLES Final Result Performing Organization Address [facility] de Phone Number [facility] [address] [place] [phone] * Ceruloplasmin (11/28/2024 8:56 AM EDT) Ceruloplasmin 28 14 - 48 mg/dL [facility] Comment:THIS TEST WAS PERFOR MED AT:[employer] [place] [phone] CORONA MD Blood Venous blood specimen / Unknown 11/28/2024 8:56 AM EDT 11/28/2024 11:28 AM EDT Luz Dill MD LAB BLOOD ORDERABLES Final Result Performing Organization Address [facility] de Phone Number [facility] [address] [place] [phone] * US Abdomen Complete (09/04/2024 9:25 AM EDT) Anatomical Region Laterality Modality Abdomen Ultrasound 09/04/2024 9:25 AM EDT Narrative 09/04/2024 10:16 AM EDT [address] [address] Ultrasound Report Signed Patient: Marlena Henry MR#: [id number] : 1950 Acct:[id number] Age/Sex: 74 / F ADM Date: 09/04/24 Loc: [facility].US Attending Dr: Luz Dill MD Ordering Physician: Luz Dill MD Date of Service: 09/04/24 Procedure(s): US abdomen complete Accession Number(s): [id number] cc: Luz Dill MD EXAMINATION: US ABDOMEN [...] 09/04/24 1014 DD/ 0925 TD/TT: 09/04/24 0934 Entertainment Production Professional: Procedure Note Donotuseinterpreter, Image - 09/04/[address] [address] Ultrasound Report Signed Patient: Elsy Henry#: MM [id number] : 1950Acct:[id number] Age/Sex: 74 / FADM Date: 09/04/24 Loc: [facility].US Attending Dr: Luz Dill MD Ordering Physician: Luz Dill MD Date of Service: 09/04/24 Procedure(s): US abdomen complete Accession Number(s): [id number] cc: Luz Dill MD EXAMINATION: US ABDOMEN [...] 09/04/24 1014 DD/ 0925 TD/TT: 09/04/24 0934 Entertainment Production Professional: Luz Dill MD [facility] US PROCEDURES Final Res ult documented in this encounter Visit Diagnoses Diagnosis PVD (peripheral vascular disease)- Primary Unspecified peripheral vascular disease Transaminitis Nonspecific elevation of levels of transaminase or lactic acid dehydrogenase (LDH) documented in this encounter Additional Health Concerns Assessment Noted Time PHQ-9 Depression Total Score: 0 08/09/19 23 3:03 PM EDT documented as of this encounter Care Teams Cutting Machine Fixer Relationship Specialty Start Date End Date Luz Dill MD [address] [place] [phone] PCP - General Internal Medicine 05/31/17 documented as of this encounter
--- OUTSIDE RECORDS SUMMARY | 2025-02-05 14:55 | XMS_ITS | Encounter Summary ---
Author Organization [employer] Address [address] [facility] 7t [place] [address] Care Team Providers Care Brick Unloader Tender Name Role Phone Luz Dill MD Primary Care Provider [phone] Encounter Details Date Type Department Care Team (Late st Contact Info) Description 05/03/2023 Orders Only [facility] CHC MED & PEDS [address] [place], [place] [phone] Luz Dill MD [address] [place], [place] [phone] Neck pain (Primary Dx) Social History Tobacco [...] documented as of this encounter Care Teams Brick Unloader Tender Relationship Specialty Start Date End Date Luz Dill MD [address] [place] [phone] PCP - General Internal Medicine 05/31/17 documented as of this encounter
--- OUTSIDE RECORDS SUMMARY | 2025-02-05 14:55 | XMS_ITS | Clinical Summary ---
Author Organization [facility] Address [address] [facility] [address] [place] [phone] Phone Care Team Providers Care Car Pusher Name Role Phone Hiram Hassan MD Primary [...] MEDICARE PART A & B Care Teams Car Pusher Relationship Specialty Start Date End Date Hiram Hassan MD [address] [place] [address] [place] [address] PCP - General Internal Medicine 01/05/16 Additional Source Comments The information contained in this document represents components of the legal health record. It is not the complete legal health record.[facility]
== END 2025-02-05 12:14 | disposition home or self-care (01) ==
LOC: HO.US 12:13
PROVIDERS: PCP Internal Medicine; Visit Provider Surgery Vascular Surgery
DX: I73.9 Peripheral vascular disease, unspecified (principal)
CPT/HCPCS: 93922; 93925

== ENCOUNTER → 2025-02-05 12:17 | Outpatient (BNV) | payer MEDICARE, MEDICAID, SELFPAY | PROVIDERS: PCP Internal Medicine; Visit Provider Radiology Diagnostic Radiology | DX: I70.221 Atherosclerosis of native arteries of extremities with rest pain, right leg (principal) | CPT/HCPCS: 93922; 93925 ==

== ENCOUNTER 2025-02-11 13:57 | Outpatient (AMB) | payer MEDICARE, MEDICAID, SELFPAY ==
--- OUTSIDE RECORDS SUMMARY | 2015-12-07 23:00 | XMS_ITS | Encounter Summary ---
Author Organization [facility] Address [address] [place] [address] Phone Care Team Providers Care Database Marketing Specialist Name Role Phone Unavailable Primary Care Provider Unavailabl e Encounter Details Date Type Department Care Team (Late st Contact Info) Description 12/08/2015 Hospital Encounter [facility] [address] [place] [address] Andry Lamb MD, KAILA [address] [facility], Floor 2 [place] [address] [email or web address] Social History Tobacco Use Types Packs/Day Years Used Date Smoking Tobacco: Never Assessed Education Answer Date Recorded Are you interested in more education? Not on jayce e 07/29/2022 Are you concerned about learning? Not on file 07/29/2022 No 07/29/2022 No 07/29/2022 Digital Access Answer Date Recorded No 08/29/2022 No 08/29/2022 No 08/29/2022 Reliable internet access at home? Not on file 08/29/2022 Device with a working camera? Not on file Comments Unknown Sex and Gender Information Value Date Recorded Sex Assigned at Not on file Legal Sex Female 3:29 PM EDT Gender Identity Not on file Sexual Orientation Not on file documented as of this encounter Plan of Treatment Not on file documented as of this encounter Procedures Procedure Name Priority Date/Time Associated Diagnosis Comments FL VASCULAR OUTSIDE (NO INTERPRETATION) Routine 12/08/2015 12:00 AM EDT documented in this encounter Results * [place] Vascular Outside (No Interpretation) (12/08/2015 12:00 AM EDT) Narrative [facility] [place] IMG INTERFACES - 01/06/2016 7:29 AM EDT This study is for PACS storage only and not for interpretation. Procedure Note SYSTEMGENERATED, DOCUMENTATION - 01/06/2016 This study is for PACS storage only and not for interpretation. us Andry Lamb MD, KAILA IMG OUTSIDE IMAGING W/OUT INTERPRETATION Final Result [facility] IMG INTERFACES documented in this encounter Visit Diagnoses Not on filedocumented in this encounter Additional Source Comments The information contained in this document represents components of the legal health record. It is not the complete legal health record.[facility]
[2025-02-11 14:05] VITALS: BP 118/60; PULSE 82; BMI 32.9
--- NOTE | 2025-02-11 14:05 | MHC.OFFVIS ---
Vital Signs 02/11/25 14:05 Height 5 ft 1 in Weight 174 lb 2.643 oz BMI 32.9 BP 118/60 Blood Pressure Location Lt brachial Position Sitting Pulse 82 Pulse Source Pulse Oximeter Intake Visit Reasons: f/up cath Daily Release And Dupe Printer Required: Yes Daily Release And Dupe Printer Name: MORELIA [id number] Allergies No Known Allergies (No Known Allergies*) Allergy (Verified 10/10/24 10:59) Medication List - Last Reconciled 02/11/25 by Rusty Dunn MD acetaminophen ER 650 mg PO TID albuterol sulfate 90 mcg/actuation 2 puffs PO Q4-6H PRN Anoro Ellipta 62.5-25 mcg/actuation (umeclidinium-vilanterol) 1 inh inhalation DAILY NS aspirin 81 mg PO DAILY atorvastatin 80 mg PO BEDTIME famotidine (Pepcid) 40 mg PO BID isosorbide mononitrate ER 30 mg PO DAILY metoprolol succinate ER 50 mg PO DAILY sennosides (senna) 17.2 mg (2 x 8.6 mg) PO BEDTIME HPI Comments Details: Marlena returns for follow-up. She has coronary and vascular disease. Remote history of cardiac catheterization in [place]. In the past, has seen [facility]. Multiple risk factors including history of smoking, hypertension, hyperlipidemia. Atypical chest pains that led to a stress test followed by a diagnostic catheterization. However, no concerning findings and no interventions performed. Since then, she states she feels good. No new concerns. [facility] Medical History On beta mame at home Snores Urinary incontinence Other and unspecified hyperlipidemia Essential hypertension Peripheral vascular disease Atherosclerotic cardiovascular disease Carotid stenosis, asymptomatic PAD (peripheral artery disease) Hypercholesteremia Hypertension Surgical History H/O heart artery stent History of esophagogastroduodenoscopy (EGD) Hx of lithotripsy Hx of colonoscopy Hx of heart artery stent Hx of varicose vein stripping Hx of tubal ligation Hx laparoscopic cholecystectomy Family History Father Emphysema, unspecified Mother Hypertension Brother Liver cancer Daughter Alive and well Social History Alcohol intake: never Patient Tobacco Use Status: Never used Tobacco Review of Systems Const Denies weakness ENT Denies dizziness Card Denies chest pain, Denies chest pain with activity, Denies syncope, Denies rapid heart rate, Denies pedal edema, Denies edema, Denies leg edema, Denies lightheadedness, Denies palpitations, Denies dyspnea, Denies dyspnea on exertion and Denies orthopnea Resp Denies cough, Denies dyspnea and Denies dyspnea on exertion GI Denies hematochezia and Denies change in stool character Musc Denies abnormal gait, Denies muscle cramps, Denies muscle weakness, Denies numbness, Denies radiating pain into limb and Denies tingling Neuro Denies abnormal gait, Denies dizziness, Denies syncope, Denies numbness, Denies tingling and Denies weakness Endo Denies palpitations Physical Exam Vital Signs: Last Vital Signs Pulse 82 02/11/25 14:05 BP 118/60 02/11/25 14:05 BMI result Body Mass Index 32.9 Const General: comfortable and no acute distress Orientation/consciousness: patient oriented x3 HEENT Other: Unremarkable Head: Yes normal to inspection Neck Neck: Yes normal visual inspection Chest Chest palpation & inspection: normal inspection of the chest Resp Auscultation: clear to auscultation bilaterally Cardio Palpation: normal PMI Heart sounds: S1 normal heart sound present, S2 normal heart sound present, no gallops, no murmurs and no rubs GI Palpation (GI): Soft to palpation Back/Spine/Pelvis Other: unremarkable Skin General skin exam: no rashes or lesions noted Neuro General: patient oriented x3 Extrem General: Yes normal to inspection Psych Mental Status: mental status grossly normal Assessment & Plan Assessment & Plan (1) Atherosclerotic cardiovascular disease: Code(s): I25.10 - Atherosclerotic heart disease of upper [place] coronary artery without angina pectoris Category: Medical Plan: Cardiac catheterization from 01/2025-ostial/proximal RCA stent with minimal InStent restenosis. Minimal irregularities in the LAD. Mild circumflex disease. She remains on aspirin, long-acting nitrates and beta-blockers. (2) Essential hypertension: Code(s): I10 - Essential (primary) hypertension Category: Medical Plan: Stable. No changes. (3) Other and unspecified hyperlipidemia: Code(s): E78.5 - Hyperlipidemia, unspecified Category: Medical Plan: Per prior notes, has been on statins/Zetia. Today's list just as statins. We had tried Praluent but there was question of facial rash and hence not continued. Then we had started Repatha, but that is not in her list either. Hence confusing and no further changes made today. Last LDL 123 mg/dL. (4) Peripheral vascular disease: Code(s): I73.9 - Peripheral vascular disease, unspecified Category: Medical Plan: Follow-up with vascular surgery. With regard to right leg swelling, could be related to venous insufficiency. Less likely cardiac. Plan Discussion Notes I discussed with the patient that her coronary artery disease is stable with no new blockages and that the old stent remains patent. We talked about the importance of regular follow-ups to monitor her condition and addressed her symptoms of chest pain, advising her to report any changes. Patient was informed and verbally consented to the use of an ambient scribe for clinic note documentation during this visit. Patient Instructions: - Continue regular follow-ups to monitor cardiovascular health. - Report any increase in chest pain. - Maintain a healthy lifestyle. Coding Level of Care Code Est Pt Level 4 (18036) Complex EM visit Add On G2211 Diagnoses Atherosclerotic cardiovascular disease I25.10 Essential hypertension I10 Other and unspecified hyperlipidemia E78.5 Peripheral vascular disease I73.9
--- OUTSIDE RECORDS SUMMARY | 2025-02-11 15:31 | XMS_ITS | Encounter Summary ---
Author Organization [employer] Address [address] [place] [address] 7 [place] [address] Care Team Providers Care Apiculture Teacher Name Role Phone Luz Dill MD Primary Care Provider [phone] Reason for Referral * Consultation (Routine) - Canceled Specialty Diagnoses / Procedures Referred By Contlucy t Referred To Contact Pharmacy Diagnoses Hypercholesterolemia Primary hypertension Luz Dill MD [address] [place] [address] Phone: tel: fax: Referral ID Status Reason Start Date Expiration Date V isits Requested Visits Authorized [id number] Canceled Continuity of Care 03/21/2024 03/21/2025 6 6 Encounter Details Date Type Department Care Team (Latest Contact Info) Description 03/21/2024 Orders Only [facility] [address] [place], [place] [phone] Luz Dill MD [address] [place], [place] [phone] Hypercholesterolemia (Primary Dx); Primary hypertension Social History [...] documented as of this encounter Care Teams Apiculture Teacher Relationship Specialty Start Date End Date Luz Dill MD [address] [place] [phone] PCP - General Internal Medicine 05/31/17 documented as of this encounter
--- OUTSIDE RECORDS SUMMARY | 2025-02-11 15:31 | XMS_ITS | Encounter Summary ---
Author Organization [employer] Address [address] [place] [address] 7 [place] [address] Care Team Providers Care Death Clearance Coordinator Name Role Phone Luz Dill MD Primary Care Provider [phone] Reason for Referral * Imaging (Routine) - Closed Specialty Diagnoses / Procedures Referred By Contlucy t Referred To Contact Radiology Diagnoses Transaminitis Procedures US Abdomen Complete Luz Dill MD [address] [place] [address] Phone: tel: fax: [address] Phone: tel: fax: Referral ID Status Reason Start Date Expiration Date Visits Re quested Visits Authorized [id number] Closed 07/17/2024 07/17/2025 1 1 Encounter Details Date Type Department Care Team (Late st Contact Info) Description 07/12/2024 Orders Only [facility] PED[facility] [address] [place], [place] [phone] Luz Dill MD [address] [place], [place] [phone] PVD (peripheral vascular disease) (CMS/HCC) (Primary Dx); [...] EDT) Ferritin 251(H) 10 - 250 ng/mL [facility] Blood Venous blood specimen / Unknown 11/28/2024 8:56 AM EDT 11/28/2024 11:28 AM EDT Luz Dill MD LAB BLOOD ORDERABLES Final Result Performing Organization Address [facility] de Phone Number [facility] [address] [place] [phone] * Ceruloplasmin (11/28/2024 8:56 AM EDT) Ceruloplasmin 28 14 - 48 mg/dL [facility] Comment:THIS TEST WAS PERFOR MED AT:[facility] [place] [phone] CORONA MD Blood Venous blood specimen / Unknown 11/28/2024 8:56 AM EDT 11/28/2024 11:28 AM EDT Luz Dill MD LAB BLOOD ORDERABLES Final Result Performing Organization Address [facility] de Phone Number [facility] [address] [place] [phone] * US Abdomen Complete (09/04/2024 9:25 AM EDT) Anatomical Region Laterality Modality Abdomen Ultrasound 09/04/2024 9:25 AM EDT Narrative 09/04/2024 10:16 AM EDT [address] [address] Ultrasound Report Signed Patient: Marlena Henry MR#: [id number] : 1950 Acct:[id number] Age/Sex: 74 / F ADM Date: 09/04/24 Loc: HO.US Attending Dr: Luz Dill MD Ordering Physician: Luz Dill MD Date of Service: 09/04/24 Procedure(s): US abdomen complete Accession Number(s): [id number] cc: Luz Dill MD EXAMINATION: US ABDOMEN [...] 09/04/24 1014 DD/ 0925 TD/TT: 09/04/24 0934 Diamond Setter Apprentice: Procedure Note Donotuseinterpreter, Image - 09/04/[address] [address] Ultrasound Report Signed Patient: Elsy Henry#: [id number] : 1950Acct:[id number] Age/Sex: 74 / FADM Date: 09/04/24 Loc: HO.US Attending Dr: Luz Dill MD Ordering Physician: Luz Dill MD Date of Service: 09/04/24 Procedure(s): US abdomen complete Accession Number(s): [id number] cc: Luz Dill MD EXAMINATION: US ABDOMEN [...] 09/04/24 1014 DD/ 0925 TD/TT: 09/04/24 0934 Diamond Setter Apprentice: Luz Dill MD [facility]ED[place] Final Res ult documented in this encounter Visit Diagnoses Diagnosis PVD (peripheral vascular disease)- Primary Unspecified peripheral vascular disease Transaminitis Nonspecific elevation of levels of transaminase or lactic acid dehydrogenase (LDH) documented in this encounter Additional Health Concerns Assessment Noted Time PHQ-9 Depression Total Score: 0 08/09/19 23 3:03 PM EDT documented as of this encounter Care Teams Death Clearance Coordinator Relationship Specialty Start Date End Date Luz Dill MD [address] [place] [phone] PCP - General Internal Medicine 05/31/17 documented as of this encounter
--- OUTSIDE RECORDS SUMMARY | 2025-02-11 15:31 | XMS_ITS | Encounter Summary ---
Author Organization [employer] Address [address] [facility] [address] [place] [address] Care Team Providers Care Customer Account Technician Name Role Phone Luz Dill MD Primary Care Provider [phone] Encounter Details Date Type Department Care Team (Late st Contact Info) Description 05/12/2022 Telephone [facility] [address] [place] [address] Luz Dill MD [address] [place], [place] [phone] Social History Tobacco Use Types Packs/Day Years [...] on filedocumented in this encounter Care Teams Customer Account Technician Relationship Specialty Start Date End Date Luz Dill MD [address] [place], [place] [phone] PCP - General Internal Medicine 05/31/17 documented as of this encounter
--- OUTSIDE RECORDS SUMMARY | 2025-02-11 15:31 | XMS_ITS | Clinical Summary ---
Author Organization [employer] Address [address] [facility] [facility] [address] [place] [address] Care Team Providers Care Assembly Machine Tool Setter Name Role Phone Luz Dill MD Primary Care Provider [phone] Allergies No known active allergies Medications * [...] pulmonary disease) ([facility]) 08/22/2024 PVD (peripheral vascular disease) 09/13/2023 Hypercholesterolemia 08/08/2022 Hypertensive disorder 08/08/2022 Gastroesophageal reflux disease 06/28/2019 Encounters * This document contains information received from the source organization and may not represent a complete record from that organization. Date Type Department Care Team Description 02/01/2025 Refill [facility] [address] [place] [address] Luz Dill MD 01/22/2025 Orders Only GENERIC EXTERNAL DATA DEPARTMENT Provider, Generic External Data 01/09/2025 9:15 AM EDT Office Visit [facility] [address] [place] [address] Luz Dill MD Primary hypertension (Primary Dx); Hypercholesterolemia; Adjustment reaction with anxiety and depression 01/09/2025 Travel 01/08/2025 Telephone [facility] [address] [place] [address] Luz Dill MD 12/13/2024 Orders Only [facility] External Provider, [facility] 11/26/2024 11:30 AM EDT Office Visit [facility] [address] [place] [address] Luz Dill MD Primary hypertension (Primary Dx); Hypercholesterolemia; Gastroesophageal reflux disease without esophagitis; Neck pain; Dizziness; Dietary counseling; Exercise counseling; Class 1 obesity due to excess calories with serious comorbidity and body mass index (BMI) of 34.0 to 34.9 in adult 11/26/2024 Travel 11/25/2024 Telephone [facility] [address] [place] [address] Luz Dill MD from Last 3 Months [...] Procedure Name Priority Date/Time Associated Diagnosis Comments VASC US LOWER EXTREMITY ARTERIAL DUPLEX BILATERAL WITH CRYSTAL Routine 02/05/2025 1:08 PM EST BASIC METABOLIC PANEL Routine 01/22/2025 9:47 AM [...] Recently Relevant to Health Maintenance Results * VASC US Lower Extremity Arterial Duplex Bilateral With Crystal (02/05/2025 1:08 PM EST) 02/05/2025 1:08 PM EST Narrative [facility] - 02/05/2025 3:25 PM EST [place] [address] Ultrasound Report Signed Patient: Marlena Henry MR#: [id number] : 1950 Acct:[id number] Age/Sex: 74 / F ADM Date: 02/05/25 Loc: HO.US Attending Dr: Jae Heredia MD Ordering Physician: Jae Heredia MD Date of Service: 02/05/25 Procedure(s): US arterial duplex BI w/ CRYSTAL Accession Number(s): [id number] cc: Luz Dill MD; Jae Heredia MD Reason for Exam: I73.9 - Peripheral vascular disease, unspecified EXAMINATION: US NONINVASIVE ASSESSMENT OF THE bilateral LOWER EXTREMITY WITH ARTERIAL DUPLEX AND ANKLE BRACHIAL INDICES (ABIS) CLINICAL INFORMATION: Peripheral vascular disease, unspecified COMPARISON: Previous exams, most recent July 2023 TECHNIQUE: Duplex Doppler techniques with waveform analysis and measurement of velocities in the common femoral, profunda femoris, superficial femoral, popliteal and tibial arteries were performed. In addition, ankle pulse volume recordings, ankle pressure measurements and ankle brachial indices were obtained of the bilateral lower extremity arterial system. The study was performed only at rest. FINDINGS: NONINVASIVE ASSESSMENT OF THE ARTERIES OF BILATERAL LOWER EXTREMITIES WITH ABIs: RIGHT LEG: Ankle-brachial index: 0.58 Ankle PVR: Abnormal with dampened waveform and decreased velocity LEFT LEG: Ankle-brachial index: 1.06 Left ankle PVR: Normal CRYSTAL Reference: 0.9 - 1.4 = normal - no significant arterial disease 0.7 - 0.89 = mild peripheral arterial disease 0.51 - 0.69 = moderate peripheral arterial disease 0.50 = severe peripheral arterial disease RIGHT LOWER EXTREMITY DUPLEX ULTRASOUND: Common femoral artery: Occluded Diastolic flow reversal: Profunda femoris artery: 85 cm/s. Diastolic flow reversal: Triphasic Superficial femoral artery (proximal): Occluded Diastolic flow reversal: Superficial femoral artery (mid): Occluded Diastolic flow reversal: Superficial femoral artery (distal): Occluded Diastolic flow reversal: Popliteal artery: Occluded Diastolic flow reversal: Posterior tibial artery: 44 cm/s Diastolic flow reversal: Monophasic The right dorsalis pedis and anterior tibial arteries are not seen. The right external iliac artery appears patent. Peak systolic velocity measures 85 cm/s with a biphasic waveform. There appears to be a graft arising from the right external iliac artery that is occluded. There is a right femoral to below knee posterior tibial artery bypass graft. Flow proximal to the graft measures 58 cm/s. Flow within the proximal anastomosis measures 54 cm/s. Flow in the graft measures 54, 47 and 86 cm/s. Flow at the distal anastomosis measures 43 cm/s and flow in the outflow artery measures 45 cm/s. There is mono to biphasic flow seen throughout. Left LOWER EXTREMITY DUPLEX ULTRASOUND: Common femoral artery: 1 39 cm/s Diastolic flow reversal: Triphasic Profunda femoris artery: 103 cm/s. Diastolic flow reversal: Biphasic Superficial femoral artery (proximal): 10 1 cm/s Diastolic flow reversal: Triphasic Superficial femoral artery (mid): 92 cm/s Diastolic flow reversal: Biphasic Superficial femoral artery (distal): 93 cm/s Diastolic flow reversal: Biphasic Popliteal artery: 76 cm/s Diastolic flow reversal: Biphasic Posterior tibial artery: 80 cm/s Diastolic flow reversal: Biphasic US/US arterial duplex BI w/ CRYSTAL IMPRESSION: Right: Moderate atherosclerotic disease by CRYSTAL. Right CRYSTAL measures 0.58 decreased from 0.73 on prior exam. Occluded right common femoral and superficial femoral arteries. Patent right femoral to posterior tibial artery bypass graft without peak systolic velocity change and mono to biphasic flow throughout. Single vessel posterior tibial artery runoff with monophasic flow. Flow no longer seen in the dorsalis pedis artery. Left: The left CRYSTAL is normal measuring 1.06. Normal peak systolic velocities with biphasic and triphasic waveforms suggestive of mild atherosclerotic disease.. Electronically signed by: Iza Beckett MD 02/05/2025 03:23 PM EST Dictated By: Iza Beckett MD Signed By: <Electronically signed by Iza Beckett MD in OV> 02/05/25 1523 DD/ 1308 TD/TT: 02/05/25 1404 Public Address System Operator: RAMONE Procedure Note Donotuseinterpreter, Image - 02/05/2025 [place] [address] Ultrasound Report Signed Patient: Elsy Henry#: [id number] : 1950Acct:[id number] Age/Sex: 74 / FADM Date: 02/05/25 Loc: . Attending Dr: Jae Heredia MD Ordering Physician: Jae Heredia MD Date of Service: 02/05/25 Procedure(s): US arterial duplex BI w/ CRYSTAL Accession Number(s): [id number] cc: Luz Dill MD; Jae Heredia MD Reason for Exam: I73.9 - Peripheral vascular disease, unspecified EXAMINATION: US NONINVASIVE ASSESSMENT OF THE bilateral LOWER EXTREMITY WITH ARTERIAL DUPLEX AND ANKLE BRACHIAL INDICES (ABIS) CLINICAL INFORMATION: Peripheral vascular disease, unspecified COMPARISON: Previous exams, most recent July 2023 TECHNIQUE: Duplex Doppler techniques with waveform analysis and measurement of velocities in the common femoral, profunda femoris, superficial femoral, popliteal and tibial arteries were performed. In addition, ankle pulse volume recordings, ankle pressure measurements and ankle brachial indices were obtained of the bilateral lower extremity arterial system. The study was performed only at rest. FINDINGS: NONINVASIVE ASSESSMENT OF THE ARTERIES OF BILATERAL LOWER EXTREMITIES WITH ABIs: RIGHT LEG: Ankle-brachial index: 0.58 Ankle PVR: Abnormal with dampened waveform and decreased velocity LEFT LEG: Ankle-brachial index: 1.06 Left ankle PVR: Normal CRYSTAL Reference: 0.9 - 1.4 = normal - no significant arterial disease 0.7 - 0.89 = mild peripheral arterial disease 0.51 - 0.69 = moderate peripheral arterial disease 0.50 = severe peripheral arterial disease RIGHT LOWER EXTREMITY DUPLEX ULTRASOUND: Common femoral artery: Occluded Diastolic flow reversal: Profunda femoris artery: 85 cm/s. Diastolic flow reversal: Triphasic Superficial femoral artery (proximal): Occluded Diastolic flow reversal: Superficial femoral artery (mid): Occluded Diastolic flow reversal: Superficial femoral artery (distal): Occluded Diastolic flow reversal: Popliteal artery: Occluded Diastolic flow reversal: Posterior tibial artery: 44 cm/s Diastolic flow reversal: Monophasic The right dorsalis pedis and anterior tibial arteries are not seen. The right external iliac artery appears patent. Peak systolic velocity measures 85 cm/s with a biphasic waveform. There appears to be a graft arising from the right external iliac artery that is occluded. There is a right femoral to below knee posterior tibial artery bypass graft. Flow proximal to the graft measures 58 cm/s. Flow within the proximal anastomosis measures 54 cm/s. Flow in the graft measures 54, 47 and 86 cm/s. Flow at the distal anastomosis measures 43 cm/s and flow in the outflow artery measures 45 cm/s. There is mono to biphasic flow seen throughout. Left LOWER EXTREMITY DUPLEX ULTRASOUND: Common femoral artery: 1 39 cm/s Diastolic flow reversal: Triphasic Profunda femoris artery: 103 cm/s. Diastolic flow reversal: Biphasic Superficial femoral artery (proximal): 10 1 cm/s Diastolic flow reversal: Triphasic Superficial femoral artery (mid): 92 cm/s Diastolic flow reversal: Biphasic Superficial femoral artery (distal): 93 cm/s Diastolic flow reversal: Biphasic Popliteal artery: 76 cm/s Diastolic flow reversal: Biphasic Posterior tibial artery: 80 cm/s Diastolic flow reversal: Biphasic US/US arterial duplex BI w/ CRYSTAL IMPRESSION: Right: Moderate atherosclerotic disease by CRYSTAL. Right CRYSTAL measures 0.58 decreased from 0.73 on prior exam. Occluded right common femoral and superficial femoral arteries. Patent right femoral to posterior tibial artery bypass graft without peak systolic velocity change and mono to biphasic flow throughout. Single vessel posterior tibial artery runoff with monophasic flow. Flow no longer seen in the dorsalis pedis artery. Left: The left CRYSTAL is normal measuring 1.06. Normal peak systolic velocities with biphasic and triphasic waveforms suggestive of mild atherosclerotic disease.. Electronically signed by: Iza Beckett MD 02/05/2025 03:23 PM [facility] Dictated By: Iza Beckett MD Signed By: <Electronically signed by Iza Beckett MD in OV> 02/05/25 1523 DD/ 1308 TD/TT: 02/05/25 1404 Public Address System Operator: RAMONE [facility] External Provider CV VASC ULAR PROCEDURES Final Result Performing Organization Address [facility] Co de Phone Number [facility] [address] [place] [phone] * (ABNORMAL) Prothrombin Time-INR (01/22/2025 9:47 AM EDT) Prothrombin Time 13.0(H) 10.9 - 12.4 SEC [facility] INTERNATIONAL NORM RATIO 1.1 0.9 - 1.1 [facility] Comment:INTERNATIONAL NORMAL IZED RATIO (INR) REFERENCE [...] 9:47 AM EDT 01/22/2025 9:47 AM EDT Generic External Data Provider LAB BLOOD ORDERAB LES Final Result Performing Organization Address [facility] Co de Phone Number [facility] [address] [place] [phone] * CBC (01/22/2025 9:47 AM EDT) Pathologist [facility] White Blood Count 8.2 4.8 - 10.8 X10*3/uL [facility] Red Blood Count 4.30 4.20 - 5.50 X10*6/uL [facility] Hemoglobin 12.6 12.0 - 16.0 g/dl [facility] Hematocrit 40.4 37.0 - 47.0 % [facility] Mean Corpuscular Volume 94.0 80.0 - 98.0 fL [facility] Mean Corpuscular Hemoglobin 29.3 27.0 - 33.0 pg [facility] Mean Corpuscular HGB Conc 31.2 31.0 - 35.0 g/dl [facility] Red Cell Distribution Width 13.4 11.0 - 16.0 % [facility] Platelet Count 294 160 - 400 X10*3/uL [facility] Mean Platelet Volume 10.8 9.4 - 12.3 fL [facility] NRBC Pct Auto 0.0 0.0 - 0.2 /100WBC [facility] NRBC Abs Auto 0.000 0.0 - 0.012 X10*3/uL [facility] 01/22/2025 9:47 AM EDT 01/22/2025 9:47 AM EDT us Generic External Data Provider LAB BLOOD ORDERAB LES Final Result [facility] [address] [place] [phone] * (ABNORMAL) Basic Metabolic Panel (01/22/2025 9:47 AM EDT) Pathologist [facility] Sodium 145 135 - 145 mmol/L [facility] Potassium 4.0 3.3 - 5.1 mmol/L [facility] Chloride 110(H) 96 - 108 mmol/L [facility] Carbon Dioxide 26 22 - 29 mmol/L [facility] Anion Gap 13 12 - 20 [facility] Urea Nitrogen (BUN) 14 9 - 16 mg/dL [facility] Creatinine, Serum 0.63 0.5 - 1.4 mg/dL [facility] Estimated Glomerular Filt Rate >60 [facility] Comment:Chronic Kidney Disea se: Estimated GFR < 60 mL/min/1.72v3Vxgrrw Kidney Disease: Estimated GFR < 15 mL/min/1.73m2 Glucose 159(H) 60 - 115 mg/dL [facility] Calcium 9.5 8.4 - 10.2 mg/dL [facility] 01/22/2025 9:47 AM EDT 01/22/2025 9:47 AM EDT us Generic External Data Provider LAB BLOOD ORDERAB LES Final Result Performing Organization Address City/State/[facility] Co de Phone Number [facility] [address] [place] [phone] * Stress test with myocardial perfusion (12/13/2024 10:43 AM EDT) 12/13/2024 10:4 3 AM EDT Narrative [facility] - 12/17/2024 10:31 AM EDT [address] [address] Nuclear Medicine Report Signed Patient: Marlena Henry MR#: [id number] : 1950 Acct:[id number] Age/Sex: 74 / F ADM Date: 12/13/24 Loc: SARAH Attending Dr: Rusty Dunn MD Ordering Physician: Rusty Dunn MD Date of Service: 12/13/24 Procedure(s): NM cardiolite stress test Accession Number(s): [id number] cc: Luz Dill MD; Rusty Dunn MD [...] 12/17/24 1027 DD/ 1043 TD/TT: 12/16/24 1005 Public Address System Operator: Procedure Note Donotuseinterpreter, Image - 12/17/[address] [address] Nuclear Medicine Report Signed Patient: Sera HenryR#: [id number] : 1950Acct:[id number] Age/Sex: 74 / FADM Date: 12/13/24 Loc: HO.CARD Attending Dr: Rusty Dunn MD Ordering Physician: Rusty Dunn MD Date of Service: 12/13/24 Procedure(s): NM cardiolite stress test Accession Number(s): [id number] cc: Luz Dill MD; Rusty Dunn MD [...] from diaphragmatic attenuation artifact. Less likely ischemia. OH/OH cardiolite stress test Impression: 1. Myocardial perfusion [...] 12/17/24 1027 DD/ 1043 TD/TT: 12/16/24 1005 Public Address System Operator: [facility] External Provider CV STRE SS PROCEDURES Edited Result - Final Performing Organization Address [facility] Co de Phone Number [facility] [address] [place] [address] * Ceruloplasmin (11/28/2024 8:56 AM EDT) Ceruloplasmin 28 14 - 48 mg/dL [facility] Comment:THIS TEST WAS PERFOR MED AT:[employer] [place] [phone] CORONA MD Blood Venous blood specimen / Unknown 11/28/2024 8:56 AM EDT 11/28/2024 11:28 AM EDT us Luz Dill MD LAB BLOOD ORDERABLES Final Result Performing Organization Address [facility] de Phone Number [facility] [address] [place] [phone] * (ABNORMAL) Ferritin (11/28/2024 8:56 AM EDT) Ferritin 251(H) 10 - 250 ng/mL [facility] Blood Venous blood specimen / Unknown 11/28/2024 8:56 AM EDT 11/28/2024 11:28 AM EDT Luz Dill MD LAB BLOOD ORDERABLES Final Result Performing Organization Address [facility] Co de Phone Number [facility] [address] [place] [phone] [phone] * (ABNORMAL) Lipid Panel, Standard (11/28/2024 8:56 AM EDT) Triglycerides 109 <150 mg/dL [facility] Comment:Desirable Triglyceri de: less than 150 mg/dLBorderline High Triglyceride 150-199 mg/dLHigh Triglyceride: 200-499 mg/dLVery High Triglyceride: greater than or equal to 5OO mg/dL Cholesterol 186 <200 mg/dL [facility] Comment:Desirable Cholestero l: less than 200 mg/dLBorderline High Cholesterol: 200-239 mg/dLHigh Cholesterol: greater than 239 mg/dL LDL Cholesterol Calculated 123(H) <100 mg/dL [facility] Comment:Desirable LDL: less than 100 mg/dLNear Optimal/Above Optimal LDL: 110- 129 mg/dLBorderline High LDL: 130-159 mg/dLHigh LDL: 160-189 mg/dLVery High LDL: greater than or equal to 190 mg/dL HDL Cholesterol 42 >40 mg/dL [facility] Comment:Desirable HDL: great er than 40 mg/dL Note: This HDL assay may give artificially low results in patients with liver disease. Blood Venous blood specimen / Unknown 11/28/2024 8:56 AM EDT 11/28/2024 11:28 AM EDT us Lzu Dill MD LAB BLOOD ORDERABLES Final Result [facility] [address] [place] [phone] * ECG 12 lead (11/26/2024 3:25 PM EDT) Narrative Luz Dill MD - 11/26/2024 3:25 PM EDT Heart rate 63 bpm. Duarte 63 degrees. Normal sinus rhythm. Intra-atrial conduction delay. Minor high lateral and lateral repolarization disturbance. LV overload or a specific change. No sign of left atrial enlargement or right atrial enlargement. No ST elevation or ST depression. Borderline EKG. us Luz Dill MD ECG ORDERABLES Final Resul t * Hepatitis C Ab (05/02/2023 9:23 AM EST) Hepatitis C Antibody Nonreactive Nonreactive [facility] Comment:Antibodies to HCV no t detected; does not exclude early acuteHCV infection. Blood Venous blood specimen / Unknown 05/02/2023 9:23 AM EST 05/02/2023 11:35 AM EST us Luz Dill MD LAB BLOOD ORDERABLES Final Result [facility] [address] [place] [phone] from Last 3 Months or Most Recently Relevant to Health Maintenance Insurance MEDICARE [facility] Care Teams Assembly Machine Tool Setter Relationship Specialty Start Date End Date Luz Dill MD [address] [place] [phone] PCP - General Internal Medicine 05/31/17
--- OUTSIDE RECORDS SUMMARY | 2025-02-11 15:31 | XMS_ITS | Encounter Summary ---
Author Organization [employer] Address [address] [facility] [address] [place] [address] Care Team Providers Care Warehouse Administrative Assistant Name Role Phone Luz Dill MD Primary Care Provider [phone] Encounter Details Date Type Department Care Team (Late st Contact Info) Description 05/03/2023 Orders Only [facility] [address] [place], [place] [phone] Luz Dill MD [address] [place], [place] [phone] Neck pain (Primary Dx) Social History Tobacco [...] documented as of this encounter Care Teams Warehouse Administrative Assistant Relationship Specialty Start Date End Date Luz Dill MD [address] [place] [phone] PCP - General Internal Medicine 05/31/17 documented as of this encounter
--- OUTSIDE RECORDS SUMMARY | 2025-02-11 15:31 | XMS_ITS | Encounter Summary ---
Author Organization [employer] Address [address] [facility] [address] [place] [address] Care Team Providers Care Bean Roaster Name Role Phone Luz Dill MD Primary Care Provider [phone] Reason for Visit * Reason Onset Date Comments Referral 03/21/2023 Encounter Details Date Type Department Care Team ([facility] st Contact Info) Description 03/21/2023 Telephone [facility] [address] [place] [address] Luz Dill MD [address] [place] [address] Referral Social History Tobacco Use Types Packs/Day [...] TC placed to Radha at [facility]. Radha explained that these requests were made by a visiting nurse [facility]. She reports that the note reads that the patient tried to contact [facility] and did not get through. TC placed to patient via [employer]. No answer. TC placed to patient without healthcare science specialist line. Clarified that patient did request referrals. Was not able to understand patient's description of current problems in Urdu. Asked the patient to please answer the phone if I called back with healthcare science specialist line. Explained the phone number would be different. Patient agreed. TC placed again to patient via [employer]. Patient answered and stated that she has [...] some time. She declines a visit at [facility] at this time because she is currently in [place] visiting her mother who is in crisis. She states that she will be back in [place] sometime in mid-April 2023, and she has a follow-up appointment with Dr. Dill already scheduled for 05/01/23. Advised patient to be evaluated by a doctor or at the ED in [place] for worsening headache and bump above ear. Patient declined this advice to seek care now. Advised patient to seek evaluation and medical care if any symptoms worsen while in [place] and advised patient that she can call [...] - 03/21/2023 3:53 PM EST Tc from [facility] at [facility] requesting a referral for a orthopedics, [...] documented as of this encounter Care Teams Bean Roaster Relationship Specialty Start Date End Date Luz Dill MD [address] [place] [phone] PCP - General Internal Medicine 05/31/17 documented as of this encounter
--- OUTSIDE RECORDS SUMMARY | 2025-02-11 15:31 | XMS_ITS | Clinical Summary ---
Author Organization [facility] Address [address] [facility] [address] [place] [phone] Phone Care Team Providers Care Warehouse Selector Name Role Phone Hiram Hassan MD Primary [...] MEDICARE PART A & B Care Teams Warehouse Selector Relationship Specialty Start Date End Date Hiram Hassan MD [address] [place] [address] [place] [address] PCP - General Internal Medicine 01/05/16 Additional Source Comments The information contained in this document represents components of the legal health record. It is not the complete legal health record.[facility]
== END 2025-02-11 14:28 | disposition home or self-care (01) ==
PROVIDERS: PCP Internal Medicine; Visit Provider Internal Medicine
DX: I25.10 Atherosclerotic heart disease of native coronary artery without angina pectoris (principal); I10 Essential (primary) hypertension; E78.5 Hyperlipidemia, unspecified; I73.9 Peripheral vascular disease, unspecified
CPT/HCPCS: 99214; G2211

== ENCOUNTER → 2025-02-11 13:57 | Outpatient (BNVA) | payer MEDICARE, MEDICAID, SELFPAY | PROVIDERS: PCP Internal Medicine; Visit Provider Internal Medicine | DX: I25.10 Atherosclerotic heart disease of native coronary artery without angina pectoris (principal); I10 Essential (primary) hypertension; E78.5 Hyperlipidemia, unspecified; I73.9 Peripheral vascular disease, unspecified; Z95.5 Presence of coronary angioplasty implant and graft; Z87.891 Personal history of nicotine dependence | CPT/HCPCS: 99212 ==

== ENCOUNTER 2025-02-21 09:42 | Outpatient (AMB) | payer MEDICARE, MEDICAID, SELFPAY ==
--- OUTSIDE RECORDS SUMMARY | 2015-12-07 23:00 | XMS_ITS | Encounter Summary ---
Author Organization [facility] Address [address] [place] [address] Phone Care Team Providers Care Sagger Preparer Name Role Phone Unavailable Primary Care Provider Unavailabl e Encounter Details Date Type Department Care Team (Late st Contact Info) Description 12/08/2015 Hospital Encounter [facility] [address] [place] [address] Andry Lamb MD, KAILA [address] [facility], Floor 2 [place] [address] [email or web address] Social History Tobacco Use Types Packs/Day Years [...] (No Interpretation) (12/08/2015 12:00 AM EDT) Narrative [facility] [place] [place] - 01/06/2016 7:29 AM EDT This study is for PACS storage only and not for interpretation. Procedure Note SYSTEMGENERATED, DOCUMENTATION - 01/06/2016 This study is for PACS storage only and not for interpretation. us Andry Lamb MD, KAILA IMG OUTSIDE IMAGING W/OUT INTERPRETATION Final Result [facility] documented in this encounter Visit Diagnoses Not on filedocumented in this encounter Additional Source Comments The information contained in this document represents components of the legal health record. It is not the complete legal health record.[facility]
[2025-02-21 09:44] VITALS: BP 132/82; PULSE 84; O2SAT 94; BMI 33.6
--- NOTE | 2025-02-21 09:44 | A.OFFVIS_ITS ---
Vital Signs 02/21/25 09:44 Height 5 ft 1 in Weight 178 lb BMI 33.6 BP 132/82 Blood Pressure Location Rt brachial Position Sitting Pulse 84 Pulse Source Pulse Oximeter Pulse Oximetry (%) 94 Oxygen Delivery Method Room Air Intake Visit Reasons: COPD Php Mysql Developer Required: Yes Php Mysql Developer Name: Senait Russ Nadira Information Interpreted: non-clinical & clinical Allergies No Known Allergies (No Known Allergies*) Allergy (Verified 02/21/25 09:49) HPI HPI COPD: Details: 74-year-old lady, former 30+ pack-year smoker, quit 2000, followed for dyspnea on exertion and moderate COPD.? She continues to use Anoro and albuterol MDI with good control of her underlying symptoms.? The patient is complain of acute bronchitic exacerbation symptomatic with cough productive of yellowish sputum over the last 5-7 days. [facility] Medical History On beta mame at home Snores Urinary incontinence Other and unspecified hyperlipidemia Essential hypertension Peripheral vascular disease Atherosclerotic cardiovascular disease Carotid stenosis, asymptomatic PAD (peripheral artery disease) Hypercholesteremia Hypertension Surgical History H/O heart artery stent History of esophagogastroduodenoscopy (EGD) Hx of lithotripsy Hx of colonoscopy Hx of heart artery stent Hx of varicose vein stripping Hx of tubal ligation Hx laparoscopic cholecystectomy Family History Father Emphysema, unspecified Mother Hypertension Brother Liver cancer Daughter Alive and well Social History Alcohol intake: never Patient Tobacco Use Status: Never used Tobacco Review of Systems Const Denies daytime sleepiness, Denies excessive sweating, Denies fatigue, Denies fever(s), Denies lethargy, Denies malaise, Denies night sweats, Denies snoring and Denies weight loss Eyes Denies blurry vision and Denies itchy eyes ENT Denies nasal congestion, Denies post nasal drip, Denies sinus pain, Denies sinus pressure and Denies other ( Thrush) Card Denies chest pain, Denies pedal edema, Denies dyspnea, Denies orthopnea and Denies paroxysmal nocturnal dyspnea Resp Reports cough, Denies hemoptysis, Reports excessive phlegm production, Denies dyspnea, Denies snoring and Denies wheezing GI Denies abdominal pain and Denies heartburn Musc Denies myalgias, Denies arthralgias and Denies joint swelling Skin/Breast Denies rash Neuro Denies memory loss and Denies seizure-like activity Psych Denies abnormal sleep pattern, Denies anxiety and Denies memory loss Endo Denies excessive sweating, Denies fatigue and Denies heat intolerance Anthony/Lymph Denies easy bruising Aller/Immun Denies itchy eyes, Denies seasonal rhinorrhea and Denies wheezing Physical Exam Vital Signs: Last Vital Signs Pulse 84 02/21/25 09:44 BP 132/82 02/21/25 09:44 Pulse Ox 94 02/21/25 09:44 Oxygen Delivery Method Room Air 02/21/25 09:44 BMI result Body Mass Index 33.6 Const General: no acute distress and alert Nutritional Appearance: not obese Orientation/consciousness: Other orientation findings ( oriented) HEENT Head: Yes atraumatic Eyes General: appearance normal, both eyes and all related structures Sclerae: sclerae normal EOM: EOMs intact bilaterally Neck Neck: Yes supple Lymphatic: no lymphadenopathy noted Resp Effort & Inspection: normal respiratory effort and no use of accessory muscles Auscultation: clear to auscultation bilaterally Cardio Rate: regular rate Rhythm: regular rhythm Heart sounds: no gallops, no murmurs and no rubs Skin General skin exam: other ( warm) Extrem General: No clubbing, No cyanosis and No edema Assessment & Plan Assessment & Plan (1) COPD (chronic obstructive pulmonary disease): Code(s): J44.9 - Chronic obstructive pulmonary disease, unspecified Category: Medical Plan: Well controlled on current regimen of Anoro and albuterol MDI. Continue current regimen. Will treat acute exacerbation with a course of Levaquin. Medications: New levofloxacin 500 mg PO DAILY 7 tabs 0RF Coding Level of Care Code Est Pt Level 3 (39388) Diagnoses COPD (chronic obstructive pulmonary disease) J44.9
--- OUTSIDE RECORDS SUMMARY | 2025-02-21 10:22 | XMS_ITS | Clinical Summary ---
Author Organization [facility] Address [address] [facility] [address] [place] [phone] Phone Care Team Providers Care Medical Records Technician Name Role Phone Hiram Hassan MD Primary [...] MEDICARE PART A & B Care Teams Medical Records Technician Relationship Specialty Start Date End Date Hiram Hassan MD [address] [place] [address] [place] [address] PCP - General Internal Medicine 01/05/16 Additional Source Comments The information contained in this document represents components of the legal health record. It is not the complete legal health record.[facility]
--- OUTSIDE RECORDS SUMMARY | 2025-02-21 10:22 | XMS_ITS | Clinical Summary ---
Author Organization [employer] Address [address] [facility] 7t [place] [address] Care Team Providers Care Safety Patrol Officer Name Role Phone Luz Dill MD Primary Care Provider [phone] Allergies No known active allergies Medications * [...] 18 g 3 05/08/19 25 025 Discontinued lidocaine-priloc kita (Emla) 2.5-2.5 % creamIndications :Neck pain Apply topically 1 (one) time for 1 dose. 30 g 1 08/23/19 25 025 Active Problems Problem Noted Date Diagnosed Date Moderate COPD (chronic obstr uctive pulmonary disease) [facility]) 08/22/2024 PVD (peripheral vascular disease) 09/13/2023 Hypercholesterolemia 08/08/2022 Hypertensive disorder 08/08/2022 Gastroesophageal reflux disease 06/28/2019 Encounters * This document contains information received from the source organization and may not represent a complete record from that organization. Date Type Department Care Team Description 02/01/2025 Refill [facility] [address] [place] [address] Luz Dill MD 01/22/2025 Orders Only GENERIC EXTERNAL DATA DEPARTMENT Provider, Generic External Data 01/09/2025 9:15 AM EDT Office Visit [facility] [address] [place] [address] Luz Dill MD Primary hypertension (Primary Dx); Hypercholesterolemia; Adjustment reaction with anxiety and depression 01/09/2025 Travel 01/08/2025 Telephone [facility] [address] [place] [address] Luz Dill MD 12/13/2024 Orders Only [facility] External Provider, [facility] 11/26/2024 11:30 AM EDT Office Visit [facility] [address] [place] [address] Luz Dill MD Primary hypertension (Primary Dx); Hypercholesterolemia; Gastroesophageal reflux disease without esophagitis; Neck pain; Dizziness; Dietary counseling; Exercise counseling; Class 1 obesity due to excess calories with serious comorbidity and body mass index (BMI) of 34.0 to 34.9 in adult 11/26/2024 Travel 11/25/2024 Telephone [facility] [address] [place] [address] Luz Dill MD from Last 3 Months [...] the past 12 months, has t he [employer], gas, oil or water company threatened to [...] 01/09/2026 01/09/2025 Depression Screening 01/09/2026 01/09/2025, 01/10/20 Tobacco Screening 01/09/2026 01/09/2025 Lipid Panel 11/28/2029 11/28/2024, 04/08/2024, 05/02/2023, Additional history exists DTaP/Tdap/Td Vaccines (2 [...] PM EST) 02/05/2025 1:08 PM EST Narrative [facility] - 02/05/2025 3:25 PM EST [place] [address] Ultrasound Report Signed Patient: Marlena Henry MR#: [id number] : 1950 Acct:[id number] Age/Sex: 74 / F ADM Date: 02/05/25 Loc: HO.US Attending Dr: Jae Heredia MD Ordering Physician: Jae Heredia MD Date of Service: 02/05/25 Procedure(s): US arterial duplex BI w/ CRYSTAL Accession Number(s): [id number] cc: Luz Dill MD; Jae Heredia MD [...] by: Iza Beckett MD 02/05/2025 03:23 PM [facility] Dictated By: Iza Beckett MD Signed By: <Electronically signed by Iza Beckett MD in OV> 02/05/25 1523 DD/ 1308 TD/TT: 02/05/25 1404 Market Development Trainer: RAMONE Procedure Note Donotuseinterpreter, Image - 02/05/2025 [place] [address] Ultrasound Report Signed Patient: Elsy Henry#: [id number] : 1950Acct:[id number] Age/Sex: 74 / FADM Date: 02/05/25 Loc: . Attending Dr: Jae Heredia MD Ordering Physician: Jae Heredia MD Date of Service: 02/05/25 Procedure(s): US arterial duplex BI w/ CRYSTAL Accession Number(s): [id number] cc: Luz Dill MD; Jae Heredia MD [...] by: Iza Beckett MD 02/05/2025 03:23 PM [facility] Dictated By: Iza Beckett MD Signed By: <Electronically signed by Iza Beckett MD in OV> 02/05/25 1523 DD/ 1308 TD/TT: 02/05/25 1404 Market Development Trainer: RAMONE [facility] External Provider CV VASC ULAR PROCEDURES Final Result Performing Organization Address City/State/[facility] Co de Phone Number [facility] [address] [place] [phone] * (ABNORMAL) Prothrombin Time-INR (01/22/2025 9:47 AM EDT) Prothrombin Time 13.0(H) 10.9 - 12.4 SEC [facility] INTERNATIONAL NORM RATIO 1.1 0.9 - 1.1 [facility] Comment:INTERNATIONAL NORMAL IZED RATIO [...] Provider LAB BLOOD ORDERAB LES Final Result [facility] [address] [place] [address] [phone] * CBC (01/22/2025 9:47 AM EDT) Pathologist [facility] White Blood Count 8.2 4.8 - 10.8 X10*3/uL [facility] Red Blood Count 4.30 4.20 - 5.50 X10*6/uL [facility] Hemoglobin 12.6 12.0 - 16.0 g/dl [facility] Hematocrit 40.4 37.0 - 47.0 % [facility] Mean Corpuscular Volume 94.0 80.0 - 98.0 fL [facility] Mean Corpuscular Hemoglobin 29.3 27.0 - 33.0 pg [facility] Mean Corpuscular HGB Conc 31.2 31.0 - 35.0 g/dl [facility] Red Cell Distribution Width 13.4 11.0 - 16.0 % [facility] Platelet Count 294 160 - 400 X10*3/uL [facility] Mean Platelet Volume 10.8 9.4 - 12.3 fL [facility] NRBC Pct Auto 0.0 0.0 - 0.2 /100WBC [facility] NRBC Abs Auto 0.000 0.0 - 0.012 X10*3/uL [facility] 01/22/2025 9:47 AM EDT 01/22/2025 9:47 AM EDT us Generic External Data Provider LAB BLOOD ORDERAB LES Final Result [facility] [address] [place] [address] [phone] * (ABNORMAL) Basic Metabolic Panel (01/22/2025 9:47 AM EDT) [facility] Sodium 145 135 - 145 mmol/L [facility] Potassium 4.0 3.3 - 5.1 mmol/L [facility] Chloride 110(H) 96 - 108 mmol/L [facility] Carbon Dioxide 26 22 - 29 mmol/L [facility] Anion Gap 13 12 - 20 [facility] Urea Nitrogen (BUN) 14 9 - 16 mg/dL [facility] Creatinine, Serum 0.63 0.5 - 1.4 mg/dL [facility] Estimated Glomerular Filt Rate >60 [facility] Comment:Chronic Kidney Disea se: Estimated GFR < 60 mL/min/1.12v7Mzaszv Kidney Disease: Estimated GFR < 15 mL/min/1.73m2 Glucose 159(H) 60 - 115 mg/dL [facility] Calcium 9.5 8.4 - 10.2 mg/dL [facility] 01/22/2025 9:47 AM EDT 01/22/2025 9:47 AM EDT us Generic External Data Provider LAB BLOOD ORDERAB LES Final Result Performing Organization Address City/State/[facility] Co de Phone Number [facility] [address] [place] [phone] * Stress test with myocardial perfusion (12/13/2024 10:43 AM EDT) 12/13/2024 10:4 3 AM EDT Narrative [facility] - 12/17/2024 10:31 AM EDT [address] [address] Nuclear Medicine Report Signed Patient: Marlena Henry MR#: [id number] : 1950 Acct:[id number] Age/Sex: 74 / F ADM Date: 12/13/24 Loc: SARAH Attending Dr: Rusty Dunn MD Ordering Physician: Rusty Dunn MD Date of Service: 12/13/24 Procedure(s): NM cardiolite stress test Accession Number(s): [id number] cc: Luz Dill MD; Rusty Dunn MD [...] 12/17/24 1027 DD/ 1043 TD/TT: 12/16/24 1005 Market Development Trainer: Procedure Note Donotuseinterpreter, Image - 12/17/[address] [address] Nuclear Medicine Report Signed Patient: Elsy Henry#: MM [id number] : 1950Acct:[id number] Age/Sex: 74 / FADM Date: 12/13/24 Loc: [facility] Attending Dr: Rusty Dunn MD Ordering Physician: Rusty Dunn MD Date of Service: 12/13/24 Procedure(s): NM cardiolite stress test Accession Number(s): [id number] cc: Luz Dill MD; Rusty Dunn MD [...] 12/17/24 1027 DD/ 1043 TD/TT: 12/16/24 1005 Market Development Trainer: [facility] External Provider CV STRE SS PROCEDURES Edited Result - Final Performing Organization Address [facility]/ZIP Co de Phone Number [facility] [address] [place] [address] * Ceruloplasmin (11/28/2024 8:56 AM EDT) Ceruloplasmin 28 14 - 48 mg/dL [facility] Comment:THIS TEST WAS PERFOR MED AT:[employer] [address] [id number] CORONA MD Blood Venous blood specimen / Unknown 11/28/2024 8:56 AM EDT 11/28/2024 11:28 AM EDT us Luz Dill MD LAB BLOOD ORDERABLES Final Result Performing Organization Address [facility]/ZIP Co de Phone Number [facility] [address] [place] [address] [phone] * (ABNORMAL) Ferritin (11/28/2024 8:56 AM EDT) Ferritin 251(H) 10 - 250 ng/mL [facility] Blood Venous blood specimen / Unknown 11/28/2024 8:56 AM EDT 11/28/2024 11:28 AM EDT Luz Dill MD LAB BLOOD ORDERABLES Final Result Performing Organization Address [facility] Co de Phone Number [facility] [address] [place] [address] [phone] * (ABNORMAL) Lipid Panel, Standard (11/28/2024 8:56 AM EDT) Triglycerides 109 <150 mg/dL [facility] Comment:Desirable Triglyceri de: less than 150 mg/dLBorderline High Triglyceride 150-199 mg/dLHigh Triglyceride: 200-499 mg/dLVery High Triglyceride: greater than or equal to 5OO mg/dL Cholesterol 186 <200 mg/dL [facility] Comment:Desirable Cholestero l: less than 200 mg/dLBorderline High Cholesterol: 200-239 mg/dLHigh Cholesterol: greater than 239 mg/dL LDL Cholesterol Calculated 123(H) <100 mg/dL [facility] Comment:Desirable LDL: less than 100 mg/dLNear Optimal/Above Optimal LDL: 110- 129 mg/dLBorderline High LDL: 130-159 mg/dLHigh LDL: 160-189 mg/dLVery High LDL: greater than or equal to 190 mg/dL HDL Cholesterol 42 >40 mg/dL [facility] Comment:Desirable HDL: great er than 40 mg/dL Note: This HDL assay may give artificially low results in patients with liver disease. Blood Venous blood specimen / Unknown 11/28/2024 8:56 AM EDT 11/28/2024 11:28 AM EDT us Luz Dill MD LAB BLOOD ORDERABLES Final Result Performing Organization Address [facility] Co de Phone Number [facility] [address] [place] [address] [phone] * ECG 12 lead (11/26/2024 3:25 PM EDT) Narrative Luz Dill MD - 11/26/2024 3:25 PM EDT Heart rate 63 bpm. [place] 63 degrees. Normal sinus rhythm. Intra-atrial conduction delay. Minor high lateral and lateral repolarization disturbance. LV overload or a specific change. No sign of left atrial enlargement or right atrial enlargement. No ST elevation or ST depression. Borderline EKG. us Luz Dill MD ECG ORDERABLES Final Resul t * Hepatitis C Ab (05/02/2023 9:23 AM EST) Hepatitis C Antibody Nonreactive Nonreactive [facility] Comment:Antibodies to HCV no t detected; does not exclude early acuteHCV infection. Blood Venous blood specimen / Unknown 05/02/2023 9:23 AM EST 05/02/2023 11:35 AM EST us Luz Dill MD LAB BLOOD ORDERABLES Final Result Performing Organization Address City/State/[facility] Co de Phone Number [facility] [address] [place] [phone] from Last 3 Months or Most Recently Relevant to Health Maintenance Insurance MEDICARE [facility] F[facility] Care Teams Safety Patrol Officer Relationship Specialty Start Date End Date Luz Dill MD [address] [place] [phone] PCP - General Internal Medicine 05/31/17
--- OUTSIDE RECORDS SUMMARY | 2025-02-21 10:22 | XMS_ITS | Encounter Summary ---
Author Organization [employer] Address [address] [place] [address] 7 [place] [address] Care Team Providers Care Correspondence Transcriber Name Role Phone Luz Dill MD Primary Care Provider [phone] Reason for Referral * Consultation (Routine) - Canceled Specialty Diagnoses / Procedures Referred By Contlucy t Referred To Contact Pharmacy Diagnoses Hypercholesterolemia Primary hypertension Luz Dill MD [address] [place] [address] Phone: tel: fax: Referral ID Status Reason Start Date Expiration Date V isits Requested Visits Authorized [id number] Canceled Continuity of Care 03/21/2024 03/21/2025 6 6 Encounter Details Date Type Department Care Team (Latest Contact Info) Description 03/21/[address] [facility] [address] [place], [place] [phone] Luz Dill MD [address] [place], [place] [phone] Hypercholesterolemia (Primary Dx); Primary hypertension Social History [...] documented as of this encounter Care Teams Correspondence Transcriber Relationship Specialty Start Date End Date Luz Dill MD [address] [place] [phone] PCP - General Internal Medicine 05/31/17 documented as of this encounter
--- OUTSIDE RECORDS SUMMARY | 2025-02-21 10:22 | XMS_ITS | Encounter Summary ---
Author Organization [employer] Address [address] [facility] [address] [place] [address] Care Team Providers Care Inspectors And Regulatory Officers Name Role Phone Luz Dill MD Primary Care Provider [phone] Encounter Details Date Type Department Care Team (Late st Contact Info) Description 05/12/2022 Telephone [facility] [address] [place] [address] Luz Dill MD [address] [place], [place] [phone] Social History Tobacco Use Types Packs/Day Years [...] on filedocumented in this encounter Care Teams Inspectors And Regulatory Officers Relationship Specialty Start Date End Date Luz Dill MD [address] [place], [place] [phone] PCP - General Internal Medicine 05/31/17 documented as of this encounter
--- OUTSIDE RECORDS SUMMARY | 2025-02-21 10:22 | XMS_ITS | Encounter Summary ---
Author Organization [employer] Address [address] [place] [address] 7 [place] [address] Care Team Providers Care Personal Banking Representative Name Role Phone Luz Dill MD Primary Care Provider [phone] Reason for Referral * Imaging (Routine) - Closed Specialty Diagnoses / Procedures Referred By Contlucy t Referred To Contact Radiology Diagnoses Transaminitis Procedures US Abdomen Complete Luz Dill MD [address] [place] [address] Phone: tel: fax: [address] Phone: tel: fax: Referral ID Status Reason Start Date Expiration Date Visits Re quested Visits Authorized [id number] Closed 07/17/2024 07/17/2025 1 1 Encounter Details Date Type Department Care Team (Late st Contact Info) Description 07/12/2024 Orders Only [facility] [address] [place], [place] [phone] Luz Dill MD [address] [place], [place] [phone] PVD (peripheral vascular disease) (CMS/HCC) (Primary Dx); [...] EDT) Ferritin 251(H) 10 - 250 ng/mL [facility] Blood Venous blood specimen / Unknown 11/28/2024 8:56 AM EDT 11/28/2024 11:28 AM EDT Luz Dill MD LAB BLOOD ORDERABLES Final Result Performing Organization Address [facility] de Phone Number [facility] [address] [place] [phone] * Ceruloplasmin (11/28/2024 8:56 AM EDT) Ceruloplasmin 28 14 - 48 mg/dL [facility] Comment:THIS TEST WAS PERFOR MED AT:[employer] [place] [id number] CORONA MD Blood Venous blood specimen / Unknown 11/28/2024 8:56 AM EDT 11/28/2024 11:28 AM EDT Luz Dill MD LAB BLOOD ORDERABLES Final Result Performing Organization Address [facility] de Phone Number [facility] [address] [place] [phone] * US Abdomen Complete (09/04/2024 9:25 AM EDT) Anatomical Region Laterality Modality Abdomen Ultrasound 09/04/2024 9:25 AM EDT Narrative 09/04/2024 10:16 AM EDT [address] [address] Ultrasound Report Signed Patient: Marlena Henry MR#: [id number] : 1950 Acct:[id number] Age/Sex: 74 / F ADM Date: 09/04/24 Loc: HO.US Attending Dr: Luz Dill MD Ordering Physician: Luz Dill MD Date of Service: 09/04/24 Procedure(s): US abdomen complete Accession Number(s): [id number] cc: Luz Dill MD EXAMINATION: US ABDOMEN [...] 09/04/24 1014 DD/ 0925 TD/TT: 09/04/24 0934 Sea Shell Gatherer: Procedure Note Donotuseinterpreter, Image - 09/04/[address] [address] Ultrasound Report Signed Patient: Elsy Henry#: MM [id number] : 1950Acct:[id number] Age/Sex: 74 / FADM Date: 09/04/24 Loc: HO.US Attending Dr: Luz Dill MD Ordering Physician: Luz Dill MD Date of Service: 09/04/24 Procedure(s): US abdomen complete Accession Number(s): [id number] cc: Luz Dill MD EXAMINATION: US ABDOMEN [...] 09/04/24 1014 DD/ 0925 TD/TT: 09/04/24 0934 Sea Shell Gatherer: Luz Dill MD [facility] US PROCEDURES Final Res ult documented in this encounter Visit Diagnoses Diagnosis PVD (peripheral vascular disease)- Primary Unspecified peripheral vascular disease Transaminitis Nonspecific elevation of levels of transaminase or lactic acid dehydrogenase (LDH) documented in this encounter Additional Health Concerns Assessment Noted Time PHQ-9 Depression Total Score: 0 08/09/19 23 3:03 PM EDT documented as of this encounter Care Teams Personal Banking Representative Relationship Specialty Start Date End Date Luz Dill MD [address] [place] [phone] PCP - General Internal Medicine 05/31/17 documented as of this encounter
--- OUTSIDE RECORDS SUMMARY | 2025-02-21 10:22 | XMS_ITS | Encounter Summary ---
Author Organization [employer] Address [address] [facility] [address] [place] [address] Care Team Providers Care Correspondence Coordinator Name Role Phone Luz Dill MD Primary Care Provider [phone] Reason for Visit * Reason Onset Date Comments Referral 03/21/2023 Encounter Details Date Type Department Care Team ([facility] st Contact Info) Description 03/21/2023 Telephone [facility] [address] [place] [address] Luz Dill MD [address] [place] [address] Referral Social History Tobacco Use Types Packs/Day [...] TC placed to Radha at [facility]. Radha explained that these requests were made by a visiting nurse [facility]. She reports that the note reads that the patient tried to contact [facility] and did not get through. TC placed to patient via [employer]. No answer. TC placed to patient without makeup sales consultant line. Clarified that patient did request referrals. Was not able to understand patient's description of current problems in Amharic. Asked the patient to please answer the phone if I called back with makeup sales consultant line. Explained the phone number would be different. Patient agreed. TC placed again to patient via [employer]. Patient answered and stated that she has [...] some time. She declines a visit at [facility] at this time because she is currently in [place] visiting her mother who is in crisis. She states that she will be back in [place] sometime in mid-April 2023, and she has a follow-up appointment with Dr. Dill already scheduled for 05/01/23. Advised patient to be evaluated by a doctor or at the ED in [place] for worsening headache and bump above ear. Patient declined this advice to seek care now. Advised patient to seek evaluation and medical care if any symptoms worsen while in [place] and advised patient that she can call [...] - 03/21/2023 3:53 PM EST Tc from [facility] at [facility] requesting a referral for a [...] as of this encounter Care Teams Correspondence Coordinator Relationship Specialty Start Date End Date Luz Dill MD [address] [place] [id number] PCP - General Internal Medicine 05/31/17 documented as of this encounter
--- OUTSIDE RECORDS SUMMARY | 2025-02-21 10:22 | XMS_ITS | Encounter Summary ---
Author Organization [employer] Address [address] [facility] [address] [place] [address] Care Team Providers Care Good Humor Vendor Name Role Phone Luz Dill MD Primary Care Provider [phone] Encounter Details Date Type Department Care Team (Late st Contact Info) Description 05/03/2023 Orders Only [facility] [address] [place], [place] [phone] Luz Dill MD [address] [place], [place] [phone] Neck pain (Primary Dx) Social History Tobacco [...] documented as of this encounter Care Teams Good Humor Vendor Relationship Specialty Start Date End Date Luz Dill MD [address] [place] [id number] PCP - General Internal Medicine 05/31/17 documented as of this encounter
== END 2025-02-21 10:00 | disposition home or self-care (01) ==
PROVIDERS: PCP Internal Medicine; Visit Provider Internal Medicine Pulmonary Disease
DX: J44.9 Chronic obstructive pulmonary disease, unspecified (principal)
CPT/HCPCS: 99213

== ENCOUNTER → 2025-02-21 09:42 | Outpatient (BNVA) | payer MEDICARE, MEDICAID, SELFPAY | PROVIDERS: PCP Internal Medicine; Visit Provider Internal Medicine Pulmonary Disease | DX: J44.1 Chronic obstructive pulmonary disease with (acute) exacerbation (principal); R05.1 Acute cough; R09.3 Abnormal sputum; Z95.5 Presence of coronary angioplasty implant and graft | CPT/HCPCS: 99212 ==

== ENCOUNTER 2025-03-13 09:28 | Outpatient (AMB) | payer MEDICARE, MEDICAID, SELFPAY ==
--- NOTE | 2025-03-13 09:30 | A.OFFVIS_ITS ---
Intake Visit Reasons: 6m follow up Arterial US 02/05/25 Intake Note: Patient presents for follow up arterial US performed on 02/05/25. She states she has pain in her right leg, mostly when she sits down. Accompanied by: Daughter Allergies No Known Allergies (No Known Allergies*) Allergy (Verified 03/13/25 09:31) HPI HPI 6m follow up Arterial US 02/05/25: Details: The patient is a 74 year old female presenting for a follow-up arterial evaluation. She reports experiencing pain in her legs when sitting for prolonged periods. She has some difficulty with ambulation but is able to walk with a walker. She has had no significant interval changes in her walking since her last visit 6 months ago. Her history is significant for two remote leg surgeries on both legs for her arterial disease done at [facility] 2 years prior. She now presents for evaluation regarding peripheral vascular disease with noninvasive arterial testing [facility] Medical History On beta mame at home Snores Urinary incontinence Other and unspecified hyperlipidemia Essential hypertension Peripheral vascular disease Atherosclerotic cardiovascular disease Carotid stenosis, asymptomatic PAD (peripheral artery disease) Hypercholesteremia Hypertension Surgical History H/O heart artery stent History of esophagogastroduodenoscopy (EGD) Hx of lithotripsy Hx of colonoscopy Hx of heart artery stent Hx of varicose vein stripping Hx of tubal ligation Hx laparoscopic cholecystectomy Family History Father Emphysema, unspecified Mother Hypertension Brother Liver cancer Daughter Alive and well Social History Alcohol intake: never Patient Tobacco Use Status: Never used Tobacco Review of Systems Const All systems reviewed & are unremarkable except as noted in HPI and below Reports no additional complaints ENT Reports Normal hearing present Card Denies chest pain, Denies chest pain at rest, Denies chest pain with activity and Denies pedal edema Resp Denies cough GI Denies abdominal pain Musc Denies abnormal gait, Denies muscle cramps and Denies radiating pain into limb Skin/Breast Denies skin ulcer and Denies wounds Neuro Reports Normal hearing present and Denies abnormal gait Psych Reports no additional complaints Physical Exam Const General: cooperative, healthy appearing and comfortable Orientation/consciousness: oriented to person, oriented to place and oriented to time HEENT Head: Yes normal to inspection Neck Neck: Yes normal visual inspection Carotids: no bruits Chest Chest palpation & inspection: normal inspection of the chest Resp Effort & Inspection: normal respiratory effort and able to speak in complete se ntences Auscultation: clear to auscultation bilaterally, no crackles, no rales, no rhonchi and no wheezes Cardio Other: Bilateral DP signals Rate: regular rate Rhythm: regular rhythm Heart sounds: S1 normal heart sound present and S2 normal heart sound present Bruits: no carotid bruits GI Inspection: Yes normal to inspection Skin Wounds: no wounds Hair: normal Neuro General: oriented to person, oriented to place and oriented to time Cranial nerves: Yes CN's II-XII intact bilaterally and Yes Normal hearing present Cognition (Neuro): normal cognition Motor exam (neuro): 5/5 motor strength present throughout Extrem Other: venous exam: No significant superficial varicosities or spider telangiecta venkata, minimal edema General: No clubbing, No cyanosis and No edema Psych Appearance: grossly normal Mental Status: mental status grossly normal Speech and movement: Normal speech and movement present Results Reviewed Results Reviewed: Noninvasive arterial testing dated 02/05/2025 demonstrates TYLER on the right of 0.58 with dampened waveforms and TYLER on the left of 1.06. Written report and images were reviewed. Assessment & Plan Assessment & Plan (1) PAD (peripheral artery disease): Comment: 03/31/2021- diagnostic angiogram 2 prior bypasses of the right lower extremity performed at [facility] several years prior Code(s): I73.9 - Peripheral vascular disease, unspecified Category: Medical Plan: I discussed with the patient that her recent ultrasound shows the arterial disease in her right leg is getting slightly worse. Given that she has had two previous surgeries on that leg and her symptoms are currently not severe, I recommended we continue with conservative management. I advised her to continue walking to maintain circulation. We will monitor her condition with another ultrasound in one year, with a follow-up visit at that time. I also addressed her question about air travel and confirmed it is safe, recommending she wear compression socks during flights. Thank you for allowing me to participate in her care. Orders: Orders US arterial duplex LE 1 Year I73.9 - Peripheral vascular disease, unspecified Coding Level of Care Code Est Pt Level 4 (52778) Add On Problem Visit Only Diagnoses PAD (peripheral artery disease) I73.9
== END 2025-03-13 09:48 | disposition home or self-care (01) ==
LOC: HO.HVS 09:29
PROVIDERS: PCP Internal Medicine; Visit Provider Surgery Vascular Surgery
DX: I73.9 Peripheral vascular disease, unspecified (principal)
CPT/HCPCS: 99214; G2211

== ENCOUNTER → 2025-03-13 09:28 | Outpatient (BNVA) | payer MEDICARE, MEDICAID, SELFPAY | PROVIDERS: PCP Internal Medicine; Visit Provider Surgery Vascular Surgery | DX: Z71.2 Person consulting for explanation of examination or test findings (principal); I73.9 Peripheral vascular disease, unspecified | CPT/HCPCS: 99212 ==